=== PATIENT | female | born 1960 | race Caucasian/White ===

== ENCOUNTER → 2018-01-21 12:52 | Outpatient (CLI) | payer OTHER, SELFPAY ==
--- NOTE | 2018-01-21 12:54 | HPBI_ITS ---
MAMMOGRAPHY - BILATERAL SCREENING REASON FOR EXAM: Female, 57 years old. Routine annual screening examination. PERTINENT HISTORY: Mother with breast cancer. Aunt with breast cancer. TECHNIQUE: Digital bilateral breast giovany (3D mammographic acquisition) in the CC and MLO projections. 2-D mediolateral oblique (MLO) and craniocaudad (CC) views of both breasts were obtained. CAD: Full Field Digital Mammography with Computer Added Detection was performed. COMPARISON: Comparison is made with prior study dated December 04, 2016 and November 07, 2015. FINDINGS: Breast Composition: The breasts are heterogeneously dense, which may obscure small masses. There are no dominant masses or suspicious calcifications. No other significant abnormalities are identified. There has been no significant change since the prior study. HPBI/SCREENING MAMM (CAD), BILAT IMPRESSION: Stable bilateral screening mammogram. Yearly follow-up mammogram recommended. (A) ASSESSMENT CATEGORY: BIRADS Category 1: Negative. A letter regarding these results will be sent to the patient by the facility within 30 days. Approximately 10% of breast cancers are not detected by mammography. A normal mammogram should not delay biopsy of a clinically suspicious abnormality. [id number] Electronically Signed: Trey Patricia MD at 15:32 EDT Tel [phone], Service support ,
[2018-01-28 11:59] LABS: HPV Reflexed? NOT INDICATED
== END ==
LOC: BI 12:53 → LABSPEC 13:30
PROVIDERS: Visit Provider Obstetrics & Gynecology
DX: Z12.31 Encounter for screening mammogram for malignant neoplasm of breast (principal); Z12.4 Encounter for screening for malignant neoplasm of cervix
CPT/HCPCS: 77063; 77067; 88175; G0145

== ENCOUNTER → 2018-02-03 16:12 | Outpatient (CLI) | payer SELFPAY ==
--- NOTE | 2018-02-03 16:14 | MRI_ITS ---
STUDY: MRI LUMBAR SPINE WITHOUT CONTRAST REASON FOR EXAM: Female, 57 years old. Low back pain and right hip pain. TECHNIQUE: Standardized fat and water weighted pulse sequences were obtained in the sagittal and axial planes. COMPARISON: X-ray L-spine 01/12/2018. FINDINGS: T12-L1: Normal endplates. Normal disc height, hydration and morphology. Normal bilateral facet joints. Normal central canal and bilateral lateral recesses. Normal bilateral intervertebral neural foramina. Normal lumbar lordosis. There is no substantial scoliosis. Normal conus medullaris that terminates at the T12 level. L1-2: Normal endplates. Normal disc height, hydration and morphology. Normal bilateral facet joints. Normal central canal and bilateral lateral recesses. Normal bilateral intervertebral neural foramina. L2-3: Minimal spondylosis.. Normal disc height, hydration and morphology. Normal bilateral facet joints. Normal central canal and bilateral lateral recesses. Normal bilateral intervertebral neural foramina. L3-4: Mild spondylosis.. Normal disc height, hydration and morphology. Mild degenerative changes bilateral facet joints. Normal central canal and bilateral lateral recesses. Normal bilateral intervertebral neural foramina. L4-5: Normal endplates. Normal disc height, hydration and morphology. Mild degenerative changes bilateral facet joints. Normal central canal and bilateral lateral recesses. Normal bilateral intervertebral neural foramina. L5-S1: Normal endplates. Normal disc height, hydration and morphology. Mild degenerative changes bilateral facet joints. Normal central canal and bilateral lateral recesses. Normal bilateral intervertebral neural foramina. Normal visualized sacral ala. Normal visualized paraspinous soft tissue structures. MRI/Spine Lumbar (Routine) IMPRESSION: Mild multilevel degenerative changes. No neurologically significant abnormalities are demonstrated. Electronically Signed: Tio Nassar MD at 2:37 EDT , Service support ,
--- NOTE | 2018-02-03 16:14 | MRI_ITS ---
STUDY: MRI RIGHT HIP REASON FOR EXAM: Right hip and low back pain. TECHNIQUE: Standardized fat and water weighted pulse sequences were obtained in all 3 orthogonal planes. COMPARISON: None. FINDINGS: Normal hip joint without articular joint space narrowing. Normal acetabulum. There is a small tear of the right anterosuperior labrum (proton-density sagittal images 15, 16). Normal femoral head. Normal femoral neck and intratrochanteric region. Normal gluteus minimus, medius and iliopsoas tendons and distal insertions. There is mild bilateral greater trochanteric bursitis (inversion recovery axial images 24, 25). Normal superior and inferior pubic rami. Normal pubic symphysis. Normal ischial tuberosity. Normal origin of the hamstring tendons. Normal visualized iliac wing, sacroiliac joint, and sacral ala. There is mild asymmetry of the piriformis, larger on the right (T1 coronal images 7-10; inversion recovery axial images 15, 16). There is no intramuscular edema. MRI/Lower Ext Joint Only (Routine) IMPRESSION: Small tear of the right anterosuperior labrum. Mild bilateral greater trochanteric bursitis. Mild hypertrophy of the right piriformis muscle. Electronically Signed: Henrik Moore MD at 10:28 EDT Tel , Service support ,
== END ==
PROVIDERS: Family Provider Internal Medicine; PCP Internal Medicine; Visit Provider Chiropractor
DX: G57.01 Lesion of sciatic nerve, right lower limb (principal); M99.03 Segmental and somatic dysfunction of lumbar region
CPT/HCPCS: 72148; 73721

== ENCOUNTER → 2018-02-24 10:12 | Outpatient (CLI) | payer OTHER, SELFPAY ==
--- NOTE | 2018-02-24 10:13 | RAD_ITS ---
STUDY: X-RAY - PELVIS AND RIGHT HIP REASON FOR EXAM: Right hip pain. TECHNIQUE: Radiological exam, hip, unilateral, with pelvis when performed; 2 or 3 views. COMPARISON: None. FINDINGS: Normal visualized soft tissue structures. Normal bilateral iliac wings, sacroiliac joints and visualized sacrum. Normal bilateral superior and inferior pubic rami. Normal pubic symphysis. Normal bilateral ischial tuberosities. Normal visualized femoral head. Normal acetabulum. Normal hip joint. RAD/Hip 2-3 Views with Pelvis IMPRESSION: Normal x-ray examination of the pelvis and right hip. Electronically Signed: Henrik Moore MD at 10:47 EDT Tel , Service support ,
== END ==
PROVIDERS: Family Provider Internal Medicine; PCP Internal Medicine; Visit Provider Orthopaedic Surgery
DX: M25.551 Pain in right hip (principal)
CPT/HCPCS: 73502

== ENCOUNTER 2018-03-31 09:30 | Outpatient (RCR) | payer OTHER, SELFPAY ==
--- NOTE | 2018-02-25 13:30 | HP.PTEVAL ---
Patient's Visit Information ARASH SINGH is a 58 year old F referred to Physical Therapy by Sunshine Jordan DO with a diagnosis of RIGHT GREATER TROCH BURSITIS, PIRIFORMIS SYNDROME. Date of Evaluation: 02/25/18 Physical Therapist: Angelica Barron Visit Plan Frequency: 2-3x /Week Duration: 4-6 Weeks Plan: US TO LOW BACK AND RIGHT GREATER TROCH REGIONS, FOAM ROLLER, POSTURE CORRECTION/STRENGTHENING, INSTRUCTION IN APPROPRIATE BODY MECHANICS AND ACTIVITY MODIFICATIONS. DLS STARTING WITH A NEUTRAL SPINE PROGRESSING ROM TOLERATED. TOBI LE ROM, STRETCHING AND STRENGTHENING. HEP INSTRUCTION. - Subjective Subjective: Diagnosis: Work/Leisure: [employer] WORKING ABOUT 16 HOURS A WEEK. CAN INVOLVE SOME LIFTING. Disability: NO. Present symptoms: RIGHT GREATER TROCH REGION AND RIGHT BUTTOCK. RIGHT LOW BACK PAIN. Present since: ABOUT 18 MONTHS AGO. Pain Scale: WORST 8/10, LEAST 1/10. Currently: /10. UNCHANGING. Commenced as a result of: STEPPING DOWN OFF OF A STEP LATER AND FELT A PULL DOWN THE SIDE OF HER HIP. Symptoms at onset: RIGHT LATERAL HIP. Worse: *SITTING, SUPINE AND RIGHT SDLY - LYING DOWN, STEPS, SOMETIMES WALING, WORKING OUT - EVEN SWIMMING. Better: IBUPROFEN, LEFT SDLY. Disturbed sleep: YES. Previous history/Previous treatment: I'VE ALWAYS GONE TO CHIROPRACTORS ON A REGULAR BASIS BECAUSE I FELT LIKE MY BACK WAS OUT AND I NEEDED AN ADJUSTMENT. NO HIP PROBLEMS PRIOR TO 18 MONTHS AGO. NO BACK SURGERY. NO BACK INJECTIONS. NO BACK PT. Coughing/sneezing/straining: NEGATIVE. Gait: DIFFICULT TO INITIATE GAIT AFTER SITTING AND WOBBLE AT FIRST TRYING TO WALK. ONCE GAIT SMOOTHS OUT IT IS NORMAL. Difficulty initiating urinatin: NO. Accidents: NO. Unexplained weight loss: NO. Imaging: RECENT LOW BACK X-RAYS - NORMAL, RIGHT HIP X-RAY - NORMAL. RIGHT HIP MRI SHOWING GREATER TROCH BURSITIS AND SMALL TEAR IN LABRUM AND HYPERTROPHY OF THE PIRIFORMIS ON RIGHT. MRI OF LUMBAR SPINE SHOWING MILD FACET CHANGES L5S1. SEE [facility] EMR FOR FURTHER DETAILS. PMH: NO EXCEPT RIGHT ELBOW TENDONITIS. Recent major surgery: NO. OTHER: NO SURGERY RECOMMENDED. - Objective Sitting Posture: POOR. Standing Posture: FAIR. Lordosis: MILDLY REDUCED. Lateral shift: NO. Relevant shift: N/A. Other Observations: INDEP GAIT WITHOUT AD OR GROSS DEVIATIONS NOTED. INDEP TRANSFERS WITHOUT UE ASSIST. Motor deficit: TOBI LE STRENGTH 5/5 WITH MMT'ING EXCEPT LEFT HIP 4/5 AND RIGHT HIP 4-/5. Sensory deficit: TOBI LE LIGHT TOUCH SENSATION IS INTACT AND SYMMETRICAL. ROM deficit: TOBI LE ROM WFL EXCEPT RIGHT HIP EXTERNAL ROTATION IS APPROXIMATELY 25% LIMITED. Reflexes: TOBI LE DTR'S 1/3. Dural Signs: NEGATIVE. Lumbar mvmt loss: flex - MIN. ext - MOD. R SG - MOD. L SG - MIN. Core strength: POOR. Palpation: RIGHT GREATER TROCH REGION AND L45S1 REGIONS. SHE IS MILDLY TENDER IIN THE RIGHT PIRIFORMIS REGION. OTHER: POSITIVE RIGHT RONNELL TEST. - Goals Goal 1:: DECREASE C/O RIGHT LOW BACK/HIP REGION PAIN Goal Time Frame: 4-6 Weeks Goal 2:: IMPROVE SITTING, LYING, SLEEP, STEP, GAIT INITIATION AND RECREATIONAL/INDEP EXERCISE FUNCTION Goal Time Frame: 4-6 Weeks Goal 3:: INSTRUCT IN PROPHYLAXIS. Goal Time Frame: 4-6 Weeks - Rehabilitation Potential Rehabilitation Potential: Fair - Anticipated Interventions Patient/Client Instruction: Educate patient on: Condition, Plan of Care, Risk Factors, Benefits of Fitness Program For the Purpose of:: To improve self management Therapeutic Exercise to Include: Strength training, Body mechanics, Postural training, Dynamic Lumbar Stabilization For the Purpose of:: To decrease pain, To improve muscle performance and motor function, To increase tolerance to activity/condition/position, To improve ability of physical actions for home/community/work/leisure, To improve gait and locomotor functions Thank you for the opportunity to evaluate your patient. For Medicare and Medicare HMO plans, please review the plan of care and approve it. It will need to be FAXED BACK to us at [phone] for Medicare purposes. Please let me know if there are questions or concerns regarding this plan of care. Physician Signature: Date:
--- NOTE | 2018-03-31 12:43 | HP.PTDCSUM_ITS ---
HP - PT D/C Summary It has been my pleasure to treat ARASH SINGH under orders from Sunsihne Jordan DO, for the diagnosis of RIGHT GREATER TROCH BURSITIS, PIRIFORMIS SYNDROME for a total of 13 visit(s). Discharge Date: Please see the following information for a summary of their discharge status. - Subjective Subjective: PATIENT REPORTS SHE HAS LEARNED MORE EX'S AND FOAM ROLLER AND FEELS BETTER AFTER PT EX SESSIONS BUT SHE IS NOT CONTINUING TO IMPROVE OVER-ALL. PATIENT REPORTS SHE HAS TRIED TO START ADDING IN MORE NORMAL ROUTINE THINGS BUT IT AGGREVATES HER CONDITIONS. PATIENT REPORTS SHE HAS CONTINUED REP EIL AND SHE THINKS IT HELPS. SHE THINKS THAT DOING SOME PLANTING, PULLING SOME WEEDS, HELPING MOVE GRILL AND THINGS LIKE THAT OVER THE WEEKEND AGGREVATED HER BACK. - Pain LOW BACK Pain Intensity (Out of 10): 4 RIGHT LATERAL HIP Pain Intensity (Out of 10): 1 - Overall Improvement % Improvement: 25 - Objective Objective/Function: PATIENT IS NOT CONTINUING TO IMPROVE. UPON EXAM, THERE ARE NO SIGNIFICANT CHANGES SINCE INITIAL EVAL. SHE IS INDEP WITH A HEP AND THIS THERAPIST RECOMMENDS PHYSICIAN FOLLOW UP AND CONTINUED HEP TOLERATED. NO SIGNIFICANT CHANGE IN THE LOWER EXTREMITY FUNCTIONAL SCALE WITH ONE MONTH OF PT. - Goals Goal 1:: DECREASE C/O RIGHT LOW BACK/HIP REGION PAIN Goal 2:: IMPROVE SITTING, LYING, SLEEP, STEP, GAIT INITIATION AND RECREATIONAL/ INDEP EXERCISE FUNCTION Goal 3:: INSTRUCT IN PROPHYLAXIS. - Plan Plan: D/C DUE TO LACK OF PROGRESS. PATIENT AGREEABLE TO PHYSICIAN FOLLOW UP AND HAS APPOINTMENT PENDING 04/07/18. - D/C Information If there are questions or concerns regarding this patient's physical therapy, please feel free to call me at [phone]. Thank you for the referral of this patient. Sincerely, Angelica Robertson
== END 2018-03-31 14:12 | disposition home or self-care (01) ==
LOC: PT 09:30
PROVIDERS: Family Provider Internal Medicine; PCP Internal Medicine; Visit Provider Orthopaedic Surgery
DX: M70.61 Trochanteric bursitis, right hip (principal); G57.00 Lesion of sciatic nerve, unspecified lower limb
CPT/HCPCS: 97035; 97110; 97161; 97530

== ENCOUNTER 2018-08-18 13:00 | Outpatient (RCR) | payer OTHER, SELFPAY | END 2018-08-18 19:00 | disposition home or self-care (01) | LOC: PT 13:00 | PROVIDERS: Family Provider Internal Medicine; PCP Internal Medicine | DX: R69 Illness, unspecified (principal) ==

== ENCOUNTER → 2018-10-08 06:02 | Outpatient (CLI) | payer OTHER, SELFPAY ==
[2018-07-28 13:20] VITALS: BMI 29.0
[2018-10-08 06:13] LABS: Mucous, Urine 0 SEEN /hpf (<or=2+); Red Blood Cells-Urine 0 SEEN /hpf (0-5)
[2018-10-08 07:15] LABS: Absolute Lymphocyte Count 2.49 X10^3/ul (0.83-4.51); Basophil# 0.04 X10^3/uL; Basophil% 0.6 % (0-1); Eosinophil# 0.13 X10^3/uL; Eosinophils% 2.1 % (0-5); Hemoglobin 13.7 g/dl (12.0-15.0); Lymphocyte # 2.49 X10^3/ul (4.0); Lymphocyte % 40.3 % (19-41); Mean Corp Hgb Conc 32.6 g/gl (32-36); Mean Corpuscular Hgb 32.5 pg (27.0-32.0); Mean Corpuscular Volume 99.5 fL (81-99); Mean Platelet Vol. 10.9 fl (6.2-12.0); Monocyte# 0.52 X10^3/uL; Monocyte% 8.4 % (0-10); Neutrophil # 2.99 X10^3/uL (2.7-7.7); Neutrophil % 48.4 % (47-70); Platelet Count 349 K/mm3 (150-450); Red Blood Count 4.22 M/mm3 (4.2-5.4); White Blood Count 6.2 K/mm3 (4.4-11.0)
[2018-10-08 07:17] LABS: POSITIVE COUNT NO; POSITIVE DIFFERENTIAL NO; POSITIVE MORPHOLOGY NO
[2018-10-08 07:49] LABS: Color, Urine Yellow (Yellow); Glucose, Dipstick Normal (Normal); Ketone-Dipstick Negative (Negative); Leukocyte Esterase-Dipstick 100 /ul (Negative); Nitrite-Dipstick Negative (Negative); Occult Blood-Urine Negative /ul (Negative); Protein-Dipstick 15 mg/dl (Negative); Urine Bilirubin Dipstick Negative (Negative); Urine Clarity Cloudy (Clear); Urine Urobilinogen Normal (Normal)
[2018-10-08 08:00] LABS: Bacteria 2+ /hpf (None Seen); Squamous Epithelial Cells - UA 5-10 SEEN /hpf (5-10); White Blood Cells 5-10 SEEN /hpf (0-5)
[2018-10-08 08:01] LABS: Yeast-Urine RARE /hpf (None Seen)
[2018-10-08 08:15] LABS: ALB/GLOB Ratio 0.9 RATIO (0.9-2.4); AST(SGOT) 16 U/L (15-37); Alanine Aminotransfer ALT/SGPT 21 U/L (13-56); Albumin, Serum 3.7 g/dL (3.2-5.0); Alkaline Phosphatase 58 U/L (45-117); Anion Gap 5 (5-15); BUN 19 mg/dL (7-18); BUN/Creat Ratio 19.1 RATIO (10-20); Calcium,Total 8.2 mg/dL (8.5-10.1); Chloride 106 mmol/L (98-107); Cholesterol 204 mg/dL (200); EST Glomerular Filtration Rate 61 mL/min (>60); Est Glom Filt Rate - Afr Amer 74 mL/min (>60); Globulin 3.9 g/dL (2.2-4.2); Glucose 95 mg/dL (74-106); High Density Lipoprotein 47 mg/dL; Potassium 3.9 mmol/L (3.5-5.1); Protein, Total 7.6 g/dL (6.4-8.2); Sodium Level 140 mmol/L (136-145); Thyroid Stim Hormone (TSH) 2.43 uIU/mL (0.358-3.74); Triglycerides 92 mg/dL; Very Low Density Lipoprotein 18 mg/dL (5-40)
[2018-10-08 08:59] LABS: Vitamin B12 675 pg/mL (211-911); Vitamin D,25 Hydroxy 32.4 ng/mL (29.95-100.01)
== END ==
PROVIDERS: Family Provider Internal Medicine; PCP Internal Medicine; Referring Provider Nurse Practitioner; Visit Provider Nurse Practitioner
DX: E78.5 Hyperlipidemia, unspecified (principal); E04.9 Nontoxic goiter, unspecified; E55.9 Vitamin D deficiency, unspecified
CPT/HCPCS: 36415; 80053; 80061; 81001; 82306; 82607; 82746; 84443; 85025

== ENCOUNTER → 2018-10-13 12:13 | Outpatient (CLI) | payer OTHER, SELFPAY ==
--- NOTE | 2018-10-13 12:17 | US_ITS ---
STUDY: THYROID ULTRASOUND REASON FOR EXAM: Female, 58 years old. Nodule. TECHNIQUE: Ultrasound evaluation of the thyroid was performed with real-time and static pruitt-scale imaging. COMPARISON: 04/17/2015 and 12/29/2013. FINDINGS: RIGHT LOBE: The right lobe of the thyroid gland measures 4.9 x 1.5 x 1.2 cm. There is a homogeneous echotexture. Lower pole solid nodule measuring 0.3 x 0.3 x 0.3 cm. LEFT LOBE: The left lobe of the thyroid gland measures 4.3 x 1.3 x 1.0 cm. There is a homogeneous echotexture. Lower pole solid nodule measuring 0.6 x 0.5 x 0.3 cm ISTHMUS: The isthmus measures 2 mm. Isthmic nodule right parasagittal measuring 0.5 x 0.5 x 0.3 cm. . The regional lymph nodes are normal. US/Thyroid IMPRESSION: Mild enlargement right lobe of the thyroid gland unchanged. No significant change in solid subcentimeter thyroid nodules. Electronically Signed: Samy Ferreira MD at 3:34 EST , Service support ,
--- NOTE | 2018-10-13 13:20 | BD_ITS ---
STUDY: DUAL ENERGY X-RAY ABSORPTIOMETRY / DXA REASON FOR EXAM: Female, 58 years old. The patient is postmenopausal. TECHNIQUE: Bone Mineral Density (BMD) measurements of lumbar spine and bilateral hips were obtained. COMPARISON: None. FINDINGS: Lumbar Spine (L1-L4): g/cm2 (0.990) / T-score (-1.6) / Z-score (-0.6) Findings are suggestive of osteopenia with a moderate fracture risk. Left Femur Total: g/cm2 (0.956) / T-score (-0.4) / Z-score (0.4) Left Femoral Neck: g/cm2 (0.934) / T-score (-0.7) / Z-score (0.4) Right Femur Total: g/cm2 (0.990) / T-score (-0.1) / Z-score (0.6) Right Femoral Neck: g/cm2 (0.972) / T-score (-0.5) / Z-score (0.7) BD/Dexa Bone Density Study IMPRESSION: The patient is considered osteopenic as outlined below according to World Jay Organization (WHO) criteria with a moderate fracture risk. Reference Information: The T-score is the number of standard deviations above or below the standard which is normal for young adults at their peak bone mineral density. The World Health Organization (WHO) interprets the T-scores as follows: Above -1 Normal bone density Between -1 and -2.5 Osteopenia Equal to / or below -2.5 Osteoporosis As a practical clinical guideline, osteopenia may be graded as follows: Mild -1 through -1.5 Moderate -1.6 through -2.0 Severe -2.1 through -2.4 The Z-score is the number of standard deviations above or below age-matched controls. A Z-score of less than -1.5 would be considered abnormal. References: 1. NIH Osteoporosis and Related Bone Diseases http://www.osteo.org 2. International Society for Clinical Densitometry http://www.iscd.org 3. National Osteoporosis Foundation http://www.nof.org Electronically Signed: Trey Patricia MD at 9:29 EST Tel [phone], Service support ,
--- OUTSIDE RECORDS SUMMARY | 2018-11-29 14:26 | XMS RPT_ITS ---
:1960 Author Organization OHIP Support Name Relationship Address Phone ERINN SINGH Unavailable [address] + [place] [address] [facility] Unavailable [address] + [place] [address] ERINN SINGH Unavailable [address] + [place] [address] [facility] Unavailable [address] + [place] [address] ERINN SINGH Unavailable [address] + [place] [address] [facility] Unavailable [address] + [place] [address] ERINN SINGH Unavailable [address] + [place] [address] [facility] Unavailable [address] + [place] [address] ERINN SINGH Unavailable [address] + [place] [address] [facility] Unavailable [address] + [place] [address] ERINN SINGH Unavailable [address] + [place] [address] [facility] Unavailable [address] + [place] [address] ERINN SINGH Unavailable [address] + [place] [address] [facility] Unavailable [address] + [place] [address] ERINN SINGH Unavailable [address] + [place] [address] [facility] Unavailable [address] + [place] [address] ERINN SINGH Unavailable [address] + [place] [address] [facility] Unavailable [address] + [place] [address] ERINN SINGH Unavailable [address] + [place] [address] [facility] Unavailable [address] + [place] [address] ERINN SINGH Unavailable [address] + [place] [address] [facility] Unavailable [address] + [place] [address] ERINN SINGH Unavailable [address] + [place] [address] [facility] Unavailable [address] + [place] [address] ERINN SINGH Unavailable [address] + [place] [address] [facility] Unavailable [address] + [place] [address] ERINN SINGH Unavailable [address] + [place] [address] [facility] Unavailable [address] + [place] [address] ERINN SINGH Unavailable [address] + [place] [address] [facility] Unavailable [address] + [place] [address] ERINN SINGH Unavailable [address] + [place] [address] [facility] Unavailable [address] + [place] [address] ERINN SINGH Unavailable [address] + [place] [address] [facility] Unavailable [address] + [place] [address] ERINN SINGH Unavailable [address] + [place] [address] [facility] Unavailable [address] + [place] [address] SAMANTHA, ERINN Unavailable [address] + [place] [address] [facility] Unavailable [address] + [place] [address] SAMANTHA, ERINN Unavailable [address] + [place] [address] [facility] Unavailable [address] + [place] [address] SAMANTHA ERINN Unavailable [address] + [place] [address] [facility] Unavailable [address] + [place] [address] [facility] Unavailable [address] + [place] [address] [facility] Unavailable [address] + [place] [address] [facility] Unavailable [address] + [place] [address] [facility] Unavailable [address] + [place] [address] Care Team Providers Name Role Phone Shyam [...] Sunshine Attending Unavailable Shyam, Jes Referring Unavailable Syham, Jes Primary Care Unavailable Shyam, Jes Primary [...] Unknown G57.01 - Lesion of Julian, Active [facility] sciatic nerve, Sunshine [facility] right lower limb / Hospital G57.01(ICD-10) Repository 10/08/2018 Unknown E78.5 - Nayeli Vee Active [place] Hyperlipidemia, Community unspecified / Hospital E78.5(ICD-10) Repository 10/08/2018 Unknown E04.9 - Nontoxic CiNayeli fortune Active [facility] goiter, Community unspecified / Hospital E04.9(ICD-10) Repository 10/08/2018 Unknown E55.9 - Vitamin D Nayeli Vee Active [place] deficiency, Community unspecified / Hospital E55.9(ICD-10) Repository 10/08/2018 Unknown Z12.11 - Encounter Nayeli Vee Active [facility] for screening for Community malignant neoplasm Hospital of colon / Repository Z12.11(ICD-10) 09/30/2018 Unknown R69 - Illness, Referred, Self Active [place] unspecified / Community R69(ICD-10) Hospital Repository 08/03/2018 Unknown M99.03 - Segmental Dossie, Shannan Active [place] and somatic D.C. Community dysfunction of Hospital lumbar region / Repository M99.03(ICD-10) 08/03/2018 Unknown M99.02 - Segmental Dossie, Shannan Active [facility] and somatic [facility]. Community dysfunction of Hospital thoracic region / Repository M99.02(ICD-10) 08/03/2018 Unknown M99.01 - Segmental Dossie, Shannan Active [facility] and somatic [facility] Community dysfunction of Hospital cervical region / Repository M99.01(ICD-10) 03/31/2018 Unknown M70.61 - Chicorelli, Active [facility] Trochanteric [facility]shine [facility] bursitis, right Hospital hip / Repository M70.61(ICD-10) 02/24/2018 Unknown M25.551 - Pain in Chicorelli, Active [place] right hip / Sunshine Community M25.551(ICD-10) Hospital Repository 01/28/2018 Unknown Z12.31 - Encounter Sunshine De La Torre Active [place] for screening Community mammogram for Hospital malignant neoplasm Repository of breast / Z12.31(ICD-10) PROCEDURES PROCEDURES No Procedure Records FoundRESULTS RESULTS THYROID Observed: 10/13/2018 Status: F Source: [place] 12:17 PM [facility] HOSPITAL REPOSITORY [facility] Imaging Services [address] [place] [address] Thyroid MR#: [id number] Acct: [id number] Name: TRISTAN SINGH Rep #: [id number] : 1960 F 58 From: Samy Ferreira PCP: Jes Howe DO Status: REG CLI Study: Thyroid Date of Exam: 10/13/18 Exam# [id number] Ordering Dr: Nayeli Vee GLOBAL CLIMATE CHANGE ANALYST-C STUDY: THYROID ULTRASOUND REASON FOR EXAM: Female, [...] CC: Nayeli Vee NP; Jes Howe DO Material Requisitioner: Signed DEXA BONE DENSITY Observed: 10/13/2018 Status: F Source: [place] STUDY 12:17 PM [facility] REPOSITORY [facility] Imaging Services [address] [place] [address] Dexa Bone Density Study MR#: [id number] Acct: [id number] Name: TRISTAN SINGH Rep #: [id number] : 1960 F 58 From: Trey Patricia MD PCP: Jes Howe DO Status: REG CLI Study: Dexa Bone Density Study Date of Exam: 10/13/18 Exam# [id number] Ordering Dr: Nayeli Vee GLOBAL CLIMATE CHANGE ANALYST-C STUDY: DUAL ENERGY X-RAY ABSORPTIOMETRY / DXA [...] Trey Patricia MD at 9:29 EST Tel [phone], Service support , CC: Nayeli Vee NP; Jes Howe DO Material Requisitioner: Signed CBC W/DIFF, AUTOMATED Collected: 10/08/2018 Status: F Source: [place] 6:05 AM [facility] REPOSITORY TYPE CODE TESTS RESULT OUT OF [...] Performed By: #### L100.0100 #### [facility] [address] [place], [place], [id number] URINALYSIS, COMPLETE Collected: 10/08/2018 Status: F Source: [place] 6:05 AM [facility] REPOSITORY Order Comment: How was Urine Obtained? [...] Performed By: #### L400.0001 #### [facility] [address] [place], [address] COMPREHENSIVE METABOLIC Collected: 10/08/2018 Status: F [facility]05 [facility] REPOSITORY Order Comment: Is Patient Taking Vitamins [...] L500.4050, L500.4100, L501.9520, L506.0250 #### [facility] [address] [place], [address] LIPID PROFILE Collected: 10/08/2018 Status: F Source: [place] 6:05 [facility] REPOSITORY Order Comment: Is Patient Taking Vitamins [...] L500.4050, L500.4100, L501.9520, L506.0250 #### [facility] [address] [place], [place], [address] THYROID STIM HORMONE Collected: 10/08/2018 Status: F Source: [place] (TSH) 6:05 [facility] REPOSITORY Order Comment: Is Patient Taking Vitamins or Folic Acid Supplements? N TYPE CODE TESTS RESULT OUT OF RANGE REFERENCE UNITS LAB L501.9520 0.358-3.74 uIU/mL Normal TSH 2.43 Performed By: #### L500.4050, L500.4100, L501.9520, L506.0250 #### [facility] [address] [place], [place], [address] FOLATES, (FOLIC ACID) Collected: 10/08/2018 Status: F Source: [place] 6:05 [facility] REPOSITORY Order Comment: Is Patient Taking Vitamins or Folic Acid Supplements? N TYPE CODE TESTS RESULT OUT OF RANGE REFERENCE UNITS LAB L506.0250 3.1-55.4 ng/mL Normal FOLATES 30.30 Performed By: #### L500.4050, L500.4100, L501.9520, L506.0250 #### [facility] [address] [place], [address] VITAMIN B12 Collected: 10/08/2018 Status: F Source: [place] 6:05 AM [facility] REPOSITORY TYPE CODE TESTS RESULT OUT OF RANGE REFERENCE UNITS LAB L503.0105 211-911 pg/mL Normal Vitamin B12 675 Performed By: #### L503.0105, L506.1000 #### [facility] [address] [place], [address] VITAMIN D,25 HYDROXY Collected: 10/08/2018 Status: F Source: [place] 6:05 AM [facility] REPOSITORY TYPE CODE TESTS RESULT OUT OF RANGE REFERENCE UNITS LAB L506.1000 29.95-100.01 ng/mL Normal Vitamin D 32.4 25-OH Result Comment: Vitamin D 25(OH) Status Range Deficiency <20 ng/mL (50nmol/L) Insuffciency 20 - 30 ng/mL (50 - 75 nmol/L) Sufficiency 30 - 100 ng/mL (75 - 250 nmol/L) Toxicity >100 ng/mL (>250 nmol/L) Performed By: #### L503.0105, L506.1000 #### [facility] [address] [place], [address] ORTHOPEDIC VISIT Observed: 09/29/2018 Status: F Source: [place] REPORT 11:07 AM [facility] REPOSITORY [facility] Orthopaedics AND Sports Medicine [address] [place] [address] [address] [place] [address] OFFICE VISIT Date of Service: 09/22/18 MR#: [id number] Acct: [id number] Name: TRISTAN SINGH Rep #: [id number] : 1960 Provider: Sunshine Jordan DO Age/Sex: 58/F [place] [facility] Status: Signed Intake Intake Visit Reasons: RIGHT [...] Route Admin Location Lot Number Expiration DateNDC Network Associate 20 mg Intra-Articularright PSIS [id number] 10/03/19 4066-1882-31 [employer] Assessment AND Plan 1. Piriformis syndrome of [...] her pain. This note was generated with Spritz dictation software. It may contain incorrect words, [...] Orders Orders: Medications Discontinued: Kenalog (triamcinolone acetonide) [id number] mg (0.5 mL) Intra-Articular ONCE 0.5 mL [...] 07/28/2018 Status: F Source: [place] 1:34 PM [facility] Chiropractic [address] [place] [address] OFFICE VISIT Date of Service: 07/28/18 MR#: [id number] Acct: [id number] Name: TRISTAN SINGH Rep #: [id number] : 1960 Provider: Shannan Gan D.C. Age/Sex: 58/F Location: [facility] Status: Signed Intake Vital Signs07/28/18 Height 5 [...] Additional Codes Procedures - Manipulation: 3-4 regions (88852) 07/28/18 1334 <Electronically signed by Shannan Gan D.C.> Date Shannan Gan D.C. Cosigner Signature: Date (if applicable) CC: PT D/C SUMMARY (1) Observed: 03/31/2018 Status: F Source: [place] 12:43 PM [facility] REPOSITORY [facility] [address] [place] [address] Fax REHABILITATION SERVICES DISCHARGE SUMMARY MR#: [id number] Acct: [id number] Name: TRISTAN SINGH Rep #: [id number] : 1960 58 From: Angelica Robertson PT, Cert. MDT Referring Dr.: Sunshine Jordan DO Status: REG RCR Insurance: [employer] SELF PAY INSURANCE HP - PT D/C [...] please feel free to call me at [phone]. Thank you for the referral of this patient. Sincerely, Angelica Robertson <Electronically signed by Angelica Robertson PT, Cert. UMAÑAT> 03/31/18 1243 CC: Sunshine Jordan DO; Jes Howe DO YUDY Signed INITAL EVALUATION (1) Observed: 02/25/2018 Status: F Source: [place] - PT 1:30 PM [facility] REPOSITORY [facility] [address] [place] [address] Fax REHABILITATION SERVICES INITIAL EVALUATION MR#: [id number] Acct: [id number] Name: TRISTAN SINGH Rep #: [id number] : 1960 58 From: Cert. LEEROY Salvador PTT Referring Dr.: Sunshine Jordan DO Status: REG RCR Insurance: [employer] SELF PAY INSURANCE Patient's Visit Information TRISTAN [...] WITH A NEUTRAL SPINE PROGRESSING ROM TOLERATED. TOIB LE ROM, STRETCHING AND STRENGTHENING. HEP INSTRUCTION. 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 CAN [...] SPINE SHOWING MILD FACET CHANGES L5S1. SEE [facility] EMR FOR FURTHER DETAILS. PMH: NO EXCEPT [...] to be FAXED BACK to us at [phone] for Medicare purposes. Please let me know if there are questions or concerns regarding this plan of care. Physician Signature: Date: <Electronically signed by Angelica Robertson PT, Cert. MDT> 02/25/18 1490 CC: Sunshine Howe DO YUDY Signed For Medicare only, by signing this I certify the plan of care. Physicians Signature Date ORTHOPEDIC VISIT Observed: 02/24/2018 Status: F Source: [place] REPORT 3:32 PM [facility] REPOSITORY [facility] Orthopaedics AND Sports Medicine [address] [place] [address] OFFICE VISIT Date of Service: 02/24/18 MR#: [id number] Acct: [id number] Name: SAMANTHATRISTAN WHITMAN Rep #: [id number] : 1960 Provider: Sunshine Jordan DO Age/Sex: [...] Status: F Source: [place] PELVIS 10:13 AM [facility] REPOSITORY [facility] Imaging Services [address] [place] [address] Hip 2-3 Views with Pelvis MR#: [id number] Acct: [id number] Name: TRISTAN SINGH Rep #: [id number] : 1960 F 58 From: Henrik Moore MD PCP: Jes Howe DO Status: REG CLI Study: Hip 2-3 Views with Pelvis Date of Exam: 02/24/18 Exam# [id number] Ordering Dr: Sunshine Jordan DO STUDY: X-RAY [...] CC: Sunshine Jordan DO; Jes Howe DO Material Requisitioner: Signed CHIROPRACTIC REPORT Observed: 02/16/2018 Status: F Source: [place] 9:23 AM [facility] REPOSITORY [facility] Chiropractic [address] [place] [address] OFFICE VISIT Date of Service: 02/11/18 MR#: [id number] Acct: [id number] Name: TRISTAN SINGH Rep #: [id number] : 1960 Provider: Shannan Gan D.C. Age/Sex: 58/F Location[place] [facility] Status: Signed Intake Vital Signs02/11/18 Height 5 [...] Additional Codes Procedures - Manipulation: 3-4 regions (08355) 02/16/18 0923 <Electronically signed by Shannan Gan D.C.> Date Shannan Gan D.C. Cosigner Signature: Date (if applicable) CC: CHIROPRACTIC REPORT Observed: 02/10/2018 Status: F Source: [place] 9:09 AM [facility] [place] [address] OFFICE VISIT Date of Service: 01/19/18 MR#: [id number] Acct: [id number] Name: TRISTAN SINGH Rep #: [id number] : 1960 Provider: Shannan Gan D.C. Age/Sex: 57/F Location: [facility] Status: Signed Intake Vital Signs01/19/18 Height 5 [...] Codes Procedures - Electrical Stimulation: 15 mins (63157) Procedures - Traction, Mechanical: Yes (20915) Procedures - Manipulation: 3-4 regions (22578) 02/10/18 0909 <Electronically signed by Shannan Gan D.C.> Date Shannan Gan D.C. Cosigner Signature: Date (if applicable) CC: LOWER EXT JOINT ONLY Observed: 02/03/2018 Status: F Source: [place] (ROUTINE) 4:14 PM [facility] REPOSITORY [facility] Imaging Services [address] [place] [address] Lower Ext Joint Only (Routine) MR#: [id number] Acct: [id number] Name: TRISTAN SINGH Rep #: [id number] : 1960 F 57 From: Henrik Moore MD PCP: Jes Howe DO Status: REG CLI Study: Lower Ext Joint Only (Routine) Date of Exam: 02/03/18 Exam# [id number] Ordering Dr: Shannan Gan D.C. STUDY: MRI [...] CC: Jes Howe DO; Shannan Gan D.C. Material Requisitioner: Signed SPINE LUMBAR Observed: 02/03/2018 Status: F Source: [place] (ROUTINE) 4:14 PM [facility] REPOSITORY [facility] Imaging Services [address] [place] [address] Spine Lumbar (Routine) MR#: [id number] Acct: [id number] Name: TRISTAN SINGH Rep #: [id number] : 1960 F 57 From: Tio Nassar MD PCP: Jes Howe DO Status: REG CLI Study: Spine Lumbar (Routine) Date of Exam: 02/03/18 Exam# [id number] Ordering Dr: Shannan Gan D.C. STUDY: MRI [...] CC: Jes Howe DO; Shannan Gan D.C. Material Requisitioner: Signed CHIROPRACTIC REPORT Observed: 02/02/2018 Status: F Source: [place] 8:31 AM [facility] Chiropractic [address] [place] [address] OFFICE VISIT Date of Service: 01/27/18 MR#: [id number] Acct: [id number] Name: TRISTAN SINGH Rep #: [id number] : 1960 Provider: Shannan aGn D.C. Age/Sex: 57/F Location: [facility] Status: Signed Intake Vital Signs01/27/18 Height 5 [...] cap PO QAM 12/17/17 [History Confirmed 12/17/17] [facility] Medical History Endometriosis (Acute) left ovary [...] Codes Procedures - Electrical Stimulation: 15 mins (51043) Procedures - Traction, Mechanical: Yes (62773) Procedures - Manipulation: 3-4 regions (78865) 02/02/18 0831 <Electronically signed by Shannan Gan D.C.> Date Shannan Gan D.C. Cosigner Signature: Date (if applicable) CC: SCREENING MAMM (CAD), Observed: 01/21/2018 Status: F Source: [facility] 12:54 PM [facility] REPOSITORY [facility] Imaging Services [address] [place] [address] SCREENING MAMM (CAD), BIL MR#: [id number] Acct: [id number] Name: TRISTAN SINGH Rep #: [id number] : 1960 F 57 From: Trey Patricia MD PCP: Status: [facility] Study: SCREENING MAMM (CAD), BIL Date of Exam: 01/21/18 Exam# [id number] Ordering Dr: Sunshine De La Torre MD [...] delay biopsy of a clinically suspicious abnormality. [id number] Electronically Signed: Trey Patricia MD at 15:32 EDT Tel [phone], Service support , CC: Sunshine De La Torre MD Material Requisitioner: Signed PAP I-G W/RFX HRHPV Collected: 01/21/2018 Status: F Source: [place] 11:00 AM [facility] REPOSITORY Order Comment: CYTOLOGY INFORMATION: - CLINICAL INFORMATION: - DATE LMP/MENOPAUSE: MENOPAUSE - COLLECTION VIAL: Thin Prep Vial - WIRE INSULATOR SOURCE: CERVICAL/ENDOCERVICAL - COLLECTION TECHNIQUE: BRUSH/SPATULA Specimen Comment: [id number] Specimen Comment: No. of containers..01 ThinPrep Vial TYPE CODE TESTS RESULT OUT OF RANGE REFERENCE UNITS LAB L7400.0800 . Normal DIAGN Comment Result Comment: NEGATIVE FOR INTRAEPITHELIAL LESION AND MALIGNANCY. LAB L7400.0900 . Normal ADEQ Comment Result Comment: Satisfactory for evaluation. Endocervical and/or squamous metaplastic cells (endocervical component) are present. LAB L7400.1400 . Normal PERFORM Comment Result Comment: Genevieve Diamond, Veterans Service Representative (ASCP) LAB L7400.2575 . Normal TEST METHOD [...] HPV testing was performed. Performed at: - [facility] [id number] Stain Remover: Jen Diggs MD, Phone: [phone] Performed By: #### L7400.0350 #### [facility] (refer to report for specific site) refer to report for address and phone number CHIROPRACTIC REPORT Observed: 01/19/2018 Status: F Source: [place] 1:22 PM [facility]ropractic [address] [place] [address] OFFICE VISIT Date of Service: 01/15/18 MR#: [id number] Acct: [id number] Name: TRISTAN SINGH Rep #: [id number] : 1960 Provider: Shannan Gan D.C. Age/Sex: 57/F Location: [facility] Status: Signed Intake Vital Signs01/15/18 Height 5 [...] cap PO QAM 12/17/17 [History Confirmed 12/17/17] [facility] Medical History Endometriosis (Acute) left ovary [...] Codes Procedures - Electrical Stimulation: 15 mins (21909) Procedures - Traction, Mechanical: Yes (78583) Procedures - Manipulation: 3-4 regions (97836) 01/19/18 1322 <Electronically signed by Shannan Gan D.C.> Date Shannan Gan D.C. Cosigner Signature: Date (if applicable) CC: CHIROPRACTIC REPORT Observed: 01/13/2018 Status: F Source: [place] 8:43 AM [facility] [address] [place] [address] OFFICE VISIT Date of Service: 01/12/18 MR#: [id number] Acct: [id number] Name: TRISTAN SINGH Rep #: [id number] : 1960 Provider: Shannan Gan D.C. Age/Sex: 57/F Location: [facility] Status: Signed Intake Vital Signs01/12/18 Height 5 [...] cap PO QAM 12/17/17 [History Confirmed 12/17/17] [facility] Medical History Endometriosis (Acute) left ovary [...] Codes Procedures - Electrical Stimulation: 15 mins (60601) Procedures - Traction, Mechanical: Yes (35562) Procedures - Manipulation: 3-4 regions (72250) 01/13/18 0843 <Electronically signed by Shannan Gan D.C.> Date Shannan Gan D.C. Cosigner Signature: Date (if applicable) CC: CHIROPRACTIC REPORT Observed: 01/12/2018 Status: F Source: [place] 8:19 AM [facility] [address] [place] [address] OFFICE VISIT Date of Service: 01/07/18 MR#: [id number] Acct: [id number] Name: SAMANTHATRISTAN WHITMAN Rep #: [id number] : 1960 Provider: Shannan Gan D.C. Age/Sex: 57/F Location: [facility] Status: Signed Intake Vital Signs01/07/18 Height 5 [...] Codes Procedures - Electrical Stimulation: 15 mins (56005) Procedures - Manipulation: 3-4 regions (47874) Procedures - Traction, Mechanical: Yes (62802) 01/12/18 08 <Electronically signed by Shannan Gan D.C.> Date Shannan Gan D.C. Cosigner Signature: Date (if applicable) CC: CHIROPRACTIC REPORT Observed: 01/05/2018 Status: F Source: [place] 2:14 PM [facility] [address] [place] [address] OFFICE VISIT Date of Service: 01/05/18 MR#: [id number] Acct: [id number] Name: TRISTAN SINGH Rep #: [id number] : 1960 Provider: Shannan Gan D.C. Age/Sex: 57/F Location: [facility] Status: Signed Intake Vital Signs01/05/18 Height 5 [...] cap PO QAM 02/14/18 [History Confirmed 12/17/17] [facility] Medical History Endometriosis (Acute) left ovary [...] Codes Procedures - Electrical Stimulation: 15 mins (96015) Procedures - Manipulation: 3-4 regions (30805) Procedures - Traction, Mechanical: Yes (07966) 01/05/18 1414 <Electronically signed by Shannan Gan D.C.> Date Shannan Gan D.C. Cosigner Signature: Date (if applicable) CC: CHIROPRACTIC REPORT Observed: 12/23/2017 Status: F Source: [place] 9:55 AM [facility] [address] [place] [address] OFFICE VISIT Date of Service: 12/22/17 MR#: [id number] Acct: [id number] Name: TRISTAN SINGH Rep #: [id number] : 1960 Provider: Shannan Gan D.C. Age/Sex: 57/F Location: [facility] Status: Signed Intake Vital Signs12/22/17 Height 5 [...] cap PO QAM 12/17/17 [History Confirmed 12/17/17] [facility] Medical History Endometriosis (Acute) left ovary [...] catching ache, while bending and cleaning at [employer] she experienced a sharp grinding pain that [...] Additional Codes Procedures - Manipulation: 3-4 regions (36543) Procedures - Electrical Stimulation: 15 mins (61468) Procedures - Traction, Mechanical: Yes (58433) 12/23/17 0955 <Electronically signed by Shannan Gan D.C.> Date Shannan Gan D.C. Cosigner Signature: Date (if applicable) CC: CHIROPRACTIC REPORT Observed: 12/18/2017 Status: F Source: [place] 12:41 PM [facility] [address] [place] [address] OFFICE VISIT Date of Service: 12/17/17 MR#: [id number] Acct: [id number] Name: SAMANTHATRISTAN Rep #: [id number] : 1960 Provider: Shannan Gan D.C. Age/Sex: 57/F Location: [facility] Status: Signed Intake Vital Signs12/17/17 Height 5 [...] Additional Codes Procedures - Manipulation: 3-4 regions (40611) Procedures - Electrical Stimulation: 15 mins (47528) Procedures - Traction, Mechanical: Yes (24476) 12/18/17 1241 <Electronically signed by Shannan Gan D.C.> Date Shannan Gan D.C. Cosigner Signature: Date (if applicable) CC: ALLERGIES ALLERGIES DATE TYPE / CODE NAME / CODE REACTION SEVERITY SOURCE 09/22/2018 Drug No Known Unknown [facility] Allergy/4160 Allergies/F00 Hospital 12675(SNOMED 9429712(RXNOR Repository CT) M) ENCOUNTERS ENCOUNTERS ADMIT/DISCHARGE ACCOUNT ADMITTING ENCOUNTER LOCATION SOURCE NUMBER CLASS 11/19/2018 [id number] Ambulatory [place] Naw[place] 5 [facility] ing:MASS Repository 10/20/2018 [id number] Ambulatory Anika Anika 5 [facility] ing:PT Repository 10/13/2018 [id number] Ambulatory Building:CIM OHIP Practices Repository 10/13/2018 [id number] Ambulatory [place] 3 [facility] ing:OPUS Repository 10/08/2018 [id number] Ambulatory [place]ika [place] 5 [facility] ing:LAB Repository 09/22/2018/ [id number] Ambulatory BMSBuilding:B [place] 8 6 [place].[facility]ly [facility] Hospital Repository 08/18/2018 [id number] Ambulatory [place] 2 [facility] ing:PT Repository 07/28/2018/ [id number] Ambulatory BMSBuilding:B [place] 8 7 [facility].Critical access hospital Hospital Repository 04/07/2018/ [id number] Ambulatory BMSBuilding:B [place] 8 5 [place].[facility]ly [facility] Hospital Repository 03/31/2018/ [id number] Ambulatory [place] 8 2 [facility] ing:PT Repository 02/24/2018 [id number] Ambulatory [place] 4 [facility] ing:HPRAD Repository 02/24/2018/ [id number] Ambulatory BMSBuilding:B Anika 8 2 MS.[facility]ly [facility] Hospital Repository 02/11/2018/ [id number] Ambulatory BMSBuilding:B Anika 8 4 MS.Critical access hospital Hospital Repository 02/03/2018 [id number] Ambulatory [place] Anika 8 [facility] ing:MRI Repository 01/27/2018/ [id number] Ambulatory BMSBuilding:B Anika 8 3 MS.Critical access hospital Hospital Repository 01/21/2018 [id number] Ambulatory [place] Anika 7 [facility] ing:LABSPEC Repository 01/19/2018/ [id number] Ambulatory BMSBuilding:B [place] 8 6 [facility] Repository 01/15/2018/ [id number] Ambulatory BMSBuilding:B Anika 8 8 MS.[facility] Repository 01/12/2018/ [id number] Ambulatory BMSBuilding:B [place] 8 5 [place].[facility] Repository 01/12/2018 [id number] Ambulatory [place] Anika 3 [facility] ing:HPRAD Repository 01/07/2018/ [id number] Ambulatory BMSBuilding:B Anika 8 5 MS.[facility] Repository 01/05/2018/ [id number] Ambulatory BMSBuilding:B [place] 8 6 [place].[facility] Repository 12/22/2017/ [id number] Ambulatory BMSBuilding:B Anika 8 9 MS.[facility] Repository 12/17/2017/ [id number] Ambulatory BMSBuilding:B [place] 8 3 MS.[facility] Repository PAYERS PAYERS ENCOUNTER GUARANTOR PAYER SUBSCRIBER SOURCE 11/19/2018 ERINN [id number] Primary NOT GIVENUNK [place]ika [place] Insurance:SELF PAY [facility] [address]Fhp: Number: Effective Repository Date:2016-10-01 () 10/20/2018 ERINN [id number] Primary ERINN [place] Insurance:Gerardo KRAFTB: [facility]: [id number] [facility] [address]Sjo: [id number] Repository Date:1671-80-82[address] ) [address], [place] [address]OG: 10/20/2018 Secondary NOT GIVENUNK [place] Insurance:SELF PAY [facility] Number: Effective Repository Date:2018-09-30 10/13/2018 Tristan Somers Primary Erinn SAM RuffinttDOB: Insurance:AucareSharan RuffinttB: Repository icy Number: [id number] [place] [id number] [facility], Date:3615-92-00[place] [address]Smc: Name:[facility] [place] [address]Otq: [address] [place] [address] (HP) [phone]: [phone] 10/13/2018 ERINN THAKKAR Primary ERINNTAYLOR Donaldson [place] Insurance:AULTCAREPol TALBOTTDOB: [facility], icy Number: [id number] Alamos Medical Center [address]Rxi: [id number] Repository Date:9097-22-78UT B[address] () [address] [place] [address]NI: 10/13/2018 Secondary NOT GIVENUNK Anika Insurance:SELF PAY [facility] Number: Effective Repository Date:2018-10-06 10/08/2018 ERINN [id number] Primary ERINNTAYLOR Donaldson [place] Insurance:AULTCAREPol TALBOTTDOB: [facility] icy Number: [id number] [facility] [address]Gne: [id number] Repository Date:5398-19-32EF [address] () [address] [place] [address]GT: 10/08/2018 Secondary NOT GIVENUNK Anika Insurance:SELF PAY [facility] Number: Effective Repository Date:2018-10-08 09/22/2018 ERINN [id number] Primary ERINNTAYLOR Donaldson [place] Insurance:AULTCAREPol TALBOTTDOB: [facility], icy Number: [id number] [facility]amos Medical Center [address]Qcz: [id number] Repository Date:8322-40-50MQ [address] () [address] [address]CA: 09/22/2018 Secondary NOT GIVENUNK [place] Insurance:SELF PAY [facility] Number: Effective Repository Date:2018-09-22 08/18/2018 ERINN THAKKAR Primary ERINN [place] Insurance:AULTCAREPol TALBOTTDOB: [facility] LIy Number: [id number] Alamos Medical Center [address]Xzb: [id number] Repository Date:0978-44-62GB [address] () [address], [place] [address]HI: 08/18/2018 Secondary NOT GIVENUNK [place] Insurance:SELF PAY [facility] Number: Effective Repository Date:2018-06-15 07/28/2018 ERINN SINGH91 Primary ERINN [place] Insurance:AULTCAREPol TALBOTTDOB: [facility] Number: [id number] Alamos Medical Center [address]Jfp: [id number] Repository Date:0417-10-61SH [address] () [address] [address]TO: 07/28/2018 Secondary NOT GIVENUNK [place] Insurance:SELF PAY [facility] Number: Effective Repository Date:2018-07-28 04/07/2018 Erinn Singh91 Primary Erinn [place] Insurance:AULTCAREPol TalbottDOB: [facility] [place] Number: [id number] Alamos Medical Center [address]Kvi: [id number] Repository Date:8186-88-56AN [address] () [address], [place] [address]FS: 04/07/2018 Secondary NOT GIVENUNK Anika Insurance:SELF PAY [facility] Number: Effective Repository Date:2018-04-17 03/31/2018 Erinn Thakkar Primary Erinn [place] Insurance:AULTCAREPol TalbottDOB: [facility] [place] Number: [id number] Alamos Medical Center [address]Tsn: [id number] Repository Date:8817-09-52NC [address] () [address], [place] [address]ZW: 03/31/2018 Secondary NOT GIVENUNK Anika Insurance:SELF PAY [facility] Number: Effective Repository Date:2018-02-24 02/24/2018 Erinn Dejesusbott91 Primary Erinn [place] Insurance:AULTCAREPol TalbottDOB: [facility] y Number: [id number] Alamos Medical Center [address]Evy: [id number] Repository Date:4274-16-95LA [address] () [address], [place] [address]ZI: 02/24/2018 Secondary NOT GIVENUNK Anika Insurance:SELF PAY [facility] Number: Effective Repository Date:2018-02-24 02/24/2018 Erinn Dejesusbott91 Primary Erinn [place] Insurance:AULTCAREPol TalbottDOB: [facility]olisramonedep[facility] Number: [id number] Alamos Medical Center [address]Fbt: [id number] Repository Date:4772-00-45BN [address] () [address] [address]AA: 02/24/2018 Secondary NOT GIVENUNK Anika Insurance:SELF PAY [facility] Number: Effective Repository Date:2018-02-19 02/11/2018 Erinn Dejesusbott91 Primary Erinn [place]onal[place] Insurance:AULTCAREPol TalbottDOB: [facility] Number: [id number] [facility] Center [address]Hkr: [id number] Repository Date:4098-51-09OE [address] () [address], [place] [address]BR: 02/11/2018 Secondary NOT GIVENUNK Anika Insurance:SELF PAY [facility] Number: Effective Repository Date:2018-02-11 02/03/2018 Erinn Ruffintt91 Primary Insurance:[facility] TRISTAN [facility]annon[facility] PACKAGE PLANPolicy TALBOTTDOB: [facility], Number: [id number] Alamos Medical Center [address]Pzg: [id number] Repository Date:2018-01-27 () 02/03/2018 Secondary NOT GIVENUNK Anika Insurance:SELF PAY [facility] Number: Effective Repository Date:2018-01-27 01/27/2018 Erinn Thakkar Primary Erinn [place] Insurance:AULTCAREPol TalbottDOB: [facility]mopolisceleste florentino Number: [id number] Alamos Medical Center [address]Xiw: [id number] Repository Date:9668-65-36CY [address] () [address] [address]VK: 01/27/2018 Secondary NOT GIVENUNK Anika Insurance:SELF PAY [facility] Number: Effective Repository Date:2018-01-27 01/21/2018 Erinn Thakkar Primary Erinn [place] Insurance:AULTCAREPol TalbottDOB: [facility]mopolisramonekettering health prebleshimon [facility] Number: [id number] Alamos Medical Center [address]Zzo: [id number] Repository Date:2152-88-22OO [address] () [address], [place] [address]PS: 01/21/2018 Secondary NOT GIVENUNK [place] Insurance:SELF PAY [facility] Number: Effective Repository Date:2017-12-08 01/19/2018 Erinn Singh91 Primary Erinn [place] Insurance:AULTCAREPol TalbottDOB: [facility]olisandrewshimon [facility] Number: [id number] Alamos Medical Center [address]Dms: [id number] Repository Date:0806-94-98XH [address] () [address], [place] [address]KP: 01/19/2018 Secondary NOT GIVENUNK Ainka Insurance:SELF PAY [facility] Number: Effective Repository Date:2018-02-10 01/15/2018 Erinn Singh91 Primary Erinn [place] Insurance:AULTCAREPol TalbottDOB: [facility]ch[facility], icy Number: [id number] [facility] Center [address]Qix: [id number] Repository Date:3858-65-97RB [address] () [address], [place] [address]RF: 01/15/2018 Secondary NOT GIVENUNK [place] Insurance:SELF PAY [facility] Number: Effective Repository Date:2018-01-12 01/12/2018 Erinn Dejesusbott91 Primary Erinn [place] Insurance:AULTCAREPol TalbottDOB: [facility] Servicesandrewshel[facility], icy Number: [id number] Al[facility] Center [address]Kkt: [id number] Repository Date:2505-21-53US [address] () [address] [address]CM: 01/12/2018 Secondary NOT GIVENUNK Anika Insurance:SELF PAY [facility] Number: Effective Repository Date:2018-01-08 01/12/2018 Erinn [id number] Primary NOT GIVENUNK [place] Insurance:SELF PAY [facility] [address]Ltc: Number: Effective Repository Date:2018-01-12 () 01/07/2018 Erinn Dejesusbott91 Primary Erinn [place] Insurance:AULTCAREPol TalbottDOB: [facility]olisandrewshel[facility], icy Number: [id number] [facility] Center [address]Pvp: [id number] Repository Date:9720-95-50ZI [address] () [address], [place] [address]JM: 01/07/2018 Secondary NOT GIVENUNK Anika Insurance:SELF PAY [facility] Number: Effective Repository Date:2018-01-05 01/05/2018 Erinn [id number] Primary Erinn [place] Insurance:AULTCAREPol TalbottDOB: [facility]olisandrewshel[facility], y Number: [id number] Alamos Medical Center [address]Joi: [id number] Repository Date:3857-14-28CF [address] () [address], [place] [address]WX: 01/05/2018 Secondary NOT GIVENUNK Anika Insurance:SELF PAY [facility] Number: Effective Repository Date:2018-01-01 12/22/2017 Erinn Singh91 Primary Erinntaylor Donalds[place] Insurance:AULTCAREPol TalbottDOB: [facility] Number: [id number] [facility] [address]Saz: [id number] Repository Date:8793-64-49XG [address] () [address] [address]IP: 12/22/2017 Secondary NOT GIVENUNK [place] Insurance:SELF PAY [facility] Number: Effective Repository Date:2017-12-17 12/17/2017 Erinn Singh91 [facility] [place] Insurance:AULTCAREPol TalbottDOB: [facility] Number: [id number] Alamos Medical Center [address]Atk: [id number] Repository Date:5836-10-56PZ [address] () [address], [place] [address]RW: 12/17/2017 Secondary NOT GIVENUNK Anika Insurance:SELF PAY [facility] Number: Effective Repository Date:2017-12-09
== END ==
PROVIDERS: Family Provider Internal Medicine; PCP Internal Medicine; Visit Provider Nurse Practitioner
DX: E04.1 Nontoxic single thyroid nodule (principal); Z78.0 Asymptomatic menopausal state
CPT/HCPCS: 76536; 77080

== ENCOUNTER 2018-10-20 09:00 | Outpatient (RCR) | payer OTHER, SELFPAY ==
--- OUTSIDE RECORDS SUMMARY | 2018-11-28 16:23 | XMS RPT_ITS ---
:1960 Author Organization OHIP Support Name Relationship Address Phone ERINN SINGH Unavailable [address] + [place] [address] [facility] Unavailable [address] + [place] [address] ERINN SINGH Unavailable [address] + [place] [address] [facility] Unavailable [address] + [place] [address] ERINN SINGH Unavailable [address] + [place] [address] [facility] Unavailable [address] + [place] [address] ERINN SINGH Unavailable [address] + [place] [address] [facility] Unavailable [address] + [place] [address] ERINN SINGH Unavailable [address] + [place] [address] [facility] Unavailable [address] + [place] [address] ERINN SINGH Unavailable [address] + [place] [address] [facility] Unavailable [address] + [place] [address] ERINN SINGH Unavailable [address] + [place] [address] [facility] Unavailable [address] + [place] [address] ERINN SINGH Unavailable [address] + [place] [address] [facility] Unavailable [address] + [place] [address] ERINN SINGH Unavailable [address] + [place] [address] [facility] Unavailable [address] + [place] [address] ERINN SINGH Unavailable [address] + [place] [address] [facility] Unavailable [address] + [place] [address] ERINN SINGH Unavailable [address] + [place] [address] [facility] Unavailable [address] + [place] [address] ERINN SINGH Unavailable [address] + [place] [address] [facility] Unavailable [address] + [place] [address] ERINN SINGH Unavailable [address] + [place] [address] [facility] Unavailable [address] + [place] [address] ERINN SINGH Unavailable [address] + [place] [address] [facility] Unavailable [address] + [place] [address] ERINN SINGH Unavailable [address] + [place] [address] [facility] Unavailable [address] + [place] [address] ERINN SINGH Unavailable [address] + [place] [address] [facility] Unavailable [address] + [place] [address] ERINN SINGH Unavailable [address] + [place] [address] [facility] Unavailable [address] + [place] [address] ERINN SINGH Unavailable [address] + [place] [address] [facility] Unavailable [address] + [place] [address] SAMANTHA, ERINN Unavailable [address] + [place] [address] [facility] Unavailable [address] + [place] [address] SAMANTHA, ERINN Unavailable [address] + [place] [address] [facility] Unavailable [address] + [place] [address] SAMANTHA ERINN Unavailable [address] + [place] [address] [facility] Unavailable [address] + [place] [address] SAMANTHAPARTH ANDERSONIE Unavailable [address] + [place] [address] [facility] Unavailable [address] + [place] [address] SAMANTHAPARTH ANDERSONIE Unavailable [address] + [place] [address] [facility] Unavailable [address] + [place] [address] Care Team Providers Name Role Phone Shyam DO Jes Attending Unavailable Shyam DO, Jes Consulting Unavailable Nayeli Vee Attending Unavailable Shyam, Jes Primary Care Unavailable DOCTOR, OUT OF TOWN Attending Unavailable Shyam, Jes Primary Care Unavailable DossieShannan D.C. Attending Unavailable Shyam, Jes Referring Unavailable Shyam, Jes Primary Care Unavailable Dossie, Shannan Carvalho Attending Unavailable Shyam, Jes Referring Unavailable Shyam, Jes Primary Care Unavailable Dossie, Shannan Carvalho Attending Unavailable Shyam, Jes Referring Unavailable Shyam, Jes Primary Care Unavailable DossieShannan D.C. Attending Unavailable Shyam, Jes Referring Unavailable Shyam, Jes Primary Care Unavailable Dossie, Shannan Carvalho Attending Unavailable Shyam, Jes Primary Care Unavailable DossieShannan D.C. Attending Unavailable Sunshine De La Torre Attending Unavailable Shyam, Jes Primary Care Unavailable Sunshine De La Torre Referring Unavailable Dossie, Shannan Carvalho Attending Unavailable Shyam, Jes Referring Unavailable Shyam, Jes Primary Care Unavailable Dossie, Shannan Carvalho Attending Unavailable Dossie, Shannan CollazoCSintia Attending Unavailable Dossie, Shannan CollazoCSintia Referring Unavailable Shyam, Jes Primary Care Unavailable Dossie, Shannan Carvalho Attending Unavailable Shyam, Jes Referring Unavailable Shyam, Jes Primary Care Unavailable Dossie, Shannan CollazoCSintia Attending Unavailable Shyam, Jes Referring Unavailable Shyam, Jes Primary Care Unavailable Chicorelli, Sunshine Attending Unavailable Shyam, Jes Referring Unavailable Shyam, Jes Primary Care Unavailable Chicorelli, Sunshine Attending Unavailable Chicorelli, Sunshine Referring Unavailable Shyam, Jes Primary Care Unavailable Chicorelli, Sunshine Attending Unavailable Chicorelli, Sunshine Referring Unavailable Shyam, Jes Primary Care Unavailable Chicorelli, Sunshine Attending Unavailable Shyam, Jes Referring Unavailable Shyam, Jes Primary Care Unavailable Shyam, Jes Primary Care Unavailable Referred, Self Attending Unavailable Referred, Self Referring Unavailable Dossie, Shannan Carvalho Attending Unavailable Shyam, Jes Referring Unavailable Chicorelli, Sunshine Attending Unavailable Shyam, Jes Referring Unavailable Chicorelli, Sunshine Attending Unavailable Chicorelli, Sunshine Referring Unavailable Shyam, Jes Primary Care Unavailable Ciesa, Nayeli Attending Unavailable Ciesa, Nayeli Referring Unavailable Shyam, Jes Primary Care Unavailable PROBLEMS PROBLEMS DATE TYPE CONDITION / CODE ATTENDING STATUS SOURCE 10/20/2018 Unknown G57.01 - Lesion of Julian, Active [place] sciatic nerve, Sunshine [facility] right lower limb / Hospital G57.01(ICD-10) Repository 10/08/2018 Unknown E78.5 - Nayeli Vee Active [place] Hyperlipidemia, Community unspecified / Hospital E78.5(ICD-10) Repository 10/08/2018 Unknown E04.9 - Nontoxic CiNayeli fortune Active [place] goiter, Community unspecified / Hospital E04.9(ICD-10) Repository 10/08/2018 Unknown E55.9 - Vitamin D Nayeli Vee Active [place] deficiency, Community unspecified / Hospital E55.9(ICD-10) Repository 10/08/2018 Unknown Z12.11 - Encounter Nayeli Vee Active [place] for screening for Community malignant neoplasm Hospital of colon / Repository Z12.11(ICD-10) 09/30/2018 Unknown R69 - Illness, Referred, Self Active [place] unspecified / Community R69(ICD-10) Hospital Repository 08/03/2018 Unknown M99.03 - Segmental Dossie, Shannan Active [place] and somatic D.C. Community dysfunction of Hospital lumbar region / Repository M99.03(ICD-10) 08/03/2018 Unknown M99.02 - Segmental Dossie, Shannan Active [place] and somatic D.C. Community dysfunction of Hospital thoracic region / Repository M99.02(ICD-10) 08/03/2018 Unknown M99.01 - Segmental Dossie, Shannan Active [place] and somatic D.C. Community dysfunction of Hospital cervical region / Repository M99.01(ICD-10) 03/31/2018 Unknown M70.61 - Chicorelli, Active [place] Trochanteric Sunshine [facility] bursitis, right Hospital hip / Repository M70.61(ICD-10) 02/24/2018 Unknown M25.551 - Pain in Chicorelli, Active [place] right hip / Sun[facility] Community M25.551(ICD-10) Hospital Repository 01/28/2018 Unknown Z12.31 - Encounter Sunshine De La Torre Active [place] for screening Community mammogram for Hospital malignant neoplasm Repository of breast / Z12.31(ICD-10) PROCEDURES PROCEDURES No Procedure Records FoundRESULTS RESULTS THYROID Observed: 10/13/2018 Status: F Source: [place] 12:17 PM [facility] REPOSITORY [facility] Imaging Services [address] [place] [address] Thyroid MR#: [id number] Acct: [id number] Name: TRISTAN SINGH Rep #: [id number] : 1960 F 58 From: Samy Ferreira PCP: Jes Howe DO Status: REG CLI Study: Thyroid Date of Exam: 10/13/18 Exam# [id number] Ordering Dr: Nayeli Vee FISHER-C STUDY: THYROID ULTRASOUND REASON FOR EXAM: Female, 58 years old. Nodule. TECHNIQUE: Ultrasound evaluation of the thyroid was performed with real-time and static pruitt-scale imaging. COMPARISON: 04/17/2015 and 12/29/2013. FINDINGS: RIGHT LOBE: The right lobe of the thyroid gland measures 4.9 x 1.5 x 1.2 cm. There is a homogeneous echotexture. Lower pole solid nodule measuring 0.3 x 0.3 x 0.3 cm. LEFT LOBE: The left lobe of the thyroid gland measures 4.3 x 1.3 x 1.0 cm. There is a homogeneous echotexture. Lower pole solid nodule measuring 0.6 x 0.5 x 0.3 cm ISTHMUS: The isthmus measures 2 mm. Isthmic nodule right parasagittal measuring 0.5 x 0.5 x 0.3 cm. . The regional lymph nodes are normal. US/Thyroid IMPRESSION: Mild enlargement right lobe of the thyroid gland unchanged. No significant change in solid subcentimeter thyroid nodules. Electronically Signed: Samy Ferreira MD at 3:34 EST , Service support , CC: Nayeli Vee NP; Jes Howe DO Instrument Specialist: Signed DEXA BONE DENSITY Observed: 10/13/2018 Status: F Source: [place] STUDY 12:17 PM [facility] REPOSITORY [facility] Imaging Services [address] [place] [address] Dexa Bone Density Study MR#: [id number] Acct: [id number] Name: TRISTAN SINGH Rep #: [id number] : 1960 F 58 From: Trey Patricia MD PCP: Jes Howe DO Status: REG CLI Study: Dexa Bone Density Study Date of Exam: 10/13/18 Exam# [id number] Ordering Dr: Nayeli Vee FISHER-C STUDY: DUAL ENERGY X-RAY ABSORPTIOMETRY / DXA REASON FOR EXAM: Female, 58 years old. The patient is postmenopausal. TECHNIQUE: Bone Mineral Density (BMD) measurements of lumbar spine and bilateral hips were obtained. COMPARISON: None. FINDINGS: Lumbar Spine (L1-L4): g/cm2 (0.990) / T-score (-1.6) / Z-score (-0.6) Findings are suggestive of osteopenia with a moderate fracture risk. Left Femur Total: g/cm2 (0.956) / T-score (-0.4) / Z- score (0.4) Left Femoral Neck: g/cm2 (0.934) / T-score (-0.7) / Z- score (0.4) Right Femur Total: g/cm2 (0.990) / T-score (-0.1) / Z- score (0.6) Right Femoral Neck: g/cm2 (0.972) / T-score (-0.5) / Z-score (0.7) BD/Dexa Bone Density Study IMPRESSION: The patient is considered osteopenic as outlined below according to World Jay Organization (WHO) criteria with a moderate fracture risk. Reference Information: The T-score is the number of standard deviations above or below the standard which is normal for young adults at their peak bone mineral density. The World Health Organization (WHO) interprets the T-scores as follows: Above -1 Normal bone density Between -1 and -2.5 Osteopenia Equal to / or below -2.5 Osteoporosis As a practical clinical guideline, osteopenia may be graded as follows: Mild -1 through -1.5 Moderate -1.6 through -2.0 Severe -2.1 through -2.4 The Z-score is the number of standard deviations above or below age-matched controls. A Z-score of less than -1.5 would be considered abnormal. References: 1. NIH Osteoporosis and Related Bone Diseases http://www.osteo.org 2. International Society for Clinical Densitometry http://www.iscd.org 3. National Osteoporosis Foundation http://www.nof.org Electronically Signed: Trey Patricia MD at 9:29 EST Tel [phone], Service support , CC: Nayeli Vee NP; Jes Howe DO Instrument Specialist: Signed CBC W/DIFF, AUTOMATED Collected: 10/08/2018 Status: F Source: [place] 6:05 AM [facility] REPOSITORY TYPE CODE TESTS RESULT OUT OF RANGE REFERENCE UNITS LAB L100.1000 4.4-11.0 K/mm3 Normal WBC 6.2 LAB L100.1200 4.2-5.4 M/mm3 Normal RBC 4.22 LAB L100.1300 12.0-15.0 g/dl Normal HGB 13.7 LAB L100.1400 37-47 % Normal HCT 42.0 LAB L100.1500 81-99 fL High MCV 99.5 LAB L100.1600 27.0-32.0 pg High MCH 32.5 LAB L100.1700 32-36 g/gl Normal MCHC 32.6 LAB L100.1810 11.6-14.6 % Normal RDW CV 12.0 LAB L100.1820 35.1-43.9 fl Normal RDW SD 43.0 LAB L100.1900 150-450 K/mm3 Normal PLT 349 LAB L100.2000 6.2-12.0 fl Normal MPV 10.9 LAB L100.2100 47-70 % Normal NEUT% 48.4 LAB L100.2200 19-41 % Normal LY% 40.3 LAB L100.2300 0-10 % Normal MONO% 8.4 LAB L100.2400 0-5 % Normal EO% 2.1 LAB L100.2500 0-1 % Normal BASO% 0.6 LAB L100.2550 0.0-0.9 % Normal IM GRAN % 0.200 Result Comment: IG% - Immature Granulocytes (promyelocytes, myelocytes and metamyelocytes) > 1% indicates that a LEFT SHIFT is Present. LAB L100.2620 2.0-7.7 X10 3/uL Normal Absolute Neut 3.0 LAB L100.2720 0.83-4.51 X10 3/ul Normal Absolute Lymph 2.49 Performed By: #### L100.0100 #### [facility] [address] [place], [place], [id number] URINALYSIS, COMPLETE Collected: 10/08/2018 Status: F Source: [place] 6:05 AM [facility] REPOSITORY Order Comment: How was Urine Obtained? CLEAN CATCH TYPE CODE TESTS RESULT OUT OF RANGE REFERENCE UNITS LAB L400.3000 Yellow COLOR Normal Yellow LAB L400.3050 Clear Normal CLARITY Cloudy LAB L400.3200 Normal mg/dl Normal GLUCOSE, UR Normal LAB L400.3300 Negative mg/dL Normal BILIRUBIN URINE Negative LAB L400.3400 Negative mg/dl Normal KETONE UR Negative LAB L400.3465 1.002-1.030 Normal SP.GR. DIPSTX 1.020 LAB L400.3550 5.0 - 8.0 pH UR Normal 6.0 LAB L400.3600 Negative mg/dl High PROT 15 DIPSTX LAB L400.3700 Normal mg/dl Normal UROBILI Normal LAB L400.3750 Negative Normal NITRITE UR Negative LAB L400.3780 Negative /ul Normal OCCULT BLOOD-UR Negative LAB L400.3800 Negative /ul High LEUK ESTERASE 100 LAB L400.4050 0-5 /hpf WBC Normal 5-10 SEEN LAB L400.4100 0-5 /hpf 0 Normal RBC-UA SEEN LAB L400.4150 5-10 /hpf SQUAM Normal EPI 5-10 SEEN LAB L400.4300 None Seen /hpf 2+ Normal BACTERIA LAB L400.4350 <or=2+ /hpf 0 Normal MUCUS, URINE SEEN LAB L400.5200 None Seen /hpf Normal YEAST-URINE RARE Performed By: #### L400.0001 #### [facility] [address] [place], [address] COMPREHENSIVE METABOLIC Collected: 10/08/2018 Status: F [facility]05 [facility] [place] [place] Order Comment: Is Patient Taking Vitamins or Folic Acid Supplements? N TYPE CODE TESTS RESULT OUT OF RANGE REFERENCE UNITS LAB L501.0100 74-106 mg/dL Normal GLU 95 Result Comment: Please note revised GLUCOSE reference range effective 2017. LAB L501.1000 7-18 mg/dL High BUN 19 LAB L501.1100 0.55-1.02 mg/dL Normal CREAT,SERUM 1.00 Result Comment: The validity of the calculated GFR AND GFRAA in patients over 70 years has not been determined. Clinical correlation is essential. LAB L501.1110 >60 mL/min Normal EST GFR 61 Result Comment: Non- GFR Calc LAB L501.1115 >60 mL/min Normal EST GFR - AA 74 Result Comment: GFR Calc LAB L501.1300 10-20 RATIO Normal BUN/CRE 19.1 LAB L501.1500 6.4-8.2 g/dL T Normal PROT 7.6 LAB L501.1800 3.2-5.0 g/dL Normal ALB 3.7 LAB L501.1950 2.2-4.2 g/dL Normal GLOB 3.9 LAB L501.2000 0.9-2.4 RATIO Normal A/G 0.9 LAB L501.2200 8.5-10.1 mg/dL Low CA 8.2 LAB L501.4100 15-37 U/L Normal AST 16 LAB L501.4305 45-117 U/L Normal ALK P 58 LAB L501.4405 13-56 U/L Normal ALT 21 LAB L501.4600 0.20-1.00 mg/dL T Normal BILI 0.40 LAB L501.5300 136-145 mmol/L NA Normal 140 LAB L501.5600 3.5-5.1 mmol/L K Normal 3.9 LAB L501.5900 98-107 mmol/L CL Normal 106 LAB L501.6100 21.0-32.0 mmol/L Normal CO2 29.0 LAB L501.6200 5-15 Normal GAP 5 Performed By: #### L500.4050, L500.4100, L501.9520, L506.0250 #### [facility] [address] [place], [address] LIPID PROFILE Collected: 10/08/2018 Status: F Source: [place] 6:05 [facility] [place] [facility] Order Comment: Is Patient Taking Vitamins or Folic Acid Supplements? N TYPE CODE TESTS RESULT OUT OF RANGE REFERENCE UNITS LAB L501.4900 200 mg/dL High CHOL 204 Result Comment: <200 mg/dL Desirable 200-240 mg/dL Borderline >240 mg/dL High Risk LAB L501.5000 mg/dL Normal TRIG 92 Result Comment: The drugs N-Acetylcysteine and Metamizole may falsely depress this assay. Serum Triglycerides Reference Interval Normal <150 mg/dL Borderline high 150 - 199 mg/dL High 200 - 499 mg/dL Very High > or = 500 mg/dL LAB L501.6400 mg/dL Normal HDL 47 Result Comment: The drugs N-Acetylcysteine and Metamizole may falsely depress this assay. Reference Range HDL <40 mg/dL Low HDL Cholesterol HDL >or= 60 mg/dL High HDL Cholesterol LAB L501.6500 0-130 mg/dL High LDL 139 LAB L501.6600 5-40 mg/dL Normal VLDL 18 Performed By: #### L500.4050, L500.4100, L501.9520, L506.0250 #### [facility] [address] [place], [place], [address] THYROID STIM HORMONE Collected: 10/08/2018 Status: F Source: [place] ([facility]) 6:05 [facility] [place] [facility] Order Comment: Is Patient Taking Vitamins or Folic Acid Supplements? N TYPE CODE TESTS RESULT OUT OF RANGE REFERENCE UNITS LAB L501.9520 0.358-3.74 uIU/mL Normal TSH 2.43 Performed By: #### L500.4050, L500.4100, L501.9520, L506.0250 #### [facility] [address] [place], [place], [address] FOLATES, (FOLIC ACID) Collected: 10/08/2018 Status: F Source: [place] 6:05 [facility] [place] [facility] Order Comment: Is Patient Taking Vitamins or Folic Acid Supplements? N TYPE CODE TESTS RESULT OUT OF RANGE REFERENCE UNITS LAB L506.0250 3.1-55.4 ng/mL Normal FOLATES 30.30 Performed By: #### L500.4050, L500.4100, L501.9520, L506.0250 #### [facility] [address] [place], [address] VITAMIN B12 Collected: 10/08/2018 Status: F Source: [place] 6:05 AM [facility] REPOSITORY TYPE CODE TESTS RESULT OUT OF RANGE REFERENCE UNITS LAB L503.0105 211-911 pg/mL Normal Vitamin B12 675 Performed By: #### L503.0105, L506.1000 #### [facility] [address] [place], [address] VITAMIN D,25 HYDROXY Collected: 10/08/2018 Status: F Source: [place] 6:05 AM [facility] REPOSITORY TYPE CODE TESTS RESULT OUT OF RANGE REFERENCE UNITS LAB L506.1000 29.95-100.01 ng/mL Normal Vitamin D 32.4 25-OH Result Comment: Vitamin D 25(OH) Status Range Deficiency <20 ng/mL (50nmol/L) Insuffciency 20 - 30 ng/mL (50 - 75 nmol/L) Sufficiency 30 - 100 ng/mL (75 - 250 nmol/L) Toxicity >100 ng/mL (>250 nmol/L) Performed By: #### L503.0105, L506.1000 #### [facility] [address], [address] ORTHOPEDIC VISIT Observed: 09/29/2018 Status: F Source: [place] REPORT 11:07 AM [facility] REPOSITORY [facility] [address] [place] [address] [address] [place] [address] OFFICE VISIT Date of Service: 09/22/18 MR#: [id number] Acct: [id number] Name: TRISTAN SINGH Rep #: [id number] : 1960 Provider: Sunshine Jordan DO Age/Sex: 58/F Location: [facility] [place] Status: Signed Intake Intake Visit Reasons: RIGHT HIP Chief Complaint: back pain Is patient in pain?: Yes Allergies No Known Allergies Allergy (Verified 09/22/18 13:13) Medications ascorbic acid (vitamin C) 500 mg capsule mg PO 12/17/17 [History Confirmed 12/17/17] multivitamin capsule 1 cap PO QAM 12/17/17 [History Confirmed 12/17/17] diclofenac 1 % topical gel 4 g TOPICAL .QID #100 g 04/15/18 [Rx] PFSH Medical History Endometriosis (Acute) left ovary removal (Acute) Family History Other Breast cancer Melanoma Myocardial infarction Sudden cardiac Thyroid disorder Social History Smoking Status: Never smoker alcohol intake: never substance use type: does not use what type of physical activity do you participate in: walking, weight training frequency: 3-4 times per week HPI RIGHT HIP: Details: TRISTAN SINGH is a 58 year old F here today for posterior right hip pain. Patient notes that she has had this pain for 2 years. Patient notes that she also has low back pain which is helpful by a chiropractor and working out. Patient has increased pain with twisting or sitting. She has stiffness when she stands up.She is woken up in the morning from her pain. Patient denies any radiating pain. She denies any numbness or tingling. Patient notes that she completed physical therapy which was helpful for her lateral hip pain. She has had massage therapy and dry needling which is helpful for a few days. Patient denies any injections. Patient has had an MRI of her low back back and hip. ROS Const Reports system reviewed and no additional complaints, except as docu Eyes Reports system reviewed and no additional complaints, except as docu ENT Reports system reviewed and no additional complaints, except as docu Card Reports system reviewed and no additional complaints, except as docu Resp Reports system reviewed and no additional complaints, except as docu GI Reports system reviewed and no additional complaints, except as docu Reports system reviewed and no additional complaints, except as docu Musc Reports joint pain Skin/Breast Reports system reviewed and no additional complaints, except as docu Neuro Yes system reviewed and no additional complaints, except as docu Psych Reports system reviewed and no additional complaints, except as docu Endo Reports system reviewed and no additional complaints, except as docu Ortho Exam Right Hip Skin: Yes CDI Contralateral Normal: Yes Hip: present TTP Greater Troch HIP: ttp psis Office Procedures Ortho Injections Injections Details: Obtained consent for injection. Under sterile conditions, injected the patients right psis with 1cc bupivacaine and 1/2cc kenalog. The patient tolerated the injection well without any noted complication. Patient should call our office if redness develops, pain worsens or if they have any concerns. Office Meds Kenalog Performing Provider: Sunshine Jordan DO Administered by: Sunshine Jordan DO on 09/22/18 13:39 Dose Route Admin Location Lot Number Expiration DateNDC Tank Setter 20 mg Intra-Articularright PSIS [id number] 10/03/19 5450-4898-85 [employer] Assessment AND Plan 1. Piriformis syndrome of right side G57.01 Plan Reviewed patient's previous MRI reviewed imaging studies discussed treatment options discussed clinical findings correlating with her MRI. All options presented to patient as well as continued dry needling therapy stretching for her piriformis which is where most of her pain is. She does have pain laterally over her greater troch which we can inject but not going to take away all of her pain. This note was generated with [employer] dictation software. It may contain incorrect words, spelling, and punctuation that were not noted in checking the note before signing. Personally reviewed her recent MRIs and explained she has greater trochanteric bursitis, piriformis syndrome with hypertrophy and tenderness to the right psis. Her treatment options are psis or greater troch injection and continued exercises and stretching. Follow up as needed or sooner if pain, swelling, numbness or associated symptoms, or concerns develop. All questions answered. Patient in agreement of plan. Orders Orders: Medications Discontinued: Kenalog (triamcinolone acetonide) [id number] mg (0.5 mL) Intra-Articular ONCE 0.5 mL 0R nued Reason: Office Medication has been DocuF NS mented as given 2. Greater trochanteric bursitis of right hip M70.61 Plan Detail Goals Decrease pain Increase ROM Barriers R hip injury Coding Level of Care Code Off vis,est,level 4 Diagnoses Piriformis syndrome of right side G57.01 Greater trochanteric bursitis of right hip M70.61 09/29/18 1107 <Electronically signed by Sunshine Jordan DO> Date Sunshine Jordan DO Cosigner Signature: Date (if applicable) CC: CHIROPRACTIC REPORT Observed: 07/28/2018 Status: F Source: [place] 1:34 PM [facility] [address] [place] [address] OFFICE VISIT Date of Service: 07/28/18 MR#: [id number] Acct: [id number] Name: TRISTAN SINGH Rep #: [id number] : 1960 Provider: Shannan Gan D.C. Age/Sex: 58/F Location: [facility] [place] Status: Signed Intake Vital Signs07/28/18 Height 5 ft 6 in 07/28/18 Weight: 180 lb 07/28/18 Body Mass Index (BMI) 29.0 Intake Visit Reasons: low back pain Chief Complaint: back pain Is patient in pain?: Yes Allergies No Known Allergies Allergy (Verified 02/24/18 09:56) Medications ascorbic acid (vitamin C) 500 mg capsule mg PO 12/17/17 [History Confirmed 12/17/17] multivitamin capsule 1 cap PO QAM 12/17/17 [History Confirmed 12/17/17] diclofenac 1 % topical gel 4 g TOPICAL .QID #100 g 04/15/18 [Rx] PFSH Medical History Endometriosis (Acute) left ovary removal (Acute) Family History Other Breast cancer Melanoma Myocardial infarction Sudden cardiac Thyroid disorder Social History Smoking Status: Never smoker alcohol intake: never substance use type: does not use what type of physical activity do you participate in: walking, weight training frequency: 3-4 times per week HPI low back pain : Chief Complaint: Low back pain Visit Number: 6 Details: TRISTAN SINGH is a 58 year old F who presents with low back pain. She states that her low back pain has slightly increased, leaving her with a dull ache that begins on the R side and does radiate across the low back into the L side. The pain is described as a tight ache that bands across the low back, at times there is a sharp pain that will radiate into the R thigh. Tristan denies any numbness, tingling, or radiculopathy. Onset: 06/29/18 Location: low back pain Duration: constant Aggravating or associated factors: bending, twisting, bending and prolonged standing Relieving factors: chiro Pain Quality: aching, dull, cramping, sharp Exam Musc General: Yes normal posture, normal gait and joint tenderness (T10, L3, L5, R SI) Thoracic/Lumbar Spine: thor and lumb spine abnorm to inspection (R posterior rotation of pelvis), pain with thoraco-lumbar ROM with forward flexion, with lateral flexion to the right and other (extension), thoraco-lumbar ROM limited with forward flexion, with lateral flexion to the right and with lateral flexion to the left, thoraco- lumbar spasm, paraspinal tenderness on the right greater than left (lumbar) Sacroiliac joints: on the right tender to palpation (with edema) Neuro General: alert, awake, oriented x3, gait normal, normal light touch, pain and propioception, no focal motor deficits Ortho Test CERVICAL THORACIC Kemps: Positive, Rig LUMBAR Kemps: Positive, Rig Valsalvas: Negative SLR: Negative Iliac Compression: Positive, Rig Office Procedures Chiropractic Treatments Procedures Manipulation: 3-4 regions (T10, L3, L5, RIL) Assessment AND Plan 1. Segmental and somatic dysfunction of thoracic region M99.02 Orders Orders: 2. Segmental and somatic dysfunction of cervical region M99.01 Orders Orders: 3. Segmental and somatic dysfunction of lumbar region M99.03 Orders Orders: Plan Detail Goals Decrease pain Increase ROM Barriers R hip injury Follow Up PRN Coding Level of Care Code Off vis,est,level 1 Diagnoses Segmental and somatic dysfunction of thoracic region M99.02 Segmental and somatic dysfunction of cervical region M99.01 Segmental and somatic dysfunction of lumbar region M99.03 Additional Codes Procedures - Manipulation: 3-4 regions (89649) 07/28/18 1334 <Electronically signed by Shannan Gan D.C.> Date Shannan Gan D.C. Cosigner Signature: Date (if applicable) CC: PT D/C SUMMARY (1) Observed: 03/31/2018 Status: F Source: [place] 12:43 PM [facility] REPOSITORY [facility] [address] [place] [address] Fax REHABILITATION SERVICES DISCHARGE SUMMARY MR#: [id number] Acct: [id number] Name: TRISTAN SINGH Rep #: [id number] : 1960 58 From: Angelica Robertson PT, Cert. MDT Referring Dr.: Sunshine Jordan DO Status: REG RCR Insurance: [employer] SELF PAY INSURANCE HP - PT D/C Summary It has been my pleasure to treat TRISTAN SINGH under orders from Sunshine Jordan DO, for the diagnosis of RIGHT GREATER TROCH BURSITIS, PIRIFORMIS SYNDROME for a total of 13 visit(s). Discharge Date: Please see the following information for a summary of their discharge status. - Subjective Subjective: PATIENT REPORTS SHE HAS LEARNED MORE EX'S AND FOAM ROLLER AND FEELS BETTER AFTER PT EX SESSIONS BUT SHE IS NOT CONTINUING TO IMPROVE OVER-ALL. PATIENT REPORTS SHE HAS TRIED TO START ADDING IN MORE NORMAL ROUTINE THINGS BUT IT AGGREVATES HER CONDITIONS. PATIENT REPORTS SHE HAS CONTINUED REP EIL AND SHE THINKS IT HELPS. SHE THINKS THAT DOING SOME PLANTING, PULLING SOME WEEDS, HELPING MOVE GRILL AND THINGS LIKE THAT OVER THE WEEKEND AGGREVATED HER BACK. - Pain LOW BACK Pain Intensity (Out of 10): 4 RIGHT LATERAL HIP Pain Intensity (Out of 10): 1 - Overall Improvement % Improvement: 25 - Objective Objective/Function: PATIENT IS NOT CONTINUING TO IMPROVE. UPON EXAM, THERE ARE NO SIGNIFICANT CHANGES SINCE INITIAL EVAL. SHE IS INDEP WITH A HEP AND THIS THERAPIST RECOMMENDS PHYSICIAN FOLLOW UP AND CONTINUED HEP TOLERATED. NO SIGNIFICANT CHANGE IN THE LOWER EXTREMITY FUNCTIONAL SCALE WITH ONE MONTH OF PT. - Goals Goal 1:: DECREASE C/O RIGHT LOW BACK/HIP REGION PAIN Goal 2:: IMPROVE SITTING, LYING, SLEEP, STEP, GAIT INITIATION AND RECREATIONAL/INDEP EXERCISE FUNCTION Goal 3:: INSTRUCT IN PROPHYLAXIS. - Plan Plan: D/C DUE TO LACK OF PROGRESS. PATIENT AGREEABLE TO PHYSICIAN FOLLOW UP AND HAS APPOINTMENT PENDING 04/07/18. - D/C Information If there are questions or concerns regarding this patient's physical therapy, please feel free to call me at [phone]. Thank you for the referral of this patient. Sincerely, Angelica Robertson <Electronically signed by Angelica Robertson PT, Cert. UMAÑAT> 03/31/18 1243 CC: Sunshine Jordan DO; Jes Howe DO YUDY Signed INITAL EVALUATION (1) Observed: 02/25/2018 Status: F Source: [place] - PT 1:30 PM [facility] REPOSITORY [facility] Physical [facility] [address] [place] [address] Fax REHABILITATION SERVICES INITIAL EVALUATION MR#: [id number] Acct: [id number] Name: TRISTAN SINGH Rep #: [id number] : 1960 58 From: Cert. LEEROY Salvador PTT Referring Dr.: Sunshine Jordan DO Status: REG RCR Insurance: [employer] SELF PAY INSURANCE Patient's Visit Information TRISTAN SINGH is a 58 year old F referred to Physical Therapy by Sunshine Jordan DO with a diagnosis of RIGHT GREATER TROCH BURSITIS, PIRIFORMIS SYNDROME. Date of Evaluation: 02/25/18 Physical Therapist: Angelica Robertson - Visit Plan Frequency: 2-3x /Week Duration: 4-6 Weeks Plan: US TO LOW BACK AND RIGHT GREATER TROCH REGIONS, FOAM ROLLER, POSTURE CORRECTION/STRENGTHENING, INSTRUCTION IN APPROPRIATE BODY MECHANICS AND ACTIVITY MODIFICATIONS. DLS STARTING WITH A NEUTRAL SPINE PROGRESSING ROM TOLERATED. TOBI LE ROM, STRETCHING AND STRENGTHENING. HEP INSTRUCTION. - Subjective Subjective: Diagnosis: Work/Leisure: [employer] WORKING ABOUT 16 HOURS A WEEK. CAN INVOLVE SOME LIFTING. Disability: NO. Present symptoms: RIGHT GREATER TROCH REGION AND RIGHT BUTTOCK. RIGHT LOW BACK PAIN. Present since: ABOUT 18 MONTHS AGO. Pain Scale: WORST 8/10, LEAST 1/10. Currently: 12/13. UNCHANGING. Commenced as a result of: STEPPING DOWN OFF OF A STEP LATER AND FELT A PULL DOWN THE SIDE OF HER HIP. Symptoms at onset: RIGHT LATERAL HIP. Worse: *SITTING, SUPINE AND RIGHT SDLY - LYING DOWN, STEPS, SOMETIMES WALING, WORKING OUT - EVEN SWIMMING. Better: IBUPROFEN, LEFT SDLY. Disturbed sleep: YES. Previous history/Previous treatment: I'VE ALWAYS GONE TO CHIROPRACTORS ON A REGULAR BASIS BECAUSE I FELT LIKE MY BACK WAS OUT AND I NEEDED AN ADJUSTMENT. NO HIP PROBLEMS PRIOR TO 18 MONTHS AGO. NO BACK SURGERY. NO BACK INJECTIONS. NO BACK PT. Coughing/sneezing/straining: NEGATIVE. Gait: DIFFICULT TO INITIATE GAIT AFTER SITTING AND WOBBLE AT FIRST TRYING TO WALK. ONCE GAIT SMOOTHS OUT IT IS NORMAL. Difficulty initiating urinatin: NO. Accidents: NO. Unexplained weight loss: NO. Imaging: RECENT LOW BACK X-RAYS - NORMAL, RIGHT HIP X-RAY - NORMAL. RIGHT HIP MRI SHOWING GREATER TROCH BURSITIS AND SMALL TEAR IN LABRUM AND HYPERTROPHY OF THE PIRIFORMIS ON RIGHT. MRI OF LUMBAR SPINE SHOWING MILD FACET CHANGES L5S1. SEE [facility] EMR FOR FURTHER DETAILS. PMH: NO EXCEPT RIGHT ELBOW TENDONITIS. Recent major surgery: NO. OTHER: NO SURGERY RECOMMENDED. - Objective Sitting Posture: POOR. Standing Posture: FAIR. Lordosis: MILDLY REDUCED. Lateral shift: NO. Relevant shift: N/A. Other Observations: INDEP GAIT WITHOUT AD OR GROSS DEVIATIONS NOTED. INDEP TRANSFERS WITHOUT UE ASSIST. Motor deficit: TOBI LE STRENGTH 5/5 WITH MMT'ING EXCEPT LEFT HIP 4/5 AND RIGHT HIP 4-/5. Sensory deficit: TOBI LE LIGHT TOUCH SENSATION IS INTACT AND SYMMETRICAL. ROM deficit: TOBI LE ROM WFL EXCEPT RIGHT HIP EXTERNAL ROTATION IS APPROXIMATELY 25% LIMITED. Reflexes: TOBI LE DTR'S 1/3. Dural Signs: NEGATIVE. Lumbar mvmt loss: flex - MIN. ext - MOD. R SG - MOD. L SG - MIN. Core strength: POOR. Palpation: RIGHT GREATER TROCH REGION AND L45S1 REGIONS. SHE IS MILDLY TENDER IIN THE RIGHT PIRIFORMIS REGION. OTHER: POSITIVE RIGHT RONNELL TEST. - Goals Goal 1:: DECREASE C/O RIGHT LOW BACK/HIP REGION PAIN Goal Time Frame: 4-6 Weeks Goal 2:: IMPROVE SITTING, LYING, SLEEP, STEP, GAIT INITIATION AND RECREATIONAL/INDEP EXERCISE FUNCTION Goal Time Frame: 4-6 Weeks Goal 3:: INSTRUCT IN PROPHYLAXIS. Goal Time Frame: 4-6 Weeks - Rehabilitation Potential Rehabilitation Potential: Fair - Anticipated Interventions Patient/Client Instruction: Educate patient on: Condition, Plan of Care, Risk Factors, Benefits of Fitness Program For the Purpose of:: To improve self management Therapeutic Exercise to Include: Strength training, Body mechanics, Postural training, Dynamic Lumbar Stabilization For the Purpose of:: To decrease pain, To improve muscle performance and motor function, To increase tolerance to activity/condition/position, To improve ability of physical actions for home/community/work/leisure, To improve gait and locomotor functions Thank you for the opportunity to evaluate your patient. For Medicare and Medicare HMO plans, please review the plan of care and approve it. It will need to be FAXED BACK to us at [phone] for Medicare purposes. Please let me know if there are questions or concerns regarding this plan of care. Physician Signature: Date: <Electronically signed by Angelica Robertson PT, Cert. MDT> 02/25/18 8180 CC: Sunshine Howe DO YUDY Signed For Medicare only, by signing this I certify the plan of care. Physicians Signature Date ORTHOPEDIC VISIT Observed: 02/24/2018 Status: F Source: [place] REPORT 3:32 PM [facility] REPOSITORY [facility] [address] [place] [address] OFFICE VISIT Date of Service: 02/24/18 MR#: [id number] Acct: [id number] Name: SAMANTHATRISTAN WHITMAN Rep #: [id number] : 1960 Provider: Sunshine Jordan DO Age/Sex: 58/F Location: [facility] Status: Signed Intake Intake Visit Reasons: RIGHT HIP Is patient in pain?: Yes Pain scale (1-10): 3 Allergies No Known Allergies Allergy (Verified 02/24/18 09:56) Medications ascorbic acid (vitamin C) 500 mg capsule mg PO 12/17/17 [History Confirmed 12/17/17] multivitamin capsule 1 cap PO QAM 12/17/17 [History Confirmed 12/17/17] PFSH Medical History Endometriosis (Acute) left ovary removal (Acute) Family History Other Breast cancer Melanoma Myocardial infarction Sudden cardiac Thyroid disorder Social History Smoking Status: Never smoker alcohol intake: never substance use type: does not use what type of physical activity do you participate in: walking, weight training frequency: 3-4 times per week HPI RIGHT HIP: Details: TRISTAN SINGH is a 58 year old F here today for right hip pain. Patient notes that she has had hip pain for about a year and a half. She stepped off a ladder and felt a pull into her buttock. She currently has pain over her lateral and posterior hip. She denies any radiating pain. She has seen multiple chiropractures. Her pain worsened as she worked out. She has pain with hip external rotation. She notes that she has limited range of motion. Patient has increased pain with sleeping. She denies any formal physical therapy. Patient had an MRI which is here for review. She denies any xrays of her hip. She denies any injections. Denies numbness, tingling or other associated symptoms. Patient takes ibuprofen or tylenol for pain. ROS Const Reports system reviewed and no additional complaints, except as docu Eyes Reports system reviewed and no additional complaints, except as docu ENT Reports system reviewed and no additional complaints, except as docu Card Reports system reviewed and no additional complaints, except as docu Resp Reports system reviewed and no additional complaints, except as docu GI Reports system reviewed and no additional complaints, except as docu Reports system reviewed and no additional complaints, except as docu Musc Reports joint pain, Reports stiffness, Reports limited joint movement Skin/Breast Reports system reviewed and no additional complaints, except as docu Neuro Yes system reviewed and no additional complaints, except as docu Psych Reports system reviewed and no additional complaints, except as docu Endo Reports system reviewed and no additional complaints, except as docu Ortho Exam Right Hip Skin: Yes CDI Contralateral Normal: Yes Hip: present TTP Greater Troch flexion: 100 degrees internal rotation @90 degree flexion: 40 degrees external rotation @90 degree extension: 40 degrees Impingement Test: 1 Labral Stress Test: 1 Special Tests: No IT band snap, No pain with log roll, No Aston test Homans Sign: No HIP: neg slr, ttp piriformis, Assessment AND Plan 1. Piriformis syndrome of right side G57.01 Plan Personally reviewed the patient's medical history, medications, surgeries and recent exams if available. X-rays were reviewed. There is no obvious fracture, dislocation, or lucency noted. Greater trochanter bursitis noted on MRI and piriformis syndrome, there is a small labral tear noted but physical exam does not elicit a labral sign. Educated the patient on the anatomy of the hip and lumbar spine, explained that she has greater trochanter bursitis and piriformis syndrome, can be treated with greater troch injection and US in PT for the piriformis. Instructed to remain active, and return if PT is not helpful for an injection. Follow up in 6-8wks or sooner if pain, swelling, numbness or associated symptoms, or concerns develop. All questions answered. Patient in agreement of plan. 2. Greater trochanteric bursitis of right hip M70.61 Plan Detail Other Orders Orders: Goals Decrease pain Increase ROM Barriers R hip injury Coding Level of Care Code Off vis,new,level 3 Diagnoses Piriformis syndrome of right side G57.01 Greater trochanteric bursitis of right hip M70.61 02/24/18 1532 <Electronically signed by Sunshine Jordan DO> Date Sunshine Jordan DO Cosigner Signature: Date (if applicable) CC: Shannan Dossi, D.C. HIP 2-3 VIEWS WITH Observed: 02/24/2018 Status: F Source: [place] PELVIS 10:13 AM [facility] REPOSITORY [facility] Imaging Services [address] [place] [address] Hip 2-3 Views with Pelvis MR#: [id number] Acct: [id number] Name: TRISTAN SINGH Rep #: [id number] : 1960 F 58 From: Henrik Moore MD PCP: Jes Howe DO Status: REG CLI Study: Hip 2-3 Views with Pelvis Date of Exam: 02/24/18 Exam# [id number] Ordering Dr: Sunshine Jordan DO STUDY: X-RAY - PELVIS AND RIGHT HIP REASON FOR EXAM: Right hip pain. TECHNIQUE: Radiological exam, hip, unilateral, with pelvis when performed; 2 or 3 views. COMPARISON: None. FINDINGS: Normal visualized soft tissue structures. Normal bilateral iliac wings, sacroiliac joints and visualized sacrum. Normal bilateral superior and inferior pubic rami. Normal pubic symphysis. Normal bilateral ischial tuberosities. Normal visualized femoral head. Normal acetabulum. Normal hip joint. RAD/Hip 2-3 Views with Pelvis IMPRESSION: Normal x-ray examination of the pelvis and right hip. Electronically Signed: Henrik Moore MD at 10:47 EDT Tel , Service support , CC: Sunshine Jordan DO; Jes Howe DO Instrument Specialist: Signed CHIROPRACTIC REPORT Observed: 02/16/2018 Status: F Source: [place] 9:23 AM [facility] REPOSITORY [facility] [address] [place] [address] OFFICE VISIT Date of Service: 02/11/18 MR#: [id number] Acct: [id number] Name: TRISTAN SINGH Rep #: [id number] : 1960 Provider: Shannan Gan D.C. Age/Sex: 58/F Location: [facility] Status: Signed Intake Vital Signs02/11/18 Height 5 ft 6 in 02/11/18 Weight: 180 lb 02/11/18 Body Mass Index (BMI) 29.0 Intake Visit Reasons: low back pain Chief Complaint: back pain Is patient in pain?: Yes Allergies No Known Allergies Allergy (Unverified 10/14/17 13:21) Medications ascorbic acid (vitamin C) 500 mg capsule mg PO 12/17/17 [History Confirmed 12/17/17] multivitamin capsule 1 cap PO QAM 12/17/17 [History Confirmed 12/17/17] PFSH Medical History Endometriosis (Acute) left ovary removal (Acute) Family History Other Breast cancer Melanoma Myocardial infarction Sudden cardiac Thyroid disorder Social History Smoking Status: Never smoker alcohol intake: never substance use type: does not use what type of physical activity do you participate in: walking, weight training frequency: 3-4 times per week HPI low back pain : Chief Complaint: low back pain Visit Number: 5 Details: TRISTAN SINGH is a 58 year old F who presents with increased low back pain. She states the pain is mainly on the lower R side of the low back, today she rates her pain a 4/10. The pain does increase with bending, lifting, pushing and squatting, at times the pain is a dull ache, but can before a sharp shooting. She experiences pain in both the right low back and the right hip. Tristan denies any numbness, or tingling. Location: L low back Duration: constant Aggravating or associated factors: bending, lifting, pushing and squatting Pain Quality: aching, dull, sharp, cramping Exam Musc General: Yes normal posture, normal gait and joint tenderness (C6, T2, T7,L5, R SI) Cervical Spine: loss of normal cervical lordosis, cervical ROM normal, cervical spasm (slightly improved) bilateral lower: trapezius, pain with cervical ROM (decreased pain) with lateral flexion to left and with lateral flexion to right Thoracic/Lumbar Spine: thor and lumb spine abnorm to inspection (R posterior rotation of pelvis), pain with thoraco-lumbar ROM with forward flexion, with lateral flexion to the left and with lateral flexion to the right, thoraco-lumbar ROM limited with forward flexion, thoraco-lumbar spasm on the right (piriformis) in the lower lumbar Sacroiliac joints: on the right Office Procedures Chiropractic Treatments Procedures Manipulation: 3-4 regions (C6, T2, T7,L5, RIL) Assessment AND Plan 1. Piriformis syndrome of right side G57.01 Orders Orders: Referrals: 2. Segmental and somatic dysfunction of thoracic region M99.02 Orders Orders: 3. Segmental and somatic dysfunction of cervical region M99.01 Orders Orders: 4. Segmental and somatic dysfunction of lumbar region M99.03 Orders Orders: Plan Detail Other Orders Referrals: Additional Comments Reviewed lumbar MRI, which revealed a normal scan. The right hip MRI revealed presense of bursitis, hypertrophy of R piriformis, and a mild tear in the right labrum. Refer to Ortho for evaluation of R hip MRI and treatment options. Goals Decrease pain Increase ROM Barriers R hip injury Follow Up PRN Coding Level of Care Code Off vis,est,level 1 Diagnoses Piriformis syndrome of right side G57.01 Segmental and somatic dysfunction of thoracic region M99.02 Segmental and somatic dysfunction of cervical region M99.01 Segmental and somatic dysfunction of lumbar region M99.03 Additional Codes Procedures - Manipulation: 3-4 regions (92530) 02/16/18 0923 <Electronically signed by Shannan Gan D.C.> Date Shannan Gan D.C. Cosigner Signature: Date (if applicable) CC: CHIROPRACTIC REPORT Observed: 02/10/2018 Status: F Source: [place] 9:09 AM [facility] [place] [place] [address] OFFICE VISIT Date of Service: 01/19/18 MR#: [id number] Acct: [id number] Name: TRISTAN SINGH Rep #: [id number] : 1960 Provider: Shannan Gan D.C. Age/Sex: 57/F Location: [facility] Status: Signed Intake Vital Signs01/19/18 Height 5 ft 6 in 01/19/18 Weight: 180 lb 01/19/18 Body Mass Index (BMI) 29.0 Intake Visit Reasons: back pain Chief Complaint: back pain Is patient in pain?: Yes Allergies No Known Allergies Allergy (Unverified 10/14/17 13:21) Medications ascorbic acid (vitamin C) 500 mg capsule mg PO 12/17/17 [History Confirmed 12/17/17] multivitamin capsule 1 cap PO QAM 12/17/17 [History Confirmed 12/17/17] PFSH Medical History Endometriosis (Acute) left ovary removal (Acute) Family History Other Breast cancer Melanoma Myocardial infarction Sudden cardiac Thyroid disorder Social History Smoking Status: Never smoker alcohol intake: never substance use type: does not use what type of physical activity do you participate in: walking, weight training frequency: 3-4 times per week HPI back pain : Chief Complaint: back pain Visit Number: 7 Details: TRISTAN SINGH is a 57 year old F who presents with low back pain. She states that her pain is consistent with her last visit, the pain is still localized to the R side causing increased pain when sitting. Grace had just came from a exercise class causing increased pain and tightness and rating her pain a 4/10, at times the pain does radiate into the hip and down into the thigh slightly. Bending. lifting, prolonged standing and walking all increase the patients pain, she denies any numbness or tingling. Location: back pain Duration: frequent Aggravating or associated factors: bending, lifting, prolonged walking and standing Relieving factors: N/A Pain Quality: aching, dull, sharp, radiating Exam Musc General: Yes normal posture, normal gait and joint tenderness (C6, T2, T7,L5, R SI) Cervical Spine: loss of normal cervical lordosis, cervical ROM normal, cervical spasm (slightly improved) bilateral lower: trapezius, pain with cervical ROM (decreased pain) with lateral flexion to left and with lateral flexion to right Thoracic/Lumbar Spine: thor and lumb spine abnorm to inspection (R posterior rotation of pelvis), pain with thoraco-lumbar ROM with forward flexion, with lateral flexion to the left and with lateral flexion to the right, thoraco-lumbar ROM limited with forward flexion, thoraco-lumbar spasm on the right (piriformis) in the lower lumbar, Lasegue's sign positive on the right Sacroiliac joints: on the right Office Procedures Chiropractic Treatments Procedures Manipulation: 3-4 regions (C6, T2, T7,L5, RIL) Electrical Stimulation: 15 mins Location: cervical and lumbar Traction, Mechanical: Yes Details: Lumbar traction 15 min Assessment AND Plan 1. Piriformis syndrome of right side G57.01 Orders Orders: 2. Segmental and somatic dysfunction of cervical region M99.01 Orders Orders: 3. Segmental and somatic dysfunction of lumbar region M99.03 Orders Orders: 4. Segmental and somatic dysfunction of thoracic region M99.02 Orders Orders: Plan Detail Goals Decrease pain Increase ROM Follow Up 1 Week Coding Level of Care Code No Charge Diagnoses Piriformis syndrome of right side G57.01 Segmental and somatic dysfunction of cervical region M99.01 Segmental and somatic dysfunction of lumbar region M99.03 Segmental and somatic dysfunction of thoracic region M99.02 Additional Codes Procedures - Electrical Stimulation: 15 mins (46401) Procedures - Traction, Mechanical: Yes (73932) Procedures - Manipulation: 3-4 regions (03929) 02/10/18 0909 <Electronically signed by Shannan Gan D.C.> Date Shannan Gan D.C. Cosigner Signature: Date (if applicable) CC: LOWER EXT JOINT ONLY Observed: 02/03/2018 Status: F Source: [place] (ROUTINE) 4:14 PM [facility] REPOSITORY [facility] Imaging Services [address] [place] [address] Lower Ext Joint Only (Routine) MR#: [id number] Acct: [id number] Name: TRISTAN SINGH Rep #: [id number] : 1960 F 57 From: Henrik Moore MD PCP: Jes Howe DO Status: REG CLI Study: Lower Ext Joint Only (Routine) Date of Exam: 02/03/18 Exam# [id number] Ordering Dr: Shannan Gan D.C. STUDY: MRI RIGHT HIP REASON FOR EXAM: Right hip and low back pain. TECHNIQUE: Standardized fat and water weighted pulse sequences were obtained in all 3 orthogonal planes. COMPARISON: None. FINDINGS: Normal hip joint without articular joint space narrowing. Normal acetabulum. There is a small tear of the right anterosuperior labrum (proton-density sagittal images 15, 16). Normal femoral head. Normal femoral neck and intratrochanteric region. Normal gluteus minimus, medius and iliopsoas tendons and distal insertions. There is mild bilateral greater trochanteric bursitis (inversion recovery axial images 24, 25). Normal superior and inferior pubic rami. Normal pubic symphysis. Normal ischial tuberosity. Normal origin of the hamstring tendons. Normal visualized iliac wing, sacroiliac joint, and sacral ala. There is mild asymmetry of the piriformis, larger on the right (T1 coronal images 7-10; inversion recovery axial images 15, 16). There is no intramuscular edema. MRI/Lower Ext Joint Only (Routine) IMPRESSION: Small tear of the right anterosuperior labrum. Mild bilateral greater trochanteric bursitis. Mild hypertrophy of the right piriformis muscle. Electronically Signed: Henrik Moore MD at 10:28 EDT Tel , Service support , CC: Jes Howe DO; Shannan Gan D.C. Instrument Specialist: Signed SPINE LUMBAR Observed: 02/03/2018 Status: F Source: [place] (ROUTINE) 4:14 PM [facility] REPOSITORY [facility] Imaging Services [address] [place] [address] Spine Lumbar (Routine) MR#: [id number] Acct: [id number] Name: TRISTAN SINGH Rep #: [id number] : 1960 F 57 From: Tio Nassar MD PCP: Jes Howe DO Status: REG CLI Study: Spine Lumbar (Routine) Date of Exam: 02/03/18 Exam# [id number] Ordering Dr: Shannan Gan D.C. STUDY: MRI LUMBAR SPINE WITHOUT CONTRAST REASON FOR EXAM: Female, 57 years old. Low back pain and right hip pain. TECHNIQUE: Standardized fat and water weighted pulse sequences were obtained in the sagittal and axial planes. COMPARISON: X-ray L-spine 01/12/2018. FINDINGS: T12-L1: Normal endplates. Normal disc height, hydration and morphology. Normal bilateral facet joints. Normal central canal and bilateral lateral recesses. Normal bilateral intervertebral neural foramina. Normal lumbar lordosis. There is no substantial scoliosis. Normal conus medullaris that terminates at the T12 level. L1-2: Normal endplates. Normal disc height, hydration and morphology. Normal bilateral facet joints. Normal central canal and bilateral lateral recesses. Normal bilateral intervertebral neural foramina. L2-3: Minimal spondylosis.. Normal disc height, hydration and morphology. Normal bilateral facet joints. Normal central canal and bilateral lateral recesses. Normal bilateral intervertebral neural foramina. L3-4: Mild spondylosis.. Normal disc height, hydration and morphology. Mild degenerative changes bilateral facet joints. Normal central canal and bilateral lateral recesses. Normal bilateral intervertebral neural foramina. L4-5: Normal endplates. Normal disc height, hydration and morphology. Mild degenerative changes bilateral facet joints. Normal central canal and bilateral lateral recesses. Normal bilateral intervertebral neural foramina. L5-S1: Normal endplates. Normal disc height, hydration and morphology. Mild degenerative changes bilateral facet joints. Normal central canal and bilateral lateral recesses. Normal bilateral intervertebral neural foramina. Normal visualized sacral ala. Normal visualized paraspinous soft tissue structures. MRI/Spine Lumbar (Routine) IMPRESSION: Mild multilevel degenerative changes. No neurologically significant abnormalities are demonstrated. Electronically Signed: Tio Nassar MD at 2:37 EDT , Service support , CC: Jes Howe DO; Shannan Gan D.C. Instrument Specialist: Signed CHIROPRACTIC REPORT Observed: 02/02/2018 Status: F Source: [place] 8:31 AM [facility] [address] [place] [address] OFFICE VISIT Date of Service: 01/27/18 MR#: [id number] Acct: [id number] Name: TRISTAN SINGH Rep #: [id number] : 1960 Provider: Shannan Gan D.C. Age/Sex: 57/F Location: [facility] Status: Signed Intake Vital Signs01/27/18 Height 5 ft 6 in 01/27/18 Weight: 180 lb 01/27/18 Body Mass Index (BMI) 29.0 Intake Visit Reasons: low back pain Chief Complaint: back pain Is patient in pain?: Yes Allergies No Known Allergies Allergy (Unverified 10/14/17 13:21) Medications ascorbic acid (vitamin C) 500 mg capsule mg PO 12/17/17 [History Confirmed 12/17/17] multivitamin capsule 1 cap PO QAM 12/17/17 [History Confirmed 12/17/17] [facility] Medical History Endometriosis (Acute) left ovary removal (Acute) Family History Other Breast cancer Melanoma Myocardial infarction Sudden cardiac Thyroid disorder HPI low back pain : Chief Complaint: low back pain Visit Number: 4 Details: TRISTAN SINGH is a 57 year old F who presents with low back pain. She states that after her last treatment her pain was decreased until Friday when she lifted her leg to tie her shoe causing a sharp clicking pain in the low back towards the R side. Today Tristan rates her pain a 02/10 and describes it as a deep and sharp ache radiating into the R hip and piriformis area, she denies any numbness or tingling. Location: low back pain Duration: intermittant Aggravating or associated factors: bending, lifting, and raising the leg Relieving factors: adjustment Pain Quality: aching, dull, sharp, radiating Exam Musc General: Yes normal posture, normal gait and joint tenderness (C6, T2, T7,L5, R SI) Cervical Spine: loss of normal cervical lordosis, cervical ROM normal, cervical spasm (slightly improved) bilateral lower: trapezius, pain with cervical ROM (decreased pain) with lateral flexion to left and with lateral flexion to right Thoracic/Lumbar Spine: thor and lumb spine abnorm to inspection (R posterior rotation of pelvis), pain with thoraco-lumbar ROM with forward flexion, with lateral flexion to the left and with lateral flexion to the right, thoraco-lumbar ROM limited with forward flexion, thoraco-lumbar spasm on the right (piriformis) in the lower lumbar Sacroiliac joints: on the right Office Procedures Chiropractic Treatments Procedures Manipulation: 3-4 regions (C6, T2, T7,L5, R SI) Electrical Stimulation: 15 mins Location: Lumbar and R SI Traction, Mechanical: Yes Details: TRACTION 15 MIN LUMBAR Assessment AND Plan 1. Piriformis syndrome of right side G57.01 Orders Orders: 2. Segmental and somatic dysfunction of thoracic region M99.02 Orders Orders: 3. Segmental and somatic dysfunction of cervical region M99.01 Orders Orders: 4. Segmental and somatic dysfunction of lumbar region M99.03 Orders Orders: Plan Detail Additional Comments MRI- lumbar/R hip is ordered. Goals Decrease pain Increase ROM Follow Up 1 X WEEK Coding Level of Care Code No Charge Diagnoses Piriformis syndrome of right side G57.01 Segmental and somatic dysfunction of thoracic region M99.02 Segmental and somatic dysfunction of cervical region M99.01 Segmental and somatic dysfunction of lumbar region M99.03 Additional Codes Procedures - Electrical Stimulation: 15 mins (52975) Procedures - Traction, Mechanical: Yes (82112) Procedures - Manipulation: 3-4 regions (75747) 02/02/18 0831 <Electronically signed by Shannan Gan D.C.> Date Shannan Gan D.C. Cosigner Signature: Date (if applicable) CC: SCREENING MAMM (CAD), Observed: 01/21/2018 Status: F Source: [facility] 12:54 PM [facility] REPOSITORY [facility] Imaging Services [address] [place] [address] SCREENING MAMM (CAD), BIL MR#: [id number] Acct: [id number] Name: TRISTAN SINGH Rep #: [id number] : 1960 F 57 From: Trey Patricia MD PCP: Status: [facility] Study: SCREENING MAMM (CAD), BIL Date of Exam: 01/21/18 Exam# [id number] Ordering Dr: Sunshine De La Torre MD MAMMOGRAPHY - BILATERAL SCREENING REASON FOR EXAM: Female, 57 years old. Routine annual screening examination. PERTINENT HISTORY: Mother with breast cancer. Aunt with breast cancer. TECHNIQUE: Digital bilateral breast giovany (3D mammographic acquisition) in the CC and MLO projections. 2-D mediolateral oblique (MLO) and craniocaudad (CC) views of both breasts were obtained. CAD: Full Field Digital Mammography with Computer Added Detection was performed. COMPARISON: Comparison is made with prior study dated December 04, 2016 and November 07, 2015. FINDINGS: Breast Composition: The breasts are heterogeneously dense, which may obscure small masses. There are no dominant masses or suspicious calcifications. No other significant abnormalities are identified. There has been no significant change since the prior study. HPBI/SCREENING MAMM (CAD), BILAT IMPRESSION: Stable bilateral screening mammogram. Yearly follow-up mammogram recommended. (A) ASSESSMENT CATEGORY: BIRADS Category 1: Negative. A letter regarding these results will be sent to the patient by the facility within 30 days. Approximately 10% of breast cancers are not detected by mammography. A normal mammogram should not delay biopsy of a clinically suspicious abnormality. [id number] Electronically Signed: Trey Patricia MD at 15:32 EDT Tel [phone], Service support , CC: Sunshine De La Torre MD Instrument Specialist: Signed PAP I-G W/RFX HRHPV Collected: 01/21/2018 Status: F Source: ANIKA 11:00 AM [facility] REPOSITORY Order Comment: CYTOLOGY INFORMATION: - CLINICAL INFORMATION: - DATE LMP/MENOPAUSE: MENOPAUSE - COLLECTION VIAL: Thin Prep Vial - RAW MATERIAL HANDLER SOURCE: CERVICAL/ENDOCERVICAL - COLLECTION TECHNIQUE: BRUSH/SPATULA Specimen Comment: [id number] Specimen Comment: No. of containers..01 ThinPrep Vial TYPE CODE TESTS RESULT OUT OF RANGE REFERENCE UNITS LAB L7400.0800 . Normal DIAGN Comment Result Comment: NEGATIVE FOR INTRAEPITHELIAL LESION AND MALIGNANCY. LAB L7400.0900 . Normal ADEQ Comment Result Comment: Satisfactory for evaluation. Endocervical and/or squamous metaplastic cells (endocervical component) are present. LAB L7400.1400 . Normal PERFORM Comment Result Comment: Genevieve Diamond, Irrigation Worker (ASCP) LAB L7400.2575 . Normal TEST METHOD Comment Result Comment: This liquid based ThinPrep(R) pap test was screened with the use of an image guided system. LAB L7400.2600 . Normal . COMM LAB L7400.2700 . Normal PAPSMR Comment Result Comment: The Pap smear is a screening test designed to aid in the detection of premalignant and malignant conditions of the uterine cervix. It is not a diagnostic procedure and should not be used as the sole means of detecting cervical cancer. Both false-positive and false-negative reports do occur. LAB L7400.2800 . Normal HPV RFLX Comment Result Comment: The HPV DNA reflex criteria were not met with this specimen result therefore, no HPV testing was performed. Performed at: - [facility] [id number] Bag Checker: Jen Diggs MD, Phone: [phone] Performed By: #### L7400.0350 #### [facility] (refer to report for specific site) refer to report for address and phone number CHIROPRACTIC REPORT Observed: 01/19/2018 Status: F Source: [place] 1:22 PM [facility] [address] [place] [address] OFFICE VISIT Date of Service: 01/15/18 MR#: [id number] Acct: [id number] Name: TRISTAN SINGH Rep #: [id number] : 1960 Provider: Shannan Gan D.C. Age/Sex: 57/F Location: [facility] Status: Signed Intake Vital Signs01/15/18 Height 5 ft 6 in 01/15/18 Weight: 180 lb 01/15/18 Body Mass Index (BMI) 29.0 Intake Visit Reasons: back pain Chief Complaint: back pain Is patient in pain?: Yes Allergies No Known Allergies Allergy (Unverified 10/14/17 13:21) Medications ascorbic acid (vitamin C) 500 mg capsule mg PO 12/17/17 [History Confirmed 12/17/17] multivitamin capsule 1 cap PO QAM 12/17/17 [History Confirmed 12/17/17] [facility] Medical History Endometriosis (Acute) left ovary removal (Acute) Family History Other Breast cancer Melanoma Myocardial infarction Sudden cardiac Thyroid disorder Social History Smoking Status: Never smoker alcohol intake: never substance use type: does not use what type of physical activity do you participate in: walking, weight training frequency: 3-4 times per week HPI back pain : Chief Complaint: back pain Visit Number: 6 Details: TRISTAN SINGH is a 57 year old F who presents with increased R sided low back pain. She states that yesterday she was down on the floor causing increased pain in the low back. Today the patient rates her pain a 4/10 and describes it as a sharp ache that is radiating into the R buttock, although she denies any numbness or tingling. She stated that she had a TFL injury last year and since that time has been very guarded in performing hip ABduction exercises. Location: R sided low back/buttock Duration: constant Aggravating or associated factors: bending, lifting and transferring of patients Pain Quality: aching, dull, sharp, radiating Exam Musc General: Yes normal posture, normal gait and joint tenderness (C6, T2, T7,L5, R SI) Cervical Spine: loss of normal cervical lordosis, cervical ROM normal, cervical spasm (slightly improved) bilateral lower: trapezius, pain with cervical ROM (decreased pain) with lateral flexion to left and with lateral flexion to right Thoracic/Lumbar Spine: thor and lumb spine abnorm to inspection (R posterior rotation of pelvis), pain with thoraco-lumbar ROM with forward flexion, with lateral flexion to the left and with lateral flexion to the right, thoraco-lumbar ROM limited with forward flexion, thoraco-lumbar spasm on the right (piriformis) in the lower lumbar Sacroiliac joints: on the right Office Procedures Chiropractic Treatments Procedures Manipulation: 3-4 regions (C6, T2, T7,L5, R SI) Electrical Stimulation: 15 mins Location: R lumbar Traction, Mechanical: Yes Details: Traction Lumbar 15 min Assessment AND Plan Problems 1. Segmental and somatic dysfunction of lumbar region M99.03 2. Segmental and somatic dysfunction of cervical region M99.01 3. Segmental and somatic dysfunction of thoracic region M99.02 4. Piriformis syndrome of right side G57.01 Plan Discussed with patient possibility of weakened glute medius/hip ABductors could be causing this discomfort and suggested stretches and strengthening to be performed at home. Orders Orders: Plan Detail Goals Decrease pain Increase ROM Follow Up 2x/wk Coding Level of Care Code No Charge Diagnoses Segmental and somatic dysfunction of lumbar region M99.03 Segmental and somatic dysfunction of cervical region M99.01 Segmental and somatic dysfunction of thoracic region M99.02 Piriformis syndrome of right side G57.01 Additional Codes Procedures - Electrical Stimulation: 15 mins (91779) Procedures - Traction, Mechanical: Yes (60374) Procedures - Manipulation: 3-4 regions (52569) 01/19/18 1322 <Electronically signed by Shannan Gan D.C.> Date Shannan Gan D.C. Cosigner Signature: Date (if applicable) CC: CHIROPRACTIC REPORT Observed: 01/13/2018 Status: F Source: [place] 8:43 AM [facility] [address] [place] [address] OFFICE VISIT Date of Service: 01/12/18 MR#: [id number] Acct: [id number] Name: TRISTAN SINGH Rep #: [id number] : 1960 Provider: Shannan Gan D.C. Age/Sex: 57/F Location: [facility] Status: Signed Intake Vital Signs01/12/18 Height 5 ft 6 in 01/12/18 Weight: 180 lb 01/12/18 Body Mass Index (BMI) 29.0 Intake Visit Reasons: back pain Chief Complaint: back pain Is patient in pain?: Yes Allergies No Known Allergies Allergy (Unverified 10/14/17 13:21) Medications ascorbic acid (vitamin C) 500 mg capsule mg PO 12/17/17 [History Confirmed 12/17/17] multivitamin capsule 1 cap PO QAM 12/17/17 [History Confirmed 12/17/17] [facility] Medical History Endometriosis (Acute) left ovary removal (Acute) Family History Other Breast cancer Melanoma Myocardial infarction Sudden cardiac Thyroid disorder Social History Smoking Status: Never smoker alcohol intake: never substance use type: does not use what type of physical activity do you participate in: walking, weight training frequency: 3-4 times per week HPI back pain : Chief Complaint: back pain Visit Number: 5 Details: TRISTAN SINGH is a 57 year old F who presents with R sided low back pain. Tristan states that she is unable to sit anywhere but her car due to the increased pain. the pain begins in the R sided low back and radiates down into the leg with some tingling at times. Bending, lifting and prolonged standing does increase the patients pain. today she rates it a 4/10 and describes it as a deep sharp ache. Her neck and upper back don't feel great but she says the pain isn't nearly as bad as her low back. Location: R sided low back Duration: constant Aggravating or associated factors: bending, lifting, sitting ad prolonged walking Relieving factors: laying flat with legs elevated Pain Quality: aching, dull, sharp, radiating Exam Musc General: Yes normal posture, normal gait and joint tenderness (C6, T2, T7,L5, R SI) Cervical Spine: loss of normal cervical lordosis, cervical ROM normal, cervical spasm (slightly improved) bilateral lower: trapezius, pain with cervical ROM (decreased pain) with lateral flexion to left and with lateral flexion to right Thoracic/Lumbar Spine: thor and lumb spine abnorm to inspection (R posterior rotation of pelvis), pain with thoraco-lumbar ROM with forward flexion, with lateral flexion to the left and with lateral flexion to the right, thoraco-lumbar ROM limited with forward flexion, thoraco-lumbar spasm on the right (piriformis) in the lower lumbar Sacroiliac joints: on the right Office Procedures Chiropractic Treatments Procedures Manipulation: 3-4 regions (C6, T2, T7,L5, RIL) Electrical Stimulation: 15 mins Location: R lumbar Traction, Mechanical: Yes Details: Traction 15 min lumbar Assessment AND Plan 1. Piriformis syndrome of right side G57.01 Orders Orders: 2. Segmental and somatic dysfunction of thoracic region M99.02 Orders Orders: 3. Segmental and somatic dysfunction of cervical region M99.01 Orders Orders: 4. Segmental and somatic dysfunction of lumbar region M99.03 Plan Ordered lumbar xrays. Orders Orders: Plan Detail Goals Decrease pain Increase ROM Follow Up 2x/wk Coding Level of Care Code No Charge Diagnoses Piriformis syndrome of right side G57.01 Segmental and somatic dysfunction of thoracic region M99.02 Segmental and somatic dysfunction of cervical region M99.01 Segmental and somatic dysfunction of lumbar region M99.03 Additional Codes Procedures - Electrical Stimulation: 15 mins (60205) Procedures - Traction, Mechanical: Yes (72385) Procedures - Manipulation: 3-4 regions (60474) 01/13/18 0843 <Electronically signed by Shannan Gan D.C.> Date Shannan Gan D.C. Cosigner Signature: Date (if applicable) CC: CHIROPRACTIC REPORT Observed: 01/12/2018 Status: F Source: [place] 8:19 AM [facility] [address] [place] [address] OFFICE VISIT Date of Service: 01/07/18 MR#: [id number] Acct: [id number] Name: SAMANTHATRISTAN WHITMAN Rep #: [id number] : 1960 Provider: Shannan Gan D.C. Age/Sex: 57/F Location: [facility] Status: Signed Intake Vital Signs01/07/18 Height 5 ft 6 in 01/07/18 Weight: 180 lb 01/07/18 Body Mass Index (BMI) 29.0 Intake Visit Reasons: back pain Chief Complaint: back pain Is patient in pain?: Yes Allergies No Known Allergies Allergy (Unverified 10/14/17 13:21) Medications ascorbic acid (vitamin C) 500 mg capsule mg PO 12/17/17 [History Confirmed 12/17/17] multivitamin capsule 1 cap PO QAM 12/17/17 [History Confirmed 12/17/17] [facility] Medical History Endometriosis (Acute) left ovary removal (Acute) Family History Other Breast cancer Melanoma Myocardial infarction Sudden cardiac Thyroid disorder Social History Smoking Status: Never smoker alcohol intake: never substance use type: does not use what type of physical activity do you participate in: walking, weight training frequency: 3-4 times per week HPI back pain : Chief Complaint: back pain Visit Number: 4 Details: TRISTAN SINGH is a 57 year old F who presents with R sided low back pain. After her treatments she does receive some relief until she gets the sensation of popping, when the low back does pop, Tristan states that she gets a sharp ache in the low back that radiates into the R buttock. The pain can be constant and comes on from bending or even moving her legs in bed. She denies any numbness or tingling. Location: R sided low back Duration: intermittant Aggravating or associated factors: bending, moving the legs and prolonged standing Relieving factors: ice Pain Quality: aching, dull, sharp, radiating Exam Musc General: Yes normal posture, normal gait and joint tenderness (C6, T2, T7,L5, R SI) Cervical Spine: loss of normal cervical lordosis, cervical ROM normal, cervical spasm (slightly improved) bilateral lower: trapezius, pain with cervical ROM (decreased pain) with lateral flexion to left and with lateral flexion to right Thoracic/Lumbar Spine: thor and lumb spine abnorm to inspection (R posterior rotation of pelvis), pain with thoraco-lumbar ROM with forward flexion, with lateral flexion to the left and with lateral flexion to the right, thoraco-lumbar ROM limited with forward flexion, thoraco-lumbar spasm on the right (piriformis) in the lower lumbar Sacroiliac joints: on the right Office Procedures Chiropractic Treatments Procedures Manipulation: 3-4 regions (C6, T2, T7,L4, R SI) Electrical Stimulation: 15 mins Location: lumbar Traction, Mechanical: Yes Details: Traction: lumbar, 15min Assessment AND Plan 1. Piriformis syndrome of right side G57.01 Orders Orders: 2. Segmental and somatic dysfunction of thoracic region M99.02 Orders Orders: 3. Segmental and somatic dysfunction of lumbar region M99.03 Orders Orders: 4. Segmental and somatic dysfunction of cervical region M99.01 Orders Orders: Plan Detail Goals Decrease pain Increase ROM Follow Up 2 x week Coding Level of Care Code No Charge Diagnoses Piriformis syndrome of right side G57.01 Segmental and somatic dysfunction of thoracic region M99.02 Segmental and somatic dysfunction of lumbar region M99.03 Segmental and somatic dysfunction of cervical region M99.01 Additional Codes Procedures - Electrical Stimulation: 15 mins (40122) Procedures - Manipulation: 3-4 regions (28358) Procedures - Traction, Mechanical: Yes (10481) 01/12/18 08 <Electronically signed by Shannan Gan D.C.> Date Shannan Gan D.C. Cosigner Signature: Date (if applicable) CC: CHIROPRACTIC REPORT Observed: 01/05/2018 Status: F Source: [place] 2:14 PM [facility] [address] [place] [address] OFFICE VISIT Date of Service: 01/05/18 MR#: [id number] Acct: [id number] Name: TRISTAN SINGH Rep #: [id number] : 1960 Provider: Shannan Gan D.C. Age/Sex: 57/F Location: [facility] Status: Signed Intake Vital Signs01/05/18 Height 5 ft 6 in 01/05/18 Weight: 185 lb 01/05/18 Body Mass Index (BMI) 29.8 Intake Visit Reasons: low back pain Chief Complaint: back pain Is patient in pain?: Yes Allergies No Known Allergies Allergy (Unverified 10/14/17 13:21) Medications ascorbic acid (vitamin C) 500 mg capsule mg PO 12/17/17 [History Confirmed 12/17/17] multivitamin capsule 1 cap PO QAM 02/14/18 [History Confirmed 12/17/17] [facility] Medical History Endometriosis (Acute) left ovary removal (Acute) Family History Other Breast cancer Melanoma Myocardial infarction Sudden cardiac Thyroid disorder Social History Smoking Status: Never smoker alcohol intake: never substance use type: does not use what type of physical activity do you participate in: walking, weight training frequency: 3-4 times per week HPI low back pain : Chief Complaint: low back pain Visit Number: 3 Details: TRISTAN SINGH is a 57 year old F who presents with R sided low back pain. The patient states that after her last treatment her pain did not decrease. She did just return from vacation causing increased back pain. Today Tristan rates her pain a 4/10 and describes it as a deep ache that radiates into the buttock and hip area, bending, lifting, and prolonged sitting does increase the pain. Tristan denies any numbness or tingling. Onset: 12/31/17 Location: R sided low back Duration: intermittant Aggravating or associated factors: bending, lifting, prolonged standing Relieving factors: adjustment Pain Quality: aching, dull, radiating Exam Musc General: Yes normal posture, normal gait and joint tenderness (C5,C6, T2, T7,L4, L5, R SI) Cervical Spine: loss of normal cervical lordosis, cervical ROM normal, cervical spasm bilateral lower: trapezius, pain with cervical ROM with lateral flexion to left and with lateral flexion to right Thoracic/Lumbar Spine: thor and lumb spine abnorm to inspection (R posterior rotation of pelvis), pain with thoraco-lumbar ROM with forward flexion, with lateral flexion to the left and with lateral flexion to the right, thoraco-lumbar ROM limited with forward flexion, thoraco-lumbar spasm on the right (piriformis) in the lower lumbar Sacroiliac joints: on the right Office Procedures Chiropractic Treatments Procedures Manipulation: 3-4 regions (C6, T2, T7, L1, RIL) Electrical Stimulation: 15 mins Location: R lumbar Traction, Mechanical: Yes Details: Traction lumbar 15 min Assessment AND Plan Problems 1. Piriformis syndrome of right side G57.01 2. Segmental and somatic dysfunction of cervical region M99.01 3. Segmental and somatic dysfunction of lumbar region M99.03 4. Segmental and somatic dysfunction of thoracic region M99.02 Plan Acute care treatment plan: 2x/wk Orders Orders: Plan Detail Goals Decrease pain Increase ROM Follow Up 2x/wk Coding Level of Care Code No Charge Diagnoses Piriformis syndrome of right side G57.01 Segmental and somatic dysfunction of cervical region M99.01 Segmental and somatic dysfunction of lumbar region M99.03 Segmental and somatic dysfunction of thoracic region M99.02 Additional Codes Procedures - Electrical Stimulation: 15 mins (88051) Procedures - Manipulation: 3-4 regions (70542) Procedures - Traction, Mechanical: Yes (80854) 01/05/18 1414 <Electronically signed by Shannan Gan D.C.> Date Shannan Gan D.C. Cosigner Signature: Date (if applicable) CC: CHIROPRACTIC REPORT Observed: 12/23/2017 Status: F Source: WHITING 9:55 AM [facility] [address] [place] [address] OFFICE VISIT Date of Service: 12/22/17 MR#: [id number] Acct: [id number] Name: TRISTAN SINGH Rep #: [id number] : 1960 Provider: Shannan Gan D.C. Age/Sex: 57/F Location: [facility] Status: Signed Intake Vital Signs12/22/17 Height 5 ft 6 in 12/22/17 Weight: 185 lb 12/22/17 Body Mass Index (BMI) 29.8 Intake Visit Reasons: back pain Chief Complaint: back pain Is patient in pain?: Yes Allergies No Known Allergies Allergy (Unverified 10/14/17 13:21) Medications ascorbic acid (vitamin C) 500 mg capsule mg PO 12/17/17 [History Confirmed 12/17/17] multivitamin capsule 1 cap PO QAM 12/17/17 [History Confirmed 12/17/17] [facility] Medical History Endometriosis (Acute) left ovary removal (Acute) Family History Other Breast cancer Melanoma Myocardial infarction Sudden cardiac Thyroid disorder Social History Smoking Status: Never smoker alcohol intake: never substance use type: does not use what type of physical activity do you participate in: walking, weight training frequency: 3-4 times per week HPI back pain : Chief Complaint: back pain Details: TRISTAN SINGH is a 57 year old F who presents with low back pain. She states that after her last treatment her pain subsided for a few days. Today the patient rates her pain 3/10 and describes it as a tight catching ache, while bending and cleaning at [employer] she experienced a sharp grinding pain that then caused the pain to return. The pain is staying localized to the R low back and slightly radiates into the leg. Tristan denies any numbness or tingling. Location: low back Duration: intermittent Aggravating or associated factors: bending, squatting and lifting Relieving factors: chiro Pain Quality: aching, dull, radiating Exam Musc General: Yes normal posture, normal gait and joint tenderness (C5,C6, T2, T7,L4, L5, R SI) Cervical Spine: loss of normal cervical lordosis, cervical ROM normal, cervical spasm bilateral lower: trapezius, pain with cervical ROM with lateral flexion to left and with lateral flexion to right Thoracic/Lumbar Spine: thor and lumb spine abnorm to inspection (R posterior rotation of pelvis), pain with thoraco-lumbar ROM with forward flexion, with lateral flexion to the left and with lateral flexion to the right, thoraco-lumbar ROM limited with forward flexion, thoraco-lumbar spasm on the right (piriformis) in the lower lumbar Sacroiliac joints: on the right Office Procedures Chiropractic Treatments Procedures Manipulation: 3-4 regions (C4, T2, T7, L4, RIL) Electrical Stimulation: 15 mins Location: lumbar Traction, Mechanical: Yes Details: Traction: lumbar, 15min Assessment AND Plan Problems 1. Segmental and somatic dysfunction of lumbar region M99.03 2. Segmental and somatic dysfunction of cervical region M99.01 3. Segmental and somatic dysfunction of thoracic region M99.02 4. Piriformis syndrome of right side G57.01 Plan Continue acute treatment plan. Orders Orders: Plan Detail Goals Decrease pain Increase ROM Follow Up 2 Days (per week) Coding Level of Care Code No Charge Diagnoses Segmental and somatic dysfunction of lumbar region M99.03 Segmental and somatic dysfunction of cervical region M99.01 Segmental and somatic dysfunction of thoracic region M99.02 Piriformis syndrome of right side G57.01 Additional Codes Procedures - Manipulation: 3-4 regions (66456) Procedures - Electrical Stimulation: 15 mins (58017) Procedures - Traction, Mechanical: Yes (65949) 12/23/17 0955 <Electronically signed by Shannan Gan D.C.> Date Shannan Gan D.C. Cosigner Signature: Date (if applicable) CC: CHIROPRACTIC REPORT Observed: 12/18/2017 Status: F Source: WHITING 12:41 PM [facility] [address] [place] [address] OFFICE VISIT Date of Service: 12/17/17 MR#: [id number] Acct: [id number] Name: SAMANTHATRISTAN Rep #: [id number] : 1960 Provider: Shannan Gan D.C. Age/Sex: 57/F Location: [facility] Status: Signed Intake Vital Signs12/17/17 Height 5 ft 6 in 12/17/17 Weight: 185 lb 2 oz 12/17/17 Body Mass Index (BMI) 29.8 Intake Visit Reasons: back pain Is patient in pain?: Yes Allergies No Known Allergies Allergy (Unverified 10/14/17 13:21) Medications ascorbic acid (vitamin C) 500 mg capsule mg PO 12/17/17 [History Confirmed 12/17/17] multivitamin capsule 1 cap PO QAM 12/17/17 [History Confirmed 12/17/17] PFSH Medical History Endometriosis (Acute) left ovary removal (Acute) Family History Other Breast cancer Melanoma Myocardial infarction Sudden cardiac Thyroid disorder Social History Smoking Status: Never smoker alcohol intake: never substance use type: does not use what type of physical activity do you participate in: walking, weight training frequency: 3-4 times per week HPI back pain : Chief Complaint: back pain Visit Number: 1 Referral source: employee Details: TRISTAN SINGH is a 57 year old F who presents with R sided low back pain. Roughly 1.5 years ago the patient was stepping down off a ladder and felt a sharp pain in the R lower back/hip area. The patient describes the pain as a tight grinding. burning ache that can be constant. Tristan is unable to cross her legs or laterally rotate the R hip. The patient denies any numbness, tingling, or radiculopathy. Sitting causes the pain to be worse, and at times she can feel a pain radiate across the entire low back. At its worst the patient rates her pain a 5/10, currently her pain is a 1/10 and described as a dull ache. Tristan also complains of R elbow pain, one month ago Tristan was using a repetitive reaching and pushing motion causing pain and tightness in the elbow. The elbow is tender to the touch, lifting weights, pulling, and pushing all cause increased pain. Location: R low back and R elbow Duration: frequent Aggravating or associated factors: bending, lifting, rotation, reaching, and pulling Relieving factors: N/A Pain Quality: aching, dull, sharp, radiating (R buttock) Exam Musc General: Yes normal posture, normal gait and joint tenderness (C4, C5, T2, L4, L5, R SI) Cervical Spine: loss of normal cervical lordosis, cervical ROM normal, cervical spasm bilateral lower: trapezius, pain with cervical ROM with lateral flexion to left and with lateral flexion to right Thoracic/Lumbar Spine: thor and lumb spine abnorm to inspection (R posterior rotation of pelvis), pain with thoraco-lumbar ROM with forward flexion, with lateral flexion to the left and with lateral flexion to the right, thoraco-lumbar ROM limited with forward flexion, thoraco-lumbar spasm on the right (piriformis) in the lower lumbar Sacroiliac joints: on the right Neuro General: alert, awake, oriented x3, gait normal, deep tendon reflexes 2+ bilaterally Ortho Test CERVICAL Compression pain: Negative Distraction pain: relief Chi's pain: Negative Valsalvas: Negative Shoulder depression pain: Right (Bilateral) THORACIC Kemps: Negative Schepelmanns pain: Negative Lindsay: Negative LUMBAR Kemps: Positive, Rig Valsalvas: Negative SLR: Right Braggards: Negative Iliac Compression: Right Lumbar Series: Fabere: pos R, neg L Office Procedures Chiropractic Treatments Procedures Manipulation: 3-4 regions (C6, T2, T8, L5) Electrical Stimulation: 15 mins Location: thor/lumb Traction, Mechanical: Yes Details: Traction: lumbar, 15min Assessment AND Plan Problems 1. Segmental and somatic dysfunction of lumbar region M99.03 2. Segmental and somatic dysfunction of cervical region M99.01 3. Segmental and somatic dysfunction of thoracic region M99.02 4. Piriformis syndrome of right side G57.01 Plan Recommend acute treatment plan. Orders Orders: Plan Detail Goals Decrease pain Increase ROM Follow Up 2 Days Coding Level of Care Code Off vis,new,level 3 Diagnoses Segmental and somatic dysfunction of lumbar region M99.03 Segmental and somatic dysfunction of cervical region M99.01 Segmental and somatic dysfunction of thoracic region M99.02 Piriformis syndrome of right side G57.01 Additional Codes Procedures - Manipulation: 3-4 regions (44241) Procedures - Electrical Stimulation: 15 mins (40888) Procedures - Traction, Mechanical: Yes (17221) 12/18/17 1241 <Electronically signed by Shannan Gan D.C.> Date Shannan Gan D.C. Cosigner Signature: Date (if applicable) CC: ALLERGIES ALLERGIES DATE TYPE / CODE NAME / CODE REACTION SEVERITY SOURCE 09/22/2018 Drug No Known Unknown [facility] Allergy/4160 Allergies/F00 Hospital 95551(SNOMED 3899487(RXNOR Repository CT) M) ENCOUNTERS ENCOUNTERS ADMIT/DISCHARGE ACCOUNT ADMITTING ENCOUNTER LOCATION SOURCE NUMBER CLASS 10/20/2018 [id number] Ambulatory [place] 5 [facility] ing:MASS Repository 10/20/2018 [id number] Ambulatory Anika Anika 5 [facility] ing:PT Repository 10/13/2018 [id number] Ambulatory Building:[facility] Repository 10/13/2018 [id number] Ambulatory [place] 3 [facility] ing:OPUS Repository 10/08/2018 [id number] Ambulatory Anika Anika 5 [facility] ing:LAB Repository 09/22/2018/ [id number] Ambulatory BMSBuilding:B Anika 8 6 [facility] Repository 08/18/2018 [id number] Ambulatory [place] Anika 2 [facility] ing:PT Repository 07/28/2018/ [id number] Ambulatory BMSBuilding:B [place] 8 7 [facility] Repository 04/07/2018/ [id number] Ambulatory BMSBuilding:B [place] 8 5 [facility] Repository 03/31/2018/ [id number] Ambulatory Anika [place] 8 2 [facility] ing:PT Repository 02/24/2018 [id number] Ambulatory Anika [place] 4 [facility] ing:HPRAD Repository 02/24/2018/ [id number] Ambulatory BMSBuilding:B Anika 8 2 [facility] Repository 02/11/2018/ [id number] Ambulatory BMSBuilding:B [place] 8 4 [facility] Repository 02/03/2018 [id number] Ambulatory Anika [place] 8 [facility] ing:MRI Repository 01/27/2018/ [id number] Ambulatory BMSBuilding:B Anika 8 3 [facility] Repository 01/21/2018 [id number] Ambulatory Anika Anika 7 [facility] ing:LABSPEC Repository 01/19/2018/ [id number] Ambulatory BMSBuilding:B Anika 8 6 [facility] Repository 01/15/2018/ [id number] Ambulatory BMSBuilding:B Anika 8 8 [facility] Repository 01/12/2018/ [id number] Ambulatory BMSBuilding:B [place] 8 5 [facility] Repository 01/12/2018 [id number] Ambulatory Anika [place] 3 [facility] ing:HPRAD Repository 01/07/2018/ [id number] Ambulatory BMSBuilding:B Anika 8 5 [facility] Repository 01/05/2018/ [id number] Ambulatory BMSBuilding:B Anika 8 6 [facility] Repository 12/22/2017/ [id number] Ambulatory BMSBuilding:B [place] 8 9 [facility] Repository 12/17/2017/ [id number] Ambulatory BMSBuilding:B [place] 8 3 [facility] Repository PAYERS PAYERS ENCOUNTER GUARANTOR PAYER SUBSCRIBER SOURCE 10/20/2018 ERINN [id number] Primary NOT GIVENUNK [place] Insurance:SELF PAY [facility] [address]Psa: Number: Effective Repository Date:2016-10-01 () 10/20/2018 ERINN [id number] Primary ERINN [place] Insurance:Gerardo KRAFTB: [facility] Number: [id number]-[facility] [address]Aqz: [id number] Repository Date:4465-80-04[address] ) [address], [place] [address]QV: 10/20/2018 Secondary NOT GIVENUNK [place] Insurance:SELF PAY [facility] Number: Effective Repository Date:2018-09-30 10/13/2018 Tristan Somers Primary Erinn SAM RuffinttDOB: Insurance:AucareSharan RuffinttB: Repository icy Number: [id number] Park [id number] [facility], Date:2028-75-21[place] [address]Cby: Name:[facility] [address]Ttm: [address] [place] [address] (HP) [phone]: [phone] 10/13/2018 ERINN THAKKAR Primary ERINNTAYLOR [place] Insurance:AULTCAREPol TALBOTTDOB: Community [facility] icy Number: [id number]-Lea [facility] Hospital [address]Fds: [id number] Repository Date:5586-89-23XW [address] () [address] [place] [address]NO: 10/13/2018 Secondary NOT GIVENUNK [place] Insurance:SELF PAY [facility] Number: Effective Repository Date:2018-10-06 10/08/2018 ERINN [id number] Primary ERINNTAYLOR [place]onal[place]on [place] Insurance:AULTCAREPol TALBOTTDOB[facility] icy Number: [id number]-[facility] [address]Gly: [id number] Repository Date:4313-25-57VE [address] () [address] [place] [address]BB: 10/08/2018 Secondary NOT GIVENUNK [place] Insurance:SELF PAY [facility] Number: Effective Repository Date:2018-10-08 09/22/2018 ERINN [id number] Primary ERINNTAYLOR [place]onal[place]on [place] Insurance:AULTCAREPol TALBOTTDOB: [facility], icy Number: [id number]-Lea General Hospital [address]Gef: [id number] Repository Date:8337-91-02GC [address] () [address], [place] [address]KN: 09/22/2018 Secondary NOT GIVENUNK [place] Insurance:SELF PAY Community [facility] Number: Effective Repository Date:2018-09-22 08/18/2018 ERINN THAKKAR Primary ERINN [place] Insurance:AULTCAREPol TALBOTTDOB: [facility] celeste LIy Number: [id number]-Lea [facility] [address]Ryf: [id number] Repository Date:9632-90-21EB [address] () [address], [place] [address]TW: 08/18/2018 Secondary NOT GIVENUNK Anika Insurance:SELF PAY [facility] Number: Effective Repository Date:2018-06-15 07/28/2018 ERINN [id number] Primary ERINN [place] Insurance:AULTCAREPol TALBOTTDOB: [facility] Number: [id number]-Lea General Hospital [address]Vpi: [id number] Repository Date:0503-45-49XN [address] () [address], [place] [address]JS: 07/28/2018 Secondary NOT GIVENUNK Anika Insurance:SELF PAY [facility] Number: Effective Repository Date:2018-07-28 04/07/2018 Erinn Singh91 Primary Erinn [place] Insurance:AULTCAREPol TalbottDOB: [facility] Number: [id number]-[facility] [address]Toa: [id number] Repository Date:9108-01-51YN [address] () [address] [address]MS: 04/07/2018 Secondary NOT GIVENUNK [place] Insurance:SELF PAY [facility] Number: Effective Repository Date:2018-04-17 03/31/2018 Erinn Thakkar Primary Erinn [place] Insurance:AULTCAREPol TalbottDOB: [facility] Number: [id number]-[facility] Hospital [address]Qus: [id number] Repository Date:2156-34-15TF [address] () [address], [place] [address]PX: 03/31/2018 Secondary NOT GIVENUNK [place] Insurance:SELF PAY [facility] Number: Effective Repository Date:2018-02-24 02/24/2018 Erinn Dejesusbott91 Primary Erinn [place] Insurance:AULTCAREPol TalbottDOB: [facility] y Number: [id number]-[facility] Hospital [address]Far: [id number] Repository Date:2468-55-70YB [address] () [address], [place] [address]BE: 02/24/2018 Secondary NOT GIVENUNK [place] Insurance:SELF PAY [facility] Number: Effective Repository Date:2018-02-24 02/24/2018 Erinn Dejesusbott91 Primary Erinn [place]onal[place] Insurance:AULTCAREPol TalbottDOB: [facility] Number: [id number]-Lea [facility] Hospital [address]Eso: [id number] Repository Date:6686-33-20YU [address] () [address], [place] [address]FK: 02/24/2018 Secondary NOT GIVENUNK Anika Insurance:SELF PAY [facility] Number: Effective Repository Date:2018-02-19 02/11/2018 Erinn Dejesusbott91 Primary Erinn Donalds[place] Insurance:AULTCAREPol TalbottDOB: [facility] Number: [id number]-Lea [facility] Hospital [address]Pjd: [id number] Repository Date:3321-78-42RO [address] () [address], [place] [address]RP: 02/11/2018 Secondary NOT GIVENUNK Anika Insurance:SELF PAY [facility] Number: Effective Repository Date:2018-02-11 02/03/2018 Erinn Ruffintt91 Primary Insurance:[facility]AN [facility] PACKAGE PLANPolicy TALBOTTDOB: [facility], Number: [id number]-[facility] Hospital [address]Yjb: [id number] Repository Date:2018-01-27 () 02/03/2018 Secondary NOT GIVENUNK [place] Insurance:SELF PAY [facility] Number: Effective Repository Date:2018-01-27 01/27/2018 Erinn Thakkar Primary Erinn [place] Insurance:AULTCAREPol TalbottDOB: [facility] Number: [id number]-Lea General Hospital [address]Icm: [id number] Repository Date:9320-76-17YI [address] () [address], [place] [address]MB: 01/27/2018 Secondary NOT GIVENUNK Anika Insurance:SELF PAY [facility] Number: Effective Repository Date:2018-01-27 01/21/2018 Erinn Thakkar Primary Erinn [place] Insurance:AULTCAREPol TalbottDOB: [facility]ones[facility] centershim[facility] Number: [id number]-[facility] Hospital [address]Fuh: [id number] Repository Date:3624-96-78KU [address] () [address], [place] [address]DA: 01/21/2018 Secondary NOT GIVENUNK [place] Insurance:SELF PAY [facility] Number: Effective Repository Date:2017-12-08 01/19/2018 Erinn Singh91 Primary Erinn [place] Insurance:AULTCAREPol TalbottDOB: [facility] Hospitalandrewshimon [facility] Number: [id number]-[facility]a [facility] [address]Rkq: [id number] Repository Date:3603-43-77KZ [address] () [address], [place] [address]ZH: 01/19/2018 Secondary NOT GIVENUNK Anika Insurance:SELF PAY [facility] Number: Effective Repository Date:2018-02-10 01/15/2018 Erinn Singh91 Primary Erinn [place] Insurance:AULTCAREPol TalbottDOB: [facility], icy Number: [id number]-Lea [facility] Hospital [address]Bsd: [id number] Repository Date:3392-02-21YY [address] () [address], [place] [address]QH: 01/15/2018 Secondary NOT GIVENUNK Anika Insurance:SELF PAY [facility] Number: Effective Repository Date:2018-01-12 01/12/2018 Erinn Dejesusbott91 Primary Erinn [place] Insurance:AULTCAREPol TalbottDOB: Community [facility] Centerandrew[facility], icy Number: [id number]-Lea [facility] Hospital [address]Yft: [id number] Repository Date:3811-21-29AP [address] () [address], [place] [address]US: 01/12/2018 Secondary NOT GIVENUNK [place] Insurance:SELF PAY [facility] Number: Effective Repository Date:2018-01-08 01/12/2018 Erinn [id number] Primary NOT GIVENUNK [place] Insurance:SELF PAY [facility] [address]Ngm: Number: Effective Repository Date:2018-01-12 () 01/07/2018 Erinn Dejesusbott91 Primary Erinn [place] Insurance:AULTCAREPol TalbottDOB: [facility]rew[facility], icy Number: [id number]-Lea [facility] Hospital [address]Spe: [id number] Repository Date:0754-21-43HB [address] () [address], [place] [address]ET: 01/07/2018 Secondary NOT GIVENUNK [place] Insurance:SELF PAY [facility] Number: Effective Repository Date:2018-01-05 01/05/2018 Erinn [id number] Primary Erinn [place] Insurance:AULTCAREPol TalbottDOB: [facility]rew[facility], y Number: [id number]-[facility] [address]Vvq: [id number] Repository Date:6949-66-73RN [address] () [address], [place] [address]QK: 01/05/2018 Secondary NOT GIVENUNK [place] Insurance:SELF PAY [facility] Number: Effective Repository Date:2018-01-01 12/22/2017 Erinn Singh91 Primary Erinntaylor Donaldson [place] Insurance:AULTCAREPol TalbottDOB: [facility] Number: [id number]-Lea [facility] Hospital [address]Tsg: [id number] Repository Date:7623-84-05SZ [address] () [address], [place] [address]TD: 12/22/2017 Secondary NOT GIVENUNK [place] Insurance:SELF PAY [facility] Number: Effective Repository Date:2017-12-17 12/17/2017 Erinn Singh91 [facility] [place] Insurance:AULTCAREPol TalbottDOB: [facility] Number: [id number]-[facility] [address]Fqd: [id number] Repository Date:8011-50-09TT [address] () [address], [place] [address]XU: 12/17/2017 Secondary NOT GIVENUNK Anika Insurance:SELF PAY [facility] Number: Effective Repository Date:2017-12-09
--- NOTE | 2019-04-14 14:55 | HP.PT.NRP ---
HP - Discharge Summary (1) - Patient Information ARASH SINGH was seen in my office for initial evaluation on . The following Plan of Care was established for this patient: This patient was last seen in our office . Pertinent comments regarding their Physical therapy will appear below: Discharge At this point I will be discontinuing this patient from physical therapy. I would be happy to see this patient again in the future if found appropriate by the physician. Thank you! KLAUDIA HarrisT
== END 2018-10-20 19:00 | disposition home or self-care (01) ==
LOC: PT 09:00
PROVIDERS: Family Provider Internal Medicine; PCP Internal Medicine; Referring Provider Orthopaedic Surgery; Visit Provider Orthopaedic Surgery
DX: G57.01 Lesion of sciatic nerve, right lower limb (principal)

== ENCOUNTER → 2019-02-11 13:27 | Outpatient (CLI) | payer OTHER, SELFPAY ==
[2019-01-12 14:38] VITALS: BMI 29.0
--- NOTE | 2019-02-11 13:29 | BI_ITS ---
MAMMOGRAPHY - BILATERAL SCREENING REASON FOR EXAM: Female, 59 years old. Routine annual screening examination. PERTINENT HISTORY: Mother with breast cancer. Aunt with breast cancer. TECHNIQUE: Digital bilateral breast giovany (3D mammographic acquisition) in the CC and MLO projections. 2-D mediolateral oblique (MLO) and craniocaudad (CC) views of both breasts were obtained. CAD: Full Field Digital Mammography with Computer Added Detection was performed. COMPARISON: Comparison is made with prior study of January 21, 2018 and December 04, 2016. FINDINGS: Breast Composition: The breasts are heterogeneously dense, which may obscure small masses. There are no dominant masses or suspicious calcifications. Small bilateral benign-appearing axillary lymph nodes. No other significant abnormalities are identified. There has been no significant change since the prior study. BI/SCREENING MAMM (CAD), BILAT IMPRESSION: Stable bilateral screening mammogram. Yearly follow-up mammogram recommended. (A) ASSESSMENT CATEGORY: BIRADS Category 2: Benign. A letter regarding these results will be sent to the patient by the facility within 30 days. Approximately 10% of breast cancers are not detected by mammography. A normal mammogram should not delay biopsy of a clinically suspicious abnormality. [id number] Electronically Signed: Trey Patricia, at 14:51 EDT , Service support ,
[2019-02-17 12:56] LABS: HPV Reflexed? NOT INDICATED
== END ==
LOC: OPBI 13:28 → LABSPEC 14:00
PROVIDERS: Family Provider Internal Medicine; PCP Internal Medicine; Referring Provider Obstetrics & Gynecology; Visit Provider Obstetrics & Gynecology
DX: Z12.31 Encounter for screening mammogram for malignant neoplasm of breast (principal)
CPT/HCPCS: 77063; 77067; 88175; G0145

== ENCOUNTER → 2019-05-10 | Outpatient (CLI) | payer OTHER, SELFPAY ==
[2019-05-10 11:03] VITALS: BMI 29.0
--- NOTE | 2019-05-10 11:09 | RAD_ITS ---
STUDY: X-RAY - RIGHT KNEE REASON FOR EXAM: Female, 59 years old. Pain TECHNIQUE: 4 view(s) of the knee. COMPARISON: None. FINDINGS: Normal visualized distal femur. Normal visualized proximal tibia and fibula. Normal proximal tibiofibular articulation. Normal medial femorotibial compartment. Normal lateral femorotibial compartment. Normal patellofemoral articulation. The soft tissue structures are unremarkable. RAD/Knee 4 or More Views IMPRESSION: Normal x-ray examination of the knee. Electronically Signed: Flako Ayala MD at 16:50 EDT , Service support ,
--- NOTE | 2019-05-10 11:09 | RAD_ITS ---
STUDY: X-RAY - LEFT KNEE REASON FOR EXAM: Female, 59 years old. Bilateral knee pain TECHNIQUE: 4 view(s) of the knee. COMPARISON: None. FINDINGS: Normal visualized distal femur. Normal visualized proximal tibia and fibula. Normal proximal tibiofibular articulation. Normal medial femorotibial compartment. Normal lateral femorotibial compartment. Normal patellofemoral articulation. The soft tissue structures are unremarkable. RAD/Knee 4 or More Views IMPRESSION: Normal x-ray examination of the knee. Electronically Signed: Flako Ayala MD at 16:51 EDT , Service support ,
== END | disposition home or self-care (01) ==
LOC: HPRAD 11:08
PROVIDERS: Family Provider Internal Medicine; PCP Internal Medicine; Referring Provider Orthopaedic Surgery; Visit Provider Orthopaedic Surgery
DX: M25.561 Pain in right knee (principal); M25.562 Pain in left knee
CPT/HCPCS: 73564

== ENCOUNTER → 2019-05-24 | Outpatient (CLI) | payer OTHER, SELFPAY ==
[2019-05-10 11:03] VITALS: BMI 29.0
[2019-05-24 09:42] LABS: AST(SGOT) 17 U/L (15-37); Alanine Aminotransfer ALT/SGPT 23 U/L (13-56); Albumin, Serum 3.7 g/dL (3.2-5.0); Alkaline Phosphatase 57 U/L (45-117); Anion Gap 8 (5-15); BUN 17 mg/dL (7-18); BUN/Creat Ratio 20.1 RATIO (10-20); Calcium,Total 8.5 mg/dL (8.5-10.1); Chloride 106 mmol/L (98-107); Creatinine, Serum 0.85 mg/dL (0.55-1.02); EST Glomerular Filtration Rate 73 mL/min (>60); Est Glom Filt Rate - Afr Amer 89 mL/min (>60); Globulin 3.8 g/dL (2.2-4.2); Glucose 91 mg/dL (74-106); Potassium 4.4 mmol/L (3.5-5.1); Protein, Total 7.5 g/dL (6.4-8.2); Sodium Level 143 mmol/L (136-145)
[2019-05-24 09:46] LABS: Vitamin D,25 Hydroxy 37.3 ng/mL (29.95-100.01)
== END | disposition home or self-care (01) ==
LOC: LAB 08:04
PROVIDERS: Family Provider Internal Medicine; PCP Internal Medicine; Referring Provider Nurse Practitioner; Visit Provider Nurse Practitioner
DX: E55.9 Vitamin D deficiency, unspecified (principal); M85.80 Other specified disorders of bone density and structure, unspecified site
CPT/HCPCS: 36415; 80053; 82306

== ENCOUNTER → 2020-04-19 08:18 | Outpatient (CLI) | payer OTHER, SELFPAY ==
[2019-05-10 11:03] VITALS: BMI 29.0
--- NOTE | 2020-04-19 08:21 | BI_ITS ---
MAMMOGRAPHY - BILATERAL SCREENING REASON FOR EXAM: Female, 60 years old. Routine annual screening examination. PERTINENT HISTORY: Mother with breast cancer. Aunt with breast cancer. TECHNIQUE: Digital bilateral breast catie (3D mammographic acquisition) in the CC and MLO projections. 2-D mediolateral oblique (MLO) and craniocaudad (CC) views of both breasts were obtained. CAD: Full Field Digital Mammography with Computer Added Detection was performed. COMPARISON: Comparison is made with prior study dated February 11, 2019 and January 21, 2018. FINDINGS: Breast Composition: The breasts are heterogeneously dense, which may obscure small masses. There are no dominant masses or suspicious calcifications. Stable small bilateral benign-appearing axillary lymph nodes. No other significant abnormalities are identified. There has been no significant change since the prior study. BI/SCREEN MAMM (CAD) W/CATIE BILAT IMPRESSION: Stable bilateral screening mammogram. Yearly follow-up mammogram recommended. (A) ASSESSMENT CATEGORY: BIRADS Category 2: Benign. A letter regarding these results will be sent to the patient by the facility within 30 days. Approximately 10% of breast cancers are not detected by mammography. A normal mammogram should not delay biopsy of a clinically suspicious abnormality. [id number] Electronically Signed: Trey Patricia, at 9:33 EDT , Service support ,
== END ==
PROVIDERS: PCP Internal Medicine; Referring Provider Obstetrics & Gynecology; Visit Provider Obstetrics & Gynecology
DX: Z12.31 Encounter for screening mammogram for malignant neoplasm of breast (principal)
CPT/HCPCS: 77063; 77067

== ENCOUNTER → 2020-06-12 12:12 | Outpatient (CLI) | payer OTHER, SELFPAY ==
[2019-05-10 11:03] VITALS: BMI 29.0
--- NOTE | 2020-06-12 12:15 | US_ITS ---
STUDY: THYROID ULTRASOUND REASON FOR EXAM: Female, 60 years old. F/u nodule TECHNIQUE: Ultrasound evaluation of the thyroid was performed with real-time and static pruitt-scale imaging. COMPARISON: Comparison is made with prior examination dated 10/13/2018. FINDINGS: RIGHT LOBE: The right lobe of the thyroid gland measures 4.7 cm x 1.8 cm x 0.7 cm. There is a homogeneous echotexture. There is a 4 mm x 3 mm x 3 mm cystic nodule in the lower pole of the right lobe. LEFT LOBE: The left lobe of the thyroid gland measures 4.1 cm x 1.5 cm x 0.6 cm. There is a homogeneous echotexture. There is a 7 mm x 6 mm x 3 mm well-defined hypoechoic solid nodule in the lower pole. ISTHMUS: The isthmus measures 2.0 mm. There is a 7 mm x 6 mm x 3 mm hypoechoic nodule in the isthmus. The regional lymph nodes are normal. US/Thyroid IMPRESSION: Stable examination. Electronically Signed: Trey Patricia, at 15:24 EDT , Service support ,
== END ==
PROVIDERS: PCP Internal Medicine; Referring Provider Internal Medicine; Visit Provider Internal Medicine
DX: E04.1 Nontoxic single thyroid nodule (principal)
CPT/HCPCS: 76536

== ENCOUNTER → 2020-07-03 07:30 | Outpatient (CLI) | payer OTHER, SELFPAY ==
[2019-05-10 11:03] VITALS: BMI 29.0
[2020-07-03 08:15] LABS: Absolute Lymphocyte Count 2.37 X10^3/uL (0.83-4.51); Absolute Neutrophil Count 2.2 X10^3/uL (2.0-7.7); Basophil# 0.04 X10^3/uL; Basophil% 0.8 % (0-1); Eosinophil# 0.22 X10^3/uL; Eosinophils% 4.2 % (0-5); Hematocrit 40.7 % (37-47); Hemoglobin 13.2 g/dL (12.0-15.0); Lymphocyte # 2.37 X10^3/ul (4.0); Mean Corp Hgb Conc 32.4 g/dL (32-36); Mean Corpuscular Hgb 32.4 pg (27.0-32.0); Mean Corpuscular Volume 99.8 fL (81-99); Mean Platelet Vol. 10.8 fl (6.2-12.0); Monocyte# 0.39 X10^3/uL; Monocyte% 7.4 % (0-10); NRBC Flagged by Analyzer 0 % (0-5); Neutrophil # 2.24 X10^3/uL (2.7-7.7); Neutrophil % 42.4 % (47-70); Platelet Count 299 K/mm3 (150-450); RBC Distribution Width CV 11.9 % (11.6-14.6); RBC Distribution Width SD 43.8 fl (35.1-43.9); Red Blood Count 4.08 M/mm3 (4.2-5.4); White Blood Count 5.3 K/mm3 (4.4-11.0)
[2020-07-03 08:52] LABS: AST(SGOT) 22 U/L (15-37); Alanine Aminotransfer ALT/SGPT 24 U/L (13-56); Albumin, Serum 3.7 g/dL (3.2-5.0); Alkaline Phosphatase 49 U/L (45-117); Anion Gap 4 (5-15); BUN 23 mg/dL (7-18); BUN/Creat Ratio 28.7 RATIO (10-20); Calcium,Total 8.3 mg/dL (8.5-10.1); Chloride 108 mmol/L (98-107); Cholesterol 208 mg/dL (200); EST Glomerular Filtration Rate 78 mL/min (>60); Est Glom Filt Rate - Afr Amer 94 mL/min (>60); Free T3 2.7 pg/mL (2.18-3.98); Globulin 3.7 g/dL (2.2-4.2); Glucose 93 mg/dL (74-106); High Density Lipoprotein 42 mg/dL; Potassium 4.1 mmol/L (3.5-5.1); Protein, Total 7.4 g/dL (6.4-8.2); Sodium Level 140 mmol/L (136-145); T4 Total, Thyroxin 7.3 ug/dL (4.8-13.9); Thyroid Stim Hormone (TSH) 1.94 uIU/mL (0.358-3.74); Triglycerides 98 mg/dL; Very Low Density Lipoprotein 20 mg/dL (5-40)
[2020-07-05 17:24] LABS: Vitamin D 1,25-Dihydroxy 41.5 pg/mL (19.9-79.3)
== END ==
PROVIDERS: PCP Internal Medicine; Referring Provider Internal Medicine; Visit Provider Internal Medicine
DX: E04.1 Nontoxic single thyroid nodule (principal); E55.9 Vitamin D deficiency, unspecified; E78.5 Hyperlipidemia, unspecified; Z82.49 Family history of ischemic heart disease and other diseases of the circulatory system
CPT/HCPCS: 36415; 80053; 80061; 82652; 84436; 84443; 84481; 85025

== ENCOUNTER 2020-07-31 12:06 | Outpatient (RCR) | payer OTHER, SELFPAY ==
[2019-05-10 11:03] VITALS: BMI 29.0
== END 2020-08-02 23:59 ==
LOC: EMPH 12:06
PROVIDERS: Visit Provider Family Medicine Geriatric Medicine
DX: Z11.59 Encounter for screening for other viral diseases (principal)
CPT/HCPCS: 87635; U0003

== ENCOUNTER 2020-08-31 10:52 | Outpatient (RCR) | payer OTHER, SELFPAY ==
[2019-05-10 11:03] VITALS: BMI 29.0
== END 2020-09-02 23:59 ==
LOC: EMPH 10:52
PROVIDERS: Visit Provider Family Medicine Geriatric Medicine
DX: Z03.818 Encounter for observation for suspected exposure to other biological agents ruled out (principal)
CPT/HCPCS: 87426

== ENCOUNTER 2020-09-27 10:58 | Outpatient (RCR) | payer OTHER, SELFPAY ==
[2019-05-10 11:03] VITALS: BMI 29.0
== END 2020-10-02 23:59 ==
LOC: EMPH 10:58
PROVIDERS: Visit Provider Family Medicine Geriatric Medicine
DX: Z03.818 Encounter for observation for suspected exposure to other biological agents ruled out (principal)
CPT/HCPCS: 87426

== ENCOUNTER 2020-10-19 10:44 | Outpatient (RCR) | payer OTHER, SELFPAY ==
[2019-05-10 11:03] VITALS: BMI 29.0
== END 2020-11-02 23:59 ==
LOC: EMPH 10:44
PROVIDERS: Referring Provider Family Medicine Geriatric Medicine; Visit Provider Family Medicine Geriatric Medicine
DX: Z03.818 Encounter for observation for suspected exposure to other biological agents ruled out (principal)
CPT/HCPCS: 87426

== ENCOUNTER → 2020-11-08 10:15 | Outpatient (CLI) | payer OTHER, SELFPAY ==
[2019-05-10 11:03] VITALS: BMI 29.0
--- NOTE | 2020-11-08 10:18 | MRI_ITS ---
STUDY: MRI RIGHT HIP REASON FOR EXAM: Right hip pain for 2 years, no specific injury. TECHNIQUE: Standardized fat and water weighted pulse sequences were obtained in all 3 orthogonal planes. COMPARISON: Radiographs 10/18/2020 and MRI images 02/03/2018. FINDINGS: Normal hip joint without articular joint space narrowing. Normal acetabulum. There is a tear of the anterosuperior labrum (proton-density sagittal image 17) as on the prior study. Normal femoral head. Normal femoral neck and intratrochanteric region. Normal gluteus minimus, medius and iliopsoas tendons and distal insertions. There is no trochanteric, iliopsoas or iliopectineal bursitis. Normal superior and inferior pubic rami. Normal pubic symphysis. Normal ischial tuberosity. Normal origin of the hamstring tendons. Normal visualized iliac wing, sacroiliac joint, and sacral ala. There is asymmetry of the piriformis muscles, larger on the right (T1 coronal images 7-9) as on the prior study without intramuscular edema. MRI/Lower Ext Joint Only (Routine) IMPRESSION: Tear of the right anterosuperior labrum. Hypertrophy of the right piriformis muscle. Electronically Signed: Henrik Moore MD at 11:40 EST Tel , Service support ,
== END ==
PROVIDERS: PCP Internal Medicine; Referring Provider Orthopaedic Surgery; Visit Provider Orthopaedic Surgery
DX: G57.01 Lesion of sciatic nerve, right lower limb (principal)
CPT/HCPCS: 73721

== ENCOUNTER 2020-11-28 11:27 | Outpatient (RCR) | payer OTHER, SELFPAY ==
[2019-05-10 11:03] VITALS: BMI 29.0
== END 2020-12-03 23:59 ==
LOC: EMPH 11:27
PROVIDERS: PCP Internal Medicine; Referring Provider Family Medicine Geriatric Medicine; Visit Provider Family Medicine Geriatric Medicine
DX: Z03.818 Encounter for observation for suspected exposure to other biological agents ruled out (principal)
CPT/HCPCS: 87426

== ENCOUNTER 2020-12-26 12:22 | Outpatient (RCR) | payer OTHER, SELFPAY ==
[2019-05-10 11:03] VITALS: BMI 29.0
== END 2020-12-31 23:59 ==
LOC: EMPH 12:22
PROVIDERS: PCP Internal Medicine; Referring Provider Family Medicine Geriatric Medicine; Visit Provider Family Medicine Geriatric Medicine
DX: Z03.818 Encounter for observation for suspected exposure to other biological agents ruled out (principal)
CPT/HCPCS: 87426

== ENCOUNTER 2021-01-24 09:29 | Outpatient (RCR) | payer OTHER, SELFPAY ==
[2019-05-10 11:03] VITALS: BMI 29.0
== END 2021-01-31 23:59 ==
LOC: EMPH 09:29
PROVIDERS: PCP Internal Medicine; Referring Provider Family Medicine Geriatric Medicine; Visit Provider Family Medicine Geriatric Medicine
DX: Z03.818 Encounter for observation for suspected exposure to other biological agents ruled out (principal)
CPT/HCPCS: 87426

== ENCOUNTER 2021-03-02 13:57 | Outpatient (RCR) | payer OTHER, SELFPAY ==
[2019-05-10 11:03] VITALS: BMI 29.0
== END 2021-03-02 23:59 ==
LOC: EMPH 13:57
PROVIDERS: PCP Internal Medicine; Referring Provider Family Medicine Geriatric Medicine; Visit Provider Family Medicine Geriatric Medicine
DX: Z03.818 Encounter for observation for suspected exposure to other biological agents ruled out (principal)
CPT/HCPCS: 87426

== ENCOUNTER → 2021-04-25 11:58 | Outpatient (CLI) | payer OTHER, SELFPAY ==
[2021-04-09 10:14] VITALS: BMI 29.0
[2021-04-20 08:44] VITALS: BMI 29.0
--- NOTE | 2021-04-25 12:00 | BI_ITS ---
MAMMOGRAPHY - BILATERAL SCREENING 3-D TOMOSYNTHESIS REASON FOR EXAM: Female, 61 years old. SCREENING PERTINENT HISTORY: No significant family history. TECHNIQUE: 2-D mammograms and 3-D Tomosynthesis of the breast (s) were performed. CAD was performed. COMPARISON: 04/19/2020 FINDINGS: The breast composition is of heterogeneous fibroglandular. Scattered benign calcifications are seen. No dense spiculated masses or suspicious microcalcifications are identified. No architectural distortion is identified. There is no skin thickening or nipple retraction. Benign looking lymph nodes in the axillary areas noted. There has been no significant change since the prior study 04/19/2020. BI/SCRN MAMM (CAD)W/CATIE BILAT IMPRESSION: No mammographic signs of malignancy. Routine yearly mammograms recommended. ASSESSMENT CATEGORY: BIRADS Category 1: Negative. A letter regarding these results will be sent to the patient by the facility within 30 days. FOLLOW UP RECOMMENDATION: Yearly follow up mammogram recommended. (A) Approximately 10% of breast cancers are not detected by mammography. A normal mammogram should not delay biopsy of a clinically suspicious abnormality. Electronically Signed: Angelina Temple, at 15:55 EDT Tel , Service support ,
== END ==
PROVIDERS: PCP Internal Medicine; Referring Provider Obstetrics & Gynecology; Visit Provider Obstetrics & Gynecology
DX: Z12.31 Encounter for screening mammogram for malignant neoplasm of breast (principal)
CPT/HCPCS: 77063; 77067

== ENCOUNTER 2021-05-01 11:19 | Outpatient (RCR) | payer OTHER, SELFPAY ==
[2021-03-12 14:23] VITALS: BMI 29.0
[2021-04-09 10:14] VITALS: BMI 29.0
== END 2021-05-02 23:59 ==
LOC: EMPH 11:19
PROVIDERS: PCP Internal Medicine; Referring Provider Family Medicine Geriatric Medicine; Visit Provider Family Medicine Geriatric Medicine
DX: Z03.818 Encounter for observation for suspected exposure to other biological agents ruled out (principal)
CPT/HCPCS: 87426

== ENCOUNTER 2021-06-01 12:15 | Outpatient (RCR) | payer OTHER, SELFPAY ==
[2021-04-20 08:44] VITALS: BMI 29.0
== END 2021-06-02 23:59 ==
LOC: EMPH 12:15
PROVIDERS: PCP Internal Medicine; Referring Provider Family Medicine Geriatric Medicine; Visit Provider Family Medicine Geriatric Medicine
DX: Z03.818 Encounter for observation for suspected exposure to other biological agents ruled out (principal)
CPT/HCPCS: 87426

== ENCOUNTER 2021-07-03 12:27 | Outpatient (RCR) | payer OTHER, SELFPAY ==
[2021-05-28 11:39] VITALS: BMI 29.0
== END 2021-07-03 23:59 ==
LOC: EMPH 12:27
PROVIDERS: PCP Internal Medicine; Referring Provider Family Medicine Geriatric Medicine; Visit Provider Family Medicine Geriatric Medicine
DX: Z03.818 Encounter for observation for suspected exposure to other biological agents ruled out (principal)
CPT/HCPCS: 87426

== ENCOUNTER → 2021-07-16 08:19 | Outpatient (CLI) | payer OTHER, SELFPAY ==
[2021-07-16 09:26] LABS: Absolute Lymphocyte Count 2.04 X10^3/uL (0.83-4.51); Absolute Neutrophil Count 2.4 X10^3/uL (2.0-7.7); Basophil# 0.05 X10^3/uL; Basophil% 0.9 % (0-1); Eosinophil# 0.28 X10^3/uL; Eosinophils% 5.3 % (0-5); Hematocrit 42.2 % (37-47); Hemoglobin 13.5 g/dL (12.0-15.0); Lymphocyte # 2.04 X10^3/ul (0.83-4.51); Lymphocyte % 38.7 % (19-41); Mean Corpuscular Hgb 31.6 pg (27.0-32.0); Mean Corpuscular Volume 98.8 fL (81-99); Mean Platelet Vol. 10.8 fl (6.2-12.0); Monocyte# 0.51 X10^3/uL; Monocyte% 9.7 % (0-10); NRBC Flagged by Analyzer 0 % (0-5); Neutrophil # 2.38 X10^3/uL (2.7-7.7); Neutrophil % 45.2 % (47-70); Platelet Count 318 K/mm3 (150-450); RBC Distribution Width CV 12.3 % (11.6-14.6); RBC Distribution Width SD 44.8 fl (35.1-43.9); Red Blood Count 4.27 M/mm3 (4.2-5.4); White Blood Count 5.3 K/mm3 (4.4-11.0)
[2021-07-16 10:00] LABS: Vitamin B12 999 pg/mL (211-911)
[2021-07-16 10:05] LABS: ALB/GLOB Ratio 0.9 RATIO (0.9-2.4); AST(SGOT) 25 U/L (15-37); Alanine Aminotransfer ALT/SGPT 31 U/L (13-56); Albumin, Serum 3.6 g/dL (3.2-5.0); Alkaline Phosphatase 57 U/L (45-117); Anion Gap 2 (5-15); BUN 18 mg/dL (7-18); BUN/Creat Ratio 22.2 RATIO (10-20); Calcium,Total 8.9 mg/dL (8.5-10.1); Chloride 106 mmol/L (98-107); Cholesterol 210 mg/dL (200); Creatinine, Serum 0.81 mg/dL (0.55-1.02); EST Glomerular Filtration Rate 77 mL/min (>60); Est Glom Filt Rate - Afr Amer 93 mL/min (>60); Glucose 97 mg/dL (74-106); High Density Lipoprotein 46 mg/dL; Potassium 4.3 mmol/L (3.5-5.1); Protein, Total 7.6 g/dL (6.4-8.2); Sodium Level 139 mmol/L (136-145); Triglycerides 92 mg/dL; Very Low Density Lipoprotein 18 mg/dL (5-40)
== END ==
PROVIDERS: PCP Internal Medicine; Referring Provider Internal Medicine; Visit Provider Internal Medicine
DX: E78.5 Hyperlipidemia, unspecified (principal); E55.9 Vitamin D deficiency, unspecified; D75.89 Other specified diseases of blood and blood-forming organs
CPT/HCPCS: 36415; 80053; 80061; 82306; 82607; 85025

== ENCOUNTER 2021-08-02 13:13 | Outpatient (RCR) | payer OTHER, SELFPAY ==
[2021-07-04 00:28] VITALS: BMI 29.0
== END 2021-08-02 23:59 ==
LOC: EMPH 13:13
PROVIDERS: PCP Internal Medicine; Referring Provider Family Medicine Geriatric Medicine; Visit Provider Family Medicine Geriatric Medicine
DX: Z03.818 Encounter for observation for suspected exposure to other biological agents ruled out (principal)
CPT/HCPCS: 87426; 87635; U0005; U0003

== ENCOUNTER → 2021-08-22 09:30 | Outpatient (CLI) | payer OTHER, SELFPAY ==
--- NOTE | 2021-08-22 09:33 | US_ITS ---
STUDY: THYROID ULTRASOUND REASON FOR EXAM: Female, 61 years old. Thyroid nodules. TECHNIQUE: Ultrasound evaluation of the thyroid was performed with real-time and static pruitt-scale imaging. COMPARISON: Comparison is made with prior examination dated 06/12/2020. FINDINGS: RIGHT LOBE: The right lobe of the thyroid gland measures 5 cm x 1.6 cm x 1 cm. There is a homogeneous echotexture. There is a 3 mm x 2 mm x 3 mm solid/cystic nodule of the right lobe. This is unchanged. LEFT LOBE: The left lobe of the thyroid gland measures 4.5 cm x 1.3 cm x 0.7 cm. There is a homogeneous echotexture. There is an 8 mm x 7 mm x 4 mm solid and cystic nodule in the lower pole. This is unchanged. ISTHMUS: The isthmus measures 2 mm. There is a 5 mm x 5 mm x 4 mm hypoechoic solid nodule in the isthmus. This is essentially unchanged. The regional lymph nodes are normal. US/Thyroid IMPRESSION: Stable bilateral subcentimeter nodules. Stable isthmus nodule. Electronically Signed: Trey Patricia MD at 10:37 EDT , Service support ,
--- NOTE | 2021-08-22 09:58 | BD_ITS ---
STUDY: DUAL ENERGY X-RAY ABSORPTIOMETRY / DXA REASON FOR EXAM: Female, 61 years old. Z780. Patient is postmenopausal. TECHNIQUE: Bone Mineral Density (BMD) measurements of lumbar spine and bilateral hips were obtained. COMPARISON: Comparison is made with prior study dated 10/13/2018. FINDINGS: Lumbar Spine (L1-L4): g/cm2 (0.865) / T-score (-1.7) / Z-score (-0.2) Findings are suggestive of osteopenia with a moderate fracture risk. Left Femur Total: g/cm2 (0.895) / T-score (-0.4) / Z-score (0.6) Left Femoral Neck: g/cm2 (01) / T-score (-0.4) / Z-score (0.9) Right Femur Total: g/cm2 (0.888) / T-score (-0.4) / Z-score (0.5) Right Femoral Neck: g/cm2 (0.810) / T-score (-0.4) / Z-score (1.0) The T-Scores on the most recent prior examination were: Lumbar Spine (L1-L4): There has been worsening of bone density since the previous examination. Left Femur Total: which represents an improvement of 0.4%. Right Femur Total: which represents a worsening of 3.9%. BD/Dexa Bone Density Study IMPRESSION: The patient is considered osteopenic as outlined below according to World Jay Organization (WHO) criteria with a moderate fracture risk. There has been worsening of bone density since the previous examination. Reference Information: The T-score is the number of standard deviations above or below the standard which is normal for young adults at their peak bone mineral density. The World Health Organization (WHO) interprets the T-scores as follows: Above -1 Normal bone density Between -1 and -2.5 Osteopenia Equal to / or below -2.5 Osteoporosis As a practical clinical guideline, osteopenia may be graded as follows: Mild -1 through -1.5 Moderate -1.6 through -2.0 Severe -2.1 through -2.4 The Z-score is the number of standard deviations above or below age-matched controls. A Z-score of less than -1.5 would be considered abnormal. References: 1. NIH Osteoporosis and Related Bone Diseases www osteo.org 2. International Society for Clinical Densitometry www iscd.org 3. National Osteoporosis Foundation www nof.org Electronically Signed: Trey Patricia MD at 10:43 EDT , Service support ,
== END ==
PROVIDERS: PCP Internal Medicine; Referring Provider Internal Medicine; Visit Provider Internal Medicine
DX: E04.1 Nontoxic single thyroid nodule (principal); Z78.0 Asymptomatic menopausal state
CPT/HCPCS: 76536; 77080

== ENCOUNTER 2021-08-30 12:17 | Outpatient (RCR) | payer OTHER, SELFPAY ==
[2021-08-03 00:22] VITALS: BMI 29.0
== END 2021-09-02 23:59 ==
LOC: EMPH 12:17
PROVIDERS: PCP Internal Medicine; Referring Provider Family Medicine Geriatric Medicine; Visit Provider Family Medicine Geriatric Medicine
DX: Z03.818 Encounter for observation for suspected exposure to other biological agents ruled out (principal)
CPT/HCPCS: 87426

== ENCOUNTER 2021-09-28 08:17 | Outpatient (RCR) | payer OTHER, SELFPAY ==
[2021-09-03 00:18] VITALS: BMI 29.0
== END 2021-10-02 23:59 ==
LOC: EMPH 08:17
PROVIDERS: PCP Internal Medicine; Referring Provider Family Medicine Geriatric Medicine; Visit Provider Family Medicine Geriatric Medicine
DX: Z03.818 Encounter for observation for suspected exposure to other biological agents ruled out (principal)
CPT/HCPCS: 87426

== ENCOUNTER 2021-10-05 15:58 | Outpatient (RCR) | payer OTHER, SELFPAY ==
[2021-10-03 00:23] VITALS: BMI 29.0
== END 2021-11-02 23:59 ==
LOC: EMPH 15:58
PROVIDERS: PCP Internal Medicine; Referring Provider Family Medicine Geriatric Medicine; Visit Provider Family Medicine Geriatric Medicine
DX: Z03.818 Encounter for observation for suspected exposure to other biological agents ruled out (principal)
CPT/HCPCS: 87426

== ENCOUNTER 2021-10-09 11:16 | Outpatient (CLI) | payer OTHER, SELFPAY ==
[2021-10-09 11:40] VITALS: BP 120/77; PULSE 74; RESP 16; TEMP 37.2; O2SAT 100; BMI 29.3
[2021-10-09] MEDS: 0.9% Saline Lock 10 ML Syringe IV (11:45)
[2021-10-09 12:34] VITALS: BP 133/82; PULSE 69; RESP 16; TEMP 36.8; O2SAT 98
[2021-10-09 13:22] VITALS: BP 122/83; PULSE 64; RESP 16; TEMP 37; O2SAT 98
== END 2021-10-09 13:26 | disposition home or self-care (01) ==
LOC: MS3OUT 11:16 → MS3 11:17
PROVIDERS: PCP Internal Medicine; Referring Provider Nurse Practitioner Adult Health; Visit Provider Nurse Practitioner Adult Health
DX: Z23 Encounter for immunization (principal); U07.1 COVID-19
CPT/HCPCS: J7050; M0245; Q0245; A4216

== ENCOUNTER 2021-12-31 12:32 | Outpatient (RCR) | payer OTHER, SELFPAY ==
[2021-11-03 00:22] VITALS: BMI 29.0
== END 2021-12-31 23:59 ==
LOC: EMPH 12:32
PROVIDERS: PCP Internal Medicine; Referring Provider Family Medicine Geriatric Medicine; Visit Provider Family Medicine Geriatric Medicine
DX: Z03.818 Encounter for observation for suspected exposure to other biological agents ruled out (principal)
CPT/HCPCS: 87426

== ENCOUNTER 2022-03-13 09:00 | Outpatient (RCR) | payer OTHER, SELFPAY ==
--- NOTE | 2022-02-13 13:46 | HP.OTEVAL_ITS ---
Patient's Visit Information ARASH SINGH is a 62 year old F, referred to Occupational Therapy by THIAGO Rogers, with a diagnosis of Left lateral epicondylitis. Date of Evaluation: 02/13/22 Occupational Therapist: Enid Pacheco, GISELLA/Debra, CHT - Subjective Pt. 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 She has had pain in her L UE for a couple of years, 2 weeks ago had a cortisone shot. She has been having difficulty with daily activities secondary to pain through her elbow area. She would like to resume PLOF. - ADLs Grooming: senior telecommunications specialist Kitchen: Open jars, Lift gallon of milk Household: Vacuum Comments: Pt. reported that she does not have difficulty with Bathing and dressing. Difficulty with drying hair, vacuuming. Has started compensating with using Right hand. Working out and walking dogs at times will bother LUE. Pt. is Left hand dominant. - ROM Shoulder: B WFL Elbow: B WFL ROM Comments: pt. states she has grinding and cracking with shoulder movements. AROM WFL - Strength Shoulder: L 18.5# R 19# Elbow: L 15# R 18.8# Wrist: No pain with resistive sup/pro elbows at 90* Assembly And Packing Supervisor: elbow flexed L 50# R 60# elbow extended L 55# R 56# Lateral Pinch: L 15# R 16# Tripod Pinch: L 12# R 13# Tip-to-Tip Pinch: L 6# R 7# Strength Comments: Used micro FET for measurements - Edema Other: no swelling was observed - Sensation Stereognosis: Normal - Right, Normal - Left Kinesthesia: Normal - Right, Normal - Left Proprioception: Normal - Right, Normal - Left Sensation Comments: Pt. has no c/o numbness or tingling. - Transfers Transfers: Pt. is independent with functional mobility - Quick DASH-Disab of Arm,Shoulder& Hand Quick DASH Score: 15.9075 - Goals Goal:: Pt. will increase LUE strength by 10# using micro FET to compensate for pain through L elbow for ADL tasks (hair drying) by dc. Pt. will increase LUE elbow strength to 18# to complete IADL & work tasks by dc. Goal:: Pt. will report pain <1/10 during therapy treatments by dc. Goal:: Pt. will report 3 correct body shop mechanic changes during work/IADL tasks to prevent increase in pain by dc. Goal:: Pt. will improve Grooming independence using modified tech. and report <1/10 pain by dc. - Rehabilitation General Assessment: Pt. has been diagnosed with left lateral epicondylitis. She had a cortisone shot 2 weeks ago and it has reduced her pain. Pt. has reported difficulty with ADL, IADL and work performance secondary to pain with specific movements and lifting weight with her LUE. Pt. would benefit from skilled OT services 2x a week for 6 weeks to restore flexibility of soft tissues & strength. Therapy session was directly supervised and doc. reviewed and approved by Enid Pacheco OTR/L, CHT. Rehabilitation Potential: Good - Anticipated Interventions A/AAROM/PROM, Strengthening, Massage, Modalities, Ergonomic Education, Fine Motor Coord/Cortes, ADL Training, Education re assistive Equipment, Home Program Other Interventions: Provided pt. with HEP to massage L elbow area, stretch tricep, and wrist flexion. Follow conservative techniques for lateral epiconylitis. - Visit Plan Frequency: 2x /Week Duration: 6 Weeks General Plan: Self-massage of elbow clockwise, counter clockwise, length of muscle, & perpendicular to muscle. Tricep stretch. Elbow bent wrist in neutral and wrist flexion, then elbow straight with wrist palm down and wrist flexion. Then move to phase 3 & 4 of Hand Rehab 5th ed. ([phone]) TEXT: Thank you for the opportunity to evaluate your patient. For Medicare and Medicare HMO plans, please review the plan of care and approve it. It will need to be FAXED BACK to us at [phone] for Medicare purposes. Please let me know if there are questions or concerns regarding this plan of care. Physician Signature: Date:
--- NOTE | 2022-08-06 13:14 | HP.OTDCNRP_ITS ---
ARASH SINGH was seen in my office for initial evaluation on 02/13/22. The following Plan of Care was established for this patient: Initial Frequency: 2x /Week Initial Duration: 6 Weeks Plan: continue with passive stretching, isometric. and strengthening, eccentric strength. using guidelines from [place] [facility] p [phone] Anticipated Interventions: A/AAROM/PROM, Strengthening, Massage, Modalities, Ergonomic Education, Fine Motor Coord/Cortes, ADL Training, Education re assistive Equipment, Home Program Other Interventions: Provided pt. with HEP to massage L elbow area, stretch tricep, and wrist flexion. Follow conservative techniques for lateral epiconylitis. This patient was last seen in our office 02/13/22. Pertinent comments regarding their Occupational therapy will appear below: pt was seen for 9 OT visits for lateral epi. pt was ed, in ergo- protective zbigniew. and eccentric ex. pt reported at last apt- no pain- pt did not schedule for further visits- pt d/c at this time. At this point I will be discontinuing this patient from occupational therapy. I would be happy to see this patient again in the future if found appropriate by the physician. Thank you! Enid Pacheco, OTR/L, CHT
== END 2022-03-13 19:00 | disposition home or self-care (01) ==
LOC: OT 09:00
PROVIDERS: PCP Internal Medicine; Referring Provider Physician Assistant; Visit Provider Physician Assistant
DX: M77.12 Lateral epicondylitis, left elbow (principal)
CPT/HCPCS: 97110; 97165

== ENCOUNTER → 2022-05-01 | Outpatient (CLI) | payer OTHER, SELFPAY ==
[2022-05-03 17:43] LABS: HPV APTIMA, High Risk Negative (Negative)
== END | disposition home or self-care (01) ==
LOC: LABSPEC 11:16
PROVIDERS: PCP Internal Medicine; Visit Provider Obstetrics & Gynecology
DX: Z12.4 Encounter for screening for malignant neoplasm of cervix (principal)
CPT/HCPCS: 87624; 88175; G0145

== ENCOUNTER → 2022-06-12 | Outpatient (CLI) | payer OTHER, SELFPAY ==
--- NOTE | 2022-06-12 10:35 | MRI_ITS ---
STUDY: BILATERAL BREAST MR WITHOUT AND WITH CONTRAST REASON FOR EXAM: Female, 62 years old. Genetic susceptibility due to malignant neoplasm. TECHNIQUE: Multi-sequence multi-echo imaging of both breasts was performed with a dedicated breast coil. T1-weighted and T2-weighted images were performed before the administration of contrast. T1-weighted images were also performed after the intravenous administration of 17mL of DOTAREM contrast. COMPARISON: Screening mammograms dated 04/25/2021 and 04/19/2020. FINDINGS: RIGHT BREAST: The breast tissue is scattered fibroglandular densities with minimal background enhancement. There are no abnormal enhancing masses or areas of non-mass enhancement in the right breast. LEFT BREAST: The breast tissue is scattered fibroglandular densities with minimal background enhancement. There are no abnormal enhancing masses or areas of non-mass enhancement in the left breast. There are no enlarged or abnormal lymph nodes. There is no abnormality in the visualized regions of the chest or liver. MRI/Breast Bilateral W/O and W IMPRESSION: No abnormality on the breast MRI examination with contrast. Alternating yearly screening mammogram and breast MRI with contrast would be appropriate, given the history. CATEGORY: BIRADS Category 2: Benign. A letter regarding these results will be sent to the patient by the facility within 30 days. Electronically Signed: Aston Mclaughlin, at 14:35 EDT ,
[2022-06-12 10:50] LABS: CREATININE FINGERSTICK < 0.9 mg/dL (0.55-1.02); EGFR FINGERSTICK > 60.0000 mL/min (>60)
== END | disposition home or self-care (01) ==
LOC: MRI 10:15
PROVIDERS: PCP Internal Medicine; Referring Provider Obstetrics & Gynecology; Visit Provider Obstetrics & Gynecology
DX: Z15.01 Genetic susceptibility to malignant neoplasm of breast (principal); Z80.3 Family history of malignant neoplasm of breast
CPT/HCPCS: 77049; A9575; A4216; C8908

== ENCOUNTER 2022-08-19 06:34 | Day surgery (SDC) | payer OTHER, SELFPAY ==
[2022-08-19] VITALS (7 sets, daily range): BP systolic 98–147; BP diastolic 65–81; PULSE 65–81; RESP 14–17; TEMP 36.3–36.6; O2SAT 92–96; BMI 31.0
--- NOTE | 2022-08-19 | COLBX_PTH ---
PATIENT: ARASH SINGH LOC: EN U#:[id number] AGE/SX: 62/F ROOM: RE08/19/[address]: Dr. Rossana Ngo MD : 1960 BED: DIS: 08/19/2022 SPEC #: [id number] RECD: 08/19/22 10:57 STATUS: HUMPHREY REPamela #: [id number] CYNDY: 08/19/22 00:[address]: Rossana Ngo DEPT: SURGICAL PATHOLOGY RECD BY: Kenton Julian ENTERED: 08/19/22 10:57 SP TYPE: COLON BX OTHR DR: Dr. Jes Howe, Tissues: Ascending colon Procedures: Surgery Specimen Level IV HEADER OPERATION: Colonoscopy with biopsy ? open access (MAC) PRE-OP DIAGNOSIS: Screening TISSUE SUBMITTED: Ascending colon mucosal biopsy MICROSCOPIC DIAGNOSIS Ascending colon, biopsy: A fragment of colonic mucosa with pigment laden macrophages, consistent with melanosis coli. SJ:monica 08/20/2022 MICROSCOPIC DESCRIPTION Slides are reviewed. GROSS DESCRIPTION Received in fixative is one container labeled with the patient's name and designated ascending colon mucosal biopsy. The specimen consists of one irregular fragment of light campbell soft tissue that measures 0.2 x 0.2 x 0.1 cm. The specimen is totally submitted in one cassette. / SUNNY:monica 08/19/2022 TC:5 [facility]: [id number]
[2022-08-19] MEDS: Lactated Ringers 1,000 ML 15 ML IV (07:07)
--- NOTE | 2022-08-19 07:19 | HP.PCM_ITS ---
HPI - General HPI Narrative ARASH SINGH, is a 62 F who presents for a screening B. Patient's never had previous colonoscopy. Patient denies any family history of colon cancer. Patient did have a Cologuard test done 3 years ago which was negative. Patient has bowel movements daily denies any blood. Patient denies any chronic abdomi nal pain/nausea/vomiting/reflux. Patient is also participating in the study were she also did a Cologuard test this time as well but results are still pending. The goal is to compare to colonoscopy [facility] Medical History Arthritis Back pain Endometriosis History of echocardiogram Lab test negative for COVID-19 virus left ovary removal Leg cramps Non-smoker Post-menopausal Shortness of breath on exertion Wears glasses Home Medications ascorbic acid (vitamin C) 500 mg capsule 500 mg PO DAILY 12/17/17 [History Last Taken Unknown] acetaminophen 325 mg tablet (Tylenol) 650 mg PO PRN PRN Pain 01/30/22 [History Last Taken Unknown] estradiol 0.01% (0.1 mg/gram) vaginal cream 1 g vaginal 2XW 05/10/22 [History Last Taken Unknown] calcium 600 mg capsule 600 mg PO DAILY 06/26/22 [History Last Taken Unknown] cholecalciferol (vitamin D3) 25 mcg (1,000 unit) capsule (Vitamin D3) 25 mcg PO DAILY 06/26/22 [History Last Taken Unknown] vitamin K2 100 mcg capsule 100 mcg PO DAILY 06/26/22 [History Last Taken Unknown] zinc 50 mg tablet 50 mg PO DAILY 06/26/22 [History Last Taken Unknown] Allergy/AdvReac Type Severity Reaction Status Date / Time No Known Allergies Allergy Verified 08/19/22 07:01 Family History (Updated 05/10/22 @ 10:02 by Lucy Solis) Sister Colon polyps Other Breast cancer Melanoma Myocardial infarction Sudden cardiac Thyroid disorder Surgical History Hx of laparoscopy Social History Smoking Status: Never smoker alcohol intake: never substance use type: does not use what type of physical activity do you participate in: walking and weight training frequency: 3-4 times per week Past Medical/Surgical History Planned Operation Planned Operative Procedure/s: OA-CSCOPE Previous Hospitalizations/Surgeries HX Hospitalizations: No HX of Surgeries: oopherectomy laparoscopy Any Problems With Anesthesia: No You/Your Family Experience Fever (Hyperthermia) With Anes: No Cholinesterase deficiency: No Cardiovascular Hx Hypertension: No Respiratory Hx Sleep Apnea: No Hx Respiratory Tract Infection/Cold (presently): No (COVID 04/2022. RESOLVED) Do You Snore Loudly (louder than talking or can be heard): Yes Do You Often Feel Tired/ Fatigued/ Sleepy Dring Daytime?: No Has Anyone Observed You Stop Breathing During Sleep?: Yes Result (for STOP score): Positive Smoking Status: Never smoker Neurological Hx Seizures: No Does patient have nerve stimulator: No Reproduction : No Genitourinary Hx Renal Disease: No Endocrine Hx Diabetes: No Miscellaneous Hx Cancer: No Recent Exposure to Contagious Disease: No Allergies No Known Allergies Allergy (Verified 08/19/22 07:01) Discharge Is Pt Admitted From a Long Term, or a Custodial: No After D/C, Where Do you Plan to Go: Return Home Vital Signs Vital Signs Vital Signs: 08/19/22 07:02 08/19/22 07:02 Temperature 97.8 F Temperature Source Temporal Pulse Rate 81 Respiratory Rate 17 Respiratory Pattern Normal Blood Pressure 147/81 H Blood Pressure Mean 103 Blood Pressure Source Monitor Blood Pressure Position Semi-Fowlers Blood Pressure Location Left Arm Pulse Ox 96 Oxygen Delivery Method Room Air Weight Weight: 192 lb 3.889 oz Body Mass Index (BMI) 31.0 Physical Exam Const alert, oriented x3 and no apparent distress HEENT normocephalic and head/scalp atraumatic Resp normal respiratory effort Cardio regular rate GI soft to palpation and non-tender; Negative for non-distended Palpation: Negative for guarding Extremity no clubbing, cyanosis or edema Neuro CN's II-XII intact bilaterally Psych mental status grossly normal Assessment & Plan Assessment/Plan (1) Encounter for screening for malignant neoplasm of colon: Surgery Risks - Colonoscopy Risks Include but are not Limited To: Risks include but are not limited to: Bleeding, perforation requiring further surgery, inability to complete colonoscopy requiring barium enema. Patient had no further question this time.
--- NOTE | 2022-08-19 08:05 | OP.COLON_ITS ---
Patient Name: Tristan Cazares Procedure Date: 08/19/2022 7:15 AM Date of : 1960 Age: 62 Procedure: Colonoscopy Indications: Screening for colorectal malignant neoplasm Providers: Rossana Ngo MD Medicines: Monitored Anesthesia Care Patient Profile: This is a 62 year old female. Last Colonoscopy: none. The patient's first colonoscopy is today. Complications: No immediate complications. Procedure: Pre-Anesthesia Assessment: - Prior to the procedure, a History and Physical was performed, and patient medications and allergies were reviewed. The patient's tolerance of previous anesthesia was also reviewed. The risks and benefits of the procedure and the sedation options and risks were discussed with the patient. All questions were answered, and informed consent was obtained. Prior Anticoagulants: The patient has taken no previous anticoagulant or antiplatelet agents. ASA Grade Assessment: Per anesthesia. After reviewing the risks and benefits, the patient was deemed in satisfactory condition to undergo the procedure. After I obtained informed consent, the scope was passed under direct vision. Throughout the procedure, the patient's blood pressure, pulse, and oxygen saturations were monitored continuously. The Colonoscope was introduced through the anus and advanced to the cecum, identified by appendiceal orifice and ileocecal valve. The colonoscopy was performed without difficulty. The patient tolerated the procedure well. The quality of the bowel preparation was good. Scope In: 7:33:48 AM Scope Withdrawal Time 0 hours 9 minutes 14 seconds Scope Out: 7:52:51 AM Total Procedure Duration Time 0 hours 19 minutes 3 seconds Findings: Hemorrhoids were found on perianal exam. Non-bleeding internal hemorrhoids were found. The hemorrhoids were Grade I (internal hemorrhoids that do not prolapse). A few medium-mouthed diverticula were found in the sigmoid colon. White small lesions of mucosa throughout colon-biopsed , Biopsies were taken with a cold forceps for histology. The exam was otherwise without abnormality. Impression: - Hemorrhoids found on perianal exam. - Non-bleeding internal hemorrhoids. - Diverticulosis in the sigmoid colon. - The examination was otherwise normal. Recommendation: - Discharge patient to home. - High fiber diet. - Continue present medications. - Await pathology results. - Repeat colonoscopy in 10 years for screening purposes. Procedure Code(s): --- Professional --- 54593, PT, Colonoscopy, flexible; with biopsy, single or multiple Diagnosis Code(s): --- Professional --- Z12.11, Encounter for screening for malignant neoplasm of colon K64.0, First degree hemorrhoids K57.30, Diverticulosis of large intestine without perforation or abscess without bleeding CPT copyright 2017 [employer]. All rights reserved. The codes documented in this report are preliminary and upon outside physical damage appraiser review may be revised to meet current compliance requirements. MD Rossana Mauricio MD 08/19/2022 8:04:34 AM This report has been signed electronically. Number of Addenda: 0 Note Initiated On: 08/19/2022 7:15 AM
--- NOTE | 2022-08-19 08:05 | OP.CCLET_ITS ---
08/19/2022 Jes Howe [address] [place] [address] Re : Colonoscopy procedure for Tristan Cazares Dear Dr. Howe This procedure was performed on Friday, August 19, 2022. My impressions and recommendations are as follows: Impressions : - Hemorrhoids found on perianal exam. - Non-bleeding internal hemorrhoids. - Diverticulosis in the sigmoid colon. - The examination was otherwise normal. Recommendations : - Discharge patient to home. - High fiber diet. - Continue present medications. - Await pathology results. - Repeat colonoscopy in 10 years for screening purposes. My findings are described in the full procedure note, which is enclosed. If I can be of further assistance, please feel free to contact me at Doctor phone number(s): , Work: . Sincerely, MD Rossana Mauricio MD 08/19/2022 8:04:34 AM This report has been signed electronically.
== END 2022-08-19 08:59 | disposition home or self-care (01) ==
LOC: EN 06:38 → AC 06:39
PROVIDERS: PCP Internal Medicine; Referring Provider Internal Medicine; Visit Provider Surgery
PROC: 0DJD8ZZ Inspection of Lower Intestinal Tract, Via Natural or Artificial Opening Endoscopic (ICD-10-PCS; CPT 45378; principal; 2022-08-19 07:25)
DX: Z12.11 Encounter for screening for malignant neoplasm of colon (principal); K57.30 Diverticulosis of large intestine without perforation or abscess without bleeding; K64.0 First degree hemorrhoids; K64.4 Residual hemorrhoidal skin tags; K63.89 Other specified diseases of intestine; M19.90 Unspecified osteoarthritis, unspecified site; Z86.16 Personal history of COVID-19; Z78.0 Asymptomatic menopausal state
CPT/HCPCS: 45380; 88305; J7120; J2405

== ENCOUNTER 2023-02-17 09:00 | Outpatient (RCR) | payer OTHER, SELFPAY ==
--- NOTE | 2023-01-29 13:18 | HP.OTEVAL_ITS ---
Patient's Visit Information ARASH SINGH is a 62 year old F, referred to Occupational Therapy by Dr. Jung Gudino DO, with a diagnosis of left lateral epi. Date of Evaluation: 01/28/23 Occupational Therapist: GISELLA Soriano/Debra, CHT - Subjective This 62 year old female was seen for OT eval with dx of lateral epi. pt states she has had difficulty with left elbow pain on and off for about two years. pt states she had MRI that indicated partial common extensor tendon tear- and lateral collateral ligament strain. pt two weeks ago had cortisone injection and at this time reports pain is returning. Pt is hopeful she can alleviate her symptoms and return to her exercise program and performing her ADLs and IADLs at IND. level without pain - ADLs Comments: pt limited with any resistive bilateral hand tasks or use of left UE with ADLs. helps when able with home mtg. - Pain left elbow 1 Pain Intensity Range: 5 - ROM Elbow: right +10/150 left -20/150 Forearm: right/left WNL Wrist: right 75/75 left 50/60 - Strength Forearm: right/left 4-/5 grossly throughout Resort Host: right 55# left 40# Lateral Pinch: right 12# left 10# Tripod Pinch: right 10# left 4# Strength Comments: right elbow straight 60# left 25# - Sensation Sensation Comments: denies - Special Tests Lat Epiconylitis - as named: left positive - Quick DASH-Disab of Arm,Shoulder& Hand Quick DASH Score: 32.1425 - Tennis Elbow Tennis Elbow Score: 46 - Goals Goal:: pt will demo a increase in left data acquisition technician strength by 10# to increase pts ind. with ADLs and IADLs by d.c Goal:: pt will demo a increase in left elbow ROM by 20* to increase pts ind. with ADLs and IADLs by d.c Goal:: pt will demo a increase in left elbow ROM and report no pain with full ROM by d.c. pt will report no pain greater than 2/10 with use of left UE by dc Goal:: pt will demo understanding of protective positioning for elbow to prevent stress on tendon/ligament by end of week 2 Goal:: pt will demo understanding of using wrist brace and counter force brace to decrease tension on tendon origin by end of week 2 - Rehabilitation General Assessment: pt demo with positive symptoms of left lateral epi. pt demo with weakness and pain when using left UE with ADls and IADLs. pt demo need for skilled OT services 2-3x week for 4-6weeks. Today therapist ed. pt on POC. Pt demo understanding and agrees to POC. Rehabilitation Potential: Good - Anticipated Interventions A/AAROM/PROM, Strengthening, Triggerpoint Release, Modalities, Orthoses, Joint Protection/Energy Conservation, Ergonomic Education, Education re assistive Equipment, Education re Diagnosis - Visit Plan Frequency: 1-2x /Week Duration: 2 Months TEXT: Thank you for the opportunity to evaluate your patient. For Medicare and Medicare HMO plans, please review the plan of care and approve it. It will need to be FAXED BACK to us at [phone] for Medicare purposes. Please let me know if there are questions or concerns regarding this plan of care. Physician Signature: Date:
== END 2023-02-17 19:00 | disposition home or self-care (01) ==
LOC: OT 09:00
PROVIDERS: PCP Internal Medicine; Referring Provider Orthopaedic Surgery; Visit Provider Orthopaedic Surgery
DX: M77.12 Lateral epicondylitis, left elbow (principal)
CPT/HCPCS: 97035; 97110; 97140; 97166; 97530

== ENCOUNTER → 2023-02-19 | Outpatient (CLI) | payer OTHER, SELFPAY ==
[2023-02-19 08:55] LABS: Cholesterol 242 mg/dL (200); High Density Lipoprotein 51 mg/dL; Triglycerides 153 mg/dL; Very Low Density Lipoprotein 31 mg/dL (5-40)
== END | disposition home or self-care (01) ==
PROVIDERS: PCP Internal Medicine; Visit Provider Internal Medicine
DX: E78.5 Hyperlipidemia, unspecified (principal)
CPT/HCPCS: 36415; 80061

== ENCOUNTER → 2023-02-20 | Outpatient (CLI) | payer OTHER, SELFPAY ==
[2023-03-02 11:07] LABS: HPV APTIMA, High Risk Negative (Negative)
== END | disposition home or self-care (01) ==
PROVIDERS: PCP Internal Medicine; Visit Provider Obstetrics & Gynecology
DX: Z12.31 Encounter for screening mammogram for malignant neoplasm of breast (principal); N95.1 Menopausal and female climacteric states; Z12.4 Encounter for screening for malignant neoplasm of cervix
CPT/HCPCS: 87624; 88175; G0145

== ENCOUNTER → 2023-02-26 | Outpatient (CLI) | payer OTHER, SELFPAY ==
--- NOTE | 2023-02-26 10:10 | BI_ITS ---
MAMMOGRAPHY - BILATERAL SCREENING REASON FOR EXAM: Female, 63 years old. Routine annual screening examination. PERTINENT HISTORY: Mother with breast cancer. Aunt with breast cancer. TECHNIQUE: Digital bilateral breast catie (3D mammographic acquisition) in the CC and MLO projections. 2-D mediolateral oblique (MLO) and craniocaudad (CC) views of both breasts were obtained. CAD: Full Field Digital Mammography with Computer Added Detection was performed. COMPARISON: Comparison is made with prior study dated April 25, 2021 and April 19, 2020. FINDINGS: Breast Composition: The breasts are heterogeneously dense, which may obscure small masses. There are no dominant masses or suspicious calcifications. Stable benign-appearing bilateral axillary lymph nodes. No other significant abnormalities are identified. There has been no significant change since the prior study. BI/SCRN MAMM (CAD)W/CATIE BILAT IMPRESSION: Stable bilateral screening mammogram. Yearly follow-up mammogram recommended. (A) ASSESSMENT CATEGORY: BIRADS Category 2: Benign. A letter regarding these results will be sent to the patient by the facility within 30 days. Approximately 10% of breast cancers are not detected by mammography. A normal mammogram should not delay biopsy of a clinically suspicious abnormality. [id number] Electronically Signed: Trey Patricia MD at 11:17 EDT ,
== END | disposition home or self-care (01) ==
LOC: OPBI 10:09
PROVIDERS: PCP Internal Medicine; Referring Provider Obstetrics & Gynecology; Visit Provider Obstetrics & Gynecology
DX: Z12.31 Encounter for screening mammogram for malignant neoplasm of breast (principal); Z80.3 Family history of malignant neoplasm of breast
CPT/HCPCS: 77063; 77067

== ENCOUNTER → 2023-04-01 | Outpatient (CLI) | payer OTHER, SELFPAY | END | disposition home or self-care (01) | LOC: SL 09:26 | PROVIDERS: PCP Internal Medicine; Referring Provider Internal Medicine; Visit Provider Internal Medicine | DX: G47.30 Sleep apnea, unspecified (principal) | CPT/HCPCS: 95806 ==

== ENCOUNTER 2023-05-14 10:00 | Outpatient (RCR) | payer SELFPAY | END 2023-05-14 19:00 | disposition home or self-care (01) | LOC: OT 10:00 | PROVIDERS: PCP Internal Medicine | DX: M77.12 Lateral epicondylitis, left elbow (principal) ==

== ENCOUNTER → 2023-09-09 | Outpatient (CLI) | payer OTHER, SELFPAY ==
[2023-09-09 08:15] LABS: Absolute Lymphocyte Count 2.14 X10^3/uL (0.83-4.51); Absolute Neutrophil Count 1.6 X10^3/uL (2.0-7.7); Basophil# 0.05 X10^3/uL; Basophil% 1.1 % (0-1); Eosinophil# 0.23 X10^3/uL; Eosinophils% 5.1 % (0-5); Hematocrit 41.6 % (37-47); Hemoglobin 13.5 g/dL (12.0-15.0); Lymphocyte # 2.14 X10^3/ul (0.83-4.51); Lymphocyte % 47.8 % (19-41); Mean Corp Hgb Conc 32.5 g/dL (32-36); Mean Corpuscular Hgb 31.9 pg (27.0-32.0); Mean Corpuscular Volume 98.3 fL (81-99); Monocyte# 0.42 X10^3/uL; Monocyte% 9.4 % (0-10); NRBC Flagged by Analyzer 0 % (0-5); Neutrophil # 1.63 X10^3/uL (2.7-7.7); Neutrophil % 36.4 % (47-70); Platelet Count 322 K/mm3 (150-450); RBC Distribution Width CV 12.6 % (11.6-14.6); RBC Distribution Width SD 45.4 fl (35.1-43.9); Red Blood Count 4.23 M/mm3 (4.2-5.4); White Blood Count 4.5 K/mm3 (4.4-11.0)
[2023-09-09 08:41] LABS: ALB/GLOB Ratio 0.9 RATIO (0.9-2.4); AST(SGOT) 26 U/L (15-37); Alanine Aminotransfer ALT/SGPT 35 U/L (13-56); Albumin, Serum 3.6 g/dL (3.2-5.0); Alkaline Phosphatase 56 U/L (45-117); Anion Gap 3 (5-15); BUN 17 mg/dL (7-18); BUN/Creat Ratio 19.2 RATIO (10-20); Calcium,Total 8.5 mg/dL (8.5-10.1); Chloride 107 mmol/L (98-107); Cholesterol 215 mg/dL (200); Creatinine, Serum 0.88 mg/dL (0.55-1.02); EST Glomerular Filtration Rate 69 mL/min (>60); Est Glom Filt Rate - Afr Amer 83 mL/min (>60); Glucose 101 mg/dL (74-106); High Density Lipoprotein 38 mg/dL; Potassium 4.2 mmol/L (3.5-5.1); Protein, Total 7.6 g/dL (6.4-8.2); Sodium Level 140 mmol/L (136-145); Triglycerides 177 mg/dL; Very Low Density Lipoprotein 35 mg/dL (5-40)
[2023-09-09 08:44] LABS: Vitamin B12 741 pg/mL (211-911); Vitamin D,25 Hydroxy 62.4 ng/mL
== END | disposition home or self-care (01) ==
LOC: LAB 07:23
PROVIDERS: PCP Internal Medicine; Referring Provider Internal Medicine; Visit Provider Internal Medicine
DX: E55.9 Vitamin D deficiency, unspecified (principal); D75.89 Other specified diseases of blood and blood-forming organs; E78.5 Hyperlipidemia, unspecified
CPT/HCPCS: 36415; 80053; 80061; 82306; 82607; 85025

== ENCOUNTER → 2023-09-16 | Outpatient (CLI) | payer OTHER, SELFPAY ==
--- NOTE | 2023-09-16 09:50 | BD_ITS ---
STUDY: DUAL ENERGY X-RAY ABSORPTIOMETRY / DXA REASON FOR EXAM: Female, 63 years old. 627.8Menopausal postmenopausal BONE DENSITY REASON FOR EXAM TECHNIQUE: Bone Mineral Density (BMD) measurements of lumbar spine and bilateral hips were obtained. COMPARISON: Comparison is made with prior study dated August 22, 2021. FINDINGS: Lumbar Spine (L1-L4): g/cm2 (0.843) / T-score (-1.6) / Z-score (0.0) Findings are suggestive of osteopenia with a moderate fracture risk. Left Femur Total: g/cm2 (0.910) / T-score (-0.3) / Z-score (0.8) Left Femoral Neck: g/cm2 (0.808) / T-score (-0.4) / Z-score (1.0) Right Femur Total: g/cm2 (0.941) / T-score (0.0) / Z-score (1.1) Right Femoral Neck: g/cm2 (0.861) / T-score (0.1) / Z-score (1.5) The T-Scores on the most recent prior examination were: Lumbar Spine (L1-L4): There has been worsening of bone density since the previous examination. Left Femur Total: which represents an improvement of 1.7%. Right Femur Total: which represents an improvement of 5.9%. BD/Dexa Bone Density Study IMPRESSION: The patient is considered osteopenic as outlined below according to World Jay Organization (WHO) criteria with a moderate fracture risk. There has been improvement of bone density since the previous examination. Reference Information: The T-score is the number of standard deviations above or below the standard which is normal for young adults at their peak bone mineral density. The World Health Organization (WHO) interprets the T-scores as follows: Above -1 Normal bone density Between -1 and -2.5 Osteopenia Equal to / or below -2.5 Osteoporosis As a practical clinical guideline, osteopenia may be graded as follows: Mild -1 through -1.5 Moderate -1.6 through -2.0 Severe -2.1 through -2.4 The Z-score is the number of standard deviations above or below age-matched controls. A Z-score of less than -1.5 would be considered abnormal. References: 1. NIH Osteoporosis and Related Bone Diseases www osteo.org 2. International Society for Clinical Densitometry www iscd.org 3. National Osteoporosis Foundation www nof.org Electronically Signed: Trey Patricia MD at 15:28 EST ,
== END | disposition home or self-care (01) ==
LOC: OPBD 09:46
PROVIDERS: PCP Internal Medicine; Referring Provider Obstetrics & Gynecology; Visit Provider Obstetrics & Gynecology
DX: N95.1 Menopausal and female climacteric states (principal)
CPT/HCPCS: 77080

== ENCOUNTER → 2023-09-30 | Outpatient (CLI) | payer OTHER, SELFPAY ==
--- NOTE | 2023-09-30 11:50 | US_ITS ---
INDICATION: thyroid nodule EXAMINATION: Ultrasound US Thyroid (eg thyroid, parathyroid, parotid) TECHNIQUE: Connelly scale and color doppler imaging was performed of the thyroid gland. COMPARISON: 08/22/2021 FINDINGS: RIGHT THYROID LOBE: 4.3 x 1.5 x 1.1 cm. Homogeneous echotexture with normal vascularity. [Stable midpole nodule measures 3 x 2 x 2 mm. Nodule is solid, hypoechoic, taller than wide with smooth margins and no associated echogenic foci. TI RADS level 5 or highly suspicious. LEFT THYROID LOBE: 4.4 x 1.2 x 0.9 cm. Homogeneous echotexture with normal vascularity. [Stable midpole nodule measures 8 x 7 x 6 mm. The nodule is mixed cystic and solid with isoechoic echotexture, wider than tall with smooth margins and no associated echogenic foci. TI RADS level 2 or nonsuspicious. ISTHMUS: 2 mm. Single nodule measures 6 x 6 x 3 mm. The nodule is almost completely solid and hyperechoic, wider than tall with smooth margins and no associated echogenic foci. TI RADS level 3 or mildly suspicious. US/Thyroid IMPRESSION: Essentially stable examination with subcentimeter nodules as above. Due to subcentimeter size no routine follow-up indicated. Electronically Signed: Samy Lafleur MD at 19:34 EST ,
== END | disposition home or self-care (01) ==
LOC: US 11:49
PROVIDERS: PCP Internal Medicine; Referring Provider Internal Medicine; Visit Provider Internal Medicine
DX: E04.1 Nontoxic single thyroid nodule (principal)
CPT/HCPCS: 76536

== ENCOUNTER → 2024-03-10 | Outpatient (CLI) | payer OTHER, SELFPAY ==
[2024-03-10 09:58] LABS: Cholesterol 202 mg/dL (200); High Density Lipoprotein 42 mg/dL; Triglycerides 142 mg/dL; Very Low Density Lipoprotein 28 mg/dL (5-40)
== END | disposition home or self-care (01) ==
LOC: LAB 08:10
PROVIDERS: PCP Internal Medicine; Referring Provider Internal Medicine; Visit Provider Internal Medicine
DX: E78.5 Hyperlipidemia, unspecified (principal)
CPT/HCPCS: 36415; 80061

== ENCOUNTER → 2024-04-05 | Outpatient (CLI) | payer OTHER, SELFPAY ==
--- NOTE | 2024-04-05 08:20 | BI_ITS ---
MAMMOGRAPHY - BILATERAL SCREENING REASON FOR EXAM: Female, 64 years old. Routine annual screening examination. PERTINENT HISTORY: Mother with breast cancer. Aunt with breast cancer. TECHNIQUE: Digital bilateral breast catie (3D mammographic acquisition) in the CC and MLO projections. 2-D mediolateral oblique (MLO) and craniocaudad (CC) views of both breasts were obtained. CAD: Full Field Digital Mammography with Computer Added Detection was performed. COMPARISON: Comparison is made with prior study February 26, 2023 and April 25, 2021. FINDINGS: Breast Composition: The breasts are heterogeneously dense, which may obscure small masses. There are no dominant masses or suspicious calcifications. Stable small benign-appearing bilateral axillary lymph nodes. No other significant abnormalities are identified. There has been no significant change since the prior study. BI/SCRN MAMM (CAD)W/CATIE BILAT IMPRESSION: Stable bilateral screening mammogram. Yearly follow-up mammogram recommended. (A) ASSESSMENT CATEGORY: BIRADS Category 2: Benign. A letter regarding these results will be sent to the patient by the facility within 30 days. Approximately 10% of breast cancers are not detected by mammography. A normal mammogram should not delay biopsy of a clinically suspicious abnormality. [id number] Electronically Signed: Trey Patricia MD at 9:42 EDT ,
== END | disposition home or self-care (01) ==
LOC: OPBI 08:18
PROVIDERS: PCP Internal Medicine; Referring Provider Obstetrics & Gynecology; Visit Provider Obstetrics & Gynecology
DX: Z12.31 Encounter for screening mammogram for malignant neoplasm of breast (principal); Z80.3 Family history of malignant neoplasm of breast
CPT/HCPCS: 77063; 77067

== ENCOUNTER 2024-08-11 10:00 | Outpatient (RCR) | payer OTHER, SELFPAY ==
--- NOTE | 2024-05-17 10:00 | HP.PTEVAL ---
Patient's Visit Information Visit Information Visit Information: ARASH SINGH is a 64 year old F referred to Physical Therapy by Dr. Osmany Saenz DPM with a diagnosis of Post Tib Tendonitis. Date of Evaluation: 05/17/24 Physical Therapist: SRIKANTH Martel Visit Plan Frequency: 2x /Week Duration: 2 Months Plan: 2X/ week for 8 weeks for R ankle AROM, R ankle strength starting with isometrics and progressing, SLB activities with HEP and US to help decrease inflammation with HEP HEP Towel stretch to include plantar fascia and INV R foot isometrics using hand Subjective Subjective: 6 YEARS ago hiking in [place] and thinks that she partially tore the tendon on medial side of foot. She got a shot and did not help Her pain has been off and on and keeps getting re-injured. They want to try PT first and orthotics first before the MRI. It is off and on flared up. If she has good support it is better. She will have burning in medial of foot and knees ache because of flat feet. She has no N&T but has the stinging. This spring the gas pedal will cause it to flare up but not today. She on her feet for work on and Friday. She can not walk for exercise without it hurting Pain R foot pain: Pain Intensity (Out of 10): 0 Pain Intensity Range: 5 Comment: with walking or up on toes Objective Objective: Gait: walks with decrease stance time on the R LE. Very flat footed. occ stepping out. Pt is able to heel and toe raise but knows if she does heel raises too much she will get pain and not be able to do them too many times. AROM: R DF 5 and L 5 degrees R PF 58 and L 58 R INV 23 and L 28 R EV 9 and L 9 MMT: R DF 4/5 and L 4-/5 R PF 4/5 and L 4/5 R INV 3+/5(increase pain) and L 4/5 B EV 4/5 Palpation: tender along flexor hallucis tendon and posterior tendon on the R foot Balance/Special Test Scores Lower Extremity Functional Score: 57 Goals Goal 1:: I HEP Goal Time Frame: 6-8 Weeks Goal 2:: Be able to walk with 50% less pain Goal Time Frame: 6-8 Weeks Goal 3:: Increase R ankle INV without pain from 23 degrees to equal to the L at 28 degrees Goal Time Frame: 6-8 Weeks Goal 4:: Be able to complete INV resistance band exercises without pain 3 X 10 Goal Time Frame: 6-8 Weeks Rehabilitation Potential Rehabilitation Potential: Good Anticipated Interventions Text: Thank you for the opportunity to evaluate your patient. For Medicare and Medicare HMO plans, please review the plan of care and approve it. It will need to be FAXED BACK to us at [phone] for Medicare purposes. For Medicare only, by signing this I certify the plan of care. Please let me know if there are questions or concerns regarding this plan of care. Physician Signature: Date:
--- NOTE | 2024-06-16 12:57 | HP.PTREVAL_ITS ---
Re-Evaluation Intro: Dr. Osmany Saenz, DPM, It has been my pleasure to treat ARASH SINGH over the last 9 visits for Post Tib Tendonitis. Please see the progress note below for an update on the physical therapy plan of care! Subjective Subjective: Pt just got her new inserts and shoes this morning. She is now able to go on her toes now without pain. Pt thinks US is helping and not feeling the sting as much. She is doing her exercises at home. Pt wants to stop PT for now and see how the inserts and new shoes will work. She will schedule PT appointment Objective Objective/Function: R INV 28 degrees AROM Plan Plan Plan: Re check on 07-19-24 and see how new orthotics and new shoes work 2X/ week for 8 weeks for R ankle AROM, R ankle strength starting with isometrics and progressing, SLB activities with HEP and US to help decrease inflammation with HEP HEP Towel stretch to include plantar fascia and INV R foot isometrics using hand Balance/Gait/Functional tests Balance/Special Test Scores Lower Extremity Functional Score: 71 Goals Goals Goal 1:: I HEP Goal Time Frame: 6-8 Weeks Goal Progress: Goal Met Goal 2:: Be able to walk with 50% less pain Goal Time Frame: 6-8 Weeks Goal Progress: Goal Met Goal 3:: Increase R ankle INV without pain from 23 degrees to equal to the L at 28 degrees Goal Time Frame: 6-8 Weeks Goal Progress: Goal Met Goal 4:: Be able to complete INV resistance band exercises without pain 3 X 10 Goal Time Frame: 6-8 Weeks Goal Progress: Progressing Anticipated Interventions Re-Evaluation Ending Re-evaluation ending: Please do not hesitate to contact me at [phone] by phone or Fax: if you have questions or concerns regarding this new plan of care! Sincerely, Candice Whitaker, MPT
--- NOTE | 2024-06-16 12:58 | HP.PTEVAL ---
Patient's Visit Information Visit Information Visit Information: ARASH SINGH is a 64 year old F referred to Physical Therapy by Dr. Osmany Saenz DPM with a diagnosis of Post Tib Tendonitis. Date of Evaluation: 05/17/24 Physical Therapist: SRIKANTH Martel Visit Plan Frequency: 2x /Week Duration: 2 Months Plan: Re check on 07-19-24 and see how new orthotics and new shoes work 2X/ week for 8 weeks for R ankle AROM, R ankle strength starting with isometrics and progressing, SLB activities with HEP and US to help decrease inflammation with HEP HEP Towel stretch to include plantar fascia and INV R foot isometrics using hand Subjective Subjective: 6 YEARS ago hiking in [place] and thinks that she partially tore the tendon on medial side of foot. She got a shot and did not help Her pain has been off and on and keeps getting re-injured. They want to try PT first and orthotics first before the MRI. It is off and on flared up. If she has good support it is better. She will have burning in medial of foot and knees ache because of flat feet. She has no N&T but has the stinging. This spring the gas pedal will cause it to flare up but not today. She on her feet for work on and Friday. She can not walk for exercise without it hurting Pain R foot pain: Pain Intensity (Out of 10): 1 Pain Intensity Range: 5 Comment: burning along plantar surface. Objective Objective: Gait: walks with decrease stance time on the R LE. Very flat footed. occ stepping out. Pt is able to heel and toe raise but knows if she does heel raises too much she will get pain and not be able to do them too many times. AROM: R DF 5 and L 5 degrees R PF 58 and L 58 R INV 23 and L 28 R EV 9 and L 9 MMT: R DF 4/5 and L 4-/5 R PF 4/5 and L 4/5 R INV 3+/5(increase pain) and L 4/5 B EV 4/5 Palpation: tender along flexor hallucis tendon and posterior tendon on the R foot Balance/Special Test Scores Lower Extremity Functional Score: 71 Goals Goal 1:: I HEP Goal Time Frame: 6-8 Weeks Goal 2:: Be able to walk with 50% less pain Goal Time Frame: 6-8 Weeks Goal 3:: Increase R ankle INV without pain from 23 degrees to equal to the L at 28 degrees Goal Time Frame: 6-8 Weeks Goal 4:: Be able to complete INV resistance band exercises without pain 3 X 10 Goal Time Frame: 6-8 Weeks Rehabilitation Potential Rehabilitation Potential: Good Anticipated Interventions Text: Thank you for the opportunity to evaluate your patient. For Medicare and Medicare HMO plans, please review the plan of care and approve it. It will need to be FAXED BACK to us at [phone] for Medicare purposes. For Medicare only, by signing this I certify the plan of care. Please let me know if there are questions or concerns regarding this plan of care. Physician Signature: Date:
--- NOTE | 2024-07-19 11:00 | HP.PTREVAL ---
Re-Evaluation Intro: Dr. Osmany Saenz, DPM, It has been my pleasure to treat ARASH SINGH over the last 10 visits for Post Tib Tendonitis. Please see the progress note below for an update on the physical therapy plan of care! Subjective Subjective: She wishes she had bought wide tennis shoes. She still has some achy in the post tib at times. Some of the exercises are still painful but not too bad. She wants to do a few more weeks of PT and see if that helps with the remaining pain that she gets. Still has pain with inversion band exercises. Arch supports help. Objective Objective/Function: Tender post tib Plan Plan Plan: 2X/ week for 3-4 additional weeks for R ankle AROM, R ankle strength starting with isometrics and progressing, SLB activities with HEP and US to help decrease inflammation with HEP HEP Towel stretch to include plantar fascia and INV R foot isometrics using hand Balance/Gait/Functional tests Balance/Special Test Scores Lower Extremity Functional Score: 65 Goals Goals Goal 1:: I HEP Goal Time Frame: 6-8 Weeks Goal Progress: Goal Met Goal 2:: Be able to walk with 50% less pain Goal Time Frame: 6-8 Weeks Goal Progress: Goal Met Goal 3:: Increase R ankle INV without pain from 23 degrees to equal to the L at 28 degrees Goal Time Frame: 6-8 Weeks Goal Progress: Goal Met Goal 4:: Be able to complete INV resistance band exercises without pain 3 X 10 Goal Time Frame: 6-8 Weeks Goal Progress: Progressing Goal 5:: Be able to walk barefoot in the house for small amounts of time without pain Goal Time Frame: 2-4 Weeks Anticipated Interventions Re-Evaluation Ending Re-evaluation ending: Please do not hesitate to contact me at [phone] by phone or if you have questions or concerns regarding this new plan of care! Sincerely, Candice Whitaker, MPT
--- NOTE | 2024-08-11 10:31 | HP.PTDCSUM ---
Discharge Summary D/C summary: It has been my pleasure to treat ARASH SINGH referred by Dr. Osmany Saenz DPM, with the diagnosis of Post Tib Tendonitis for a total of 16 visit(s). Discharge Date: 08/11/24 Please see the following information for a summary of their discharge status. Subjective Subjective: Pt is trying to get back into walking (doing a 20 min mile) and that brings on pain on the medial side of R foot. Once she is home and gets off it for awhile she feels better. She is trying to keep up on stretching. Walking into the dept today she had 1/10 pain. Pt knows the exercises and will continue Pain R foot pain: Pain Intensity (Out of 10): 1 Overall Improvement % Improvement: 85 Objective Objective/Function: Still slight tenderness medial arch. Goals Goal 1:: I HEP Goal Progress: Goal Met Goal 2:: Be able to walk with 50% less pain Goal Progress: Goal Met Goal 3:: Increase R ankle INV without pain from 23 degrees to equal to the L at 28 degrees Goal Progress: Goal Met Goal 4:: Be able to complete INV resistance band exercises without pain 3 X 10 Goal Progress: Goal Met Goal 5:: Be able to walk barefoot in the house for small amounts of time without pain Plan Plan: [facility]ess Friday with [facility]aker [facility] Information Discharge Comments: DC PT to HEP d/c sentence: If there are questions or concerns regarding this patient's physical therapy, please feel free to call me at [phone]. Thank you for the referral of this patient. Sincerely, Candice Whitaker, MPT Balance/Gait/Functional tests Balance/Special Test Scores Lower Extremity Functional Score: 66 Improvement % Improvement: 85
== END 2024-08-11 19:00 | disposition home or self-care (01) ==
LOC: PT 10:00
PROVIDERS: PCP Internal Medicine; Referring Provider Podiatrist; Visit Provider Podiatrist
DX: M76.822 Posterior tibial tendinitis, left leg (principal)
CPT/HCPCS: 97035; 97110; 97161; 97530

== ENCOUNTER → 2024-09-14 | Outpatient (CLI) | payer OTHER, SELFPAY ==
[2024-09-14 08:21] LABS: Absolute Lymphocyte Count 1.96 X10^3/uL (0.83-4.51); Basophil# 0.05 X10^3/uL; Basophil% 1.1 % (0-1); Eosinophils% 4.2 % (0-5); Hemoglobin 13.7 g/dL (12.0-15.0); Lymphocyte # 1.96 X10^3/ul (0.83-4.51); Lymphocyte % 41.4 % (19-41); Mean Corp Hgb Conc 32.6 g/dL (32-36); Mean Corpuscular Hgb 32.5 pg (27.0-32.0); Mean Corpuscular Volume 99.8 fL (81-99); Mean Platelet Vol. 10.7 fl (6.2-12.0); Monocyte# 0.49 X10^3/uL; Monocyte% 10.3 % (0-10); NRBC Flagged by Analyzer 0 % (0-5); Neutrophil # 2.03 X10^3/uL (2.7-7.7); Neutrophil % 42.8 % (47-70); Platelet Count 335 K/mm3 (150-450); RBC Distribution Width CV 12.4 % (11.6-14.6); RBC Distribution Width SD 45.9 fl (35.1-43.9); Red Blood Count 4.21 M/mm3 (4.2-5.4); White Blood Count 4.7 K/mm3 (4.4-11.0)
[2024-09-14 08:45] LABS: Vitamin D,25 Hydroxy 38.4 ng/mL
[2024-09-14 08:50] LABS: AST(SGOT) 21 U/L (15-37); Alanine Aminotransfer ALT/SGPT 28 U/L (13-56); Albumin, Serum 3.8 g/dL (3.2-5.0); Alkaline Phosphatase 60 U/L (45-117); Anion Gap 5 (5-15); BUN 19 mg/dL (7-18); BUN/Creat Ratio 20.1 RATIO (10-20); Calcium,Total 8.8 mg/dL (8.5-10.1); Chloride 110 mmol/L (98-107); Cholesterol 220 mg/dL (200); Creatinine, Serum 0.94 mg/dL (0.55-1.02); EST Glomerular Filtration Rate 64 mL/min (>60); Est Glom Filt Rate - Afr Amer 77 mL/min (>60); Globulin 3.8 g/dL (2.2-4.2); Glucose 105 mg/dL (74-106); High Density Lipoprotein 45 mg/dL; Potassium 4.5 mmol/L (3.5-5.1); Protein, Total 7.6 g/dL (6.4-8.2); Sodium Level 141 mmol/L (136-145); Triglycerides 143 mg/dL; Very Low Density Lipoprotein 29 mg/dL (5-40)
== END | disposition home or self-care (01) ==
LOC: LAB 07:23
PROVIDERS: PCP Internal Medicine; Referring Provider Internal Medicine; Visit Provider Internal Medicine
DX: E78.5 Hyperlipidemia, unspecified (principal); E55.9 Vitamin D deficiency, unspecified
CPT/HCPCS: 36415; 80053; 80061; 82306; 84443; 85025

== ENCOUNTER → 2024-09-20 | Outpatient (CLI) | payer OTHER, SELFPAY ==
--- NOTE | 2024-09-20 14:00 | MRI_ITS ---
EXAM: MR RIGHT LOWER EXTREMITY WITHOUT INTRAVENOUS CONTRAST, ANKLE CLINICAL INDICATION: WORSENING RT ANKLE PAIN, INJURY 6 YEARS AGO, PULLED TENDON TECHNIQUE: Multiplanar and multisequence MR images of the right ankle without intravenous contrast. COMPARISON: No relevant prior studies available. FINDINGS: LIGAMENTS: ANTERIOR TALOFIBULAR: Thickening of the anterior talofibular ligament, posterior talofibular, and calcaneal fibular ligament from previous injury. POSTERIOR TALOFIBULAR: Unremarkable. Intact. ANTERIOR TIBIOFIBULAR: Unremarkable. Intact. POSTERIOR TIBIOFIBULAR: Unremarkable. Intact. CALCANEOFIBULAR: Unremarkable. Intact. DELTOID: No osteochondral lesions at the tibiotalar articulation. Mild signal alteration involving the deep fibers the deltoid ligament complex compatible with a low-grade sprain injury. SPRING: Unremarkable. Intact. LISFRANC: Unremarkable. Intact. TENDONS: ACHILLES: Unremarkable. Intact. FLEXOR: Unremarkable. Intact. EXTENSOR: Unremarkable. Intact. PERONEAL: Unremarkable. Intact. TIBIALIS ANTERIOR: Unremarkable. Intact. TIBIALIS POSTERIOR: Unremarkable. Intact. MUSCLES: Unremarkable. Normal bulk and signal. FLUID: Unremarkable. No joint effusion. SINUS TARSI: Unremarkable. Normal fat in the sinus tarsi. TARSAL TUNNEL: Unremarkable. PLANTAR FASCIA: Unremarkable. Intact. CARTILAGE: Unremarkable. No osteochondral lesion. Articular cartilage intact. BONES/JOINTS: Marrow edema involving the navicular without fracture line. Small to moderate fluid in the posterior subtalar joint. Plantar calcaneal enthesophyte. Thickened central cord of plantar aponeurosis which demonstrates normal signal otherwise. Nonfused os trigonum. No significant arthritic changes. OTHER SOFT TISSUES: Unremarkable. VASCULATURE: Vascular elements are suspected at the anterior calcaneus at the level of the angle of Gissane. MRI/Lower Ext Joint Only (Routine) IMPRESSION: 1. Thickening of the anterior talofibular ligament, posterior talofibular, and calcaneal fibular ligament from from an old injury. 2. Marrow edema involving the navicular without fracture line potentially representing bone contusion. 3. Mild signal alteration involving the deep fibers of the deltoid ligament complex , compatible with a low-grade sprain injury. Electronically Signed: Bienvenido Becerril MD at 20:29 EST ,
== END | disposition home or self-care (01) ==
LOC: MRI 13:17
PROVIDERS: PCP Internal Medicine; Referring Provider Podiatrist; Visit Provider Podiatrist
DX: M76.821 Posterior tibial tendinitis, right leg (principal)
CPT/HCPCS: 73721

== ENCOUNTER → 2025-01-12 | Outpatient (CLI) | payer OTHER, SELFPAY ==
[2025-01-12 10:22] LABS: Vitamin B12 931 pg/mL (180-914); Vitamin D,25 Hydroxy 61.4 ng/mL (30-100)
[2025-01-13 21:07] LABS: CHOLESTEROL TOTAL 222 mg/dL (100-199); HDL-C 47 mg/dL (>39); HDL-P TOTAL 29.4 umol/L (>=30.5); INSULIN RESISTANCE SCORE 54 (<=45); LDL SIZE 21.7 nm (>20.5); LDL-C (NIH CALC) 152 mg/dL (0-99); LDL-P 1495 nmol/L (<1000); SMALL LDL-P 339 nmol/L (<=527); TRIGLYCERIDES 127 mg/dL (0-149)
== END | disposition home or self-care (01) ==
PROVIDERS: PCP Internal Medicine; Referring Provider Internal Medicine; Visit Provider Internal Medicine
DX: E55.9 Vitamin D deficiency, unspecified (principal); E78.5 Hyperlipidemia, unspecified; D75.89 Other specified diseases of blood and blood-forming organs
CPT/HCPCS: 36415; 80061; 82306; 82607; 83704

== ENCOUNTER → 2025-04-20 | Outpatient (CLI) | payer OTHER, SELFPAY ==
--- NOTE | 2025-04-20 07:44 | BI_ITS ---
EXAM: SCRN MAMM (CAD)W/CATIE BILAT DATE: 04/20/2025 CLINICAL HISTORY: F, Age 65 y/o , BREAST CANCER SCREENING BREAST CANCER RISK ASSESSMENT: Not calculated at this time. TECHNIQUE: Bilateral screening digital breast tomosynthesis with 2D and 3D images. Computer aided detection. COMPARISON: Prior exam(s) dated 04/05/2024, 02/26/2023, 04/25/2021. FINDINGS: TISSUE DENSITY: The breast tissue is composed of scattered areas of fibroglandular density. Bilateral Breast Mammographic Findings: No significant masses, calcifications or other abnormalities are identified. BI/SCRN MAMM (CAD)W/CATIE BILAT IMPRESSION: There is no mammographic evidence of malignancy. OVERALL FINAL ASSESSMENT BI-RADS 1: NEGATIVE. RECOMMEND ANNUAL MAMMOGRAPHIC SCREENING. RECOMMENDATION: Routine annual follow-up in 1 Year A letter with findings and recommendations will be mailed to the patient. Reading Location: [id number]
--- OUTSIDE RECORDS SUMMARY | 2025-04-20 08:06 | XMS RPT_ITS | CCD ---
Author Organization [facility] ion Partnership [facility] Care Team Providers Care Internet Marketing Consultant Name Role Phone Jes Spicer Unavailable Jayde Macias Unavailable Unavailable Nayeli Vee Unavailable Jes Spicer Unavailable Messenger, Heather Unavailable Unavailable Fide Robertson Unavailable Unavailable Shaheen Hernandez Unavailable Unavailable Messenger, Heather Unavailable Unavailable Gravius, Brittani Unavailable Unavailable Jes Spicer DO Unavailable [phone] Fide Robertson LPN Unavailable Unavailable Shaheen Hernandez LPN Unavailable Unavailable Gravius WORKGROUP LEADER, Brittani Unavailable Unavailable Unavailable Unavailable Robotham, Rossana Unavailable Dr. Jes Spicer Primary Care Provider [phone] Dr. Jes Spicer Referring Provider [phone] Dr. Daljit Patrick Attending Provider Dr. Shannan Gan Attending Provider [phone] Eladio DAS, PA Mani Attending Provider [phone] Dr. Jes Spicer Primary Care Provider [phone] Dr. Jes Spicer Referring Provider Dr. Jes Spicer Primary Care Provider [phone] Dr. Jes Spicer Referring Provider Jes Spicer DO Unavailable [phone] Leola Valera LPN Unavailable Unavailable Flash DAS, PA Imtiaz Attending Provider [phone] Dr. Jes Spicer Primary Care Provider [phone] Dr. Jes Spicer Referring Provider Lucy Solis Attending Provider Unavailable Huber, Dr. Tracy Attending Provider Huber, Dr. Tracy Other Provider Shyam DO, Jes Attending Unavailable Shyam DO, Jes Consulting Unavailable Shyam, Dr. Andre Primary Care Provider Dr. Jes Spicer Referring Provider Huber, Dr. Tracy Attending Provider Huber, Dr. Tracy Other Provider Shyam, Dr. Andre Primary Care Provider Dr. Jes Spicer Referring Provider Dr. Jung Gudino Attending Provider Dr. Cole Hodgson Attending Provider Seble WORKGROUP LEADER, Kayela Unavailable Unavailable Manchak WORKGROUP LEADER, Gaby Unavailable Unavailable Shyam, Dr. Andre Primary Care Provider Dr. Jes Spicer Referring Provider Dr. Jung Gudino Attending Provider Dr. Jes Spicer Primary Care Provider Dr. Jes Spicer Referring Provider Dr. Jung Gudino Attending Provider Dr. Jes Spicer Primary Care Provider Dr. Jes Spicer Referring Provider Dr. Jung Gudino Attending Provider Sam AUDIO PRODUCTION MANAGER, JOHN Anthony Attending Provider Dr. Jes Spicer Primary Care Provider Dr. Jes Spicer Referring Provider Dr. Jung Gudino Attending Provider Dr. Jes Spicer Primary Care Provider Shyam, Dr. Andre Referring Provider Shyam DO, Dr. Andre Primary Care Provider Shyam DO, Dr. Andre Attending Provider Shyam DO, Dr. Andre Referring Provider Shyam, Jes Referring Unavailable Shyam, Jes Primary Care Unavailable Shyam, Jes Attending Unavailable Diogo OLS, Garrett Chi Attending Unavailable Shyam, Jes Primary Care Unavailable Shyam, Jes Attending Unavailable Shyam, Jes Referring Unavailable Shyam, Jes Primary Care Unavailable Shyam, Jes Referring Unavailable Shyam, Jes Primary Care Unavailable Shyam, Jes Attending Unavailable Shyam, Jes Primary Care Unavailable Sherman, Osmany Attending Unavailable Sherman, Osmany Referring Unavailable Shyam, Jes Primary Care Unavailable DanyOsmany Attending Unavailable DanyAidanel Referring Unavailable Diogo OLS, Garrett Chi Attending Unavailable Diogo OLS, Garrett Chi Referring Unavailable Shyam, Jes Primary Care Unavailable Shyam, Jes Referring Unavailable Shyam, Jes Primary Care Unavailable Shyam, Jes Attending Unavailable Diogo OLS, Garrett Chi Referring Unavailable Shyam, Jes Primary Care Unavailable Diogo OLS, Garrett Chi Attending Unavailable Gabrielle Vargas NP Attending Unavailable Shyam, Jes Referring Unavailable Shyam, Jes Primary Care Unavailable Medications Current Medications Medication Drug Class(es) Dates Sig (Normalized) Sig (Original) acetaminophen 325 mg oral tablet (20 sources) Start: 01-30-2022 Acetaminophen (Tylenol) 325 mg tablet Active 650 mg PO NEEDED as needed for Pain January 30, 2022 12:00am Start: 01-30-2022 take 2 tablets by mouth once A cetaminophen (Tylenol) 325 mg tablet Active 650 MG PO ONCE January 30, 2022 12:00am ascorbic acid 500 mg oral capsule (20 sources) Vitamin C Start: 12-17-2017 take 1 capsule by mouth once daily Ascorbic Acid (Vitamin C) 500 mg capsule Active 500 mg PO DAILY December 17, 2017 1:00am End: 12-11-2015 take 1 tablet by mouth once daily VITAMIN C, 100MG (Oral Tablet Chewable) 1 (one) qd (100 MG) End : 11-Dec-2015 Discontinued Calcium (20 sources) Phosphate Binder, Calcium Start: 06-26-2022 take 1 capsule by mouth once daily Calcium 600 mg Capsule Active 600 mg PO DAILY June 26, 2022 12:00am Start: 06-26-2022 take 600 mg by mouth once sapna y Calcium Active 600 MG PO DAILY June 25, 2022 11:00pm Start: 06-26-2022 take 600 mg by mouth once sapna y Calcium Active 600 MG PO DAILY June 26, 2022 12:00am cholecalciferol 0.025 mg oral capsule (20 sources) Vitamin D Start: 06-26-2022 take 1 capsule by mouth once daily Cholecalciferol (Vitamin D3) (Vitamin D3) 25 mcg (1,000 unit) Capsule Active 25 ug PO DAILY June 26, 2022 12:00am Start: 10-21-2018 End: 08-09-2022 take 1 tablet by mouth once daily Vitamin D3 Super Strength 50 MCG (2000 UT) Oral Tablet 1 (one) Tablet daily for 0 days Quantity: 30 {Tablet} Refills: 0 Ordered: 09-Aug-2022 Shaheen Hernandez LPN Start : 21-Oct-2018 End : 09-Aug-2022 Inactive multivitamin capsule (8 sources) Start: 12-17-2017 take 1 capsule by mouth once daily in the morning multivitamin capsule Active 1 CAP PO EVERY MORNING December 17, 2017 12:27pm Start: 12-17-2017 take 1 capsule by mo ut once daily in the morning multivitamin capsule Active 1 CAP PO EVERY MORNING December 17, 2017 1:00am Multivitamin tablet (1 source) Start: 01-12-2024 Multivitamin t ablet Active 1 {tbl} PO DAILY January 12, 2024 12:00am Completed/Discontinued Medications Medication Drug Class(es) Dates Sig (Normalized) Sig (Original) aspirin 325 mg oral tablet (20 sources) Platelet Aggregation Inhibitor, Nonsteroidal Anti-inflammatory Drug Start: 10-09-2021 End: 01-30-2022 take 1 tablet by mouth once daily Aspirin 325 mg Tablet Discontinued 325 mg PO DAILY October 09, 2021 1:00am January 30, 2022 9:16am azithromycin 250 mg oral tablet (20 sources) Macrolide Antimicrobial Start: 10-14-2017 End: 10-19-2017 Azithromycin (Zithromax Z-Cortez) 250 mg tablet Discontinued 250 mg PO .COMPLEX 6 5 October 14, 2017 1:00am October 18, 2017 1:00am October 19, 2017 1:05am Take two 250mg tablet once day one then one tablet daily the next four days benzonatate 100 mg oral capsule (20 sources) Non-narcotic Antitussive Start: 02-08-2014 End: 03-09-2015 take 1 capsule by mouth three times daily TESSALON PERLES, 100MG (Oral Capsule) 1 (one) Capsule Capsule tid for 0 days Quantity: 30 {Capsule} Refills: 0 Ordered: 09-Mar-2015 Heather Au RN Start : 08-Feb-2014 End : 09-Mar-2015 Inactive calcium carbonate 333 mg / cholecalciferol 133 unt / magnesium oxide 133 mg / zinc oxide 5 mg oral tablet (5 sources) Vitamin D Start: 10-21-2018 take 1 tablet by mouth once daily Calcium Citrate Plus Oral Tablet 1 (one) Tablet daily for 0 days Quantity: 30 {Tablet} Refills: 0 Ordered: 16-Jun-2019 Heather Au RN Start : 21-Oct-2018 Active Calcium Citrate Plus (1 source) Start: 10-21-2018 take 1 tablet by mouth once daily Calcium Citrate Plus Oral Tablet 1 (one) Tablet daily for 0 days Quantity: 30 {Tablet} Refills: 0 Ordered: 21-Oct-2018 Mariusz MANNINGNayeli Start : 21-Oct-2018 Active Calcium Citrate Plus Oral Tablet (13 sources) Start: 10-21-2018 take 1 tablet by mouth once daily Calcium Citrate Plus Oral Tablet 1 (one) Tablet daily for 0 days Quantity: 30 {Tablet} Refills: 0 Ordered: 16-Jun-2019 Heather Au RN Start : 21-Oct-2018 Active Start: 10-21-2018 take 1 tablet by nicolasa once daily Calcium Citrate Plus Oral Tablet 1 (one) Tablet daily for 0 days Quantity: 30 {Tablet} Refills: 0 Ordered: 16-Jun-2019 Heather Au LPN Start : 21-Oct-2018 Active 24 hr clarithromycin 500 mg extended release oral tablet (20 sources) Macrolide Antimicrobial Start: 02-08-2014 End: 02-18-2014 take 2 tablets by mouth once daily BIAXIN XL PAC, 500MG (Oral Tablet Extended Release 24 Hour) 2 (two) Tablet ER 24HR daily for 10 days Quantity: 20 {Tablet} Refills: 0 Ordered: 08-Feb-2014 Nayeli Vee Start : 08-Feb-2014 End : 18-Feb-2014 Inactive Start: 02-08-2014 End: 02-18-2014 take 2 tablets by mouth once daily BIAXIN XL PAC, 500MG (Oral Tablet Extended Release 24 Hour) 2 (two) Tablet ER 24HR daily for 10 days Quantity: 20 {Tablet} Refills: 0 Ordered: 08-Feb-2014 Nayeli Vee CNP Start : 08-Feb-2014 End : 18-Feb-2014 Inactive DHEA (16 sources) DHEA 2-3 times w eekly Inactive Comments: vaginally DHEA 2-3 times w eekly Active Comments: vaginally Comment on above: vaginally diclofenac sodium 0.01 mg/mg topical gel (20 sources) Nonsteroidal Anti-inflammatory Drug Start: 04-15-20 End: 04-20-20 21 apply 4 g topically four times daily Diclofenac Sodium 1 % gel Discontinued 4 g TOPICAL .QID 100 April 15, 2018 12:00am April 20, 2021 8:42am per physician order (Dr. Jordan) Start: 04-15-2018 End: 04-20-2021 apply 4 g topically four times daily Diclofenac Sodium Discontinued 4 GM TOPICAL .QID 100 April 14, 2018 11:00pm April 20, 2021 7:42am per physician order (Dr. Jordan) esomeprazole 40 mg delayed release oral capsule (20 sources) Proton Pump Inhibitor Start: 04-20-2021 End: 01-30-2022 take 1 capsule by mouth once daily Esomeprazole Magnesium 40 mg capsule,delayed release(/EC) Discontinued 40 mg PO DAILY April 20, 2021 12:00am January 30, 2022 9:16am estradiol 0.1 mg/ml vaginal cream (20 sources) Estrogen Start: 05-10-2022 End: 09-03-2023 Estradiol 0.01 % (0.1 mg/gram) cream Discontinued 1 g VAGINAL TWICE A WEEK May 10, 2022 12:00am September 03, 2023 8:19am Estradiol 0.025 MG/24HR Transdermal Patch Twice Weekly (0.025 MG/24HR) Active Comments: USES CREAM NOT PATCH Comment on above: USES CREAM NOT PATCH 24 hr fexofenadine hydrochloride 180 mg / pseudoephedrine hydrochloride 240 mg extended release oral tablet (20 sources) alpha-Adrenergic Agonist, Histamine-1 Receptor Antagonist Start: 02-09-20 14 End: 03-09-20 15 take 7 tablets by mouth every twenty-four hours, then take 1 tablet by mouth every twenty-four hours [facility], 180-240MG (Oral Tablet Extended Release 24 Hour) 1 (one) Tablet ER 24HR Tablet ER 24HR TAD for 0 days Quantity: 30 {Tablet} Refills: 0 Ordered: 09-Mar-2015 Heather Au RN Start : 08-Feb-2014 End : 09-Mar-2015 Inactive Herbal Pumpkin (16 sources) End: 10-06-20 18 Herbal Pumpkin qd End : 06-Oct-2018 Discontinued Comments: fiber Comment on above: fiber ibuprofen 200 mg / pseudoephedrine hydrochloride 30 mg oral capsule (20 sources) alpha-Adrenergic Agonist, Nonsteroidal Anti-inflammatory Drug Start: 10-14-20 17 End: 12-17-19 18 Pseudoephedrine-Ibu profen (Advil Cold And Sinus) 30-200 mg capsule Discontinued NMA PO October 14, 2017 1:00am December 17, 2017 12:27pm ivermectin 3 mg oral tablet (20 sources) Antiparasitic, Pediculicide Start: 10-09-20 21 End: 01-31-20 22 take 1 tablet by mouth once daily Ivermectin 3 mg Tablet Discontinued 18 mg PO DAILY October 09, 2021 1:00am January 30, 2022 9:16am Start: 10-09-2021 End: 01-30-2022 take 18 mg by mouth once daily Ivermectin Discontinued 18 MG PO DAILY October 09, 2021 12:00am January 30, 2022 8:16am meloxicam 15 mg oral tablet (20 sources) Nonsteroidal Anti-inflammatory Drug Start: 01-15-2023 End: 04-20-2024 take 1 tablet by mouth once daily Meloxicam 15 mg tablet Discontinued 15 mg PO DAILY January 15, 2023 12:00am April 20, 2024 9:42am Do not take in conjunction with other NSAID. Tylenol is okay. Start: 05-10-2019 End: 04-20-2021 take 1 tablet by mouth once daily Meloxicam (Mobic) 15 mg tablet Discontinued 15 mg PO DAILY May 10, 2019 12:00am April 20, 2021 8:42am Do not take with other NSAIDs methylPREDNISolone acetate 40 mg/ml injectable suspension (20 sources) Corticosteroid Start: 11-13-2020 End: 11-13-2020 Depo-Medrol (methylprednisolone acetate) 40 mg/mL suspension for injection Discontinued 40 MG intrabursal ONCE November 13, 2020 9:12am November 13, 2020 10:15am Start: 05-10-2019 End: 05-10-2019 Depo-Medrol (methylprednisol one acetate) 40 mg/mL suspension for injection Discontinued 80 MG INTRAARTIC ONCE May 10, 2019 10:49am May 10, 2019 11:38am Start: 10-14-2017 End: 10-19-2017 take 1 tablet by mouth once Methylprednisolone (Medrol (Cortez)) 4 mg tablets,dose pack Discontinued 4 mg PO per package directions 21 October 14, 2017 1:00am October 18, 2017 1:00am October 19, 2017 1:05am metoprolol tartrate 50 mg oral tablet (8 sources) beta-Adrenergic Martinez Start: 04-16-2021 End: 07-11-2021 take 1 tablet by mouth every hour Metoprolol Tartrate 50 MG Oral Tablet 1 (one) Tablet po 1 hr proir to scan for 0 days Quantity: 1 {Tablet} Refills: 0 Ordered: 11-Jul-[address] CMA Start : 16-Apr-2021 End : 11-Jul-2021 Inactive Multivitamin preparation (20 sources) MULTIVITAMIN (Or al Liquid) 1 (one) qd Inactive Multivitamins (2 sources) Start: 12-11-2015 End: 01-10-2016 take 1 tablet by mouth once daily MULTIVITAMINS (Oral Tablet Chewable) 1 (one) Tablet Chewable daily for 30 days Quantity: 30 {Tablet} Refills: 0 Ordered: 06-Oct-2018 Nayeli Vee CNP Start : 11-Dec-2015 End : 10-Jan-2016 Inactive MULTIVITAMINS (Oral Tablet Chewable) (18 sources) Start: 12-11-2015 End: 01-10-2016 take 1 tablet by mouth once daily MULTIVITAMINS (Oral Tablet Chewable) 1 (one) Tablet Chewable daily for 30 days Quantity: 30 {Tablet} Refills: 0 Ordered: 06-Oct-2018 Nayeli Vee Start : 11-Dec-2015 End : 10-Jan-2016 Inactive Start: 12-11-2015 End: 01-10-2016 take 1 tablet by mouth once daily MULTIVITAMINS (Oral Tablet Chewable) 1 (one) Tablet Chewable daily for 30 days Quantity: 30 {Tablet} Refills: 0 Ordered: 06-Oct-2018 Nayeli Vee CNP Start : 11-Dec-2015 End : 10-Jan-2016 Inactive oxymetazoline hydrochloride 0.5 mg/ml nasal spray (20 sources) Start: 10-14-2017 End: 12-17-2017 Oxymetazoline (Afrin (Oxymetazoline)) 0.05 % spray,non-aerosol Discontinued 1 NMA INTRANASAL ONCE October 14, 2017 1:00am December 17, 2017 12:27pm triamcinolone acetonide 40 mg/ml injectable suspension (10 sources) Corticosteroid Start: 01-30-2022 End: 01-30-2022 Kenalog (triamcinolone acetonide) 40 mg/mL suspension for injection Discontinued 40 MG INTRAARTIC ONCE 1 January 30, 2022 9:02am January 30, 2022 9:47am Start: 09-22-2018 End: 09-22-2018 Kenalog (triamcinolone aceto nide) 40 mg/mL suspension for injection Discontinued 20 MG INTRAARTIC ONCE 0.5 September 22, 2018 1:52pm September 22, 2018 2:40pm vitamin k2 0.1 mg oral capsule (20 sources) Start: 06-26-2022 End: 01-12-2024 Vitamin K2 100 mcg Capsule Discontinued 100 ug PO DAILY June 26, 2022 12:00am January 12, 2024 10:45am Zinc (20 sources) Start: 06-26-2022 End: 09-03-2023 take 1 tablet by mouth once daily Zinc 50 mg Tablet Discontinued 50 mg PO DAILY June 26, 2022 12:00am September 03, 2023 8:19am Start: 06-26-2022 End: 09-03-2023 take 50 mg by mouth once daily Zinc Discontinued 50 MG PO DAILY June 25, 2022 11:00pm September 03, 2023 7:19am Start: 06-26-2022 take 50 mg by mouth once daily Zinc Active 50 MG PO DAILY June 25, 2022 11:00pm Start: 06-26-2022 take 50 mg by mouth once daily Zinc Active 50 MG PO DAILY June 26, 2022 12:00am Problems Active Problems Problem Classification Problem Date Documented Date Episodic/Chronic Acute bronchitis (20 sources) Acute bronchitis; Translations: [Acute bronchitis, unspecified] 10-14-2017 Episodic Administrative/social admission (20 sources) Medical examinations/reports status; Translations: [Patient encounter status] 10-06-2018 Episodic Chronic obstructive pulmonary disease and bronchiectasis (20 sources) Bronchitis; Translations: [Bronchitis] Resolved: 03-09-2015 08-08-2015 Episodic Chronic obstructive pulmonary disease and bronchiectasis (12 sources) Chronic obstructive pulmonary disease and bronchiectasis Disorders of lipid metabolism (20 sources) Hyperlipidemia; Translations: [Hyperlipidemia] Onset: 10-11-2024 10-06-2018 Chronic Comment on above: pt doesnt want meds - wikll cont diet and exericse Immunizations and screening for infectious disease (20 sources) Encounter for screening for respiratory tuberculosis; Translations: [Patient encounter status] 10-06-2018 Episodic Comment on above: needs 2step Nutritional deficiencies (20 sources) Vitamin D deficiency; Translations: [Vitamin D deficiency] Onset: 01-21-2025 10-06-2018 Chronic Other bone disease and musculoskeletal deformities (20 sources) Osteopenia; Translations: [Osteopenia] 10-21-2018 Episodic Comment on above: has low Ca and insuf ficient D, adding vitamins and wt bearing exercise, repeat in 2 yrs Other bone disease and musculoskeletal deformities (20 sources) Segmental and somatic dysfunction; Translations: [Segmental and somatic dysfunction of cervical region] 12-18-2017 Episodic Other bone disease and musculoskeletal deformities (8 sources) Segmental and somatic dysfunction of cervical region; Translations: [Nonallopathic lesions, cervical region] Episodic Other bone disease and musculoskeletal deformities (8 sources) Segmental and somatic dysfunction of lumbar region; Translations: [Nonallopathic lesions, lumbar region] Episodic Other bone disease and musculoskeletal deformities (8 sources) Segmental and somatic dysfunction of pelvic region; Translations: [Nonallopathic lesions, pelvic region] Episodic Other bone disease and musculoskeletal deformities (8 sources) Segmental and somatic dysfunction of thoracic region; Translations: [Nonallopathic lesions, thoracic region] Episodic Other connective tissue disease (20 sources) Lateral epicondylitis of left humerus; Translations: [Lateral epicondylitis, left elbow] 04-20-2021 Episodic Other connective tissue disease (20 sources) Lateral epicondylitis, left elbow; Translations: [Lateral epicondylitis] Episodic Other hematologic conditions (20 sources) Macrocytosis; Translations: [Macrocytosis] 07-07-2020 Chronic Other hematologic conditions (10 sources) Macrocytosis; Translations: [Macrocytosis] 07-07-2020 Episodic Other lower respiratory disease (20 sources) Cough; Translations: [Cough] Resolved: 03-09-2015 03-09-2015 Episodic Other lower respiratory disease (17 sources) Snoring; Translations: [Snores] 07-07-2020 Episodic Other lower respiratory disease (11 sources) Apnea; Translations: [Witnessed episode of apnea] 07-11-2021 Episodic Comment on above: last sleep study nev er happened [facility] , gave new order today Other lower respiratory disease (20 sources) Productive cough ; Translations: [Cough productive of purulent sputum] 10-14-2017 Episodic Other nervous system disorders (20 sources) Piriformis syndrome; Translations: [Piriformis syndrome] Resolved: 08-09-2022 07-07-2020 Chronic Comment on above: needs stretch Other nervous system disorders (4 sources) Lesion of sciatic nerve, right lower limb; Translations: [Lesion of sciatic nerve] Chronic Other nervous system disorders (20 sources) Piriformis syndrome; Translations: [Piriformis syndrome] 10-21-2018 Episodic Comment on above: needs stretch Other nutritional; endocrine; and metabolic disorders (20 sources) Body mass index 30+ - obesity; Translations: [BMI 30.0-30.9,adult] 10-06-2018 Chronic Other nutritional; endocrine; and metabolic disorders (5 sources) Body mass index 25-29 - overweight; Translations: [BMI 28.0-28.9,adult] 07-07-2020 Chronic Other nutritional; endocrine; and metabolic disorders (12 sources) Lipids abnormal; Translations: [Lipids abnormal] 07-07-2020 Chronic Other nutritional; endocrine; and metabolic disorders (6 sources) Obesity; Translations: [Obesity, unspecified] 09-03-2023 Chronic Other nutritional; endocrine; and metabolic disorders (4 sources) Obesity, unspecified; Translations: [Obesity, unspecified] 09-03-2023 Chronic Other nutritional; endocrine; and metabolic disorders (7 sources) Body mass index 25-29 - overweight; Translations: [BMI 28.0-28.9,adult] 09-11-2020 Episodic Other nutritional; endocrine; and metabolic disorders (20 sources) Overweight in adulthood with body mass index of 25 or more but less than 30; Translations: [Body mass index (BMI) 29.0-29.9, adult] 04-25-2022 Episodic Other screening for suspected conditions (not mental disorders or infectious disease) (20 sources) Screening status; Translations: [Encounter for screening for malignant neoplasm of colon (Renamed from Special screening for malignant neoplasms, colon)] Onset: 04-18-2025 07-07-2020 Episodic Other upper respiratory disease (20 sources) Nasal congestion; Translations: [Nasal congestion] Resolved: 08-09-2022 03-09-2015 Episodic Other upper respiratory disease (20 sources) Nasal sinus problem; Translations: [Other specified disorders of nose and nasal sinuses] 08-01-2021 Episodic Pneumonia (except that caused by tuberculosis or sexually transmitted disease) (10 sources) Severe acute respiratory syndrome; Translations: [SARS (severe acute respiratory syndrome)] 04-25-2022 Episodic Residual codes; unclassified (6 sources) Obstructive sleep apnea syndrome; Translations: [Obstructive sleep apnea (adult) (pediatric)] 09-03-2023 Chronic Comment on above: AHI 14.8 Residual codes; unclassified (4 sources) Obstructive sleep apnea (adult) (pediatric); Translations: [Obstructive sleep apnea (adult)(pediatric)] 09-03-2023 Chronic Residual codes; unclassified (20 sources) Lipids abnormal; Translations: [Lipids abnormal] 10-06-2018 Episodic Residual codes; unclassified (20 sources) Postmenopausal state; Translations: [Postmenopausal (Renamed from Postmenopausal status)] 10-06-2018 Episodic Residual codes; unclassified (20 sources) FH: Cardiovascular disease; Translations: [Family history of cardiovascular disease] 06-16-2019 Episodic Comment on above: several uncles and a unt and grandfathers on dads side from [place] <50y/o Residual codes; unclassified (2 sources) Requires varicella vaccination; Translations: [Need for shingles vaccine] 09-11-2020 Episodic Residual codes; unclassified (20 sources) Non-smoker; Translations: [Nonsmoker] 07-07-2020 Episodic Residual codes; unclassified (1 source) Family history of ischemic heart disease and other diseases of the circulatory system; Translations: [Family history of ischemic heart disease and other diseases of the circulatory system] Onset: 04-19-2025 Episodic Sprains and strains (20 sources) Injury of musculoskeletal system; Translations: [Sprain of unspecified parts of thorax, initial encounter] 10-05-2020 Episodic Thyroid disorders (20 sources) Goiter; Translations: [Thyroid nodule] 10-06-2018 Chronic Comment on above: with nodules sub soumya timeter d/w pt will repeat 1 yr us done <1yr 2018 us done - us done -- will do next year unless meets deductible this year? Unclassified (20 sources) Screening status; Translations: [Encounter for screening for malignant neoplasm of colon (Renamed from Special screening for malignant neoplasms, colon)] 10-06-2018 Unclassified (20 sources) Unclassified (20 sources) Non-smoker; Translations: [Nonsmoker] 10-06-2018 Unclassified (20 sources) BMI 30.0-30.9,adult Unclassified (18 sources) Postmenopausal (Renamed from Postmenopausal status) Unclassified (20 sources) Patient encounter status; Translations: [Nutritional counseling] 06-16-2019 Comment on above: needs 2step Unclassified (18 sources) Family history of cardiovascular disease Unclassified (9 sources) BMI 28.0-28.9,adult Unclassified (9 sources) Snores Unclassified (4 sources) BRONCHITIS, NOT SPECIFIED ACUTE OR CHRONIC (490.) Unclassified (3 sources) BMI 29.0-29.9,adult Unclassified (2 sources) Witnessed episode of apnea Viral infection (20 sources) Disease caused by 2019-nCoV; Translations: [COVID-19] Episodic Past or Other Problems Problem Classification Problem Date Documented Date Episodic/Chronic Coronary atherosclerosis and other heart disease (7 sources) Coronary atherosclerosis and other heart disease Other connective tissue disease (1 source) Posterior tibial tendinitis, right leg; Translations: [Posterior tibial tendinitis, right leg] Onset: 10-19-2024 Episodic Unclassified (20 sources) Abortions/Miscarriage s; Translations: [Abortions/Miscarriag es] 10-06-2018 Comment on above: 1 1986 Unclassified (20 sources) SCREENING FOR TB (V74.1) Unclassified (16 sources) SCHOOL PHYSICAL (V70.3) Unclassified (20 sources) Pregnancies (); Translations: [Pregnancies ()] 10-06-2018 Comment on above: 1 Unclassified (2 sources) Patient examined; Translations: [School physical exam] 10-06-2018 Unclassified (20 sources) Encounter for well woman exam; Translations: [Patient encounter status] 06-16-2019 Unclassified (5 sources) Tuberculosis screening status; Translations: [Encounter for screening for respiratory tuberculosis] 06-16-2019 Comment on above: needs 2step Unclassified (6 sources) Need for shingles vaccine Unclassified (16 sources) Unspecified Diagnosis 04-16-2021 Unclassified (20 sources) left ovary removal 06-02-2022 Viral infection (5 sources) Disease caused by 2019-nCoV NEGATED: Highlighted row has been ruled out!Unclassified (20 sources) Problem Onset: 12-22-2013 03-09-2015 Results Test Name Value Interpretation Reference Range Facility Coronary Angiography CTon Coronary Angiography [facility] Imaging Services [address] [place] [address] 04/19/25 1725 MR#: [id number] Acct: [id number] Name: TRISTAN SINGH Rep #: [id number] : 1960 65 From: Cole Hodgson MD PCP: Dr. Jes Spicer, DO Status:REG REF Y Location: CT Calcium Scoring Date of Study:: 04/19/25 Indications Indications: FH Coronary Calcium Scoring: High-resolution Computed Tomographic imaging of the chest was performed on [04/19/25 ], with particular attention paid to the coronary arteries. Images from the examination were analyzed for the presence and extent of coronary artery calcification , using coronary calcium quantification software. The patient tolerated the procedure well and there were no complications. The results of the coronary calcification analysis are provided below. Findings Coronary Artery Left Main (LM): 0 Left Anterior Descending (LAD): 0 Left Circumflex (LCX): 0 Right Coronary Artery (RCA): 1.65 Total Agatston Score: 1.65 Percentile Rankin-50% Calcium Scoring Interpretation: Different methods to categorize the overall amount of coronary plaque. Overall amount CAC SIS Visual of coronary plaque P1 Mild -100 <2 1-2 vessels with mild amount of plaque P2 Moderate 101-300 3-4 1-2 vessels with moderate amount, 3 vessels with mild amount of plaque P3 Severe 301-999 5-7 3 vessels with moderate amount, 1 vessel with severe amount of plaque P4 Extensive >1000 >8 2-3 vessels with severe amount of plaque Calcium Score: Mild: 1-2 vessels w/mild amount of plaque Conclusion: Minimal focal plaquing noted in the right coronary artery 04/19/25 1726 Date Cole Hodgson MD Cosigner Signature (if applicable): Date CC: Dr. Cole Hodgson MD; Dr. Jes Spicer DO Signed Normal [facility] Limited Chest CT Cardiac Onl yon 04-19-[address] Cardiac Only [facility] Imaging Services [address] [place] [address] Cardiac Only MR#: [id number] Acct: [id number] Name: TRISTAN SINGH Rep #: [id number] : 1960 F 65 From: Trey tran MD PCP: Dr. Jes Spicer DO Status: REG REF Study: Limited Chest CT Cardiac Only Date of Exam: Exam# [id number] Ordering Dr: Jes Spicer DO PROCEDURE: LIMITED CHEST CT CARDIAC ONLY 04/19/2025 REASON FOR EXAM: FAMILY HX OF CAD TECHNIQUE: LIMITED CHEST CT CARDIAC ONLY One or more dose reduction techniques were used (e.g., Automated exposure control, adjustment of the mA and/or kV according to patient size, use of iterative reconstruction technique). RADIATION DOSE SUMMARY: CTDlvol: 12.19 mGy DLP: 219.42 mGycm COMPARISON: None FINDINGS: No coronary artery calcification. The heart is nonenlarged. The lungs are clear. CT/Limited Chest CT Cardiac Only IMPRESSION: No coronary artery calcification. Reading Location: [place] [address] CC: Dr. Jes Spicer, Game Designer/Creative Director: Signed Normal [facility] NMR Lipoprofileon 01-13-2025 Cholesterol [Mass/Vol] 222 mg/dL High 100-199 [facility] Comment on above: Order Comment: Test( s) 894820-TZJ-A; 075627-AAB-P; 418964-Gtcsfukijwmff;725256-Enlioyfrldr, Total; 110498-WDE-L (Total); 873235-Bffha LDL-P; 336498-GUF Size; 803274-CO-LE Scorewas developed and its performance characteristicsdetermined by [employer]. It has not been cleared or approvedby the Food and Drug Administration. Performed By: #### M 100.505 #### [facility] [address] [facility], [address] Cholesterol in HDL [Mass/Vol] 47 mg/dL Normal >39 [facility] Comment on above: Order Comment: Test( s) 640517-OEF-P; 470735-YTY-R; 135399-Zrtnnzdivbigd;278483-Plubwvmntsv, Total; 478609-EWA-N (Total); 353925-Sqljq LDL-P; 444243-YHC Size; 868089-JW-JV Scorewas developed and its performance characteristicsdetermined by [employer]. It has not been cleared or approvedby the Food and Drug Administration. Performed By: #### M 100.505 #### [facility] [address] [place], [address] Cholesterol in LDL [Mass/Vol] 152 mg/dL Abnormal 0-99 [facility] Comment on above: Order Comment: Test( s) 309268-ODV-Z; 811156-BBA-O; 601268-Dkeuswmuinbfb;146157-Jitpkssuqhv, Total; 083613-FSA-R (Total); 563839-Ukxyj LDL-P; 811469-IVO Size; 722310-VG-ZC Scorewas developed and its performance characteristicsdetermined by [employer]. It has not been cleared or approvedby the Food and Drug Administration. Result Comment: Opti mal < 100 Above optimal 100 - 129 Borderline 130 - 159 High 160 - 189 Very high > 189 Performed By: #### M 100.505 #### [facility] [address] [facility] [place], [place], [address] HDL-P TOTAL 29.4 umol/L Abnormal >=30.5 [facility] Comment on above: Order Comment: Test( s) 295765-ZYX-I; 302171-MMA-M; 877216-Qyeqmpbqggsjj;686120-Ervbjcausyd, Total; 384684-DQD-C (Total); 185531-Ffxlr LDL-P; 287496-DRO Size; 692574-MZ-MB Scorewas developed and its performance characteristicsdetermined by [employer]. It has not been cleared or approvedby the Food and Drug Administration. Performed By: #### M 100.505 #### [facility] [address] [facility] [place], [place], [address] INS. RES. SCORE 54 Abnormal <=45 [facility] Comment on above: Order Comment: Test( s) 901933-FKE-D; 821042-RWZ-F; 359511-Spqbfszlftpkr;773897-Vgrjwkcrobj, Total; 595442-ZGU-I (Total); 844528-Jfyqm LDL-P; 587141-ZWC Size; 362544-FD-TO Scorewas developed and its performance characteristicsdetermined by [employer]. It has not been cleared or approvedby the Food and Drug Administration. Result Comment: INSU SANDRA RESISTANCE MARKER <--Insulin Sensitive Insulin Resistant--> Percentile in Reference Population Insulin Resistance Score LP-IR Score Low 25th 50th 75th High <27 27 45 63 >63 LP-IR Score is inaccurate if patient is non-fasting. The LP-IR score is a laboratory developed index that has been associated with insulin resistance and diabetes risk and should be used as one component of a physician's clinical assessment. Performed at: - [address] [id number] [place] Seater: Chele Salinas MD, Phone: [phone] Performed By: #### M 100.505 #### [facility] [address] [facility]. [place], [place], [address] LDL SIZE 21.7 nm Normal >20.5 [facility] Comment on above: Order Comment: Test( s) 002262-PPE-A; 627901-UBH-U; 524580-Msaqforaqbrsc;056592-Xshowzspuxc, Total; 698292-HMZ-S (Total); 738873-Agokp LDL-P; 458185-SHV Size; 259749-NJ-FD Scorewas developed and its performance characteristicsdetermined by [employer]. It has not been cleared or approvedby the Food and Drug Administration. Result Comment: INTERPRETATIVE INFORMATION PARTICLE CONCENTRATION AND SIZE <--Lower CVD Risk Higher CVD Risk--> LDL AND HDL PARTICLES Percentile in Reference Population HDL-P (total) High 75th 50th 25th Low >34.9 34.9 30.5 26.7 <26.7 Small LDL-P Low 25th 50th 75th High <117 117 527 839 >839 LDL Size <-Large (Pattern A)-> <-Small (Pattern B)-> 23.0 20.6 20.5 19.0 Small LDL-P and LDL Size are associated with CVD risk, but not after LDL-P is taken into account. Performed By: #### M 100.505 #### [facility] [address] [facility] [place], [place], [address] LDL-P 1495 nmol/L Abnormal <1000 [facility] Comment on above: Order Comment: Test( s) 137048-NXJ-Y; 856467-FHY-F; 769295-Llomhkphvhpem;036030-Gnpobpalaqo, Total; 411862-TNV-E (Total); 579945-Rgvuc LDL-P; 247788-CCY Size; 453756-MY-BZ Scorewas developed and its performance characteristicsdetermined by [employer]. It has not been cleared or approvedby the Food and Drug Administration. Result Comment: Low < 1000 Moderate 1000 - 1299 Borderline-High 1300 - 1599 High 1600 - 2000 Very High > 2000 Performed By: #### M 100.505 #### [facility] [address] [facility] [place], [place], [id number] ([address]) SMALL LDL-P 339 nmol/L Normal <=527 [facility] Comment on above: Order Comment: Test( s) 285410-DTH-D; 428389-ENA-E; 292341-Jjuhjhjpahjbz;917515-Olttbzoccjd, Total; 818273-DCR-D (Total); 534605-Ejoon LDL-P; 781912-WMG Size; 697213-JR-TO Scorewas developed and its performance characteristicsdetermined by [employer]. It has not been cleared or approvedby the Food and Drug Administration. Performed By: #### M 100.505 #### [facility] [address] [place], [place], [address] Triglyceride [Mass/Vol] 127 mg/dL Normal 0-149 [facility] Comment on above: Order Comment: Test( s) 475477-SJL-Z; 380111-JFG-J; 157439-Vcitlsimiahzr;618356-Ehjaesrttyq, Total; 152576-JUT-W (Total); 564505-Yvxmf LDL-P; 345028-LLD Size; 303460-EN-NG Scorewas developed and its performance characteristicsdetermined by [employer]. It has not been cleared or approvedby the Food and Drug Administration. Performed By: #### M 100.505 #### [facility] [address] [place], [place], [address] High density lipoprotein (HD L) particle measurement by nuclear magnetic resonance (NMOrdered By: Jes Spicer on 01-12-2025 Total HDL Particles 29.4 umol/L Low >=30.5 [facility] L503.0106on 01-12-2025 Cobalamin (Vitamin B12) [Mass/Vol] 931 pg/mL High 180-914 [facility] Comment on above: Performed By: #### M 100.505 #### [facility] [address] [place], [place], [address] L506.1001on 01-12-2025 Vitamin D 25-OH 61.4 ng/mL Normal 30-100 [facility] Comment on above: Result Comment: Carla min D Status Deficiency: <20 ng/mL (50nmol/L) Insufficiency: 20-30 ng/mL (50-75 nmol/L) Sufficiency: 30-100 ng/mL (75-250 nmol/L) Toxicity: >100 ng/mL (>250 nmol/L) Performed By: #### M 100.505 #### [facility] [address] [facility] [place], [place], [address] Lipoprotein insulin resistan ce score [Score]Ordered By: Jes Spicer on 01-12-2025 Insulin Resistance/Diabetes Risk 54 High <=45 [facility] Comment on above: INSULIN RESISTANCE Lane[place] CHANDRA <--Insulin Sensitive Insulin Resistant--> Percentile in Reference PopulationInsulin Resistance ScoreLP-IR Score Low 25th 50th 75th High <27 27 45 63 >63LP-IR Score is inaccurate if patient is non-fasting.The LP-IR score is a laboratory developed index that hasbeen associated with insulin resistance and diabetes riskand should be used as one component of a physician'sclinical assessment.Performed at: - [address] [id number] Director: Chele Salinas MD, Phone: [phone] Lipoprotein.beta.subparticle .small [Moles/Vol]Ordered By: Jes Spicer on 01-12-2025 Small LDL Particle Number 339 nmol/L <=527 [facility] No Panel InformationOrdered By: Jes Spicer on 01-12-2025 LDL Cholesterol Particle Number 1495 nmol/L High <1000 [facility] Comment on above: Low < 1000 Moderate 1000 - 1299 Borderline-High 1300 - 1599 High 1600 - 2000 Very High > 2000 LDL Cholesterol Particle Size 21.7 nm >20.5 [facility] Comment on above: INTERPRETATIVE INFORMATION PARTICLE CONCENTRATION AND SIZE <--Lower CVD Risk Higher CVD Risk--> LDL AND HDL PARTICLES Percentile in Reference Population HDL-P (total) High 75th 50th 25th Low >34.9 34.9 30.5 26.7 <26.7 Small LDL-P Low 25th 50th 75th High <117 117 527 839 >839 LDL Size <-Large (Pattern A)-> <-Small (Pattern B)-> 23.0 20.6 20.5 19.0 Small LDL-P and LDL Size are associated with CVD risk, butnot after LDL-P is taken into account. LDL Cholesterol, Calculated 152 mg/dL High 0-99 [facility] Comment on above: Optimal < 100 Above optimal 100 - 129 Borderline 130 - 159 High 160 - 189 Very high > 189 Serum or plasma cholesterol measurement (mass/volume)Ordered By: Jes Spicer on 01-12-2025 Cholesterol [Mass/Vol] 222 mg/dL High 100-199 [facility] Serum or plasma high density lipoprotein (HDL) cholesterol measurement (mass/volume)Ordered By: Jes Spicer on 01-12-2025 Cholesterol in HDL [Mass/Vol] 47 mg/dL >39 [facility] Triglycerides measurementOrd ered By: Jes Spicer on 01-12-2025 Triglycerides NMR Derived 127 mg/dL 0-149 [facility] Vitamin B12 ser/plasOrdered By: Jes Spicer on 01-12-2025 Cobalamin (Vitamin B12) [Mass/Vol] 931 pg/mL High 180-914 [facility] Vitamin D, 25-hydroxyOrdered By: Jes Spicer on 01-12-2025 Vitamin D 25-Hydroxy 61.4 ng/mL 30-100 [facility] Comment on above: Vitamin D StatusDefi ciency: <20 ng/mL (50nmol/L)Insufficiency: 20-30 ng/mL (50-75 nmol/L)Sufficiency: 30-100 ng/mL (75-250 nmol/L)Toxicity: >100 ng/mL (>250 nmol/L) Lower Ext Joint Only (Routin e)on 09-20-2024 Lower Ext Joint Only (Routine) [facility] Imaging Services [address] [place], [place] [address] Lower Ext Joint Only (Routine) MR#: [id number] Acct: [id number] Name: TRISTAN SINGH Rep #: [id number] : 1960 F 64 From: Bienvenido Becerril MD PCP: Dr. Jes Spicer, DO Status: REG CLI Study: Lower Ext Joint Only (Routine) Date of Exam: 11/20/23 Exam# [id number] Ordering Dr: Osmany Saenz DPM [id number] EXAM: MR RIGHT LOWER EXTREMITY WITHOUT INTRAVENOUS CONTRAST, ANKLE CLINICAL INDICATION: WORSENING RT ANKLE PAIN, INJURY 6 YEARS AGO, PULLED TENDON TECHNIQUE: Multiplanar and multisequence MR images of the right ankle without intravenous contrast. COMPARISON: No relevant prior studies available. FINDINGS: LIGAMENTS: ANTERIOR TALOFIBULAR: Thickening of the anterior talofibular ligament, posterior talofibular, and calcaneal fibular ligament from previous injury. POSTERIOR TALOFIBULAR: Unremarkable. Intact. ANTERIOR TIBIOFIBULAR: Unremarkable. Intact. POSTERIOR TIBIOFIBULAR: Unremarkable. Intact. CALCANEOFIBULAR: Unremarkable. Intact. DELTOID: No osteochondral lesions at the tibiotalar articulation. Mild signal alteration involving the deep fibers the deltoid ligament complex compatible with a low-grade sprain injury. SPRING: Unremarkable. Intact. LISFRANC: Unremarkable. Intact. TENDONS: ACHILLES: Unremarkable. Intact. FLEXOR: Unremarkable. Intact. EXTENSOR: Unremarkable. Intact. PERONEAL: Unremarkable. Intact. TIBIALIS ANTERIOR: Unremarkable. Intact. TIBIALIS POSTERIOR: Unremarkable. Intact. MUSCLES: Unremarkable. Normal bulk and signal. FLUID: Unremarkable. No joint effusion. SINUS TARSI: Unremarkable. Normal fat in the sinus tarsi. TARSAL TUNNEL: Unremarkable. PLANTAR FASCIA: Unremarkable. Intact. CARTILAGE: Unremarkable. No osteochondral lesion. Articular cartilage intact. BONES/JOINTS: Marrow edema involving the navicular without fracture line. Small to moderate fluid in the posterior subtalar joint. Plantar calcaneal enthesophyte. Thickened central cord of plantar aponeurosis which demonstrates normal signal otherwise. Nonfused os trigonum. No significant arthritic changes. OTHER SOFT TISSUES: Unremarkable. VASCULATURE: Vascular elements are suspected at the anterior calcaneus at the level of the angle of Gissane. MRI/Lower Ext Joint Only (Routine) IMPRESSION: 1. Thickening of the anterior talofibular ligament, posterior talofibular, and calcaneal fibular ligament from from an old injury. 2. Marrow edema involving the navicular without fracture line potentially representing bone contusion. 3. Mild signal alteration involving the deep fibers of the deltoid ligament complex , compatible with a low-grade sprain injury. Electronically Signed: Bienvenido Becerril MD at 20:29 EST Reading Location ID and State: [address] [place] [address] Tel , Service support , CC: DAVID Saenz; Dr. Jes Spicer DO Game Designer/Creative Director: Signed Normal [facility] COVID 19 AG RAPID (IRENA Pathak)on 09-17-2024 SARS-CoV-2 (COVID-19) RNA CEASAR+probe Ql (Unsp spec) *Negative results from patients with symptom onset beyond five days should be treated as presumptive and confirmed by a molecular assay if clinically necessary. Negative results should not be used as the sole basis for treatment or for patient management. SARS-CoV-2 Ag Resp Ql IA.rapid *Positive results do not differentiate between SARS-CoV and SARS-CoV-2. If differentiation of the specific SARS virus is desired an additional sample and an additional order is required. SARS-CoV-2 Ag Resp Ql IA.rapid * This test has not been FDA cleared or approved; the test has been authorized by FDA under an Emergency Use Authorization (EAU) for use by laboratories certified under CLIA that meet the requirements to perform moderate, high, or waived complexity tests. SARS-CoV-2 Ag Resp Ql IA.rapid Normal Reference Range: Negative SARS-CoV-2 (COVID 19) Negative RAPID METHOD [employer] COVID19 Ag Card Normal [facility] Comment on above: Performed By: #### M 100.505 #### [facility] [address] [place], [address] CBC W/Diff, Automatedon 11- Absolute Lymph 1.96 X10 3/uL Normal 0.83-4.51 [facility] Comment on above: Performed By: #### L 501.9520, L500.4100, L100.0100, L506.1000, L500.4050 #### [facility] [address] [place], [address] Absolute Neut 2.0 X10 3/uL Normal 2.0-7.7 [facility] Comment on above: Performed By: #### L 501.9520, L500.4100, L100.0100, L506.1000, L500.4050 #### [facility] [address] [place], [address] Basophils/100 WBC (Bld) 1.1 % High 0-1 [facility] Comment on above: Performed By: #### L 501.9520, L500.4100, L100.0100, L506.1000, L500.4050 #### [facility] [address] [place], [address] Eosinophils/100 WBC (Bld) 4.2 % Normal 0-5 [facility] Comment on above: Performed By: #### L 501.9520, L500.4100, L100.0100, L506.1000, L500.4050 #### [facility] [address] [place], [address] Erythrocyte distribution width (RBC) [Ratio] 12.4 % Normal 11.6-14.6 [facility] Comment on above: Performed By: #### L 501.9520, L500.4100, L100.0100, L506.1000, L500.4050 #### [facility] [address] [place], [address] Hematocrit (Bld) [Volume fraction] 42.0 % Normal 37-47 [facility] Comment on above: Performed By: #### L 501.9520, L500.4100, L100.0100, L506.1000, L500.4050 #### [facility] [address] [place], [address] Hemoglobin (Bld) [Mass/Vol] 13.7 g/dL Normal 12.0-15.0 [facility] Comment on above: Performed By: #### L 501.9520, L500.4100, L100.0100, L506.1000, L500.4050 #### [facility] [address] [place], [address] IG% 0.200 Normal 0.0-0.9 [facility] Comment on above: Result Comment: IG% - Immature Granulocytes (promyelocytes, myelocytes and metamyelocytes) > 1% indicates that a LEFT SHIFT is Present. Performed By: #### L 501.9520, L500.4100, L100.0100, L506.1000, L500.4050 #### [facility] [address] [place], [address] Lymphocytes/100 WBC (Bld) 41.4 % High 19-41 [facility] Comment on above: Performed By: #### L 501.9520, L500.4100, L100.0100, L506.1000, L500.4050 #### [facility] [address], [address] MCH (RBC) [Entitic mass] 32.5 pg High 27.0-32.0 [facility] Comment on above: Performed By: #### L 501.9520, L500.4100, L100.0100, L506.1000, L500.4050 #### [facility] [address], [address] MCHC (RBC) [Mass/Vol] 32.6 g/dL Normal 32-36 [facility] Comment on above: Performed By: #### L 501.9520, L500.4100, L100.0100, L506.1000, L500.4050 #### [facility] [address] [place], [address] MCV (RBC) [Entitic vol] 99.8 fL High 81-99 [facility] Comment on above: Performed By: #### L 501.9520, L500.4100, L100.0100, L506.1000, L500.4050 #### [facility] [address] [place], [address] Monocytes/100 WBC (Bld) 10.3 % High 0-10 [facility] Comment on above: Performed By: #### L 501.9520, L500.4100, L100.0100, L506.1000, L500.4050 #### [facility] [address] [place], [address] Neutrophils/100 WBC (Bld) 42.8 % Low 47-70 [facility] Comment on above: Performed By: #### L 501.9520, L500.4100, L100.0100, L506.1000, L500.4050 #### [facility] [address] [place], [address] Nucleated RBC (Bld) [#/Vol] 0 10*3/uL Normal 0-5 [facility] Comment on above: Performed By: #### L 501.9520, L500.4100, L100.0100, L506.1000, L500.4050 #### [facility] [address] [place], [address] Platelet mean volume (Bld) [Entitic vol] 10.7 fL Normal 6.2-12.0 [facility] Comment on above: Performed By: #### L 501.9520, L500.4100, L100.0100, L506.1000, L500.4050 #### [facility] [address] [place], [address] Platelets (Bld) [#/Vol] 335 10*3/uL Normal 150-450 [facility] Comment on above: Performed By: #### L 501.9520, L500.4100, L100.0100, L506.1000, L500.4050 #### [facility] [address] [place], [address] RBC (Bld) [#/Vol] 4.21 10*6/uL Normal 4.2-5.4 [facility] Comment on above: Performed By: #### L 501.9520, L500.4100, L100.0100, L506.1000, L500.4050 #### [facility] [address] [place], [address] RDW SD 45.9 fl High 35.1-43.9 [facility] Comment on above: Performed By: #### L 501.9520, L500.4100, L100.0100, L506.1000, L500.4050 #### [facility] [address] [place], [address] WBC (Bld) [#/Vol] 4.7 10*3/uL Normal 4.4-11.0 [facility] Comment on above: Performed By: #### L 501.9520, L500.4100, L100.0100, L506.1000, L500.4050 #### [facility] [address] [place], [address] Comprehensive Metabolic Prof ilon 09-14-2024 Albumin [Mass/Vol] 3.8 g/dL Normal 3.2-5.0 [facility] Comment on above: Performed By: #### L 501.9520, L500.4100, L100.0100, L506.1000, L500.4050 #### [facility] [address] [place], [address] Albumin/Globulin [Mass ratio] 1.0 {ratio} Normal 0.9-2.4 [facility] Comment on above: Performed By: #### L 501.9520, L500.4100, L100.0100, L506.1000, L500.4050 #### [facility] [address] [place], [address] ALK P 60 U/L Normal 45-117 [facility] Comment on above: Performed By: #### L 501.9520, L500.4100, L100.0100, L506.1000, L500.4050 #### [facility] [address] [place], [address] ALT [Catalytic activity/Vol] 28 U/L Normal 13-56 [facility] Comment on above: Performed By: #### L 501.9520, L500.4100, L100.0100, L506.1000, L500.4050 #### [facility] [address] [place], [address] AST [Catalytic activity/Vol] 21 U/L Normal 15-37 [facility] Comment on above: Performed By: #### L 501.9520, L500.4100, L100.0100, L506.1000, L500.4050 #### [facility] [address] [place], [address] Bilirubin [Mass/Vol] 0.20 mg/dL Normal 0.20-1.00 [facility] Comment on above: Result Comment: For patients on eltrombopag therapy, use of Dimension [place] TBIL is not recommended. Performed By: #### L 501.9520, L500.4100, L100.0100, L506.1000, L500.4050 #### [facility] [address] [place], [address] BUN/CRE 20.1 RATIO High 10-20 [facility] Comment on above: Performed By: #### L 501.9520, L500.4100, L100.0100, L506.1000, L500.4050 #### [facility] [address] [place], [address] CA,Total 8.8 mg/dL Normal 8.5-10.1 [facility] Comment on above: Performed By: #### L 501.9520, L500.4100, L100.0100, L506.1000, L500.4050 #### [facility] [address] [place], [address] Chloride [Moles/Vol] 110 mmol/L High 98-107 [facility] Comment on above: Performed By: #### L 501.9520, L500.4100, L100.0100, L506.1000, L500.4050 #### [facility] [address] [place], [address] CO2 [Moles/Vol] 26.0 mmol/L Normal 21.0-32.0 [facility] Comment on above: Performed By: #### L 501.9520, L500.4100, L100.0100, L506.1000, L500.4050 #### [facility] [address] [place], [address] Creatinine [Mass/Vol] 0.94 mg/dL Normal 0.55-1.02 [facility] Comment on above: Result Comment: The validity of the calculated GFR GFRAA in patients over 70 years has not been determined. Clinical correlation is essential. Performed By: #### L 501.9520, L500.4100, L100.0100, L506.1000, L500.4050 #### [facility] [address] [place], [address] EST GFR - AA 77 mL/min Normal >60 [facility] Comment on above: Result Comment: Afri can [place] GFR Calc Performed By: #### L 501.9520, L500.4100, L100.0100, L506.1000, L500.4050 #### [facility] [address] [place], [address] GAP 5 Normal 5-15 [facility] Comment on above: Performed By: #### L 501.9520, L500.4100, L100.0100, L506.1000, L500.4050 #### [facility] [address] [place], [address] GFR/1.73 sq M.predicted among non-blacks MDRD (S/P/Bld) [Vol rate/Area] 64 mL/min/{1.73_m2} Normal >60 [facility] Comment on above: Result Comment: Non- GFR Calc Performed By: #### L 501.9520, L500.4100, L100.0100, L506.1000, L500.4050 #### [facility] [address] [place], [address] Globulin (S) [Mass/Vol] 3.8 g/dL Normal 2.2-4.2 [facility] Comment on above: Performed By: #### L 501.9520, L500.4100, L100.0100, L506.1000, L500.4050 #### [facility] [address] [place], [address] Glucose [Mass/Vol] 105 mg/dL Normal 74-106 [facility] Comment on above: Result Comment: Fast ing Glucose result from 100 to 125 mg/dL suggests IMPAIRED HOMEOSTASIS per A.D.A. criteria. Performed By: #### L 501.9520, L500.4100, L100.0100, L506.1000, L500.4050 #### [facility] [address] [place], [address] Potassium [Moles/Vol] 4.5 mmol/L Normal 3.5-5.1 [facility] Comment on above: Performed By: #### L 501.9520, L500.4100, L100.0100, L506.1000, L500.4050 #### [facility] [address] [place], [address] Sodium [Moles/Vol] 141 mmol/L Normal 136-145 [facility] Comment on above: Performed By: #### L 501.9520, L500.4100, L100.0100, L506.1000, L500.4050 #### [facility] [address] [place], [address] T PROT 7.6 g/dL Normal 6.4-8.2 [facility] Comment on above: Performed By: #### L 501.9520, L500.4100, L100.0100, L506.1000, L500.4050 #### [facility] [address] [place], [address] Urea nitrogen [Mass/Vol] 19 mg/dL High 7-18 [facility] Comment on above: Performed By: #### L 501.9520, L500.4100, L100.0100, L506.1000, L500.4050 #### [facility] [address] [place], [address] Lipid Profileon 09-14-2024 Cholesterol [Mass/Vol] 220 mg/dL High 200 [facility] Comment on above: Result Comment: <200 mg/dL Desirable 200-240 mg/dL Borderline >240 mg/dL High Risk Performed By: #### L 501.9520, L500.4100, L100.0100, L506.1000, L500.4050 #### [facility] [address] [place], [address] Cholesterol in HDL [Mass/Vol] 45 mg/dL Normal [facility] Comment on above: Result Comment: The drugs N-Acetylcysteine and Metamizole may falsely depress this assay. Reference Range HDL <40 mg/dL Low HDL Cholesterol HDL >or= 60 mg/dL High HDL Cholesterol Performed By: #### L 501.9520, L500.4100, L100.0100, L506.1000, L500.4050 #### [facility] [address] [place], [address] Cholesterol in LDL [Mass/Vol] 146 mg/dL High 0-130 [facility] Comment on above: Performed By: #### L 501.9520, L500.4100, L100.0100, L506.1000, L500.4050 #### [facility] [address] [place], [address] Cholesterol in VLDL [Mass/Vol] 29 mg/dL Normal 5-40 [facility] Comment on above: Performed By: #### L 501.9520, L500.4100, L100.0100, L506.1000, L500.4050 #### [facility] [address] [place], [address] Triglyceride [Mass/Vol] 143 mg/dL Normal [facility] Comment on above: Result Comment: The drugs N-Acetylcysteine and Metamizole may falsely depress this assay. Serum Triglycerides Reference Interval Normal <150 mg/dL Borderline high 150 - 199 mg/dL High 200 - 499 mg/dL Very High > or = 500 mg/dL Performed By: #### L 501.9520, L500.4100, L100.0100, L506.1000, L500.4050 #### [facility] [address] [place], [place], [id number] Thyroid Stim Hormone (TSH)on 09-14-2024 TSH 1.920 uIU/mL Normal 0.358-3.74 0 [facility] Comment on above: Performed By: #### M 100.505 #### [facility] [address] [place], [place], [id number] Vitamin D,25 Hydroxyon 09-14 Vitamin D 25-OH 38.4 ng/mL Normal [facility] Comment on above: Result Comment: Carla min D 25(OH) Status Range Deficiency <20 ng/mL (50nmol/L) Insufficiency 20 - 30 ng/mL (50 - 75 nmol/L) Sufficiency 30 - 100 ng/mL (75 - 250 nmol/L) Toxicity >100 ng/mL (>250 nmol/L) Performed By: #### L 501.9520, L500.4100, L100.0100, L506.1000, L500.4050 #### [facility] [address] [facility] [place], [place], [id number] PT D/C Summary (1)on 024 PT D/C Summary (1) [facility] [address] [place] [address] / REHABILITATION SERVICES DISCHARGE SUMMARY MR#: [id number] Acct: [id number] Name: TRISTAN SINGH Rep #: [id number] : 1960 64 From: Candice Whitaker MPT Referring Dr.: DAVID Saenz Status: REG RCR Insurance: [employer] SELF PAY INSURANCE Discharge Summary D/C summary: It has been my pleasure to treat TRISTAN SINGH referred by Dr. Osmany Saenz DPM, with the diagnosis of Post Tib Tendonitis for a total of 16 visit(s). Discharge Date: 08/11/24 Please see the following information for a summary of their discharge status. Subjective Subjective: Pt is trying to get back into walking (doing a 20 min mile) and that brings on pain on the medial side of R foot. Once she is home and gets off it for awhile she feels better. She is trying to keep up on stretching. Walking into the dept today she had 1/10 pain. Pt knows the exercises and will continue Pain R foot pain: Pain Intensity (Out of 10): 1 Overall Improvement % Improvement: 85 Objective Objective/Function: Still slight tenderness medial arch. Goals Goal 1:: I HEP Goal Progress: Goal Met Goal 2:: Be able to walk with 50% less pain Goal Progress: Goal Met Goal 3:: Increase R ankle INV without pain from 23 degrees to equal to the L at 28 degrees Goal Progress: Goal Met Goal 4:: Be able to complete INV resistance band exercises without pain 3 X 10 Goal Progress: Goal Met Goal 5:: Be able to walk barefoot in the house for small amounts of time without pain Plan Plan: Re-assess Friday with Candice Whitaker MSPT D/C Information Discharge Comments: DC PT to HEP d/c sentence: If there are questions or concerns regarding this patient's physical therapy, please feel free to call me at [phone]. Thank you for the referral of this patient. Sincerely, Candice Whitaker, MPT Balance/Gait/Functional tests Balance/Special Test Scores Lower Extremity Functional Score: 66 Improvement % Improvement: 85 08/11/24 1031 CC: DAVID Saenz; Dr. Jes Spicer DO Signed Normal [facility] Re-Evaluation - PT (1)on Re-Evaluation - PT (1) [facility] [address] [place] [address] [address] [place] [address] / REEVALUATION / MEDICARE RECERTIFICATION PHYSICAL THERAPY MR#: [id number] Acct: [id number] Name: TRISTAN SINGH Rep #: [id number] : 1960 64 From: Candice DUKE Referring Dr.: DAVID Saenz Status:REG RCR Insurance: [employer] SELF PAY INSURANCE Re-Evaluation Intro: Dr. Osmany Saenz, DAVID, It has been my pleasure to treat TRISTAN SINGH over the last 10 visits for Post Tib Tendonitis. Please see the progress note below for an update on the physical therapy plan of care! Subjective Subjective: She wishes she had bought wide tennis shoes. She still has some achy in the post tib at times. Some of the exercises are still painful but not too bad. She wants to do a few more weeks of PT and see if that helps with the remaining pain that she gets. Still has pain with inversion band exercises. Arch supports help. Objective Objective/Function: Tender post tib Plan Plan Plan: 2X/ week for 3-4 additional weeks for R ankle AROM, R ankle strength starting with isometrics and progressing, SLB activities with HEP and US to help decrease inflammation with HEP HEP Towel stretch to include plantar fascia and INV R foot isometrics using hand Balance/Gait/Functional tests Balance/Special Test Scores Lower Extremity Functional Score: 65 Goals Goals Goal 1:: I HEP Goal Time Frame: 6-8 Weeks Goal Progress: Goal Met Goal 2:: Be able to walk with 50% less pain Goal Time Frame: 6-8 Weeks Goal Progress: Goal Met Goal 3:: Increase R ankle INV without pain from 23 degrees to equal to the L at 28 degrees Goal Time Frame: 6-8 Weeks Goal Progress: Goal Met Goal 4:: Be able to complete INV resistance band exercises without pain 3 X 10 Goal Time Frame: 6-8 Weeks Goal Progress: Progressing Goal 5:: Be able to walk barefoot in the house for small amounts of time without pain Goal Time Frame: 2-4 Weeks Anticipated Interventions Re-Evaluation Ending Re-evaluation ending: Please do not hesitate to contact me at [phone] by phone or if you have questions or concerns regarding this new plan of care! Sincerely, SRIKANTH Martel 07/19/24 1100 CC: DAVID Saenz; Dr. Jes Spicer DO Signed For Medicare only, by signing this I certify the plan of care. __ Physicians Signature Date Normal [facility] Inital Evaluation (1) - PTon 06-16-2024 Inital Evaluation (1) - PT [facility] [address] [place] [address] / REHABILITATION SERVICES INITIAL EVALUATION MR#: [id number] Acct: [id number] Name: TRISTAN SINGH Rep #: [id number] : 1960 64 From: Candice DUKE Referring Dr.: Dr. Osmany Saenz DPM Status: REG RCR Insurance: [employer] SELF PAY INSURANCE Patient's Visit Information Visit Information Visit Information: TRISTAN SINGH is a 64 year old F referred to Physical Therapy by Dr. Osmany Saenz DPM with a diagnosis of Post Tib Tendonitis. Date of Evaluation: 05/17/24 Physical Therapist: SRIKANTH Martel Visit Plan Frequency: 2x /Week Duration: 2 Months Plan: Re check on 07-19-24 and see how new orthotics and new shoes work 2X/ week for 8 weeks for R ankle AROM, R ankle strength starting with isometrics and progressing, SLB activities with HEP and US to help decrease inflammation with HEP HEP Towel stretch to include plantar fascia and INV R foot isometrics using hand Subjective Subjective: 6 YEARS ago hiking in [place] and thinks that she partially tore the tendon on medial side of foot. She got a shot and did not help Her pain has been off and on and keeps getting re-injured. They want to try PT first and orthotics first before the MRI. It is off and on flared up. If she has good support it is better. She will have burning in medial of foot and knees ache because of flat feet. She has no N T but has the stinging. This spring the gas pedal will cause it to flare up but not today. She on her feet for work on and Friday. She can not walk for exercise without it hurting Pain R foot pain: Pain Intensity (Out of 10): 1 Pain Intensity Range: 5 Comment: burning along plantar surface. Objective Objective: Gait: walks with decrease stance time on the R LE. Very flat footed. occ stepping out. Pt is able to heel and toe raise but knows if she does heel raises too much she will get pain and not be able to do them too many times. AROM: R DF 5 and L 5 degrees R PF 58 and L 58 R INV 23 and L 28 R EV 9 and L 9 MMT: R DF 4/5 and L 4-/5 R PF 4/5 and L 4/5 R INV 3+/5(increase pain) and L 4/5 B EV 4/5 Palpation: tender along flexor hallucis tendon and posterior tendon on the R foot Balance/Special Test Scores Lower Extremity Functional Score: 71 Goals Goal 1:: I HEP Goal Time Frame: 6-8 Weeks Goal 2:: Be able to walk with 50% less pain Goal Time Frame: 6-8 Weeks Goal 3:: Increase R ankle INV without pain from 23 degrees to equal to the L at 28 degrees Goal Time Frame: 6-8 Weeks Goal 4:: Be able to complete INV resistance band exercises without pain 3 X 10 Goal Time Frame: 6-8 Weeks Rehabilitation Potential Rehabilitation Potential: Good Anticipated Interventions Text: Thank you for the opportunity to evaluate your patient. For Medicare and Medicare HMO plans, please review the plan of care and approve it. It will need to be FAXED BACK to us at [phone] for Medicare purposes. For Medicare only, by signing this I certify the plan of care. Please let me know if there are questions or concerns regarding this plan of care. Physician Signature: Date: 06/16/24 1258 CC: DAVID Saenz; Dr. Jes Spicer, DO Signed Normal [facility] Re-Evaluation - PT (1)on Re-Evaluation - PT (1) [facility] [address] [place] [address] / REEVALUATION / MEDICARE RECERTIFICATION PHYSICAL THERAPY MR#: [id number] Acct: [id number] Name: TRISTAN SINGH Rep #: [id number] : 1960 64 From: Candice Whitaker MPT Referring Dr.: DAVID Saenz Status:REG RCR Insurance: [employer] SELF PAY INSURANCE Re-Evaluation Intro: Dr. Osmany Saenz, DAVID, It has been my pleasure to treat TRISTAN SINGH over the last 9 visits for Post Tib Tendonitis. Please see the progress note below for an update on the physical therapy plan of care! Subjective Subjective: Pt just got her new inserts and shoes this morning. She is now able to go on her toes now without pain. Pt thinks US is helping and not feeling the sting as much. She is doing her exercises at home. Pt wants to stop PT for now and see how the inserts and new shoes will work. She will schedule PT appointment Objective Objective/Function: R INV 28 degrees AROM Plan Plan Plan: Re check on 07-19-24 and see how new orthotics and new shoes work 2X/ week for 8 weeks for R ankle AROM, R ankle strength starting with isometrics and progressing, SLB activities with HEP and US to help decrease inflammation with HEP HEP Towel stretch to include plantar fascia and INV R foot isometrics using hand Balance/Gait/Functional tests Balance/Special Test Scores Lower Extremity Functional Score: 71 Goals Goals Goal 1:: I HEP Goal Time Frame: 6-8 Weeks Goal Progress: Goal Met Goal 2:: Be able to walk with 50% less pain Goal Time Frame: 6-8 Weeks Goal Progress: Goal Met Goal 3:: Increase R ankle INV without pain from 23 degrees to equal to the L at 28 degrees Goal Time Frame: 6-8 Weeks Goal Progress: Goal Met Goal 4:: Be able to complete INV resistance band exercises without pain 3 X 10 Goal Time Frame: 6-8 Weeks Goal Progress: Progressing Anticipated Interventions Re-Evaluation Ending Re-evaluation ending: Please do not hesitate to contact me at [phone] by phone or if you have questions or concerns regarding this new plan of care! Sincerely, Candice Whitaker, MPT 06/16/24 1257 CC: DPLaney Saenz; Dr. Jes Spicer, DO Signed For Medicare only, by signing this I certify the plan of care. __ Physicians Signature Date Normal [facility] COVID 19 AG RAPID (IRENA Pathak)on 06-11-2024 SARS-CoV-2 (COVID-19) RNA CEASAR+probe Ql (Unsp spec) *Negative results from patients with symptom onset beyond five days should be treated as presumptive and confirmed by a molecular assay if clinically necessary. Negative results should not be used as the sole basis for treatment or for patient management. SARS-CoV-2 Ag Resp Ql IA.rapid *Positive results do not differentiate between SARS-CoV and SARS-CoV-2. If differentiation of the specific SARS virus is desired an additional sample and an additional order is required. SARS-CoV-2 Ag Resp Ql IA.rapid * This test has not been FDA cleared or approved; the test has been authorized by FDA under an Emergency Use Authorization (EAU) for use by laboratories certified under CLIA that meet the requirements to perform moderate, high, or waived complexity tests. SARS-CoV-2 Ag Resp Ql IA.rapid Normal Reference Range: Negative SARS-CoV-2 (COVID 19) Negative RAPID METHOD BinaxNow COVID19 Ag Card Normal [facility] Comment on above: Performed By: #### M 100.505 #### [facility] [address] [place], [address] COVID 19 AG RAPID (IRENA Pathak)on 06-03-2024 SARS-CoV-2 (COVID-19) RNA CEASAR+probe Ql (Unsp spec) *Negative results from patients with symptom onset beyond five days should be treated as presumptive and confirmed by a molecular assay if clinically necessary. Negative results should not be used as the sole basis for treatment or for patient management. SARS-CoV-2 Ag Resp Ql IA.rapid *Positive results do not differentiate between SARS-CoV and SARS-CoV-2. If differentiation of the specific SARS virus is desired an additional sample and an additional order is required. SARS-CoV-2 Ag Resp Ql IA.rapid * This test has not been FDA cleared or approved; the test has been authorized by FDA under an Emergency Use Authorization (EAU) for use by laboratories certified under CLIA that meet the requirements to perform moderate, high, or waived complexity tests. SARS-CoV-2 Ag Resp Ql IA.rapid Normal Reference Range: Negative SARS-CoV-2 (COVID 19) Negative RAPID METHOD BinaxNow COVID19 Ag Card Normal [facility] Comment on above: Performed By: #### M 100.505 #### [facility] [address] [place], [place], [id number] Inital Evaluation (1) - PTon 05-17-2024 Inital Evaluation (1) - PT [facility] [address] [place] [address]. [address] [place] [address] / REHABILITATION SERVICES INITIAL EVALUATION MR#: [id number] Acct: [id number] Name: TRISTAN SINGH Rep #: [id number] : 1960 64 From: Candice DUKE Referring Dr.: Dr. Osmany Saenz DPM Status: REG R Insurance: [employer] SELF PAY INSURANCE Patient's Visit Information Visit Information Visit Information: TRISTAN SINGH is a 64 year old F referred to Physical Therapy by Dr. Osmany Saenz DPM with a diagnosis of Post Tib Tendonitis. Date of Evaluation: 05/17/24 Physical Therapist: SRIKANTH Martel Visit Plan Frequency: 2x /Week Duration: 2 Months Plan: 2X/ week for 8 weeks for R ankle AROM, R ankle strength starting with isometrics and progressing, SLB activities with HEP and US to help decrease inflammation with HEP HEP Towel stretch to include plantar fascia and INV R foot isometrics using hand Subjective Subjective: 6 YEARS ago hiking in [place] and thinks that she partially tore the tendon on medial side of foot. She got a shot and did not help Her pain has been off and on and keeps getting re- injured. They want to try PT first and orthotics first before the MRI. It is off and on flared up. If she has good support it is better. She will have burning in medial of foot and knees ache because of flat feet. She has no N T but has the stinging. This spring the gas pedal will cause it to flare up but not today. She on her feet for work on and Friday. She can not walk for exercise without it hurting Pain R foot pain: Pain Intensity (Out of 10): 0 Pain Intensity Range: 5 Comment: with walking or up on toes Objective Objective: Gait: walks with decrease stance time on the R LE. Very flat footed. occ stepping out. Pt is able to heel and toe raise but knows if she does heel raises too much she will get pain and not be able to do them too many times. AROM: R DF 5 and L 5 degrees R PF 58 and L 58 R INV 23 and L 28 R EV 9 and L 9 MMT: R DF 4/5 and L 4-/5 R PF 4/5 and L 4/5 R INV 3+/5(increase pain) and L 4/5 B EV 4/5 Palpation: tender along flexor hallucis tendon and posterior tendon on the R foot Balance/Special Test Scores Lower Extremity Functional Score: 57 Goals Goal 1:: I HEP Goal Time Frame: 6-8 Weeks Goal 2:: Be able to walk with 50% less pain Goal Time Frame: 6-8 Weeks Goal 3:: Increase R ankle INV without pain from 23 degrees to equal to the L at 28 degrees Goal Time Frame: 6-8 Weeks Goal 4:: Be able to complete INV resistance band exercises without pain 3 X 10 Goal Time Frame: 6-8 Weeks Rehabilitation Potential Rehabilitation Potential: Good Anticipated Interventions Text: Thank you for the opportunity to evaluate your patient. For Medicare and Medicare HMO plans, please review the plan of care and approve it. It will need to be FAXED BACK to us at [phone] for Medicare purposes. For Medicare only, by signing this I certify the plan of care. Please let me know if there are questions or concerns regarding this plan of care. Physician Signature: Date: 05/17/24 1000 CC: DAVID Saenz; Dr. Jes Spicer, DO Signed Normal [facility] Pulmonary Visit Reporton Pulmonary Visit Report [facility] [place] [address] [place] [address] OFFICE VISIT Date of Service: 04/20/24 MR#: [id number] Acct: [id number] Name: TRISTAN SINGH Rep #: [id number] : 1960 Provider: JOHN Vargas Age/Sex: 64/F Location: [facility] [place] Status: Signed Assessment and Plan Assessment and Plan (1) MAHAD (obstructive sleep apnea): Status: Chronic Comment: AHI 14.8 Plan: Deteriorated. The patient continues to struggle to be compliant with PAP therapy, this is related to severe dry mouth. I have suggested that she discuss this with her dentist. Compliance report indicates that the patient is benefiting from current settings and does not require a titration study. The patient prefers to continue to try to be more compliant with PAP therapy. We did discuss treatment alternatives such as an oral appliance or the inspire device. At this time, the patient would prefer to continue to try to acclimate to PAP therapy and follow-up in 3 months. (2) Obesity: Status: Chronic Qualifiers: Body mass index: BMI 30.0-30.9 Obesity classification: adult class 1 (BMI 30 - 34.9) Obesity type: due to excess calories Serious obesity comorbidity presence: with serious comorbidity Qualified Code(s): E66.09 - Other obesity due to excess calories; Z68.30 - Body mass index [BMI] 30.0-30.9, adult Plan: Continue to encourage healthy weight loss. Once again, we discussed the benefits of being compliant with PAP therapy and achieving overall weight loss, which could ultimately reverse her obstructive sleep apnea. The patient conveys understanding. Plan Details Goals Barriers: Goals Decrease pain Increase ROM Decrease spasm Follow Up: 3 Months ([facility]) HPI 3 M FU Chief Complaint: Sleep apnea HPI Comments Details: This patient presents to the office today for follow-up of her obstructive sleep apnea. She is ambulatory and currently on room air. Has not recently been seen in the ED or urgent care for any respiratory illness. She has not required any antibiotics or prednisone for any breathing problems. She denies any difficulty with shortness of breath. She denies any cough, sputum production or hemoptysis. She denies any wheezing, chest tightness, chest pain or palpitations. She also denies any fever, chills or body aches. The patient reports that she continues to struggle to keep the PAP device on for longer than 4 hours. She reports that the reason is because she is suffering from severe dry mouth. Which she believes, is related to menopause. She has a mouthwash that she uses specifically for dry mouth, which seems to help keep the PAP on for at least 3 hours. She notices that when she is able to wear it for 3 hours or longer she is feeling more rested. She is not having difficulty with morning headaches. She does not have excessive nocturia. She does not report difficulty with mask leaks. Her also reports the patient does not snore when wearing the PAP device. Compliance report for the past 30 days shows 80% compliance with an average use of 3 hours and 20 minutes per night. Current setting is AutoPap 5-12 cmH2O pressures typically being utilized at 8.0 to 11.2 cm of water. Residual AHI of 1.8 events per hour. Leaks do not appear to be problematic. Intake Vital Signs 01/12/24 10:41 04/20/24 07:52 04/20/24 09:44 04/20/24 10:15 Height 5 ft 6 in 5 ft 6 in 5 ft 6 in Weight: 193 lb 194 lb BMI 31.1 31.3 BP 136/78 H 137/91 H 115/63 Blood Pressure Location Rt brachial Rt brachial Lt brachial Position Sitting Sitting Sitting Respiration 18 16 Pulse 85 68 Pulse Source Monitor Temp 98.2 F 98.1 F Temperature Source Temporal Artery Pulse Oximetry (%) 96 98 Oxygen Delivery Method room air room air Intake Visit Reasons: 3 M FU Chief Complaint: 3 M FU Brim Presser Required: No Is patient in pain?: No Allergies No Known Allergies Allergy (Verified 04/20/24 09:42) Medications ???Medication ???Instructions ???Recorded ???Confirmed ???Type ascorbic acid (vitamin C) 500 mg 500 mg PO DAILY 12/17/17 04/20/24 History capsule acetaminophen 325 mg tablet 650 mg PO PRN PRN Pain 01/30/22 04/20/24 History (Tylenol) calcium 600 mg capsule 600 mg PO DAILY 06/26/22 04/20/24 History cholecalciferol (vitamin D3) 25 25 mcg PO DAILY 06/26/22 04/20/24 History mcg (1,000 unit) capsule (Vitamin D3) multivitamin 1 tab PO DAILY 01/12/24 04/20/24 History PFSH Medical History (Reviewed 04/20/24 @ 09:50 by Gabrielle Vargas AUDIO PRODUCTION MANAGER, AUDIO PRODUCTION MANAGER-C) Wears glasses Post-menopausal Arthritis Back pain Shortness of breath on exertion Leg cramps Non-smoker History of echocardiogram Lab test negative for COVID-19 virus left ovary removal Endometriosis Surgical History (Reviewed (more content not included)... Normal [facility] COVID-19 virus antigen assay Ordered By: Garrett Lind on 12-04-2023 SARS-CoV-2 (COVID-19) Ag IA.rapid Ql (Resp) [facility] COVID-19 virus antigen assay Ordered By: Garrett Lind on 11-13-2023 SARS-CoV-2 (COVID-19) Ag IA.rapid Ql (Resp) [facility] COVID-19 virus antigen assay Ordered By: Garrett Lind on 10-31-2023 SARS-CoV-2 (COVID-19) Ag IA.rapid Ql (Resp) [facility] COVID-19 virus antigen assay Ordered By: Garrett Lind on 09-29-2023 SARS-CoV-2 (COVID-19) Ag IA.rapid Ql (Resp) [facility] Absolute lymphocyte countOrd ered By: Jes Spicer on 09-09-2023 Lymphocytes Auto (Unsp spec) [#/Vol] 2.14 10*3/uL 0.83-4.51 [facility] Basophil percentageOrdered B y: Jes Shyam on 09-09-2023 Basophils/100 WBC (Bld) 1.1 % 0-1 [facility] Bilirubin [Mass/Vol] 0.30 mg/dL 0.20-1.00 [facility] Comment on above: For patients on eltr ombopag therapy, use of Dimension [place] TBIL is not recommended. Chloride [Moles/Vol] 107 mmol/L 98-107 [facility] Cholesterol [Mass/Vol] 215 mg/dL <200 [facility] Comment on above: <200 mg/dL Desirable 200-240 mg/dL Borderline >240 mg/dL High Risk Eosinophils/100 WBC (Bld) 5.1 % 0-5 [facility] Glucose [Mass/Vol] 101 mg/dL 74-106 [facility] Comment on above: Fasting Glucose resu lt from 100 to 125 mg/dL suggests IMPAIRED HOMEOSTASIS per A.D.A. criteria. Neutrophils (Bld) [#/Vol] 1.6 10*3/uL 2.0-7.7 [facility] Neutrophils/100 WBC (Bld) 36.4 % 47-70 [facility] Potassium [Moles/Vol] 4.2 mmol/L 3.5-5.1 [facility] Protein [Mass/Vol] 7.6 g/dL 6.4-8.2 [facility] Sodium [Moles/Vol] 140 mmol/L 136-145 [facility] Triglyceride [Mass/Vol] 177 mg/dL <199 [facility] Comment on above: The drugs N-Acetylcy steine and Metamizole may falsely depress this assay.Serum Triglycerides Reference Interval Normal <150 mg/dL Borderline high 150 - 199 mg/dL High 200 - 499 mg/dL Very High > or = 500 mg/dL WBC (Bld) [#/Vol] 4.5 10*3/uL 4.4-11.0 [facility] Blood erythrocytes count (nu mber/volume)Ordered By: Jes Spicer on 09-09-2023 RBC (Bld) [#/Vol] 4.23 10*6/uL 4.2-5.4 [facility] Blood hemoglobin measurement (mass/volume)Ordered By: Jes Spicer on 09-09-2023 Hemoglobin (Bld) [Mass/Vol] 13.5 g/dL 12.0-15.0 [facility] Blood lymphocytes/100 leukoc ytesOrdered By: Jes Spicer on 09-09-2023 Lymphocytes/100 WBC (Bld) 47.8 % 19-41 [facility] Blood monocytes/100 leukocyt esOrdered By: Jes Spicer on 09-09-2023 Monocytes/100 WBC (Bld) 9.4 % 0-10 [facility] Blood platelet mean volumeOr dered By: Jes Spicer on 09-09-2023 Platelet mean volume (Bld) [Entitic vol] 10.0 fL 6.2-12.0 [facility] Determination of erythrocyte mean corpuscular volume (MCV)Ordered By: Jes Spicer on 09-09-2023 MCV (RBC) [Entitic vol] 98.3 fL 81-99 [facility] Hematocrit Auto (Bld) [Volum e fraction]Ordered By: Jes Spicer on 09-09-2023 Hematocrit (Bld) [Volume fraction] 41.6 % 37-47 [facility] Laboratory - Chemistry and C hemistry - challengeOrdered By: Jes Spicer on 09-09-2023 ALP [Catalytic activity/Vol] 56 U/L 45-117 [facility] ALT [Catalytic activity/Vol] 35 U/L 13-56 [facility] CO2 [Moles/Vol] 30.0 mmol/L 21.0-32.0 [facility] Cobalamin (Vitamin B12) [Mass/Vol] 741 pg/mL 211-911 [facility] Globulin (S) [Mass/Vol] 4.0 g/dL 2.2-4.2 [facility] Urea nitrogen/Creatinine [Mass ratio] 19.2 mg/mg 10-20 [facility] Laboratory - Hematology and Cell countsOrdered By: Jes Spicer on 09-09-2023 Erythrocyte distribution width (RBC) [Entitic vol] 45.4 fL 35.1-43.9 [facility] Erythrocyte distribution width (RBC) [Ratio] 12.6 % 11.6-14.6 [facility] Immature granulocytes/100 WBC (Bld) 0.200 % 0.0-0.9 [facility] Comment on above: IG% - Immature Granu locytes (promyelocytes, myelocytes and metamyelocytes) > 1% indicates that a LEFT SHIFT is Present. MCH (RBC) [Entitic mass] 31.9 pg 27.0-32.0 [facility] Nucleated RBC/100 WBC (Bld) [Ratio] 0 % 0-5 [facility] MCHC Auto (RBC) [Mass/Vol]Or dered By: Jes Spicer on 09-09-2023 MCHC (RBC) [Mass/Vol] 32.5 g/dL 32-36 [facility] No Panel InformationOrdered By: Jes Spicer on 09-09-2023 Estimated GFR (MDRD) Amer 83 mL/min >60 [facility] Comment on above: GFR Calc Estimated GFR (MDRD) Non-Af Amer 69 mL/min >60 [facility] Comment on above: Non- GFR Calc Vitamin D 25-Hydroxy 62.4 ng/mL [facility] Comment on above: Vitamin D 25(OH) Sta tus Range Deficiency <20 ng/mL (50nmol/L) Insufficiency 20 - 30 ng/mL (50 - 75 nmol/L) Sufficiency 30 - 100 ng/mL (75 - 250 nmol/L) Toxicity >100 ng/mL (>250 nmol/L) Platelets bldOrdered By: Sheyla Spicer on 09-09-2023 Platelets (Bld) [#/Vol] 322 10*3/uL 150-450 [facility] Serum or plasma albumin renata urement (mass/volume)Ordered By: Jes Spicer on 09-09-2023 Albumin [Mass/Vol] 3.6 g/dL 3.2-5.0 [facility] Serum or plasma albumin/glob ulin mass ratioOrdered By: Jes Spicer on 09-09-2023 Albumin/Globulin [Mass ratio] 0.9 {ratio} 0.9-2.4 [facility] Serum or plasma calcium renata urement (mass/volume)Ordered By: Jes Spicer on 09-09-2023 Calcium [Mass/Vol] 8.5 mg/dL 8.5-10.1 [facility] Serum or plasma cholesterol in HDL measurement (mass/volume)Ordered By: Jes Spicer on 09-09-2023 Cholesterol in HDL [Mass/Vol] 38 mg/dL >40 [facility] Comment on above: The drugs N-Acetylcy steine and Metamizole may falsely depress this assay. Reference Range HDL <40 mg/dL Low HDL Cholesterol HDL >or= 60 mg/dL High HDL Cholesterol Serum or plasma cholesterol in VLDL measurement (mass/volume)Ordered By: Jes Spicer on 09-09-2023 Cholesterol in VLDL [Mass/Vol] 35 mg/dL 5-40 [facility] Serum or plasma creatinine m easurement (mass/volume)Ordered By: Jes Spicer on 09-09-2023 Creatinine [Mass/Vol] 0.88 mg/dL 0.55-1.02 [facility] Comment on above: The validity of the calculated GFR & GFRAA in patients over 70 years has not been determined. Clinical correlation is essential. Serum or plasma low density lipoprotein (LDL) cholesterol measurement (mass/volume)Ordered By: Jes Spicer on 09-09-2023 Cholesterol in LDL [Mass/Vol] 142 mg/dL 0-130 [facility] Serum or plasma urea nitroge n measurement (mass/volume)Ordered By: Jes Spicer on 09-09-2023 Urea nitrogen [Mass/Vol] 17 mg/dL 7-18 [facility] Thin prep Papanicolaou smear with manual screeningOrdered By: Jes Spicer on 09-09-2023 Thin prep Papanicolaou smear with manual screening 26 U/L 15-37 [facility] Thin prep Papanicolaou smear with manual screening 3 5-15 [facility] COVID-19 virus antigen assay Ordered By: Garrett Lind on 09-04-2023 SARS-CoV-2 (COVID-19) Ag IA.rapid Ql (Resp) [facility] SARS-CoV-2 (COVID-19) Ag IA. rapid Ql (Resp)Ordered By: Garrett Lind on 07-24-2023 SARS-CoV-2 Antigen (Rapid) SARS-CoV-2 (COVID 19) [facility] SARS-CoV-2 Antigen (Rapid) SARS-CoV-2 (COVID 19) [facility] COVID-19 virus antigen assay Ordered By: Garrett Lind on 07-21-2023 SARS-CoV-2 (COVID-19) Ag IA.rapid Ql (Resp) [facility] Cervical or vagninal specime n microscopic examination by cytology stain (reported asOrdered By: Dr. Franklin on 02-20-2023 Cytology report Cyto stain Doc (Cvx/Vag) Comment . [facility] Comment on above: The Pap smear is a s creening test designed to aid in thedetection of premalignant and malignant conditions of theuterine cervix. It is not a diagnostic procedure andshould not be used as the sole means of detecting cervicalcancer. Both false-positive and false-negative reports dooccur. Detection in cervical specim en of any of human papilloma virus (HPV) 16, 18, 31, 33,Ordered By: Dr. Franklin on 02-20-2023 HPV 16+18+31+33+35+39+45 +51+52+56+58+59+66+6 8 DNA Probe+sig amp Ql (Cvx) Negative Negative [facility] Comment on above: This nucleic acid am plification test detects fourteen high- risk HPV types (16,18,31,33,35,39,45,51,52,56,58,59,66,68)without differentiation. Laboratory - CytologyOrdered By: Dr. Franklin on 02-20-2023 Fuller Brush Worker Cyto stain Nom (Cvx/Vag) [ID] Comment . [facility] Comment on above: Vinicio Mercedes ytotechnologist (ASCP) Laboratory - Miscellaneous t estsOrdered By: Dr. Franklin on 02-20-2023 Service comment (Unsp spec) [Interp] Comment . [facility] Comment on above: This liquid based Th inPrep(R) pap test was screened withthe use of an image guided system. Service comment (Unsp spec) [Interp] . . [facility] Liquid-based cerv Pap + CT/G C by CEASAR w reflex to high-risk HPV for ASCUSOrdered By: Dr. Franklin on 02-20-2023 Cytology report Cyto stain.thin prep Doc (Cvx/Vag) Comment . [facility] Comment on above: Criteria not met, HP V Genotype not performed.Performed at: [facility] - [facility] [id number] [place], [place] [id number] Director: Jen Diggs MD, Phone: [phone] at: =G - [facility] [id number] [facility] CenterJw [place], [place] [id number] Director: Jen Diggs MD, Phone: [phone] No Panel InformationOrdered By: Dr. Franklin on 02-20-2023 Pathology report final diagnosis Narrative Comment . [facility] Comment on above: NEGATIVE FOR INTRAEP ITHELIAL LESION OR MALIGNANCY. Basophil percentageOrdered B y: Dr. Spicer on 02-19-2023 Cholesterol [Mass/Vol] 242 mg/dL <200 [facility] Comment on above: <200 mg/dL Desirable 200-240 mg/dL Borderline >240 mg/dL High Risk Triglyceride [Mass/Vol] 153 mg/dL <199 [facility] Comment on above: The drugs N-Acetylcy steine and Metamizole may falsely depress this assay.Serum Triglycerides Reference Interval Normal <150 mg/dL Borderline high 150 - 199 mg/dL High 200 - 499 mg/dL Very High > or = 500 mg/dL Serum or plasma cholesterol in HDL measurement (mass/volume)Ordered By: Dr. Spicer on 02-19-2023 Cholesterol in HDL [Mass/Vol] 51 mg/dL >40 [facility] Comment on above: The drugs N-Acetylcy steine and Metamizole may falsely depress this assay. Reference Range HDL <40 mg/dL Low HDL Cholesterol HDL >or= 60 mg/dL High HDL Cholesterol Serum or plasma cholesterol in VLDL measurement (mass/volume)Ordered By: Dr. Spicer on 02-19-2023 Cholesterol in VLDL [Mass/Vol] 31 mg/dL 5-40 [facility] Serum or plasma low density lipoprotein (LDL) cholesterol measurement (mass/volume)Ordered By: Dr. Spicer on 02-19-2023 Cholesterol in LDL [Mass/Vol] 160 mg/dL 0-130 [facility] COVID-19 virus antigen assay Ordered By: Dr. Lind on 2023 SARS-CoV-2 (COVID-19) Ag IA.rapid Ql (Resp) [facility] COVID-19 virus antigen assay Ordered By: Dr. Lind on 01-30-2023 SARS-CoV-2 (COVID-19) Ag IA.rapid Ql (Resp) [facility] COVID-19 virus antigen assay Ordered By: Dr. Patrick on 11-15-2022 SARS-CoV-2 (COVID-19) Ag IA.rapid Ql (Resp) [facility] COVID-19 virus antigen assay Ordered By: Dr. Lind on 11-14-2022 SARS-CoV-2 (COVID-19) Ag IA.rapid Ql (Resp) [facility] CALCIFIDIOL (03001) VIT D 25 Ordered By: Insurance Defense Paralegal on 08-09-2022 25-hydroxyvitamin D [Mass/Vol] 63.3 ng/mL Normal 30.0-100.0 [facility]; [facility] Work Phone: Comment on above: Vitamin D deficiency has been defined by the [place] [facility] and an Endocrine Society practice guideline as alevel of serum 25-OH vitamin D less than 20 ng/mL (1,2).The Endocrine Society went on to further define vitamin Dinsufficiency as a level between 21 and 29 ng/mL (2).1. IOM ([place] of Medicine). 2010. Dietary reference intakes for calcium and D. [place]: The National Academies Press.2. Kiki MF, Wolf [place], Mandy REBOLLAR, et al. Evaluation, treatment, and prevention of vitamin D deficiency: an Endocrine Society clinical practice guideline. JCEM. 2010; 96(7):1911-30. PATIENT WAS FASTINGP ERFORMED BY: [employer] [id number] CBC W/AUTO DIFF WBC (73432)O rdered By: Insurance Defense Paralegal on 08-09-2022 Basophils (Bld) [#/Vol] 0.1 10*3/uL Normal 0.0-0.2 [facility]; [facility] Work Phone: Comment on above: PATIENT WAS FASTINGP ERFORMED BY: [employer] [facility] [id number] Basophils/100 WBC (Bld) 2 % Normal [facility]; [facility] Work Phone: Comment on above: PATIENT WAS FASTINGP ERFORMED BY: CB [facility] [id number] [place] [id number] Eosinophils (Bld) [#/Vol] 0.2 10*3/uL Normal 0.0-0.4 [facility]; [facility] Work Phone: Comment on above: PATIENT WAS FASTINGP ERFORMED BY: CB [facility] Bubnpu[address]Dublin [place] [id number] Eosinophils/100 WBC (Bld) 4 % Normal [facility]; [facility] Work Phone: Comment on above: PATIENT WAS FASTINGP ERFORMED BY: [facility] Qscuud[address]Dublin [place] [id number] Erythrocyte distribution width (RBC) [Ratio] 12.5 % Normal 11.7-15.4 [facility]; [facility] Work Phone: Comment on above: PATIENT WAS FASTINGP ERFORMED BY: [facility] Nyjfry[address] RoadDuin [place] [id number] Hematocrit (Bld) [Volume fraction] 40.8 % Normal 34.0-46.6 [facility]; [facility] Work Phone: Comment on above: PATIENT WAS FASTINGP ERFORMED BY: [facility] Edwobr[address] [place] [id number] Hemoglobin (Bld) [Mass/Vol] 13.4 g/dL Normal 11.1-15.9 [facility]; [facility] Work Phone: Comment on above: PATIENT WAS FASTINGP ERFORMED BY: CB [facility] [id number] [place] [id number] Immature granulocytes (Bld) [#/Vol] 0.0 10*3/uL Normal 0.0-0.1 [facility]; [facility] Work Phone: Comment on above: PATIENT WAS FASTINGP ERFORMED BY: CB [facility] Sryiol[address] [place] [id number] Immature granulocytes/100 WBC (Bld) 0 % Normal [facility]; [facility] Work Phone: Comment on above: PATIENT WAS FASTINGP ERFORMED BY: GABRIELA [facility] Odztda[address] [place] [id number] Lymphocytes (Bld) [#/Vol] 2.0 10*3/uL Normal 0.7-3.1 [facility]; [facility] Work Phone: Comment on above: PATIENT WAS FASTINGP ERFORMED BY: [facility] Sfxjll7[address] [place] [id number] Lymphocytes/100 WBC (Bld) 43 % Normal [facility]; [facility] Work Phone: Comment on above: PATIENT WAS FASTINGP ERFORMED BY: [facility] Tahrga[address]Dublin [place] [id number] MCH (RBC) [Entitic mass] 31.8 pg Normal 26.6-33.0 [facility]; [facility] Work Phone: Comment on above: PATIENT WAS FASTINGP ERFORMED BY: [facility] Jmddsf[address] [place] [id number] MCHC (RBC) [Mass/Vol] 32.8 g/dL Normal 31.5-35.7 [facility]; [facility] Work Phone: Comment on above: PATIENT WAS FASTINGP ERFORMED BY: [facility] Tffiam[address] [place] [id number] MCV (RBC) [Entitic vol] 97 fL Normal 79-97 [facility]; [facility] Work Phone: Comment on above: PATIENT WAS FASTINGP ERFORMED BY: [facility] Icsoqg[address] [place] [id number] Monocytes (Bld) [#/Vol] 0.5 10*3/uL Normal 0.1-0.9 [facility]; [facility] Work Phone: Comment on above: PATIENT WAS FASTINGP ERFORMED BY: [facility] Crhhrv[address] [place] [id number] Monocytes/100 WBC (Bld) 11 % Normal [facility]; [facility] Work Phone: Comment on above: PATIENT WAS FASTINGP ERFORMED BY: GABRIELA [facility] SanchezVkjanw5[address]Dublin [place] [id number] Neutrophils (Bld) [#/Vol] 1.8 10*3/uL Normal 1.4-7.0 [facility]; [facility] Work Phone: Comment on above: PATIENT WAS FASTINGP ERFORMED BY: GABRIELA [facility] Oyybox[address] [place] [id number] Neutrophils/100 WBC (Bld) 40 % Normal [facility]; [facility] Work Phone: Comment on above: PATIENT WAS FASTINGP ERFORMED BY: GABRIELA [facility] Pvcfbu[address] [place] [id number] Platelets (Bld) [#/Vol] 341 10*3/uL Normal 150-450 [facility]; [facility] Work Phone: Comment on above: PATIENT WAS FASTINGP ERFORMED BY: GABRIELA [facility] Eppdkv[address] [place] [id number] RBC (Bld) [#/Vol] 4.21 10*6/uL Normal 3.77-5.28 Compr [facility]; [facility] Work Phone: Comment on above: PATIENT WAS FASTINGP ERFORMED BY: GABRIELA [facility] Aozyub[address] [place] [id number] WBC (Bld) [#/Vol] 4.5 10*3/uL Normal 3.4-10.8 [facility]; [facility] Work Phone: Comment on above: PATIENT WAS FASTINGP ERFORMED BY: GABRIELA [facility] Jezjzm[address] [place] [id number] LIPID PANEL ([id number])Ordered B y: Insurance Defense Paralegal on 08-09-2022 Cholesterol [Mass/Vol] 239 mg/dL Abnormal 100-199 [facility]; [facility] Work Phone: Comment on above: PATIENT WAS FASTINGP ERFORMED BY: GABRIELA [facility] Kroumr[address] [place] [id number] Cholesterol in HDL [Mass/Vol] 44 mg/dL Normal [facility]; [facility] Work Phone: Comment on above: PATIENT WAS FASTINGP ERFORMED BY: GABRIELA [facility] Shzcyh[address] [place] [id number] Triglyceride [Mass/Vol] 119 mg/dL Normal 0-149 [facility]; [facility] Work Phone: Comment on above: PATIENT WAS FASTINGP ERFORMED BY: GABRIELA [facility] Zoeptk[address] [place] [id number] LIPID PANEL ([id number]) 22 mg/dL Normal 5-40 [facility]; [facility] Work Phone: Comment on above: PATIENT WAS FASTINGP ERFORMED BY: GABRIELA Lablynette McallisterFgxtnc0[address] [place] [id number] LIPID PANEL ([id number]) 173 mg/dL Abnormal 0-99 [facility]; [facility] Work Phone: Comment on above: PATIENT WAS FASTINGP ERFORMED BY: GABRIELA [facility] Zlwsns[address] [place] [id number] LIPID PANEL ([id number]) 3.9 {ratio} Abnormal 0.0-3.2 [facility]; [facility] Work Phone: Comment on above: LDL/HDL Ratio Men Wo men 1/2 Avg.Risk 1.0 1.5 Avg.Risk 3.6 3.2 2X Avg.Risk 6.2 5.0 3X Avg.Risk 8.0 6.1 PATIENT WAS FASTINGP ERFORMED BY: GABRIELA [facility] Ximsfk[address] [place] [id number] METABOLIC PANEL, COMPREHENSI VE ([id number])Ordered By: Insurance Defense Paralegal on 08-09-2022 Albumin [Mass/Vol] 4.4 g/dL Normal 3.8-4.8 [facility]; [facility] Work Phone: Comment on above: PATIENT WAS FASTINGP ERFORMED BY: GABRIELA [facility] Vzcrkw96[address] [place] [id number] Albumin/Globulin [Mass ratio] 1.8 {ratio} Normal 1.2-2.2 [facility]; [facility] Work Phone: Comment on above: PATIENT WAS FASTINGP ERFORMED BY: Bruna Mmwfos9[address] [place] [id number] ALP [Catalytic activity/Vol] 54 U/L Normal 44-121 [facility]; [facility] Work Phone: Comment on above: PATIENT WAS FASTINGP ERFORMED BY: [facility] Wbhzib5[address] [place] [id number] ALT [Catalytic activity/Vol] 19 U/L Normal 0-32 [facility]; [facility] Work Phone: Comment on above: PATIENT WAS FASTINGP ERFORMED BY: Bruna Hiqdcj29[address] [place] [id number] AST [Catalytic activity/Vol] 23 U/L Normal 0-40 [facility]; [facility] Work Phone: Comment on above: PATIENT WAS FASTINGP ERFORMED BY: Bruna Jlifxv15[address] [place] [id number] Bilirubin [Mass/Vol] 0.3 mg/dL Normal 0.0-1.2 [facility] rehensive Internal [facility]; [facility] Work Phone: Comment on above: PATIENT WAS FASTINGP ERFORMED BY: [facility] Hxtdfj[address] [place] [id number] Calcium [Mass/Vol] 9.3 mg/dL Normal 8.7-10.3 [facility] [facility]; [facility] Work Phone: Comment on above: PATIENT WAS FASTINGP ERFORMED BY: Labsarah [id number] Moore RoadDublin [place] [id number] Chloride [Moles/Vol] 105 mmol/L Normal 96-106 Comp rehensive [facility] Medicine; [facility] Work Phone: Comment on above: PATIENT WAS FASTINGP ERFORMED BY: GABRIELA [facility] [id number] RoadDublin [place] [id number] CO2 [Moles/Vol] 19 mmol/L Abnormal 20-29 [facility]hen [facility]; [facility] Work Phone: Comment on above: PATIENT WAS FASTINGP ERFORMED BY: CB [facility] [id number] RoadDublin [place] [id number] Creatinine [Mass/Vol] 0.88 mg/dL Normal 0.57-1.00 [facility]; [facility] Work Phone: Comment on above: PATIENT WAS FASTINGP ERFORMED BY: GABRIELA [facility] [id number] RoadDublin [place] [id number] GFR/1.73 sq M.predicted among non-blacks MDRD (S/P/Bld) [Vol rate/Area] 75 mL/min/{1.73_m2} Normal Comprehensiv e [facility]; [facility] Work Phone: Comment on above: PATIENT WAS FASTINGP ERFORMED BY: GABRIELA [facility] [id number]Dublin [place] [id number] Globulin (S) [Mass/Vol] 2.5 g/dL Normal 1.5-4.5 [facility]; [facility] Work Phone: Comment on above: PATIENT WAS FASTINGP ERFORMED BY: GABRIELA [facility] [id number]Dublin [place] [id number] Glucose [Mass/Vol] 91 mg/dL Normal 70-99 [facility] Internal Medicine; [facility] Work Phone: Comment on above: Please note refere nce interval change PATIENT WAS FASTINGP ERFORMED BY: CB [facility] [id number]Dublin [place] [id number] Potassium [Moles/Vol] 4.7 mmol/L Normal 3.5-5.2 [facility]; [facility] Work Phone: Comment on above: PATIENT WAS FASTINGP ERFORMED BY: CB [facility] [id number]Dublin [place] [id number] Protein [Mass/Vol] 6.9 g/dL Normal 6.0-8.5 [facility] Internal Medicine; [facility] Work Phone: Comment on above: PATIENT WAS FASTINGP ERFORMED BY: [facility] [id number]Dublin [place] [id number] Sodium [Moles/Vol] 141 mmol/L Normal 134-144 [facility] Internal Medicine; [facility] Work Phone: Comment on above: PATIENT WAS FASTINGP ERFORMED BY: [facility] [id number] [address] RoadOnslow Memorial Hospitalin [place] [id number] Urea nitrogen [Mass/Vol] 20 mg/dL Normal 8-27 [facility]; [facility] Work Phone: Comment on above: PATIENT WAS FASTINGP ERFORMED BY: [facility] [id number] RoadOnslow Memorial Hospitalin [place] [id number] Urea nitrogen/Creatinine [Mass ratio] 23 mg/mg Normal 12-28 [facility]; [facility] Work Phone: Comment on above: PATIENT WAS FASTINGP ERFORMED BY: [facility] [id number] [facility]in [place] [id number] TSH ([id number])Ordered By: Pete valdez Blue Split Trimmer on 08-09-2022 TSH Qn 1.140 {uIU/mL} Normal 0.450-4.50 0 [facility]; [facility] Work Phone: Comment on above: PATIENT WAS FASTINGP ERFORMED BY: [facility] Weicky1502 [facility] [id number] Basophil percentageon 2021 Basophil percentage < 0.9 mg/dL 0.55-1.02 [facility] Work Phone: No Panel Informationon 06-12 Bedside Estimated GFR (eGFR) > 60.0000 mL/min >60 [facility] Work Phone: Cervical or vagninal specime n microscopic examination by cytology stain (reported ason 05-01-2022 Cytology report Cyto stain Doc (Cvx/Vag) Comment . [facility] Work Phone: Comment on above: The Pap smear is a s creening test designed to aid in thedetection of premalignant and malignant conditions of theuterine cervix. It is not a diagnostic procedure andshould not be used as the sole means of detecting cervicalcancer. Both false-positive and false-negative reports dooccur. Detection in cervical specim en of any of human papilloma virus (HPV) 16, 18, 31, 33,on 05-01-2022 HPV 16+18+31+33+35+39+45 +51+52+56+58+59+66+6 8 DNA Probe+sig amp Ql (Cvx) Negative Negative [facility] Work Phone: Comment on above: This nucleic acid am plification test detects fourteen high- risk HPV types (16,18,31,33,35,39,45,51,52,56,58,59,66,68)without differentiation.Performed at: - [facility] [id number] Director: Jen Diggs MD, Phone: [phone] at: = - [facility] [id number] Director: Jen Diggs MD, Phone: [phone] Laboratory - Cytologyon 04-04 [employer] Worker Cyto stain Nom (Cvx/Vag) [ID] Comment . [facility] Work Phone: Comment on above: Judd Eduardo Cytotec hnologist (ASCP) Laboratory - Miscellaneous t estson 05-01-2022 Service comment (Unsp spec) [Interp] Comment . [facility] Work Phone: Comment on above: This liquid based Th inPrep(R) pap test was screened withthe use of an image guided system. Service comment (Unsp spec) [Interp] . . [facility] Work Phone: No Panel Informationon 05-01 Pathology report final diagnosis Narrative Comment . [facility] Work Phone: Comment on above: NEGATIVE FOR INTRAEP ITHELIAL LESION OR MALIGNANCY. Laboratory - Microbiology an d Antimicrobial susceptibilityon 04-24-2022 SARS-CoV-2 (COVID-19) RNA CEASAR+probe Ql (Unsp spec) Detected [facility] Work Phone: No Panel Informationon 04-24 Influenza Types A,B Rapid (Clinic) Not detected [facility] Work Phone: No Panel Informationon 12-31 SARS-CoV-2 Antigen (Rapid) [facility] Work Phone: Laboratory - Microbiology an d Antimicrobial susceptibilityon 10-05-2021 SARS-CoV-2 (COVID-19) RNA CEASAR+probe Ql (Unsp spec) Detected [facility] Work Phone: No Panel Informationon 10-05 POC Nasal Swab Influenza A,B Not detected [facility] Work Phone: POC Nasal Swab RSV Not detected [facility] Work Phone: No Panel Informationon 10-04 SARS-CoV-2 Antigen (Rapid) [facility] Work Phone: TH CT CARDIAC SCORINGon 05-05 CT CARDIAC SCORING Patient Name: TRISTAN SINGH STUDY: CT CARDIAC SCORING; 06/01/2021 9:00 am INDICATION: Family history of ischemic heart disease and other diseases of the circulatory system. COMPARISON: None. ACCESSION NUMBER(S): [id number] ORDERING CLINICIAN: JES SPICER TECHNIQUE: Using prospective ECG gating, CT scan of the coronary arteries was performed without intravenous contrast. Coronary calcium scoring was performed according to the method of Agatston. FINDINGS: The score and distribution of calcium in the coronary arteries is as follows: LM 0 LAD 0 LCx 0 RCA 0 Total 0 The visualized mid/lower ascending thoracic aorta measures 2.9 cm in diameter. The heart is normal in size. No pericardial effusion is present. Main pulmonary artery is normal in caliber. No gross evidence of mediastinal or hilar lymphadenopathy or masses is identified. The visualized esophagus is within normal limits. The visualized segments of the lungs are normally expanded. There is minimal dependent atelectasis within bilateral lower lobes, left more than right. The visualized subdiaphragmatic structures appear intact. IMPRESSION: 1. Coronary artery calcium score of 0*. *Coronary Artery Calcium Gated and Nongated Agatston score Score Risk 0 Very low 1-99 Mildly increased 100-299 Moderately increased >300 Moderate to severely increased Mae rocha al. JCCT 2016 (http://dx.doi.org/10.1016 /j.jcct.2016.11.003) SALOMON 10-Year CHD Risk with Coronary Artery Calcification can be calcuated using link below [email or web address] Radha et al. JACC 2014 (http://dx.doi.org/10.1016 /j.j acc.2015.08.035) Electronically signed by: JUAN CARLOS CHARLES MD Normal [facility] CBC W/Diff, AutomatedOrdered By: Insurance Defense Paralegal on 10-08-2018 Basophils/100 WBC Auto (Bld) 0.6 % Normal 0-1 [facility] Work Phone: Eosinophils/100 WBC Auto (Bld) 2.1 % Normal 0-5 [facility] Work Phone: Erythrocyte distribution width Auto Ratio (RBC) 12.0 % Normal 11.6-14.6 [facility] Work Phone: Hematocrit Auto Volume Fraction (Bld) 42.0 % Normal 37-47 [facility] Work Phone: Hemoglobin mass conc (Bld) 13.7 g/dL Normal 12.0-15.0 [facility] Work Phone: Lymphocytes/100 WBC Auto (Bld) 40.3 % Normal 19-41 [facility] Work Phone: MCH Auto Entitic mass (RBC) 32.5 pg Abnormal 27.0-32.0 [facility] Work Phone: MCHC Auto mass conc (RBC) 32.6 {g/gl} Normal 32-36 [facility] Work Phone: MCV Auto Entitic volume (RBC) 99.5 fL Abnormal 81-99 [facility] Work Phone: Monocytes/100 WBC Auto (Bld) 8.4 % Normal 0-10 [facility] Work Phone: Neutrophils/100 WBC Auto (Bld) 48.4 % Normal 47-70 [facility] Work Phone: Platelet mean volume Auto Entitic volume (Bld) 10.9 fL Normal 6.2-12.0 [facility] Work Phone: Platelets Auto #/vol (Bld) 349 10*3/uL Normal 150-450 [facility] Work Phone: RBC Auto #/vol (Bld) 4.22 {M/mm3} Normal 4.2-5.4 Co mprehensive [facility] Medicine Work Phone: WBC Auto #/vol (Bld) 6.2 10*3/uL Normal 4.4-11.0 Com prehensive [facility] Work Phone: CBC W/Diff, Automated 0.200 % Normal 0.0-0.9 [facility] Work Phone: Comment on above: IG% - Immature Granu locytes (promyelocytes, myelocytes andmetamyelocytes) > 1% indicates that a LEFT SHIFT is Present. CBC W/Diff, Automated 43.0 fL Normal 35.1-43.9 [facility] Work Phone: CBC W/Diff, Automated 3.0 {X10_3/uL} Normal 2.0-7.7 [facility] Work Phone: CBC W/Diff, Automated 2.49 {X10_3/ul} Normal 0.83-4.51 [facility] Work Phone: Comprehensive Metabolic Prof ilOrdered By: Insurance Defense Paralegal on 10-08-2018 Comprehensive metabolic 2000 panel 21 U/L Normal 13-56 Comprehensi ve Internal Medicine Work Phone: Comprehensive metabolic 2000 panel 8.2 mg/dL Abnormal 8.5-10.1 Comprehensi ve [facility] Work Phone: Comprehensive metabolic 2000 panel 16 U/L Normal 15-37 Comprehen[facility] Work Phone: Comprehensive metabolic 1999 panel 19 mg/dL Abnormal 7-18 Comprehensi [facility] Work Phone: Comprehensive metabolic 1999 panel 5 1 Normal 5-15 Comprehen[facility] Work Phone: Comprehensive metabolic 1999 panel 3.9 g/dL Normal 2.2-4.2 Comprehen[facility] Work Phone: Comprehensive metabolic 1999 panel 0.9 {RATIO} Normal 0.9-2.4 Comprehen[facility] Work Phone: Comprehensive metabolic 1999 panel 58 U/L Normal 45-117 Comprehensi [facility] Work Phone: Comprehensive metabolic 1999 panel 1.00 mg/dL Normal 0.55-1.02 Comprehensi ve [facility] Work Phone: Comment on above: The validity of the calculated GFR AND GFRAA in patients over70 years has not been determined. Clinical correlation isessential. Comprehensive metabolic 1999 panel 61 mL/min Normal Comprehensi ve [facility] Medicine Work Phone: Comment on above: Non- GFR Calc [facility] 1999 panel 0.40 mg/dL Normal 0.20-1.00 Comprehensi ve [facility] Work Phone: Comprehensive metabolic 1999 panel 29.0 mmol/L Normal 21.0-32.0 Comprehen[facility] Work Phone: Comprehensive metabolic 1999 panel 106 mmol/L Normal 98-107 Comprehensi [facility] Work Phone: Comprehensive metabolic 1999 panel 74 mL/min Normal Comprehensi ve [facility] Work Phone: Comment on above: GFR Calc Comprehensive metabolic 1999 panel 19.1 {RATIO} Normal 10-20 Comprehensi ve [facility] Work Phone: Comprehensive metabolic 1999 panel 140 mmol/L Normal 136-145 Comprehensi [facility] Work Phone: Comprehensive metabolic 2000 panel 3.9 mmol/L Normal 3.5-5.1 Comprehensi [facility] Work Phone: Comprehensive metabolic 2000 panel 7.6 g/dL Normal 6.4-8.2 Comprehen[facility] Work Phone: Comprehensive metabolic 2000 panel 3.7 g/dL Normal 3.2-5.0 Comprehensi [facility] Work Phone: Comprehensive metabolic 2000 panel 95 mg/dL Normal 74-106 Comprehensi ve [facility] Work Phone: Comment on above: Please note revised GLUCOSE reference range pyxsqcyzf06/02/2018. Folates, (Folic Acid)Ordered By: Insurance Defense Paralegal on 10-08-2018 Folates, (Folic Acid) 30.30 ng/mL Normal 3.1-55.4 [facility] Work Phone: Lipid ProfileOrdered By: Patrick tem Blue Split Trimmer on 10-08-2018 Cholesterol in HDL mass conc 47 mg/dL Normal [facility] Work Phone: Comment on above: The drugs N-Acetylcy steine and Metamizole may falselydepress this assay. Reference Range HDL <40 mg/dL Low HDL Cholesterol HDL >or= 60 mg/dL High HDL Cholesterol Cholesterol in LDL mass conc 139 mg/dL Abnormal 0-130 [facility] Work Phone: Cholesterol mass conc 204 mg/dL Abnormal [facility] Work Phone: Comment on above: <200 mg/dL Desirable 200-240 mg/dL Borderline >240 mg/dL High Risk Triglyceride mass conc 92 mg/dL Normal [facility] Work Phone: Comment on above: The drugs N-Acetylcy steine and Metamizole may falselydepress this assay.Serum Triglycerides Reference Interval Normal <150 mg/dL Borderline high 150 - 199 mg/dL High 200 - 499 mg/dL Very High > or = 500 mg/dL Lipid Profile 18 mg/dL Normal 5-40 Comprehensi ve Internal Medicine Work Phone: Thyroid Stim Hormone (TSH)Or dered By: Insurance Defense Paralegal on 10-08-2018 Thyrotropin Qn 2.43 {uIU/mL} Normal 0.358-3.74 Compreh ensive Internal Medicine Work Phone: Urinalysis, CompleteOrdered By: Insurance Defense Paralegal on 10-08-2018 RBC Test strip #/vol (U) 0 SEEN Normal 0-5 [facility] Work Phone: Urinalysis complete panel - Urine RARE Normal [facility] Work Phone: Urinalysis complete panel - Urine Yellow Normal [facility] Work Phone: Urinalysis complete panel - Urine Cloudy Normal [facility] Work Phone: Urinalysis complete panel - Urine Normal Normal [facility] Work Phone: Urinalysis complete panel - Urine Negative Normal [facility] Work Phone: Urinalysis complete panel - Urine 1.020 1 Normal 1.002-1.03 0 [facility] Work Phone: Urinalysis complete panel - Urine 6.0 1 Normal 5.0 - 8.0 [facility] Work Phone: Urinalysis complete panel - Urine 15 mg/dL Abnormal [facility] Work Phone: Urinalysis complete panel - Urine 100 /ul Abnormal [facility] Work Phone: Urinalysis complete panel - Urine 5-10 SEEN Normal 5-10 [facility] Work Phone: Urinalysis complete panel - Urine 2+ Normal [facility] Work Phone: Urinalysis complete panel - Urine 0 SEEN Normal [facility] Work Phone: Vitamin [id number] By: Pete m Blue Split Trimmer on 10-08-2018 Cobalamin (Vitamin B12) mass conc 675 pg/mL Normal 211-911 [facility] Work Phone: Vitamin D,25 HydroxyOrdered By: Insurance Defense Paralegal on 10-08-2018 Vitamin D,25 Hydroxy 32.4 ng/mL Normal 29.95-1 00. 01 [facility] Work Phone: Comment on above: Vitamin D 25(OH) Sta tus Range Deficiency <20 ng/mL (50nmol/L) Insuffciency 20 - 30 ng/mL (50 - 75 nmol/L) Sufficiency 30 - 100 ng/mL (75 - 250 nmol/L) Toxicity >100 ng/mL (>250 nmol/L) PAP I-G w/rfx hrHPVOrdered B y: Insurance Defense Paralegal on 01-21-2018 ADEQ Comment Normal [facility] Work Phone: Comment on above: Satisfactory for alonso luation. Endocervical and/or squamous metaplasticcells (endocervical component) are present. The HPV DNA reflex c riteria were not met with this specimenresult therefore, no HPV testing was performed.Performed at: [facility] [id number] Director: Jen Diggs MD, Phone: [phone] NEGATIVE FOR INTRAEP ITHELIAL LESION AND MALIGNANCY. The Pap smear is a s creening test designed to aid in thedetection of premalignant and malignant conditions of theuterine cervix. It is not a diagnostic procedure andshould not be used as the sole means of detecting cervicalcancer. Both false-positive and false-negative reports dooccur. This liquid based Th inPrep(R) pap test was screened withthe use of an image guided system. Genevieve Diamond Cytot echnologist (ASCP) COMM . Normal [facility] Work Phone: PAP I-G w/rfx hrHPV Comment Normal [facility] Internal [facility] Work Phone: Comment on above: The HPV DNA reflex c riteria were not met with this specimenresult therefore, no HPV testing was performed.Performed at: [address], [place] [id number] Director: Jen Diggs MD, Phone: [phone] The Pap smear is a s creening test designed to aid in thedetection of premalignant and malignant conditions of theuterine cervix. It is not a diagnostic procedure andshould not be used as the sole means of detecting cervicalcancer. Both false-positive and false-negative reports dooccur. This liquid based Th inPrep(R) pap test was screened withthe use of an image guided system. Fernando Cornell echnologist (ASCP) Satisfactory for alonso luation. Endocervical and/or squamous metaplasticcells (endocervical component) are present. NEGATIVE FOR INTRAEP ITHELIAL LESION AND MALIGNANCY. PAP I-G w/rfx hrHPV . Normal [facility] [place] Internal [facility] Work Phone: PAP I-G w/rfx hrHPVOurmila Paez y: Insurance Defense Paralegal on 12-04-2016 COMM . Normal [facility] Work Phone: DIAGN Comment Normal [facility] Work Phone: Comment on above: NEGATIVE FOR INTRAEP ITHELIAL LESION AND MALIGNANCY. The Pap smear is a s creening test designed to aid in thedetection of premalignant and malignant conditions of theuterine cervix. It is not a diagnostic procedure andshould not be used as the sole means of detecting cervicalcancer. Both false-positive and false-negative reports dooccur. This liquid based Th inPrep(R) pap test was screened withthe use of an image guided system. Klarissa Carreon Cyto technologist (ASCP) Satisfactory for alonso luation. Endocervical and/or squamous metaplasticcells (endocervical component) are present. The HPV DNA reflex c riteria were not met with this specimenresult therefore, no HPV testing was performed.Performed at: [facility] [employer] [id number] Director: Jen Diggs MD, Phone: [phone] PAP I-G w/rfx hrHPV Comment Normal [facility] [place] Internal [facility] Work Phone: Comment on above: The Pap smear is a s creening test designed to aid in thedetection of premalignant and malignant conditions of theuterine cervix. It is not a diagnostic procedure andshould not be used as the sole means of detecting cervicalcancer. Both false-positive and false-negative reports dooccur. Klarissa Carreon Cyto technologist (ASCP) This liquid based Th inPrep(R) pap test was screened withthe use of an image guided system. The HPV DNA reflex c riteria were not met with this specimenresult therefore, no HPV testing was performed.Performed at: [facility] [employer] [id number] Director: Jen Diggs MD, Phone: [phone] Satisfactory for alonso luation. Endocervical and/or squamous metaplasticcells (endocervical component) are present. NEGATIVE FOR INTRAEP ITHELIAL LESION AND MALIGNANCY. PAP I-G w/rfx hrHPV . Normal [facility] Work Phone: PAP I-G w/rfx hrHPVOrddomo Paez y: Insurance Defense Paralegal on 11-07-2015 COMM . [facility] Internal Medicine Work Phone: TEST METHOD Comment [facility] Work Phone: Comment on above: This liquid based Th inPrep(R) pap test was screened withthe use of an image guided system. NEGATIVE FOR INTRAEP ITHELIAL LESION AND MALIGNANCY. Satisfactory for alonso luation. Endocervical and/or squamous metaplasticcells (endocervical component) are present. The HPV DNA reflex c riteria were not met with this specimenresult therefore, no HPV testing was performed.Performed at: [address] [id number] Director: Jen Diggs MD, Phone: [phone] Mauro Arora totechnologist ([facility]) The Pap smear is a s creening test designed to aid in thedetection of premalignant and malignant conditions of theuterine cervix. It is not a diagnostic procedure andshould not be used as the sole means of detecting cervicalcancer. Both false-positive and false-negative reports dooccur. PAP I-G w/rfx hrHPV Comment Normal [facility] Work Phone: Comment on above: Satisfactory for alonso luation. Endocervical and/or squamous metaplasticcells (endocervical component) are present. The Pap smear is a s creening test designed to aid in thedetection of premalignant and malignant conditions of theuterine cervix. It is not a diagnostic procedure andshould not be used as the sole means of detecting cervicalcancer. Both false-positive and false-negative reports dooccur. This liquid based Th inPrep(R) pap test was screened withthe use of an image guided system. Mauro Arora totechnologist (ASCP) NEGATIVE FOR INTRAEP ITHELIAL LESION AND MALIGNANCY. The HPV DNA reflex c riteria were not met with this specimenresult therefore, no HPV testing was performed.Performed at: - [facility] [place], [place] [id number] Director: Jen Diggs MD, Phone: [phone] PAP I-G w/rfx hrHPV . Normal [facility] Work Phone: CBC With Differential/Platel etOrdered By: Insurance Defense Paralegal on 03-09-2015 Basophils Auto #/vol (Bld) 0.1 {x10E3/uL} Normal 0.0-0.2 [facility] Work Phone: Basophils/100 WBC Auto (Bld) 1 % Normal [facility] Work Phone: Eosinophils Auto #/vol (Bld) 0.2 {x10E3/uL} Normal 0.0-0.4 [facility] Work Phone: Eosinophils/100 WBC Auto (Bld) 5 % Normal [facility] Work Phone: Erythrocyte distribution width Auto Ratio (RBC) 13.5 % Normal 12.3-15.4 [facility] Work Phone: Hematocrit Auto Volume Fraction (Bld) 40.3 % Normal 34.0-46.6 [facility] Work Phone: Hemoglobin mass conc (Bld) 13.4 g/dL Normal 11.1-15.9 [facility] Work Phone: Immature granulocytes #/vol (Bld) 0.0 {x10E3/uL} Normal 0.0-0.1 [facility] Work Phone: Immature granulocytes/100 WBC (Bld) 0 % Normal [facility] Work Phone: Lymphocytes Auto #/vol (Bld) 1.7 {x10E3/uL} Normal 0.7-3.1 [facility] Work Phone: Lymphocytes/100 WBC Auto (Bld) 39 % Normal [facility] Work Phone: MCH Auto Entitic mass (RBC) 31.5 pg Normal 26.6-33.0 [facility] Work Phone: MCHC Auto mass conc (RBC) 33.3 g/dL Normal 31.5-35.7 [facility] Work Phone: MCV Auto Entitic volume (RBC) 95 fL Normal 79-97 [facility] Work Phone: Monocytes Auto #/vol (Bld) 0.4 {x10E3/uL} Normal 0.1-0.9 [facility] Work Phone: Monocytes/100 WBC Auto (Bld) 8 % Normal [facility] Work Phone: Neutrophils Auto #/vol (Bld) 2.0 {x10E3/uL} Normal 1.4-7.0 [facility] Work Phone: Neutrophils/100 WBC Auto (Bld) 47 % Normal [facility] Work Phone: Platelets Auto #/vol (Bld) 330 {x10E3/uL} Normal 150-379 [facility] Work Phone: RBC Auto #/vol (Bld) 4.25 {x10E6/uL} Normal 3.77-5.28 [facility] Work Phone: WBC Auto #/vol (Bld) 4.2 {x10E3/uL} Normal 3.4-10.8 [facility] Work Phone: Comp. Metabolic Panel (14)Or dered By: Insurance Defense Paralegal on 03-09-2015 Albumin mass conc 4.2 g/dL Normal 3.5-5.5 Compreh [facility] Internal Medicine Work Phone: Albumin/Globulin mass ratio 1.5 {ratio} Normal 1.1-2.5 [facility] Work Phone: ALP enzyme act/vol 55 [iU]/L Normal 39-117 [facility] Internal Medicine Work Phone: ALT enzyme act/vol 13 [iU]/L Normal 0-32 [facility] Work Phone: AST enzyme act/vol 18 [iU]/L Normal 0-40 Compre hensive Internal Medicine Work Phone: Bilirubin mass conc 0.3 mg/dL Normal 0.0-1.2 Compr ehensive Internal Medicine Work Phone: Calcium mass conc 9.1 mg/dL Normal 8.7-10.2 Compreh ensive Internal Medicine Work Phone: Chloride molar conc 101 mmol/L Normal 97-108 Compr ehensive Internal Medicine Work Phone: CO2 molar conc 23 mmol/L Normal 18-29 Comprehens rc Internal Medicine Work Phone: Creatinine mass conc 0.92 mg/dL Normal 0.57-1.00 Comp rehensive Internal Medicine Work Phone: GFR/1.73 sq M predicted among blacks CKD-EPI vol rate/area (S/P/Bld) 82 mL/min/1.73 Normal Comprehensiv e Internal Medicine Work Phone: GFR/1.73 sq M predicted among non-blacks CKD-EPI vol rate/area (S/P/Bld) 71 mL/min/1.73 Normal [facility] Work Phone: Globulin Calculated mass conc (S) 2.8 g/dL Normal 1.5-4.5 [facility] Work Phone: Glucose mass conc 82 mg/dL Normal 65-99 Compreh ensive Internal Medicine Work Phone: Potassium molar conc 4.5 mmol/L Normal 3.5-5.2 Comp rehensive Internal Medicine Work Phone: Protein mass conc 7.0 g/dL Normal 6.0-8.5 Compreh ensive Internal Medicine Work Phone: Sodium molar conc 139 mmol/L Normal 134-144 Compreh ensive Internal Medicine Work Phone: Urea nitrogen mass conc 14 mg/dL Normal 6-24 [facility] Work Phone: Urea nitrogen/Creatinine mass ratio 15 mg/mg Normal 9-23 [facility] Work Phone: Lipid Panel With LDL/HDL Rat ioOrdered By: Insurance Defense Paralegal on 03-09-2015 Cholesterol in HDL mass conc 42 mg/dL Normal [facility] Work Phone: Comment on above: According to ATP-III Guidelines, HDL-C >59 mg/dL is considered anegative risk factor for CHD. Cholesterol in LDL mass conc 136 mg/dL Abnormal 0-99 [facility] Work Phone: Cholesterol in LDL/Cholesterol in HDL mass ratio 3.2 {ratio_units} Normal 0.0-3.2 [facility] Work Phone: Comment on above: LDL/HDL Ratio Men Wo men 1/2 Avg.Risk 1.0 1.5 Avg.Risk 3.6 3.2 2X Avg.Risk 6.2 5.0 3X Avg.Risk 8.0 6.1 Cholesterol in VLDL mass conc 20 mg/dL Normal 5-40 [facility] Work Phone: Cholesterol mass conc 198 mg/dL Normal 100-199 [facility] Work Phone: Triglyceride mass conc 100 mg/dL Normal 0-149 [facility] Work Phone: TSHOrdered By: System Manage r on 03-09-2015 Thyrotropin Qn 1.650 {uIU/mL} Normal 0.450-4.50 0 [facility] Work Phone: Thyroxine (T4) Free, Direct, SOrdered By: Insurance Defense Paralegal on 03-09-2015 T4 free mass conc 0.97 ng/dL Normal 0.82-1.77 Compreh ensive Internal Medicine Work Phone: Triiodothyronine,Free,SerumO rdered By: Insurance Defense Paralegal on 03-09-2015 T3 free mass conc 3.2 pg/mL Normal 2.0-4.4 Compreh ensive Internal Medicine Work Phone: PAP I-G w/rfx hrHPVOrdered B y: Insurance Defense Paralegal on 10-20-2014 COMM . Normal [facility] Work Phone: PAPSMR Comment Normal [facility] Work Phone: Comment on above: The Pap smear is a s creening test designed to aid in thedetection of premalignant and malignant conditions of theuterine cervix. It is not a diagnostic procedure andshould not be used as the sole means of detecting cervicalcancer. Both false-positive and false-negative reports dooccur. NEGATIVE FOR INTRAEP ITHELIAL LESION AND MALIGNANCY. Satisfactory for alonso luation. Jordan [employer] nologist (ASCP) This liquid based Th inPrep(R) pap test was screened withthe use of an image guided system. The HPV DNA reflex c riteria were not met with this specimenresult therefore, no HPV testing was performed.Performed at: [address] [id number] Director: Lizbet Hanson MD, Phone: [phone]; ADDENDA: ordered by Dr. De La Torre PAP I-G w/rfx hrHPV Comment Normal [facility] [place] Internal Medicine Work Phone: Comment on above: The HPV DNA reflex c riteria were not met with this specimenresult therefore, no HPV testing was performed.Performed at: [address] [id number] Director: Lizbet Hanson MD, Phone: [phone]; ADDENDA: ordered by Dr. De La Torre This liquid based Th inPrep(R) pap test was screened withthe use of an image guided system. [employer] nologist (ASC) Satisfactory for alonso luation. NEGATIVE FOR INTRAEP ITHELIAL LESION AND MALIGNANCY. The Pap smear is a s creening test designed to aid in thedetection of premalignant and malignant conditions of theuterine cervix. It is not a diagnostic procedure andshould not be used as the sole means of detecting cervicalcancer. Both false-positive and false-negative reports dooccur. PAP I-G w/rfx hrHPV . Normal [facility] [place] Internal Medicine Work Phone: PPD ([id number])Ordered By: Armin Rubio on 09-21-2014 PPD (79208) 1 1 Normal [facility] Work Phone: Comment on above: lot [id number] 2.16ri ght forearmintradermal0.1as, [employer]PERATIONS MANAGER CBC with manual diff ([id number]) Ordered By: Insurance Defense Paralegal on 12-22-2013 Basophils (Bld) [#/Vol] 0.1 {x10E3/uL} Normal 0.0-0.2 [facility] Work Phone: Comment on above: PATIENT WAS FASTINGP ERFORMED BY: [facility] Adzcpi7138 [facility] [id number] Information: [id number] Basophils (Bld) [#/Vol] 0.1 10*3/uL Normal 0.0-0.2 [facility]; [facility] Work Phone: Comment on above: PATIENT WAS FASTINGP ERFORMED BY: [address] [id number] Information: [id number] Basophils Auto #/vol (Bld) 0.1 {x10E3/uL} Normal 0.0-0.2 [facility] Work Phone: Basophils/100 WBC (Bld) 1 % Normal 0-3 [facility] Work Phone: Comment on above: PATIENT WAS FASTINGP ERFORMED BY: [address] [id number] Information: [id number] Basophils/100 WBC Auto (Bld) 1 % Normal 0-3 [facility] Work Phone: Eosinophils (Bld) [#/Vol] 0.2 {x10E3/uL} Normal 0.0-0.4 [facility] Work Phone: Comment on above: PATIENT WAS FASTINGP ERFORMED BY: [address] [id number] Information: [id number] Eosinophils (Bld) [#/Vol] 0.2 10*3/uL Normal 0.0-0.4 [facility]; [facility] Work Phone: Comment on above: PATIENT WAS FASTINGP ERFORMED BY: [address] [id number] Information: [id number] Eosinophils Auto #/vol (Bld) 0.2 {x10E3/uL} Normal 0.0-0.4 [facility] Work Phone: Eosinophils/100 WBC (Bld) 4 % Normal 0-5 [facility] Work Phone: Comment on above: PATIENT WAS FASTINGP ERFORMED BY: [address] [id number] Information: [id number] Eosinophils/100 WBC Auto (Bld) 4 % Normal 0-5 [facility] Work Phone: Erythrocyte distribution width (RBC) [Ratio] 12.9 % Normal 12.3-15.4 [facility] Work Phone: Comment on above: PATIENT WAS FASTINGP ERFORMED BY: [address] [id number] Information: [id number] Erythrocyte distribution width Auto Ratio (RBC) 12.9 % Normal 12.3-15.4 [facility] Work Phone: Hematocrit (Bld) [Volume fraction] 39.5 % Normal 34.0-46.6 [facility] Work Phone: Comment on above: PATIENT WAS FASTINGP ERFORMED BY: [address] [id number] Information: [id number] Hematocrit Auto Volume Fraction (Bld) 39.5 % Normal 34.0-46.6 [facility] Work Phone: Hemoglobin mass conc (Bld) 13.3 g/dL Normal 11.1-15.9 [facility] Work Phone: Comment on above: PATIENT WAS FASTINGP ERFORMED BY: [address] [id number] Information: [id number] Immature granulocytes #/vol (Bld) 0.0 {x10E3/uL} Normal 0.0-0.1 [facility] Work Phone: Comment on above: PATIENT WAS FASTINGP ERFORMED BY: G[facility]A [facility] Eyoehs7188 [facility] [id number] Information: [id number] Immature granulocytes (Bld) [#/Vol] 0.0 10*3/uL Normal 0.0-0.1 [facility]; [facility] Work Phone: Comment on above: PATIENT WAS FASTINGP ERFORMED BY: G[facility]RIELA [facility]St[facility] Hfblbd1240 [facility] [id number] Information: [id number] Immature granulocytes/100 WBC (Bld) 0 % Normal 0-2 [facility] Work Phone: Comment on above: PATIENT WAS FASTINGP ERFORMED BY: GABRIELA [facility] Ntcjak[address] [id number] Information: [id number] Lymphocytes (Bld) [#/Vol] 2.0 {x10E3/uL} Normal 0.7-3.1 [facility] Work Phone: Comment on above: PATIENT WAS FASTINGP ERFORMED BY: GABRIELA Bruna Mehmmy1333 [facility] [id number] Information: [id number] Lymphocytes (Bld) [#/Vol] 2.0 10*3/uL Normal 0.7-3.1 [facility]; [facility] Work Phone: Comment on above: PATIENT WAS FASTINGP ERFORMED BY: [place] 8191770 [facility] [id number] Information: [id number] Lymphocytes Auto #/vol (Bld) 2.0 {x10E3/uL} Normal 0.7-3.1 [facility] Work Phone: Lymphocytes/100 WBC (Bld) 39 % Normal 14-46 [facility] Work Phone: Comment on above: PATIENT WAS FASTINGP ERFORMED BY: [place] 8191770 [facility] [id number] Information: [id number] Lymphocytes/100 WBC Auto (Bld) 39 % Normal 14-46 [facility] Work Phone: MCH (RBC) [Entitic mass] 32.0 pg Normal 26.6-33.0 [facility] Work Phone: Comment on above: PATIENT WAS FASTINGP ERFORMED BY: [address] [id number] Information: [id number] MCH Auto Entitic mass (RBC) 32.0 pg Normal 26.6-33.0 [facility] Work Phone: MCHC (RBC) [Mass/Vol] 33.7 g/dL Normal 31.5-35.7 [facility] Work Phone: Comment on above: PATIENT WAS FASTINGP ERFORMED BY: [address] [id number] Information: [id number] MCHC Auto mass conc (RBC) 33.7 g/dL Normal 31.5-35.7 [facility] Work Phone: MCV (RBC) [Entitic vol] 95 fL Normal 79-97 [facility] Work Phone: Comment on above: PATIENT WAS FASTINGP ERFORMED BY: [address] [id number] Information: [id number] MCV Auto Entitic volume (RBC) 95 fL Normal 79-97 [facility] Work Phone: Monocytes (Bld) [#/Vol] 0.3 {x10E3/uL} Normal 0.1-0.9 [facility] Work Phone: Comment on above: PATIENT WAS FASTINGP ERFORMED BY: [address] [id number] Information: [id number] Monocytes (Bld) [#/Vol] 0.3 10*3/uL Normal 0.1-0.9 [facility]; [facility] Work Phone: Comment on above: PATIENT WAS FASTINGP ERFORMED BY: GABRIELA Mcallisterlin6370 [facility] [id number] Information: [id number] Monocytes Auto #/vol (Bld) 0.3 {x10E3/uL} Normal 0.1-0.9 [facility] Work Phone: Monocytes/100 WBC (Bld) 7 % Normal 4-12 [facility] Work Phone: Comment on above: PATIENT WAS FASTINGP ERFORMED BY: GABRIELA Mcallisterlin6370 [facility] [id number] Information: [id number] Monocytes/100 WBC Auto (Bld) 7 % Normal - [facility] Work Phone: Neutrophils (Bld) [#/Vol] 2.6 {x10E3/uL} Normal 1.4-7.0 [facility] Work Phone: Comment on above: PATIENT WAS FASTINGP ERFORMED BY: GABRIELA Mcallisterlin6370 [facility] [id number] Information: [id number] Neutrophils (Bld) [#/Vol] 2.6 10*3/uL Normal 1.4-7.0 [facility]; [facility] Work Phone: Comment on above: PATIENT WAS FASTINGP ERFORMED BY: GABRIELA Mcallisterlin6370 [facility] [id number] Information: [id number] Neutrophils Auto #/vol (Bld) 2.6 {x10E3/uL} Normal 1.4-7.0 [facility] Work Phone: Neutrophils/100 WBC (Bld) 49 % Normal 40-74 [facility] Work Phone: Comment on above: PATIENT WAS FASTINGP ERFORMED BY: GABRIELA [facility] Ukoyvm7011 [facility] [id number] Information: [id number] Neutrophils/100 WBC Auto (Bld) 49 % Normal 40-74 [facility] Work Phone: Platelets (Bld) [#/Vol] 316 {x10E3/uL} Normal 155-379 [facility] Work Phone: Comment on above: PATIENT WAS FASTINGP ERFORMED BY: [place] 8191770 [facility] [id number] Information: [id number] Platelets (Bld) [#/Vol] 316 10*3/uL Normal 155-379 [facility]; [facility] Work Phone: Comment on above: PATIENT WAS FASTINGP ERFORMED BY: [address] [id number] Information: [id number] Platelets Auto #/vol (Bld) 316 {x10E3/uL} Normal 155-379 [facility] Work Phone: RBC (Bld) [#/Vol] 4.15 {x10E6/uL} Normal 3.77-5.28 [facility] Internal Medicine Work Phone: Comment on above: PATIENT WAS FASTINGP ERFORMED BY: [place] 8191770 [facility] [id number] Information: [id number] RBC (Bld) [#/Vol] 4.15 10*6/uL Normal 3.77-5.28 [facility] [place] Internal Medicine; [facility] Work Phone: Comment on above: PATIENT WAS FASTINGP ERFORMED BY: [facility]6370 [facility] [id number] Information: [id number] RBC Auto #/vol (Bld) 4.15 {x10E6/uL} Normal 3.77-5.28 [facility] Work Phone: WBC (Bld) [#/Vol] 5.2 {x10E3/uL} Normal 3.4-10.8 Com prehensive Internal Medicine Work Phone: Comment on above: PATIENT WAS FASTINGP ERFORMED BY: GABRIELA BeatriceLynette McallisterTowghb7212 [facility] [id number] Information: [id number] WBC (Bld) [#/Vol] 5.2 10*3/uL Normal 3.4-10.8 [facility] Internal Medicine; [facility] Work Phone: Comment on above: PATIENT WAS FASTINGP ERFORMED BY: GABRIELA Ashu Devlin70 [facility] [id number] Information: [id number] WBC Auto #/vol (Bld) 5.2 {x10E3/uL} Normal 3.4-10.8 [facility] Work Phone: Lipid Panel ([id number])Ordered B y: Insurance Defense Paralegal on 12-22-2013 Cholesterol in HDL mass conc 45 mg/dL Normal [facility] Work Phone: Comment on above: According to ATP-III Guidelines, HDL-C >59 mg/dL is considered anegative risk factor for CHD. PATIENT WAS FASTINGP ERFORMED BY: GABRIELA Mcallisterlin6370 [facility] [id number] Cholesterol in LDL mass conc 143 mg/dL Abnormal 0-99 [facility] Work Phone: Comment on above: PATIENT WAS FASTINGP ERFORMED BY: GABRIELA Mcallisterlin6370 [facility] [id number] Cholesterol in LDL/Cholesterol in HDL mass ratio 3.2 {ratio_units} Normal 0.0-3.2 [facility] Work Phone: Comment on above: PATIENT WAS FASTINGP ERFORMED BY: GABRIELA BeatriceLynette McallisterZlqakr5911 [facility] [id number] Cholesterol in VLDL mass conc 20 mg/dL Normal 5-40 [facility] Work Phone: Comment on above: PATIENT WAS FASTINGP ERFORMED BY: GABRIELA Mcallisterlin6370 [facility] [id number] Cholesterol mass conc 208 mg/dL Abnormal 100-199 [facility] Work Phone: Comment on above: PATIENT WAS FASTINGP ERFORMED BY: GABRIELA [facility] Wnbjlf2351 [address] RoadDublin [place] [id number] Triglyceride mass conc 101 mg/dL Normal 0-149 [facility] Work Phone: Comment on above: PATIENT WAS FASTINGP ERFORMED BY: CB [facility] Kgcjxp0720 [address] RoadDublin [place] [id number] Metabolic Panel, Comprehensi ve ([id number])Ordered By: Insurance Defense Paralegal on 12-22-2013 Albumin mass conc 4.2 g/dL Normal 3.5-5.5 Compreh [facility] Internal Medicine Work Phone: Comment on above: PATIENT WAS FASTINGP ERFORMED BY: GABRIELA [facility] Jhejjl7967 [address] RoadDublin [place] [id number] Albumin/Globulin mass ratio 1.6 {ratio} Normal 1.1-2.5 [facility] Work Phone: Comment on above: PATIENT WAS FASTINGP ERFORMED BY: [facility] Irlkri3505 [address] RoadDublin [place] [id number] ALP [Catalytic activity/Vol] 53 U/L Normal 39-117 [facility]; [facility] Work Phone: Comment on above: PATIENT WAS FASTINGP ERFORMED BY: [facility] Oewoft4495 [address]Dublin [place] [id number] ALP enzyme act/vol 53 [iU]/L Normal 39-117 [facility] Internal Medicine Work Phone: Comment on above: PATIENT WAS FASTINGP ERFORMED BY: CB [facility] Wllmyj7430 [address] RoadDublin [place] [id number] ALT [Catalytic activity/Vol] 20 U/L Normal 0-32 [facility]; [facility] Work Phone: Comment on above: PATIENT WAS FASTINGP ERFORMED BY: CB [facility] Mxlurr1443 [address] RoadDublin [place] [id number] ALT enzyme act/vol 20 [iU]/L Normal 0-32 [facility] Internal Medicine Work Phone: Comment on above: PATIENT WAS FASTINGP ERFORMED BY: GABRIELA [facility] Zyaxan6[address]Dublin [place] [id number] AST [Catalytic activity/Vol] 23 U/L Normal 0-40 [facility]; [facility] Work Phone: Comment on above: PATIENT WAS FASTINGP ERFORMED BY: CB [facility] Ypnwmw6460 [address] RoadDublin [place] [id number] AST enzyme act/vol 23 [iU]/L Normal 0-40 [facility] Internal Medicine Work Phone: Comment on above: PATIENT WAS FASTINGP ERFORMED BY: GABRIELA [facility] Ydwkun8126 [address] RoadDublin [place] [id number] Bilirubin mass conc 0.3 mg/dL Normal 0.0-1.2 Compr ensive Internal Medicine Work Phone: Comment on above: PATIENT WAS FASTINGP ERFORMED BY: GABRIELA [facility] Ehhvyp1342 [address]Dublin [place] [id number] Calcium mass conc 9.3 mg/dL Normal 8.7-10.2 Compreh [facility] Work Phone: Comment on above: PATIENT WAS FASTINGP ERFORMED BY: GABRIELA [facility] Jadxta9[address] RoadDublin [place] [id number] Chloride molar conc 103 mmol/L Normal 97-108 Compr [facility] Internal Medicine Work Phone: Comment on above: PATIENT WAS FASTINGP ERFORMED BY: GABRIELA [facility] Oyemca8936 [address] RoadDublin [place] [id number] CO2 molar conc 24 mmol/L Normal 19-28 Comprehens rc Internal Medicine Work Phone: Comment on above: PATIENT WAS FASTINGP ERFORMED BY: CB [facility] Bwalpb5540 [address]Dublin [place] [id number] Creatinine mass conc 0.91 mg/dL Normal 0.57-1.00 Comp [facility] Work Phone: Comment on above: PATIENT WAS FASTINGP ERFORMED BY: GABRIELA [facility] Fufuax5665 [address] RoadDublin [place] [id number] GFR/1.73 sq M predicted among blacks CKD-EPI vol rate/area (S/P/Bld) 84 mL/min/1.73 Normal Comprehensiv e Internal Medicine Work Phone: Comment on above: PATIENT WAS FASTINGP ERFORMED BY: GABRIELA [facility] Hzkghq[address] [facility]in [place] [id number] GFR/1.73 sq M predicted among non-blacks CKD-EPI vol rate/area (S/P/Bld) 73 mL/min/1.73 Normal [facility] Work Phone: Comment on above: PATIENT WAS FASTINGP ERFORMED BY: GABRIELA [facility] Gshyaw3478 [facility] [id number] Globulin (S) [Mass/Vol] 2.7 g/dL Normal 1.5-4.5 [facility] Work Phone: Comment on above: PATIENT WAS FASTINGP ERFORMED BY: [facility] Eaeugb4216 [facility] [id number] Globulin Calculated mass conc (S) 2.7 g/dL Normal 1.5-4.5 [facility] Work Phone: Glucose mass conc 90 mg/dL Normal 65-99 Compreh ensive Internal Medicine Work Phone: Comment on above: PATIENT WAS FASTINGP ERFORMED BY: [facility] Qoufxy6235 [facility] [id number] Potassium molar conc 5.0 mmol/L Normal 3.5-5.2 Comp rehensive Internal Medicine Work Phone: Comment on above: PATIENT WAS FASTINGP ERFORMED BY: [facility] Qabvbw2763 [facility] [id number] Protein mass conc 6.9 g/dL Normal 6.0-8.5 Compreh ensive Internal Medicine Work Phone: Comment on above: PATIENT WAS FASTINGP ERFORMED BY: [facility] Vxdlbn0185 [facility] [id number] Sodium molar conc 141 mmol/L Normal 134-144 Compreh ensive Internal Medicine Work Phone: Comment on above: PATIENT WAS FASTINGP ERFORMED BY: [facility] Hmrrnz5973 [address] RoadDublin [place] [id number] Urea nitrogen mass conc 16 mg/dL Normal 6-24 [facility] Work Phone: Comment on above: PATIENT WAS FASTINGP ERFORMED BY: [facility] Kgcjzc4952 [address] RoadDublin [place] [id number] Urea nitrogen/Creatinine mass ratio 18 mg/mg Normal 9-23 [facility] Work Phone: Comment on above: PATIENT WAS FASTINGP ERFORMED BY: [facility] Yvkqpk1296 [address] RoadDublin [place] [id number] T3, FREE (TRIDOTHYRONINE) (6 1402)Ordered By: Insurance Defense Paralegal on 12-22-2013 T3 free mass conc 2.9 pg/mL Normal 2.0-4.4 Compreh ensive Internal Medicine Work Phone: Comment on above: PATIENT WAS FASTINGP ERFORMED BY: [facility] Ucxxka4060 [address] RoadOnslow [facility] Hospitalin [place] [id number] T4, FREE (THYROXINE) ([id number]) Ordered By: Insurance Defense Paralegal on 12-22-2013 T4 free mass conc 0.97 ng/dL Normal 0.82-1.77 Compreh ensive Internal Medicine Work Phone: Comment on above: PATIENT WAS FASTINGP ERFORMED BY: [facility] Jtoldf6426 Moore RoadOnslow Memorial Hospitalin [place] [id number] TSH ([id number])Ordered By: Syste m Blue Split Trimmer on 12-22-2013 Thyrotropin Qn 1.620 {uIU/mL} Normal 0.450-4.50 0 [facility] Work Phone: Comment on above: PATIENT WAS FASTINGP ERFORMED BY: CB [facility] Auasjk7526 [address] RoadDublin [place] [id number] SKIN TEST INTRADERMAL TB (39 580)Ordered By: Tiffanie Leung on 12-15-2013 SKIN TEST INTRADERMAL TB (94062) Negative Normal [facility] Work Phone: SKIN TEST INTRADERMAL TB (86 580)on 12-15-2013 SKIN TEST INTRADERMAL TB (54900) Negative Normal [facility]; [facility] Work Phone: Vital Signs Date Time Vital Sign Value Performing Clinician Facility 09-03-2023 08:15-0400 Body height 167.[address] Jes Spicer Work Phone: [facility] 09-03-2023 08:15-0400 Body mass index (BMI) [Ratio] 30.4 kg/m2 Dr. Jes Spicer Work Phone: [facility] 09-03-2023 08:15-0400 Body temperature 97.4 [degF] Dr. Jes Spicer Work Phone: [facility] 09-03-2023 08:15-0400 Body weight 85.[address] Jes Spicer Work Phone: [facility] 09-03-2023 08:15-0400 Diastolic blood pressure 73 mm[Hg] Dr. Jes Spicer Work Phone: [facility] 09-03-2023 08:15-0400 Heart rate 75 /min Dr. Jes Spicer Work Phone: [facility] 09-03-2023 08:15-0400 Respiratory rate 15 /min Dr. Jes Spicer Work Phone: [facility] 09-03-2023 08:15-0400 SaO2% (BldA) [Mass fraction] 96 % Dr. Jes Spicer Work Phone: [facility] 09-03-2023 08:15-0400 Systolic blood pressure 111 mm[Hg] Dr. Jes Spicer Work Phone: [facility] 02-26-2023 08:27-0400 Body height 167.64 cm Gaby Noble CMA [facility]; [facility] Work Phone: 02-26-2023 08:27-0400 Body mass index (BMI) [Ratio] 32.09 kg/m2 Gaby Noble [facility]; [facility] Work Phone: 02-26-2023 08:27-0400 Body surface area Derived from formula 2 m2 Gaby Noble [facility]; [facility] Work Phone: 02-26-2023 08:27-0400 Body temperature 98.3 [degF] Gaby Noble [facility]; [facility] Work Phone: Comment on above: Method: Thermal Scan 02-26-2023 08:27-0400 Body weight 90.18 kg Gaby Noble [facility]; [facility] Work Phone: 02-26-2023 08:27-0400 Diastolic blood pressure 68 mm[Hg] Gaby Noble [facility]; [facility] Work Phone: Comment on above: Patient Position: Sitting; Cuff Location : Left Arm; Cuff Size: Standard 02-26-2023 08:27-0400 Heart rate 78 /min Gaby Noble [facility]; [facility] Work Phone: Comment on above: Pattern: Regular 02-26-2023 08:27-0400 Respiratory rate 16 /min Gaby Noble [facility]; [facility] Work Phone: Comment on above: Pattern: Unlabored 02-26-2023 08:27-0400 SaO2% (BldA) [Mass fraction] 98 % Gaby Noble [facility]; [facility] Work Phone: Comment on above: Room air 02-26-2023 08:27-0400 Systolic blood pressure 118 mm[Hg] Gaby Noble [facility]; [facility] Work Phone: Comment on above: Patient Position: Sitting; Cuff Location : Left Arm; Cuff Size: Standard 08-28-2022 14:12-0400 Body height 167.64 cm Brittani Gravius [facility]; [facility] Work Phone: Comment on above: no vs taken as this is phone encounter d ue to covid 08-28-2022 14:12-0400 Body mass index (BMI) [Ratio] 31.6 kg/m2 Brittani Lane [facility]; [facility] Work Phone: Comment on above: no vs taken as this is phone encounter d ue to covid 08-28-2022 14:12-0400 Body surface area Derived from formula 1.98 m2 Brittani [facility]; [facility] Work Phone: Comment on above: no vs taken as this is phone encounter d ue to covid 08-28-2022 14:12-0400 Body weight 88.[address] [facility]; [facility] Work Phone: Comment on above: no vs taken as this is phone encounter d ue to covid 08-19-2022 08:14-0400 Body temperature 97.4 [degF] Dr. Jes Spicer Work Phone: [facility] Work Phone: 08-19-2022 08:14-0400 Diastolic blood pressure 68 mm[Hg] Dr. Jes Spicer Work Phone: [facility] Work Phone: 08-19-2022 08:14-0400 Heart rate 66 /min Dr. Jes Spicer Work Phone: [facility] Work Phone: 08-19-2022 08:14-0400 Respiratory rate 16 /min Dr. Jes Spicer Work Phone: [facility] Work Phone: 08-19-2022 08:14-0400 SaO2% (BldA) [Mass fraction] 94 % Dr. Jes Spicer Work Phone: [facility] Work Phone: 08-19-2022 08:14-0400 Systolic blood pressure 104 mm[Hg] Dr. Jes Spicer Work Phone: [facility] Work Phone: 08-19-2022 07:02-0400 Body height 167.[address] Jes Spicer Work Phone: [facility] Work Phone: 08-19-2022 07:02-0400 Body mass index (BMI) [Ratio] 31 kg/m2 Dr. Jes Spicer Work Phone: [facility] Work Phone: 08-19-2022 07:02-0400 Body weight 87.[address] Jes Spicer Work Phone: [facility] Work Phone: 08-09-2022 08:55-0400 Body height 167.64 cm Shaheen Hernandez LPN [facility]; [facility] Work Phone: 08-09-2022 08:55-0400 Body mass index (BMI) [Ratio] 31.6 kg/m2 Shaheen Hernandez LPN [facility]; [facility] Work Phone: 08-09-2022 08:55-0400 Body surface area Derived from formula 1.98 m2 Shaheen Hernandez LPN [facility]; [facility] Work Phone: 08-09-2022 08:55-0400 Body temperature 97.2 [degF] Shaheen Heranndez LPN [facility]; [facility] Work Phone: Comment on above: Method: Infrared 08-09-2022 08:55-0400 Body weight 88.81 kg Shaheen Hernandez LPN [facility]; [facility] Work Phone: 08-09-2022 08:55-0400 Diastolic blood pressure 78 mm[Hg] Shaheen Hernandez LPN [facility]; [facility] Work Phone: Comment on above: Patient Position: Sitting; Cuff Location : Left Arm; Cuff Size: Standard 08-09-2022 08:55-0400 Heart rate 76 /min Shaheen Hernandez LPN [facility]; [facility] Work Phone: Comment on above: Pattern: Regular 08-09-2022 08:55-0400 Respiratory rate 16 /min Shaheen Hernandez LPN [facility]; [facility] Work Phone: Comment on above: Pattern: Unlabored 08-09-2022 08:55-0400 SaO2% (BldA) [Mass fraction] 98 % Shaheen Hernandez LPN [facility]; [facility] Work Phone: Comment on above: Room air 08-09-2022 08:55-0400 Systolic blood pressure 122 mm[Hg] Shaheen Hernandez LPN [facility]; [facility] Work Phone: Comment on above: Patient Position: Sitting; Cuff Location : Left Arm; Cuff Size: Standard 05-10-2022 10:10-0400 Body height 167.[address] Jes Spicer Work Phone: [facility] Work Phone: 05-10-2022 10:10-0400 Body mass index (BMI) [Ratio] 30.3 kg/m2 Dr. Jes Spicer Work Phone: [facility] Work Phone: 05-10-2022 10:10-0400 Body weight 85.[address] Jes Spicer Work Phone: [facility] Work Phone: 04-25-2022 12:02-0400 Body height 167.64 cm Leola Valera [employer] [facility] Work Phone: Comment on above: virtual, reported by pt 04-25-2022 12:02-0400 Body mass index (BMI) [Ratio] 30.34 kg/m2 Leola Valera [employer] [facility]; [facility] Work Phone: Comment on above: virtual, reported by pt 04-25-2022 12:02-0400 Body surface area Derived from formula 1.95 m2 Leola Valera [employer] [facility]; [facility] Work Phone: Comment on above: virtual, reported by pt 04-25-2022 12:02-0400 Body weight 85.28 kg Leola Valera [facility]; [facility] Work Phone: Comment on above: virtual, reported by pt 04-25-2022 12:02-0400 Heart rate 98 /min Leola Valera [facility]; [facility] Work Phone: Comment on above: Pattern: Regular virtual, reported by pt 04-24-2022 07:36-0400 Body temperature 98 [degF] Dr. Jes Spicer Work Phone: [facility] Work Phone: 04-24-2022 07:36-0400 Diastolic blood pressure 72 mm[Hg] Dr. Jes Spicer Work Phone: [facility] Work Phone: 04-24-2022 07:36-0400 Heart rate 80 /min Dr. Jes Spicer Work Phone: [facility] Work Phone: 04-24-2022 07:36-0400 Respiratory rate 16 /min Dr. Jes Spicer Work Phone: [facility] Work Phone: 04-24-2022 07:36-0400 SaO2% (BldA) [Mass fraction] 99 % Dr. Jes Spicer Work Phone: [facility] Work Phone: 04-24-2022 07:36-0400 Systolic blood pressure 122 mm[Hg] Dr. Jes Spicer Work Phone: [facility] Work Phone: 02-01-2022 00:14-0400 Body mass index (BMI) [Ratio] 29 kg/m2 Dr. Jes Spicer Work Phone: [facility] Work Phone: 01-01-2022 00:09-0500 Body mass index (BMI) [Ratio] 29 kg/m2 Dr. Jes Spicer Work Phone: [facility] Work Phone: 12-31-2021 23:09-0500 Body mass index (BMI) [Ratio] 29 kg/m2 Dr. Jes Spicer Work Phone: [facility] Work Phone: 11-02-2021 23:22-0500 Body mass index (BMI) [Ratio] 29 kg/m2 Dr. Jes Spicer Work Phone: [facility] Work Phone: 10-09-2021 12:22-0500 Body temperature 98.6 [degF] Dr. Jes Spicer Work Phone: [facility] Work Phone: 10-09-2021 12:22-0500 Diastolic blood pressure 83 mm[Hg] Dr. Jes Spicer Work Phone: [facility] Work Phone: 10-09-2021 12:22-0500 Heart rate 64 /min Dr. Jes Spicer Work Phone: [facility] Work Phone: 10-09-2021 12:22-0500 Respiratory rate 16 /min Dr. Jes Spicer Work Phone: [facility] Work Phone: 10-09-2021 12:22-0500 SaO2% (BldA) [Mass fraction] 98 % Dr. Jes Spicer Work Phone: [facility] Work Phone: 10-09-2021 12:22-0500 Systolic blood pressure 122 mm[Hg] Dr. Jes Spicer Work Phone: [facility] Work Phone: 10-09-2021 10:40-0500 Body height 167.[address] Jes Spicer Work Phone: [facility] Work Phone: 10-09-2021 10:40-0500 Body mass index (BMI) [Ratio] 29.3 kg/m2 Dr. Jes Spcier Work Phone: [facility] Work Phone: 10-09-2021 10:40-0500 Body weight 82.[address] Jes Spicer Work Phone: [facility] Work Phone: 10-02-2021 23:23-0500 Body mass index (BMI) [Ratio] 29 kg/m2 Dr. Jes Spicer Work Phone: [facility] Work Phone: 07-11-2021 09:53-0400 Body height 167.64 cm Brittani Tawnywillie [facility]; [facility] Work Phone: 07-11-2021 09:53-0400 Body mass index (BMI) [Ratio] 29.38 kg/m2 Brittani Tawnywillie [facility]; [facility] Work Phone: 07-11-2021 09:53-0400 Body surface area Derived from formula 1.92 m2 Brittani Tawnyiwllie [facility]; [facility] Work Phone: 07-11-2021 09:53-0400 Body temperature 97.1 [degF] Brittani Tawnywillie [facility]; [facility] Work Phone: Comment on above: Method: Infrared 07-11-2021 09:53-0400 Body weight 82.[address] [facility]; [facility] Work Phone: 07-11-2021 09:53-0400 Diastolic blood pressure 62 mm[Hg] Brittani Hectorwillie [facility]; [facility] Work Phone: Comment on above: Patient Position: Sitting; Cuff Location : Left Arm; Cuff Size: Standard 07-11-2021 09:53-0400 Heart rate 64 /min Brittani Lane [facility]; [facility] Work Phone: Comment on above: Pattern: Regular 07-11-2021 09:53-0400 Respiratory rate 19 /min Brittani Lane [facility]; [facility] Work Phone: Comment on above: Pattern: Unlabored 07-11-2021 09:53-0400 SaO2% (BldA) [Mass fraction] 98 % Brittani Lane [facility]; [facility] Work Phone: Comment on above: Room air 07-11-2021 09:53-0400 Systolic blood pressure 110 mm[Hg] Brittani Lane [facility]; [facility] Work Phone: Comment on above: Patient Position: Sitting; Cuff Location : Left Arm; Cuff Size: Standard 07-07-2020 10:06-0400 BMI (Body Mass Index) 28.41 kg/m2 [facility] Work Phone: 07-07-2020 10:06-0400 Body Temperature 97.2 [degF] [facility] Work Phone: Comment on above: Method: Thermal Scan 07-07-2020 10:06-0400 Body weight 79.83 kg [facility] Work Phone: 07-07-2020 10:06-0400 BP Diastolic 60 mm[Hg] [facility] Work Phone: Comment on above: Patient Position: Sitting; Cuff Location : Left Arm; Cuff Size: Standard 07-07-2020 10:06-0400 BP Systolic 116 mm[Hg] [facility] Work Phone: Comment on above: Patient Position: Sitting; Cuff Location : Left Arm; Cuff Size: Standard 07-07-2020 10:06-0400 BSA (Body Surface Area) 1.89 m2 [facility] Work Phone: 07-07-2020 10:06-0400 Height 167.64 cm [facility] Work Phone: 07-07-2020 10:06-0400 Pulse (Heart Rate) 75 /min Fide Robertson LPN [facility] Work Phone: Comment on above: Pattern: Regular 07-07-2020 10:06-0400 Pulse Oximetry 97 % Jes Spicer [facility] Work Phone: Comment on above: Room air 07-07-2020 10:06-0400 Respiratory Rate 16 /min Fide Robertson LPN [facility] Work Phone: Comment on above: Pattern: Unlabored 07-07-2020 10:06-0400 SaO2% (BldA) [Mass fraction] 97 % Fide Robertson [employer] [facility]; [facility] Work Phone: Comment on above: Room air 06-16-2019 07:59-0400 BMI (Body Mass Index) 30.18 kg/m2 Heather Au RN [facility] Work Phone: 06-16-2019 07:59-0400 Body weight 84.82 kg Heather Au RN [facility] Work Phone: 06-16-2019 07:59-0400 BP Diastolic 78 mm[Hg] Heather Au RN [facility] Work Phone: Comment on above: Patient Position: Sitting; Cuff Location : Left Arm; Cuff Size: Large 06-16-2019 07:59-0400 BP Systolic 122 mm[Hg] Heather Au RN [facility] Work Phone: Comment on above: Patient Position: Sitting; Cuff Location : Left Arm; Cuff Size: Large 06-16-2019 07:59-0400 BSA (Body Surface Area) 1.94 m2 Heather Au RN [facility] Work Phone: 06-16-2019 07:59-0400 Height 167.64 cm Heather Au RN [facility] Work Phone: 06-16-2019 07:59-0400 Pulse (Heart Rate) 75 /min Heather uA RN [facility] Work Phone: Comment on above: Pattern: Regular 06-16-2019 07:59-0400 Pulse Oximetry 98 % Jes Spicer [facility] Work Phone: Comment on above: Room air 06-16-2019 07:59-0400 Respiratory Rate 18 /min Heather Au RN [facility] Work Phone: Comment on above: Pattern: Unlabored 06-16-2019 07:59-0400 SaO2% (BldA) [Mass fraction] 98 % Heather Au RN [facility]; [facility] Work Phone: Comment on above: Room air 10-21-2018 08:52-0500 BMI (Body Mass Index) 30.57 kg/m2 Jayde Colleen [facility] Work Phone: 10-21-2018 08:52-0500 Body Temperature 97.8 [degF] Jayde Mixonlear [facility] Work Phone: Comment on above: Method: Temporal 10-21-2018 08:52-0500 Body weight 85.9 kg Jayde Macias [facility] Work Phone: 10-21-2018 08:52-0500 BP Diastolic 70 mm[Hg] Jayde Mixonlear [facility] Work Phone: Comment on above: Patient Position: Sitting; Cuff Location : Left Arm; Cuff Size: Standard 10-21-2018 08:52-0500 BP Systolic 118 mm[Hg] Jayde Macias [facility] Work Phone: Comment on above: Patient Position: Sitting; Cuff Location : Left Arm; Cuff Size: Standard 10-21-2018 08:52-0500 BSA (Body Surface Area) 1.95 m2 Jayde Mixonlear [facility] Work Phone: 10-21-2018 08:52-0500 Height 167.64 cm Jayed Macias [facility] Work Phone: 10-21-2018 08:52-0500 Pulse (Heart Rate) 69 /min Jayde Colleen [facility] Work Phone: Comment on above: Pattern: Regular 10-21-2018 08:52-0500 Pulse Oximetry 97 % Jes Spicer [facility] Work Phone: Comment on above: Room air 10-21-2018 08:52-0500 Respiratory Rate 17 /min Jayde Macias [facility] Work Phone: Comment on above: Pattern: Unlabored 10-21-2018 08:52-0500 SaO2% (BldA) [Mass fraction] 97 % Jayde Macias [facility]; [facility] Work Phone: Comment on above: Room air 10-21-2018 08:52-0500 Weight 85.9 kg Jes Spicer [facility] Work Phone: 10-06-2018 13:59-0500 BMI (Body Mass Index) 30.57 kg/m2 Jayde Macias [facility] Work Phone: 10-06-2018 13:59-0500 Body Temperature 98 [degF] Jayde Macias [facility] Work Phone: Comment on above: Method: Temporal 10-06-2018 13:59-0500 Body weight 85.9 kg Jayde Macias [facility] Work Phone: 10-06-2018 13:59-0500 BP Diastolic 70 mm[Hg] Jayde Macias [facility] Work Phone: Comment on above: Patient Position: Sitting; Cuff Location : Left Arm; Cuff Size: Standard 10-06-2018 13:59-0500 BP Systolic 122 mm[Hg] Jayde Macias [facility] Work Phone: Comment on above: Patient Position: Sitting; Cuff Location : Left Arm; Cuff Size: Standard 10-06-2018 13:59-0500 BSA (Body Surface Area) 1.95 m2 Jayde Macias [facility] Work Phone: 10-06-2018 13:59-0500 Height 167.64 cm Jayde Macias [facility] Work Phone: 10-06-2018 13:59-0500 Pulse (Heart Rate) 83 /min Jayde Macias [facility] Work Phone: Comment on above: Pattern: Regular 10-06-2018 13:59-0500 Pulse Oximetry 97 % Jes Spicer [facility] Work Phone: Comment on above: Room air 10-06-2018 13:59-0500 Respiratory Rate 16 /min Jayde Macias [facility] Work Phone: Comment on above: Pattern: Unlabored 10-06-2018 13:59-0500 SaO2% (BldA) [Mass fraction] 97 % Jayde Macias [facility]; [facility] Work Phone: Comment on above: Room air 10-06-2018 13:59-0500 Weight 85.9 kg Jes Spicer [facility] Work Phone: 12-11-2015 10:52-0500 BMI (Body Mass Index) 30.26 kg/m2 Candice Slarb [employer] [facility] Work Phone: 12-11-2015 10:52-0500 Body Temperature 97.8 [degF] Candice Slarb [employer] [facility] Work Phone: 12-11-2015 10:52-0500 Body weight 85.05 kg Candice Slarb [employer] [facility] Work Phone: 12-11-2015 10:52-0500 BP Diastolic 82 mm[Hg] Candice Slarb [employer] [facility] Work Phone: Comment on above: Patient Position: Sitting; Cuff Location : Left Arm; Cuff Size: Standard 12-11-2015 10:52-0500 BP Systolic 122 mm[Hg] Candice Slarb [employer] [facility] Work Phone: Comment on above: Patient Position: Sitting; Cuff Location : Left Arm; Cuff Size: Standard 12-11-2015 10:52-0500 BSA (Body Surface Area) 1.95 m2 Candice Slarb [employer] [facility] Work Phone: 12-11-2015 10:52-0500 Height 167.64 cm Candice Slarb [employer] [facility] Work Phone: 12-11-2015 10:52-0500 Pulse (Heart Rate) 78 /min Candice Slarb [employer] [facility] Work Phone: Comment on above: Pattern: Regular 12-11-2015 10:52-0500 Pulse Oximetry 98 % Jes Spicer [facility] Work Phone: Comment on above: Room air 12-11-2015 10:52-0500 Respiratory Rate 16 /min Candice Ramiro MEJIA [facility] Work Phone: Comment on above: Pattern: Unlabored 12-11-2015 10:52-0500 SaO2% (BldA) [Mass fraction] 98 % Candice Slacalvin MEJIA [facility]; [facility] Work Phone: Comment on above: Room air 12-11-2015 10:52-0500 Weight 85.05 kg Jes Spicer [facility] Work Phone: 03-09-2015 07:42-0400 BMI (Body Mass Index) 28.65 kg/m2 Heather Au RN [facility] Work Phone: 03-09-2015 07:42-0400 Body weight 80.51 kg Heather Au RN [facility] Work Phone: 03-09-2015 07:42-0400 BP Diastolic 80 mm[Hg] Heather Au RN [facility] Work Phone: Comment on above: Patient Position: Sitting; Cuff Location : Left Arm; Cuff Size: Large 03-09-2015 07:42-0400 BP Systolic 122 mm[Hg] Heather Au RN [facility] Work Phone: Comment on above: Patient Position: Sitting; Cuff Location : Left Arm; Cuff Size: Large 03-09-2015 07:42-0400 BSA (Body Surface Area) 1.9 m2 Heather Au RN [facility] Work Phone: 03-09-2015 07:42-0400 Height 167.64 cm Heather Au RN [facility] Work Phone: 03-09-2015 07:42-0400 Pulse (Heart Rate) 68 /min Heather Au RN [facility] Work Phone: Comment on above: Pattern: Regular 03-09-2015 07:42-0400 Pulse Oximetry 98 % Jes Brownon [facility] Work Phone: Comment on above: Room air 03-09-2015 07:42-0400 Respiratory Rate 18 /min Heather Au RN [facility] Work Phone: Comment on above: Pattern: Unlabored 03-09-2015 07:42-0400 SaO2% (BldA) [Mass fraction] 98 % Heather Au RN [facility]; [facility] Work Phone: Comment on above: Room air 03-09-2015 07:42-0400 Weight 80.51 kg Jes Spicer [facility] Work Phone: 02-08-2014 13:14-0400 BMI (Body Mass Index) 29.26 kg/m2 Jes Spicer [facility] Work Phone: 02-08-2014 13:14-0400 Body Temperature 98.9 [degF] Jes Spicer [facility] Work Phone: Comment on above: Method: Oral 02-08-2014 13:14-0400 Body weight 82.24 kg Jes Spicer [facility] Work Phone: 02-08-2014 13:14-0400 BP Diastolic 80 mm[Hg] Jes Spicer [facility] Work Phone: Comment on above: Patient Position: Sitting; Cuff Location : Left Arm; Cuff Size: Standard 02-08-2014 13:14-0400 BP Systolic 122 mm[Hg] Jes Spicer [facility] Work Phone: Comment on above: Patient Position: Sitting; Cuff Location : Left Arm; Cuff Size: Standard 02-08-2014 13:14-0400 BSA (Body Surface Area) 1.92 m2 Jes Spicer [facility] Work Phone: 02-08-2014 13:14-0400 Height 167.64 cm Jes Spicer [facility] Work Phone: 02-08-2014 13:14-0400 Pulse (Heart Rate) 92 /min Jes Spicer [facility] Work Phone: Comment on above: Pattern: Regular 02-08-2014 13:14-0400 Pulse Oximetry 97 % Jes Spicer [facility] Work Phone: Comment on above: Room air 02-08-2014 13:14-0400 SaO2% (BldA) [Mass fraction] 97 % Jes Spicer DO Work Phone: [facility]; [facility] Work Phone: Comment on above: Room air 02-08-2014 13:14-0400 Weight 82.24 kg Jes Spicer [facility] Work Phone: 12-22-2013 08:29-0500 Body Temperature 97.8 [degF] Jes Spicer [facility] Work Phone: Comment on above: Method: Oral 12-22-2013 08:29-0500 Body weight 82.24 kg Jes Spicer [facility] Work Phone: 12-22-2013 08:29-0500 BP Diastolic 70 mm[Hg] Jes Spicer [facility] Work Phone: Comment on above: Patient Position: Sitting; Cuff Location : Left Arm; Cuff Size: Standard 12-22-2013 08:29-0500 BP Systolic 110 mm[Hg] Jes Spicer [facility] Work Phone: Comment on above: Patient Position: Sitting; Cuff Location : Left Arm; Cuff Size: Standard 12-22-2013 08:29-0500 Pulse (Heart Rate) 68 /min Jes Spicer [facility] Work Phone: Comment on above: Pattern: Regular 12-22-2013 08:29-0500 Pulse Oximetry 98 % Jes Spicer [facility] Work Phone: Comment on above: Room air 12-22-2013 08:29-0500 Respiratory Rate 16 /min Jes Spicer [facility] Work Phone: 12-22-2013 08:29-0500 SaO2% (BldA) [Mass fraction] 98 % Jes Spicer DO Work Phone: [facility]; [facility] Work Phone: Comment on above: Room air 12-22-2013 08:29-0500 Weight 82.24 kg Jes Spicer [facility] Work Phone: 12-15-2013 08:49-0500 Body Temperature 98.1 [degF] Gaby Noble [facility] Work Phone: Comment on above: Method: Oral 12-15-2013 08:49-0500 BP Diastolic 68 mm[Hg] Gaby Sotomayor[employer] [facility] Work Phone: Comment on above: Patient Position: Sitting; Cuff Location : Left Arm; Cuff Size: Standard 12-15-2013 08:49-0500 BP Systolic 102 mm[Hg] Gaby Sotomayor[employer] [facility] Work Phone: Comment on above: Patient Position: Sitting; Cuff Location : Left Arm; Cuff Size: Standard 12-15-2013 08:49-0500 Pulse (Heart Rate) 74 /min Gaby SotomayorMicro[employer] [facility] Work Phone: Comment on above: Pattern: Regular 12-15-2013 08:49-0500 Pulse Oximetry 97 % Jes Spicer [facility] Work Phone: Comment on above: Room air 12-15-2013 08:49-0500 Respiratory Rate 16 /min Gaby SotomayorMicro[employer] [facility] Work Phone: Comment on above: Pattern: Unlabored 12-15-2013 08:49-0500 SaO2% (BldA) [Mass fraction] 97 % [facility]; [facility] Work Phone: Comment on above: Room air Encounters Encounter Date Encounter Type Care Provider Facility Start: 04-20-2025 ambulatory Jes Spicer Facilit y:[facility] Start: 04-19-2025 ambulatory Jes Spicer Facilit y:[facility] Start: 01-12-2025 End: 01-12-[address] Jes Spicer DO Work Phone: [facility] Work Phone: Start: 01-12-2025 End: 01-12-[address] Jes Spicer DO -Laboratory Work Phone: Start: 01-12-2025 End: 01-12-2025 ambulatory Jes Spicer Facility:[facility] Start: 10-13-2024 ambulatory Garrett Lind OLS Facili ty:[facility] Start: 09-20-2024 End: 09-20-2024 ambulatory Jes Shyam Facility:[facility] Start: 09-17-2024 End: 10-02-2024 ambulatory Garrett Chi Diogo OLS Facility:[facility] Start: 09-14-2024 End: 09-14-2024 ambulatory Jes Spicer Facility:[facility] Start: 08-11-2024 End: 08-11-2024 ambulatory Jesallan Spicer Facility:[facility] Start: 06-03-2024 End: 07-03-2024 ambulatory Garrett Laurent Diogo OLS Facility:[facility] Start: 04-20-2024 End: 04-20-2024 ambulatory Gabrielle Vargas NP Facility[place] [place] Start: 12-04-2023 End: 01-01-2024 ambulatory [facility] Work Phone: Start: 12-04-2023 End: 01-01-2024 Discharged Recurring [facility] Start: 11-13-2023 End: 12-03-[address] Jes Spicer Work Phone: [facility] Work Phone: Start: 11-13-2023 End: 12-03-[address] Jes Spicer Work Phone: [facility] Start: 10-31-2023 End: 11-02-[address] Jes Spicer Work Phone: [facility] Start: 09-30-2023 End: 09-30-[address] Jes Spicer Work Phone: [facility]-Ultrasound, [facility] Work Phone: Start: 09-29-2023 End: 10-02-[address] Jes Spicer Work Phone: [facility] Work Phone: Start: 09-29-2023 End: 10-02-[address] Jes Spicer Work Phone: [facility] Start: 09-16-2023 End: 09-16-[address] Jes Spicer Work Phone: [facility] Work Phone: Start: 09-16-2023 End: 09-16-[address] Jes Spicer Work Phone: [facility]-Outpatient Bone Densitometry Work Phone: Start: 09-09-2023 End: 09-09-[address] Jes Spicer Work Phone: [facility] Work Phone: Start: 09-09-2023 End: 09-09-[address] Jes Spicer Work Phone: [facility]-Laboratory Work Phone: Start: 09-04-[address] Sneha Spicer Work Phone: [facility] Start: 09-03-2023 End: 09-03-[address] Jes Spicer Work Phone: [facility] Work Phone: Start: 07-24-2023 End: 08-02-[address] Jes Spicer Work Phone: [facility] Work Phone: Start: 07-24-2023 End: 08-02-[address] Jes Spicer Work Phone: [facility] Start: 07-24-[address] Sneha Spicer Work Phone: [facility] Start: 07-21-2023 End: 08-02-[address] Jes Spicer Work Phone: [facility] Work Phone: Start: 07-21-2023 End: 08-02-[address] Jes Spicer Work Phone: [facility] Start: 07-21-[address] Sneha Spicer Work Phone: [facility] Start: 07-17-2023 End: 08-02-[address] Jes Spicer Work Phone: [facility] Work Phone: Start: 07-17-2023 End: 08-02-[address] Jes Spicer Work Phone: [facility] Start: 06-11-2023 End: 06-11-[address] Jes Spicer Work Phone: [facility] Work Phone: Start: 06-02-2023 End: 06-02-[address] Jes Spicer Work Phone: [facility] Work Phone: Start: 05-14-2023 End: 05-14-[address] Jes Spicer Work Phone: [facility] Work Phone: Start: 05-14-2023 End: 05-14-[address] [facility] Start: 05-14-[address] Sneha [facility]icer [facility] Start: 04-01-2023 End: 04-01-[address] Jes Spicer Work Phone: [facility] Work Phone: Start: 04-01-2023 End: 04-01-[address] Jes Spicer Work Phone: [facility]-Sleep Lab Start: 03-05-[address] Sneha Spicer Work Phone: [facility]Occupational Therapy Start: 02-26-2023 End: 02-26-[address] Jes Spicer Work Phone: [facility] Work Phone: Start: 02-26-2023 End: 02-26-[address] Jes pSicer Work Phone: [facility]-Outpatient Breast Imaging Start: 02-26-[address] Sneha Spicer Work Phone: [facility]-Occupational Therapy Start: 02-26-2023 End: 02-26-2023 Office outpatient visit 15 minutes Jes Spicer DO Work Phone: [facility] Start: 02-20-2023 End: 02-20-[address] Jes Spicer Work Phone: [facility] Work Phone: Start: 02-20-2023 End: 02-20-[address] Jes Spicer Work Phone: [facility]-Outpatient Bone Densitometry Start: 02-19-[address] Sneha Spicer Work Phone: [facility]-Occupational Therapy Start: 02-19-2023 End: 02-19-[address] Jes Spicer Work Phone: [facility] Work Phone: Start: 02-19-2023 End: 02-19-[address] Jes Spicer Work Phone: [facility]-Laboratory Start: 02-17-2023 End: 02-17-[address] Jes Spicer Work Phone: [facility] Work Phone: Start: 02-17-2023 End: 02-17-[address] [facility] Start: 2023 End: 03-02-[address] Jes Spicer Work Phone: [facility] Start: [address] Sneha Spicer Work Phone: [facility] Start: 01-30-2023 End: 01-31-[address] Jes Spicer Work Phone: [facility] Work Phone: Start: 01-30-2023 End: 01-31-[address] Jes Spicer Work Phone: [facility] Start: 01-29-[address] Sneha Spicer [facility] Start: 01-15-2023 End: 01-15-[address] Jes Spicer Work Phone: [facility] Start: 11-27-2022 End: 11-27-[address] Jes Spicer Work Phone: [facility] Start: 11-15-[address] Andry Spicer Work Phone: [facility] Start: 08-28-2022 ambulatory Jes Spicer DO Comp re[facility]ive Internal Med Start: 08-28-2022 End: 08-28-2022 Office outpatient visit 10 minutes Jes Spicer DO Work Phone: [facility] Start: 08-19-2022 Non-patient / Non-visit Dr. Jes Spicer Work Phone: [facility] Start: 08-19-2022 End: 08-19-2022 Admission to same day surgery center Dr. Jes Spicer Work Phone: [facility]-Endoscopy Start: 08-19-2022 End: 08-19-[address] Jes Spicer Work Phone: [facility] Work Phone: Start: 08-09-2022 Review Jes downey DO Work Phone: [facility] Start: 08-09-2022 End: 08-09-2022 Office outpatient visit 15 minutes Jes Spicer DO Work Phone: [facility] Start: 08-01-2022 End: 08-02-[address] Jes Spicer Work Phone: [facility] Work Phone: Start: 08-01-2022 End: 08-02-[address] Jes Spicer Work Phone: [facility] Start: 07-01-2022 End: 07-03-[address] Jes Spicer Work Phone: [facility] Work Phone: Start: 07-01-2022 End: 07-03-[address] Jes Spicer Work Phone: [facility] Start: 06-12-2022 End: 06-12-[address] Jes Spicer Work Phone: [facility] Start: 05-10-2022 Non-patient / Non-visit Dr. Jes Spicer Work Phone: [facility] Start: 05-01-2022 End: 05-01-[address] Jes [facility] Start: 04-25-2022 End: 04-26-2022 Office outpatient visit 10 minutes Jes Spicer DO Work Phone: [facility] Start: 04-24-2022 End: 04-24-[address] Jes Spicer Work Phone: [facility] Start: 04-22-2022 End: 05-02-[address] Jes Spicer Work Phone: [facility] Start: 03-14-2022 End: 04-02-[address] [facility] Start: 03-13-[address] Sneha Spicer [facility] Start: 03-01-[address] Sneha Spicer [facility] Start: 02-28-2022 End: 03-02-[address] Jes [facility]icer [facility] Start: 02-24-[address] Sneha Spicer [facility] Start: 02-21-2022 End: 02-21-[address] Jes Spicer [facility] Start: 02-21-[address] Sneha Spicer [facility] Start: 02-20-[address] Sneha Spicer [facility] Start: 02-11-2022 End: 02-11-[address] Jes Spicer [facility] Start: 01-31-2022 End: 01-31-[address] Jes Spicer [facility] Start: 01-30-2022 End: 01-30-[address] Jes Spicer Work Phone: [facility] Start: 01-10-2022 End: 01-31-[address] Jes Spicer [facility] Start: 12-31-2021 End: 12-31-[address] Jes Spicer Work Phone: [facility] Start: 12-10-[address] Sneha Spicer [facility] Start: 12-03-2021 End: 12-03-[address] Jes Spicer Work Phone: [facility] Start: 11-12-2021 End: 11-12-[address] Jes Spicer Work Phone: [facility] Start: 10-09-2021 End: 10-09-[address] Jes Spicer [facility] Start: 10-05-2021 End: 11-02-[address] Jes Spicer Work Phone: [facility] Start: 10-05-2021 End: 10-05-[address] Jes Spicer Work Phone: [facility] Start: 07-11-2021 End: 07-11-2021 Office outpatient visit 25 minutes Jes Spicer DO Work Phone: [facility] Start: 04-16-2021 End: 04-16-2021 Phone Encounter Jes Spicer DO Work Phone: [facility] Start: 04-16-2021 Review Jesallan Brownwillian downey DO Work Phone: [facility] Start: 09-11-2020 End: 09-11-2020 Office outpatient visit 5 minutes Jes Spicer [facility] Start: 07-07-2020 End: 07-07-2020 Office outpatient visit 15 minutes Jes Spicer [facility] Start: 06-05-2020 End: 06-05-2020 Phone Encounter Jes Spicer [facility] Start: 06-05-2020 End: 06-05-2020 Phone Encounter Jes Spicer [facility] Start: 06-16-2019 End: 06-16-2019 Office outpatient visit 25 minutes Jes Spicer [facility] Start: 10-21-2018 End: 10-21-2018 Office outpatient visit 15 minutes Jes Spicer [facility] Start: 10-06-2018 End: 10-06-2018 Office outpatient visit 25 minutes Jes Spicer [facility] Start: 12-11-2015 End: 12-13-2015 Patient encounter procedure Jes Spicer DO Work Phone: [facility] Start: 12-11-2015 End: 12-13-2015 Periodic preventive med est patient 40-64yrs Jes Spicer [facility] Start: 03-09-2015 End: 03-09-2015 Office outpatient visit 15 minutes Jes Spicer [facility] Start: 09-27-2014 End: 09-27-2014 Annotation/Addendum Jes Spicer [facility] Start: 09-21-2014 End: 09-26-2014 Office outpatient visit 5 minutes Jes Spicer [facility] Start: 02-08-2014 End: 02-08-2014 Office outpatient visit 15 minutes Jes Spicer [facility] Start: 12-24-2013 End: 12-24-2013 Annotation/Addendum Jes Spicer [facility] Start: 12-22-2013 End: 12-22-2013 Office outpatient visit 15 minutes Jes Spicer [facility] Start: 12-17-2013 End: 12-17-2013 Patient encounter procedure Jes Spicer [facility] Start: 12-15-2013 End: 12-15-2013 Office outpatient visit 25 minutes Jes Spicer [facility] Patient encounter procedure Fide Marcelo [facility]; [facility] Work Phone: Patient encounter procedure Brittani Lane [facility]; [facility] Work Phone: Patient encounter procedure Leola Valera [facility]; [facility] Work Phone: Patient encounter procedure Shaheen David [facility]; [facility] Work Phone: Patient encounter procedure Brittani Lane [facility]; [facility] Work Phone: Patient encounter procedure Rasheedadionylizbet StrangeBrule [facility]; [facility] Work Phone: Procedures Date Procedure Procedure Detail Performing Clinician Start: 12-04-2023 Viral antigen assay Start: 11-13-[address] Jes Spicer Work Phone: Start: 10-31-[address] Jes Spicer Work Phone: Start: 09-30-2023 US scan of thyroid Dr. Jes Spicer Work Phone: Start: 09-29-[address] Jes Spicer Work Phone: Start: 09-16-2023 Dual energy X-ray absorptiometry Dr. Jes Spicer Work Phone: Start: 09-04-[address] Jes Spicer Work Phone: Start: 07-24-[address] Jes Spicer Work Phone: Start: 07-21-[address] Jes Spicer Work Phone: Start: 02-26-[address] Jes Spicer Work Phone: Start: 02-26-2023 End: 02-26-2023 SCRN MAMM (CAD)W/CATIE BILAT Procedure Note: See Note; NOTES: [facility] Imaging Services [address] [place] [address] SCRN MAMM (CAD)W/CATIE BILAT MR#: [id number] Acct: [id number] Name: TRISTAN SINGH Rep #: [id number] : 1960 F 63 From: Trey tran MD PCP: Dr. Jes Spicer, DO Status: [facility] Study: SCRN MAMM (CAD)W/CATIE BILAT Date of Exam: 02/02 04/25 Exam# [id number] Ordering Dr: Cynthia Marie MD MAMMOGRAPHY - BILATERAL SCREENING REASON FOR EXAM: Female, 63 years old. Routine annual screening examination. PERTINENT HISTORY: Mother with breast cancer. Aunt with breast cancer. TECHNIQUE: Digital bilateral breast catie (3D mammographic acquisition) in the CC and MLO projections. 2-D mediolateral oblique (MLO) and craniocaudad (CC) views of both breasts were obtained. CAD: Full Field Digital Mammography with Computer Added Detection was performed. COMPARISON: Comparison is made with prior study dated April 25, 2021 and April 19, 2020. FINDINGS: Breast Composition: The breasts are heterogeneously dense, which may obscure small masses. There are no dominant masses or suspicious calcifications. Stable benign-appearing bilateral axillary lymph nodes. No other significant abnormalities are identified. There has been no significant change since the prior study. BI/SCRN MAMM (CAD)W/CATIE BILAT IMPRESSION: Stable bilateral screening mammogram. Yearly follow-up mammogram recommended. (A) ASSESSMENT CATEGORY: BIRADS Category 2: Benign. A letter regarding these results will be sent to the patient by the facility within 30 days. Approximately 10% of breast cancers are not detected by mammography. A normal mammogram should not delay biopsy of a clinically suspicious abnormality. [id number] Electronically Signed: Trey Patricia MD at 11:17 EDT , CC: Dr. Jes Spicer DO; Dr. Cynthia Franklin MD Game Designer/Creative Director: Signed Jes Spicer DO Work Phone: Start: 01-29-2023 End: 01-29-2023 OT General Evaluation Procedure Note: See Note; NOTES: [facility] [address] [place] [address] [address] [place] [address] / REHABILITATION SERVICES INITIAL EVALUATION MR#: [id number] Acct: [id number] Name: TRISTAN SINGH Rep #: [id number] : 1960 62 From: Enid OBANDO/VANDANA Richardson Referring Dr.: Dr. Jung Gudino DO Status: R EG RCR Insurance: [facility] [employer] Date: SELF PAY INSURANCE Patient's Visit Information TRISTAN SINGH is a 62 year old F, referred to Occupational Therapy by Dr. Jung Gudino DO, with a diagnosis of left lateral epi. Date of Evaluation: 01/28/23 Occupational Therapist: Enid Pacheco, GISELLA/Debra, CHT - Subjective This 62 year old female was seen for OT eval with dx of lateral epi. pt states she has had difficulty with left elbow pain on and off for about two years. pt states she had MRI that indicated partial common extensor tendon tear- and lateral collateral ligament strain. pt two weeks ago had cortisone injection and at this time reports pain is returning. Pt is hopeful she can alleviate her symptoms and return to her exercise program and performing her ADLs and IADLs at IND. level without pain - ADLs Comments: pt limited with any resistive bilateral hand tasks or use of left UE with ADLs. helps when able with home mtg. 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 with ADLs and IADLs by d.c Goal:: pt will demo a increase in left elbow ROM by 20* to increase pts ind. with ADLs and IADLs by d.c Goal:: pt will demo a increase in left elbow ROM and report no pain with full ROM by d.c. pt will report no pain greater than 2/10 with use of left UE by dc Goal:: pt will demo understanding of protective positioning for elbow to prevent stress on tendon/ligament by end of week 2 Goal:: pt will demo understanding of using wrist brace and counter force brace to decrease tension on tendon origin by end of week 2 - Rehabilitation General Assessment: pt demo with positive symptoms of left lateral epi. pt demo with weakness and pain when using left UE with ADls and IADLs. pt demo need for skilled OT services 2-3x week for 4- 6weeks. Today therapist ed. pt on POC. Pt demo understanding and agrees to POC. Rehabilitation Potential: Good - Anticipated Interventions A/AAROM/PROM, Strengthening, Triggerpoint Release, Modalities, Orthoses, Joint Protection/Energy Conservation, Ergonomic Education, Education re assistive Equipment, Education re Diagnosis - Visit Plan Frequency: 1-2x /Week Duration: 2 Months TEXT: Thank you for the opportunity to evaluate your patient. For Medicare and Medicare HMO plans, please review the plan of care and approve it. It will need to be FAXED BACK to us at [phone] for Medicare purposes. Please let me know if there are questions or concerns regarding this plan of care. Physician Signature: ___Date: <Electronically signed by Enid SAINI CHT> 01/29/23 3088 CC: Dr. Jung Gudino DO; Dr. Jes Spicer DO MK Signed For Medicare only, by signing this I certify the plan of care. Physicians Signature Date Jes Spicer DO Work Phone: Start: 01-15-2023 End: 01-15-2023 Orthopedic Visit Report Procedure Note: See Note; NOTES: [facility] [address] [place] [id number] OFFICE VISIT Date of Service: 01/15/23 MR#: [id number] Acct: [id number] Name: SAMANTHATRISTAN WHITMAN Rep #: [id number] : 1960 Provider: Dr. Jung peters DO Age/Sex: 62/F Location: [facility] [place] Status: Signed Intake Vital Signs 08/19/22 07:02 Height 5 ft 6 in Intake Visit Reasons: LEFT ELBOW Chief Complaint: left elbow Is patient in pain?: Yes Allergies No Known Allergies Allergy (Verified 01/15/23 09:16) Medications ascorbic acid (vitamin C) 500 mg capsule 500 mg PO DAILY 12/17/17 [History Confirmed 01/15/23] acetaminophen 325 mg tablet (Tylenol) 650 mg PO PRN PRN Pain 01/30/22 [History Confirmed 01/15/23] estradiol 0.01% (0.1 mg/gram) vaginal cream 1 g vaginal 2XW 05/10/22 [History Confirmed 01/15/23] calcium 600 mg capsule 600 mg PO DAILY 06/26/22 [History Confirmed 01/15/23] cholecalciferol (vitamin D3) 25 mcg (1,000 unit) capsule (Vitamin D3) 25 mcg PO DAILY 06/26/22 [History Confirmed 01/15/23] vitamin K2 100 mcg capsule 100 mcg PO DAILY 06/26/22 [History Confirmed 01/15/23] zinc 50 mg tablet 50 mg PO DAILY 06/26/22 [History Confirmed 01/15/23] meloxicam 15 mg tablet 15 mg PO DAILY #30 tabs 01/15/23 [Rx Confirmed 01/15/23] PFSH Medical History Arthritis Back pain Endometriosis History of echocardiogram Lab test negative for COVID-19 virus left ovary removal Leg cramps Non-smoker Post-menopausal Shortness of breath on exertion Wears glasses Surgical History Hx of laparoscopy Family History Sister Colon polyps Other Breast cancer Melanoma Myocardial infarction Sudden cardiac Thyroid disorder Social History Smoking Status: Never smoker alcohol intake: never substance use type: does not use what type of physical activity do you participate in: walking and weight training frequency: 3-4 times per week HPI LEFT ELBOW Details: Parts of this documentation were recorded by a scribe, this documentation accurately reflects the service provided and the decisions made by me, Dr. Jung Gudino, DO 01/15/23 5206. TRISTAN SINGH is a 62 year old F here today for ongoing left lateral elbow pain . To recall she did have a lateral epicondylar injection by Mani Hendricks 2021 which was only short-lived relief. Since her pain was more anterior than to be expected for her lateral epicondylitis MRI was ordered for which she is here to review. Patient would like another steroid injection if it is recommended. Ortho Exam General General: Yes no acute distress Neurologic: Yes alert and Yes oriented x3 Psychologic: Yes reasonable and appropriate Left Elbow Test: Yes TTP Lateral Epicondyle, Yes Pain w/ resist wrist ext and Yes Pain w/ resist 3rd dig ext ROM: Yes Flexion 0-140, Extension 0, Supination 0-90 and Pronation 0-80 ELBOW: TTP common extensor tendon Office Procedures Ortho Injections Injections Yes Lateral Epicondyle Left Details: Obtained consent for injection. Under sterile conditions, injected the patients left lateral epicondyle with 0.5cc Bupivacaine and 1cc Depomedrol. The patient tolerated the injection well without any noted complication. Patient should call our office if redness develops, pain worsens or if they have any concerns. Office Meds Depo-Medrol Performing Provider: Jung Gudino DO Administered by: Jung Gudino DO on 01/15/23 09:35 Dose Route Admin Location Lot Number Expiration Date NDC Manufactu rer 40 mg intra-articular left lateral epicondyle [id number] 02/01/25 6529-5671-17 [employer] Supplemental Info 12/24/2022 MRI left elbow: Lateral epicondylitis partial tear common tendon origin, LCL sprain 11/27/2022 x-ray left elbow: Normal Coding Level of Care Code Off vis,est,level 3 Diagnoses Left lateral epicondylitis M77.12 CPT Codes drama [email or web address] () Assessment and Plan Assessment and Plan (1) Left lateral epicondylitis: Status: Acute Orders: Orders Ortho Injections Today M77.12 - Lateral epicondylitis, left elbow Referrals Occupational Therapy Referral M77.12 - Lateral epicondylitis, left elbow Medications: New meloxicam Do not take in conjunction with other NSAID. Tylenol is okay. 15 mg PO DAILY 30 tabs 0RF Plan Personally reviewed MRI of the left elbow. Educated that the MRI shows lateral epicondylitis along with an LCL sprain. Recommended a steroid injection of the lateral epicondyle at this time and she can continue with OT. She wishes to proceed with the injection and OT and Mobic. Also educated on activity modification and lifting with her palm up as well as demonstrated home exercises for eccentric strengthening. Another option is to wear a wrist brace to prevent irritation as well of the common extensor muscles crossing the elbow, this was dispensed. She can continue with dry needling as long as this is helpful with her pain. Follow up as needed or sooner if pain, swelling, numbness or associated symptoms, or concerns develop. All questions answered. Patient in agreement of plan. Plan Details Goals Barriers: Goals Decrease pain Increase ROM Decrease spasm 01/15/23 1003 <Electronically signed by Jung Gudino DO> Date Jung Gudino DO Cosigner Signature: Date (if applicable) CC: Jes Spicer DO Work Phone: Start: 11-27-2022 Plain x-ray of elbow Dr. Jes Spicer Work Phone: Start: 11-27-2022 End: 11-27-2022 Elbow min 3 Views Procedure Note: See Note; NOTES: [facility] [address] [place] [address] Elbow min 3 Views MR#: [id number] Acct: [id number] Name: TRISTAN SINGH Rep #: [id number] : 1960 F 62 From: Aristides Aly MD PCP: Dr. Jes Spicer DO Status: DEP AMB Study: Elbow min 3 Views Date of Exam: 11/27/22 Exam# [id number] Ordering Dr: Jung Gudino DO EXAM: XR LEFT ELBOW COMPLETE, 3 OR MORE VIEWS CLINICAL INDICATION: Left elbow pain. TECHNIQUE: Frontal, lateral and oblique views of the left elbow. This report was created using [employer] report generation technology. COMPARISON: None. FINDINGS: BONES/JOINTS: Unremarkable. There is no displacement of the anterior or posterior fat pads. No acute fracture. No subluxation. Normal alignment. Preservation of the joint space. No destructive or sclerotic lesions. SOFT TISSUES: Unremarkable. No soft tissue swelling or gas. No radiopaque foreign body. RAD/Elbow min 3 Views IMPRESSION: Negative left elbow. Electronically Signed: Aristides Aly MD at 12:18 EST , CC: Dr. Jung Gudino DO; Dr. Jes Spicer DO Game Designer/Creative Director: Signed Jes Spicer DO Work Phone: Start: 11-25-2022 End: 11-27-2022 Orthopedic Visit Report Procedure Note: See Note; NOTES: [facility] [address] [place] [address] [address] [place] [address] OFFICE VISIT Date of Service: 11/27/22 MR#: [id number] Acct: [id number] Name: TRISTAN SINGH Rep #: [id number] : 1960 Provider: Dr. Jung peters DO Age/Sex: 62/F Location: [facility] Status: Signed Intake Vital Signs 08/19/22 07:02 Height 5 ft 6 in Intake Visit Reasons: LEFT ELBOW Chief Complaint: left elbow Is patient in pain?: Yes Pain scale (1-10): 5 Allergies No Known Allergies Allergy (Verified 08/19/22 07:01) Medications ascorbic acid (vitamin C) 500 mg capsule 500 mg PO DAILY 12/17/17 [History Confirmed 11/27/22] acetaminophen 325 mg tablet (Tylenol) 650 mg PO PRN PRN Pain 01/30/22 [History Confirmed 11/27/22] estradiol 0.01% (0.1 mg/gram) vaginal cream 1 g vaginal 2XW 05/10/22 [History Confirmed 11/27/22] calcium 600 mg capsule 600 mg PO DAILY 06/26/22 [History Confirmed 11/27/22] cholecalciferol (vitamin D3) 25 mcg (1,000 unit) capsule (Vitamin D3) 25 mcg PO DAILY 06/26/22 [History Confirmed 11/27/22] vitamin K2 100 mcg capsule 100 mcg PO DAILY 06/26/22 [History Confirmed 11/27/22] zinc 50 mg tablet 50 mg PO DAILY 06/26/22 [History Confirmed 11/27/22] [facility] Medical History Arthritis Back pain Endometriosis History of echocardiogram Lab test negative for COVID-19 virus left ovary removal Leg cramps Non-smoker Post-menopausal Shortness of breath on exertion Wears glasses Surgical History Hx of laparoscopy Family History Sister Colon polyps Other Breast cancer Melanoma Myocardial infarction Sudden cardiac Thyroid disorder Social History Smoking Status: Never smoker alcohol intake: never substance use type: does not use what type of physical activity do you participate in: walking and weight training frequency: 3-4 times per week HPI LEFT ELBOW Details: Parts of this documentation were recorded by a scribe, this documentation accurately reflects the service provided and the decisions made by me, Dr. Jung Gudino, DO 11/25/22 1516. TRISTAN SINGH is a 62 year old F here today for left elbow pain. She was in here last year and was given a lateral epicondyle injection by David which she states was only helpful fro about 1 weeks then the pain returned. She did completed OT last year and she is an CHARISMA her self. She has been having deep laser therapy through chiropractor which was 25% helpful. She then had dry needling on Friday this week which was very painful. She has tried Voltaren but this isnt helpful either. She has pain over the lateral elbow and the last year but is also creeping more anterior now. Ortho Exam General General: Yes no acute distress Neurologic: Yes alert and Yes oriented x3 Psychologic: Yes reasonable and appropriate Left Elbow Skin/Wound: No eccymosis, No erythema and No Swelling Test: No Valgus Stress Test, No Varus Stress Test, Yes TTP Lateral Epicondyle, Yes Pain w/ resist wrist ext and Yes Pain w/ resist 3rd dig ext ROM: Yes Flexion 0-140, Extension 0, Supination 0-90 and Pronation 0-80 ELBOW: no joint effusion no concerning skin lesions or masses however her pain is more anterior than isolated lateral epicondylitis would be expected as she is tender along the extensor carpi radialis longus muscle belly as well as lateral epicondyle common extensor, she has intact biceps and triceps tendon Supplemental Info 11/27/2022 x-ray left elbow: Normal Coding Level of Care Code Off vis,est,level 3 Diagnoses Left lateral epicondylitis M77.12 Assessment and Plan Assessment and Plan (1) Left lateral epicondylitis: Status: Acute Orders: Orders Elbow min 3 Views Today M25.522 - Pain in left elbow Upper Ext Joint Only(Routine) Today M77.12 - Lateral epicondylitis, left elbow Plan Obtained X-rays of patient's left elbow. Personally reviewed x-rays. There is no obvious fracture, dislocation, or lucency noted. Educated that her pain is consistent with lateral epicondylitis h owever it is extending more anterior than would be expected. Considering the duration of symptoms and failure to conservative treatment patient is requesting MRI, I do not think this is unreasonable. treatment options are do nothing or another steroid injection or PRP injection or MRI of the left elbow. She wishes to proceed with MRI of the left elbow since she has tried and failed OT, steroid injection, dry needling, and deep laser therapy. Follow up after MRI or sooner if pain, swelling, numbness or associated symptoms, or concerns develop. All questions answered. Patient in agreement of plan. Plan Details Goals Barriers: Goals Decrease pain Increase ROM Decrease spasm 11/27/22 1103 <Electronically signed by Jung Gudino DO> Date Jung Gudino DO Cosigner Signature: Date (if applicable) CC: Jes Spicer DO Work Phone: Start: 08-19-2022 End: 08-19-2022 Colonoscopy Report Procedure Note: See Note; NOTES: [facility] Medical Records Department [address] [place] [address] Colonoscopy Report MR#: [id number] Acct: [id number] Name: TRISTAN SINGH Rep #: [id number] : 1960 62 From: Rossana Ngo MD PCP: Dr. Jes Spicer, DO Status:[facility] [place] Patient Name: Tristan Singh Procedure Date: 08/19/2022 7:15 AM Date of : 1960 Age: 62 Procedure: Colonoscopy Indications: Screening for colorectal malignant neoplasm Providers: Rossana Ngo MD Medicines: Monitored Anesthesia Care Patient Profile: This is a 62 year old female. Last Colonoscopy: none. The patient's first colonoscopy is today. Complications: No immediate complications. Procedure: Pre-Anesthesia Assessment: - Prior to the procedure, a History and Physical was performed, and patient medications and allergies were reviewed. The patient's tolerance of previous anesthesia was also reviewed. The risks and benefits of the procedure and the sedation options and risks were discussed with the patient. All questions were answered, and informed consent was obtained. Prior Anticoagulants: The patient has taken no previous anticoagulant or antiplatelet agents. ASA Grade Assessment: Per anesthesia. After reviewing the risks and benefits, the patient was deemed in satisfactory condition to undergo the procedure. After I obtained informed consent, the scope was passed under direct vision. Throughout the procedure, the patient's blood pressure, pulse, and oxygen saturations were monitored continuously. The Colonoscope was introduced through the anus and advanced to the cecum, identified by appendiceal orifice and ileocecal valve. The colonoscopy was performed without difficulty. The patient tolerated the procedure well. The quality of the bowel preparation was good. Scope In: 7:33:48 AM Scope Withdrawal Time 0 hours 9 minutes 14 seconds Scope Out: 7:52:51 AM Total Procedure Duration Time 0 hours 19 minutes 3 seconds Findings: Hemorrhoids were found on perianal exam. Non-bleeding internal hemorrhoids were found. The hemorrhoids were Grade I (internal hemorrhoids that do not prolapse). A few medium-mouthed diverticula were found in the sigmoid colon. White small lesions of mucosa throughout colon-biopsed , Biopsies were taken with a cold forceps for histology. The exam was otherwise without abnormality. Impression: - Hemorrhoids found on perianal exam. - Non-bleeding internal hemorrhoids. - Diverticulosis in the sigmoid colon. - The examination was otherwise normal. Recommendation: - Discharge patient to home. - High fiber diet. - Continue present medications. - Await pathology results. - Repeat colonoscopy in 10 years for screening purposes. Procedure Code(s): --- Professional --- 07380, PT, Colonoscopy, flexible; with biopsy, single or multiple Diagnosis Code(s): --- Professional --- Z12.11, Encounter for screening for malignant neoplasm of colon K64.0, First degree hemorrhoids K57.30, Diverticulosis of large intestine without perforation or abscess without bleeding CPT copyright 2017 [employer]. All rights reserved. The codes documented in this report are preliminary and upon administrative asst review may be revised to meet current compliance requirements. MD Rossana Mauricio MD 08/19/2022 8:04:34 AM This report has been signed electronically. Number of Addenda: 0 Note Initiated On: 08/19/2022 7:15 AM 08/19/22803 Date Rossana Ngo MD Cosigner Signature: Date (if indicated) CC: Dr. Jes Spicer DO; Dr. Rossana Ngo MD Date Dictated: 08/19/22714 Date Transcribed: Game Designer/Creative Director: TR Signed Jes Spicer DO Work Phone: Start: 08-19-[address] Jes Spicer Work Phone: Start: 08-19-2022 End: 08-19-2022 History and Physical Exam Procedure Note: See Note; NOTES: [facility] Medical Records Department [address] [place] [address] History Physical Exam 08/19/22718 MR#: [id number] Acct: [id number] Name: TRISTAN SINGH Rep #: [id number] : 1960 62 From: Rossana Ngo MD PCP: Dr. Jes Spicer DO Status:[facility] Location: AC AC11-1 HPI - General HPI Narrative TRISTAN SINGH, is a 62 F who presents for a screening B. Patient's never had previous colonoscopy. Patient denies any family history of colon cancer. Patient did have a Cologuard test done 3 years ago which was negative. Patient has bowel movements daily denies any blood. Patient denies any chronic abdominal pain/nausea/vomiting/reflux. Patient is also participating in the study were she also did a Cologuard test this time as well but results are still pending. The goal is to compare to colonoscopy [facility] Medical History Arthritis Back pain Endometriosis History of echocardiogram Lab test negative for COVID-19 virus left ovary removal Leg cramps Non-smoker Post-menopausal Shortness of breath on exertion Wears glasses Home Medications ascorbic acid (vitamin C) 500 mg capsule 500 mg PO DAILY 12/17/17 [History Last Taken Unknown] acetaminophen 325 mg tablet (Tylenol) 650 mg PO PRN PRN Pain 01/30/22 [History Last Taken Unknown] estradiol 0.01% (0.1 mg/gram) vaginal cream 1 g vaginal 2XW 05/10/22 [History Last Taken Unknown] calcium 600 mg capsule 600 mg PO DAILY 06/26/22 [History Last Taken Unknown] cholecalciferol (vitamin D3) 25 mcg (1,000 unit) capsule (Vitamin D3) 25 mcg PO DAILY 06/26/22 [History Last Taken Unknown] vitamin K2 100 mcg capsule 100 mcg PO DAILY 06/26/22 [History Last Taken Unknown] zinc 50 mg tablet 50 mg PO DAILY 06/26/22 [History Last Taken Unknown] Allergy/AdvReac Type Severity Reaction Status Date / Time No Known Allergies Allergy Verified 08/19/22 07:01 Family History (Updated 05/10/22 @ 10:02 by Lucy Solis) Sister Colon polyps Other Breast cancer Melanoma Myocardial infarction Sudden cardiac Thyroid disorder Surgical History Hx of laparoscopy Social History Smoking Status: Never smoker alcohol intake: never substance use type: does not use what type of physical activity do you participate in: walking and weight training frequency: 3-4 times per week Past Medical/Surgical History Planned Operation Planned Operative Procedure/s: OA-CSCOPE Previous Hospitalizations/Surgeries HX Hospitalizations: No HX of Surgeries: oopherectomy laparoscopy Any Problems With Anesthesia: No You/Your Family Experience Fever (Hyperthermia) With Anes: No Cholinesterase deficiency: No Cardiovascular Hx Hypertension: No Respiratory Hx Sleep Apnea: No Hx Respiratory Tract Infection/Cold (presently): No (COVID 04/2022. RESOLVED) Do You Snore Loudly (louder than talking or can be heard): Yes Do You Often Feel Tired/ Fatigued/ Sleepy Dring Daytime?: No Has Anyone Observed You Stop Breathing During Sleep?: Yes Result (for STOP score): Positive Smoking Status: Never smoker Neurological Hx Seizures: No Does patient have nerve stimulator: No Reproduction : No Genitourinary Hx Renal Disease: No Endocrine Hx Diabetes: No Miscellaneous Hx Cancer: No Recent Exposure to Contagious Disease: No Allergies No Known Allergies Allergy (Verified 08/19/22 07:01) Discharge Is Pt Admitted From a Group Home, or a Penitentiary: No After D/C, Where Do you Plan to Go: Return Home Vital Signs Vital Signs Vital Signs: 08/19/22 07:02 08/19/22 07:02 Temperature 97.8 F Temperature Source Temporal Pulse Rate 81 Respiratory Rate 17 Respiratory Pattern Normal Blood Pressure 147/81 H Blood Pressure Mean 103 Blood Pressure Source Monitor Blood Pressure Position Semi-Fowlers Blood Pressure Location Left Arm Pulse Ox 96 Oxygen Delivery Method Room Air Weight Weight: 192 lb 3.889 oz Body Mass Index (BMI) 31.0 Physical Exam Const alert, oriented x3 and no apparent distress HEENT normocephalic and head/scalp atraumatic Resp normal respiratory effort Cardio regular rate GI soft to palpation and non-tender; Negative for non-distended Palpation: Negative for guarding Extremity no clubbing, cyanosis or edema Neuro CN's II-XII intact bilaterally Psych mental status grossly normal Assessment Plan Assessment/Plan (1) Encounter for screening for malignant neoplasm of colon: Surgery Risks - Colonoscopy Risks Include but are not Limited To: Risks include but are not limited to: Bleeding, perforation requiring further surgery, inability to complete colonoscopy requiring barium enema. Patient had no further question this time. 08/19/22 07 <Electronically signed by Rossana Ngo MD> Cosigner Signature (if applicable): CC: Dr. Jes Spicer DO; Dr. Rossana Ngo MD Signed Jes Spicer DO Work Phone: Start: 08-06-2022 End: 08-06-2022 OT D/C of Non Returning Pt Procedure Note: See Note; NOTES: [facility] Occupational Therapy [facility] [address] [place] [address] / REHABILITATION SERVICES DISCHARGE SUMMARY MR#: [id number] Acct: [id number] Name: TRISTAN SINGH Rep #: [id number] : 1960 62 From: Enid OBANDO/VANDANA Richardson Referring Dr.: THIAGO Hendricks Status: REG RCR Eval Date: Discharge Date: TRISTAN SINGH was seen in my office for initial evaluation on 02/13/22. The following Plan of Care was established for this patient: Initial Frequency: 2x /Week Initial Duration: 6 Weeks Plan: continue with passive stretching, isometric. and strengthening, eccentric strength. using guidelines from [place] [facility] p [phone] Anticipated Interventions: A/AAROM/PROM, Strengthening, Massage, Modalities, Ergonomic Education, Fine Motor Coord/Cortes, ADL Training, Education re assistive Equipment, Home Program Other Interventions: Provided pt. with HEP to massage L elbow area, stretch tricep, and wrist flexion. Follow conservative techniques for lateral epiconylitis. This patient was last seen in our office 02/13/22. Pertinent comments regarding their Occupational therapy will appear below: pt was seen for 9 OT visits for lateral epi. pt was ed, in ergo- protective zbigniew. and eccentric ex. pt reported at last apt- no pain- pt did not schedule for further visits- pt d/c at this time. At this point I will be discontinuing this patient from occupational therapy. I would be happy to see this patient again in the future if found appropriate by the physician. Thank you! GISELLA Soriano/Debra, CHT <Electronically signed by Enid OBANDO/Debra, CHT> 08/06/22 1314 CC: THIAGO Hendricks; Dr. Jes Spicer DO MK Signed Jes Spicer DO Work Phone: Start: 06-12-2022 End: 06-12-2022 Breast Bilateral W/O and W Procedure Note: See Note; NOTES: [facility] Imaging Services [address] [place] [address] Breast Bilateral W/O and W MR#: [id number] Acct: [id number] Name: TRISTAN SINGH Rep #: [id number] : 1960 F 62 From: Aston Mclaughlin MD PCP: Dr. Jes Spicer DO Status: REG CLI Study: Breast Bilateral W/O and W Date of Exam: 06/12 Exam# [id number] Ordering Dr: Cynthia Marie MD STUDY: BILATERAL BREAST MR WITHOUT AND WITH CONTRAST REASON FOR EXAM: Female, 62 years old. Genetic susceptibility due to malignant neoplasm. TECHNIQUE: Multi-sequence multi-echo imaging of both breasts was performed with a dedicated breast coil. T1-weighted and T2-weighted images were performed before the administration of contrast. T1-weighted images were also performed after the intravenous administration of 17mL of DOTAREM contrast. COMPARISON: Screening mammograms dated 04/25/2021 and 04/19/2020. FINDINGS: RIGHT BREAST: The breast tissue is scattered fibroglandular densities with minimal background enhancement. There are no abnormal enhancing masses or areas of non-mass enhancement in the right breast. LEFT BREAST: The breast tissue is scattered fibroglandular densities with minimal background enhancement. There are no abnormal enhancing masses or areas of non-mass enhancement in the left breast. There are no enlarged or abnormal lymph nodes. There is no abnormality in the visualized regions of the chest or liver. MRI/Breast Bilateral W/O and W IMPRESSION: No abnormality on the breast MRI examination with contrast. Alternating yearly screening mammogram and breast MRI with contrast would be appropriate, given the history. CATEGORY: BIRADS Category 2: Benign. A letter regarding these results will be sent to the patient by the facility within 30 days. Electronically Signed: Aston Mclaughlin, at 14:35 EDT , CC: Dr. Jes Spicer DO; Dr. Cynthia Franklin MD Game Designer/Creative Director: Signed Jes Spicer DO Work Phone: Start: 06-12-2022 MRI of bilateral breasts with contrast Dr. Jes Spicer Work Phone: Start: 04-24-2022 End: 04-25-2022 Office Visit Report Comments: See Note; NOTES: [address] [place] [address] OFFICE VISIT Date of Service: 04/24/22 MR#: [id number] Acct: [id number] Patient: TRISTAN SINGH Rep #: [id number] : 1960 Provider: THIAGO Vidales Age/Sex: 62/F Location: [email or web address] Status: Signed Intake Vital Signs 10/09/21 11:40 Height 5 ft 6 in Intake Visit Reasons: PCR COVID/[facility] EMP Chief Complaint: Neck/Upper Back/Right shoulder Lower Back Pain Allergies No Known Allergies Allergy (Verified 10/08/21 13:44) Results POC OTIS Covid FluAB PCR POC Otis Covid PCR Detected Last Edit by Yennifre Mullen on 04/24/22 07:55 POC OTIS FLU NOT DETECTED FLU A B Last Edit by Yennifer Mullen on 04/24/22 07:55 04/25/22 1045 <Electronically signed by Imtiaz DAS> Date Imtiaz Flash PA PA Cosigner Signature: Date (if applicable) CC: Jes Spicer DO Work Phone: Start: 04-24-2022 End: 04-24-2022 Urgent Care Visit Report Comments: See Note; NOTES: [facility] [address] [place] [address] [address] [place] [address] OFFICE VISIT Date of Service: 04/24/22 MR#: [id number] Acct: [id number] Name: TRISTAN SINGH Rep #: [id number] : 1960 Provider: THIAGO Vidales Age/Sex: 62/F Location: [facility] Status: Signed Intake Vital Signs 10/09/21 11:40 04/24/22 07:36 Height 5 ft 6 in BP 122/72 H Blood Pressure Location Lt brachial Position Sitting Respiration 16 Pulse 80 Pulse Source Monitor Temp 98 F Temp Source Temporal Pulse Oximetry (%) 99 Oxygen Delivery Method room air Intake Visit Reasons: PCR COVID/SYMPTOMATIC/[facility] EMP Chief Complaint: Cough, congestion and headache Allergies No Known Allergies Allergy (Verified 10/08/21 13:44) PFSH Medical History Endometriosis Lab test negative for COVID-19 virus left ovary removal Family History Other Breast cancer Melanoma Myocardial infarction Sudden cardiac Thyroid disorder Social History Smoking Status: Never smoker alcohol intake: never substance use type: does not use what type of physical activity do you participate in: walking and weight training frequency: 3-4 times per week HPI HPI Chief Complaint: Cough, congestion and headache Details: TRISTAN SINGH, is a 62 F who presents to the office today for complaint of congestion and headache. Patient states her symptoms started 2 days ago. She denies hemoptysis, shortness of breath or difficulty breathing. No fever, chills, sweats. No nausea, vomiting or diarrhea. No loss of taste or smell. No other associated symptoms or alleviating/aggravating factors. ROS Const Constitutional: No other (6 system ROS completed with pertinent findings in the HPI otherwise normal.) Exam Const General: cooperative and well developed HENMT Head: normal to inspection and atraumatic Ears: hearing grossly normal bilaterally Nose: nasal discharge clear Face and sinus: normal facial exam Mouth: oral mucosae normal Throat: abnormal tonsil bilaterally hypertrophy 1+ Resp Effort Inspection: normal respiratory effort and no audible wheezes Auscultation: Bilateral: Clear to Auscultation Cardio Palpation: normal PMI Rate: regular rate Rhythm: regular rhythm Neuro General: patient alert and CN's II-XI intact bilaterally Psych Appearance: grossly normal Mental Status: mental status grossly normal Results POC OTIS Covid FluAB PCR POC Otis Covid PCR Detected Last Edit by Yennifer Mullen on 04/24/22 07:55 POC OTIS FLU NOT DETECTED FLU A B Last Edit by Yennifer Mullen on 04/24/22 07:55 Coding Level of Care Code Off vis,new,level 3 Diagnoses COVID-19 U07.1 Assessment and Plan Assessment and Plan (1) COVID-19: Status: Acute Plan: Patient tested positive for COVID in the office today. Patient advised of appropriate quarantine protocols. Encouraged to get plenty of rest, drink lots of clear liquids, and use Tylenol or Ibuprofen (unless contraindicated) for fever and comfort. Patient also educated on other symptomatic management techniques. To be seen in 7-10 days if no improvement; sooner if worsening of symptoms. Patient advised of potential red flags and when appropriate to report to the ED. Patient verbalized understanding and agreement with all the above. Plan Details Goals Barriers: Goals Decrease pain Increase ROM Decrease spasm 04/24/22 0908 <Electronically signed by Imtiaz DAS> Date Imtiaz DAS Cosigner Signature: Date (if applicable) CC: Jes Spicer DO Work Phone: Start: 03-14-2022 End: 03-14-[address] Jes Spicer Work Phone: Start: 02-28-2022 End: 02-28-[address] Jes Spicer Work Phone: Start: 02-21-2022 End: 02-21-[address] Jes Spicer Work Phone: Start: 02-13-2022 End: 02-13-2022 OT General Evaluation Comments: See Note; NOTES: [facility] [address] [place] [address]. [address] [place] [address] / REHABILITATION SERVICES INITIAL EVALUATION MR#: [id number] Acct: [id number] Name: TRISTAN SINGH Rep #: [id number] : 1960 62 From: Enid OBANDO/Debra, CHT Referring Dr.: THIAGO Hendricks Status: REG R Insurance: [employer] [facility] Date: SELF PAY INSURANCE Patient's Visit Information TRISTAN SINGH is a 62 year old F, referred to Occupational Therapy by THIAGO Rogers, with a diagnosis of Left lateral epicondylitis. Date of Evaluation: 02/13/22 Occupational Therapist: GISELLA Soriano/Debra, CHT - Subjective Pt. 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 She has had pain in her L UE for a couple of years, 2 weeks ago had a cortisone shot. She has been having difficulty with daily activities secondary to pain through her elbow area. She would like to resume PLOF. - ADLs Grooming: rn cardiac rehab Kitchen: Open jars, Lift gallon of milk Household: Vacuum Comments: Pt. reported that she does not have difficulty with Bathing and dressing. Difficulty with drying hair, vacuuming. Has started compensating with using Right hand. Working out and walking dogs at times will bother LUE. Pt. is Left hand dominant. - ROM Shoulder: B WFL Elbow: B WFL ROM Comments: pt. states she has grinding and cracking with shoulder movements. AROM WFL - Strength Shoulder: L 18.5# R 19# Elbow: L 15# R 18.8# Wrist: No pain with resistive sup/pro elbows at 90* Cokeman: elbow flexed L 50# R 60# elbow extended L 55# R 56# Lateral Pinch: L 15# R 16# Tripod Pinch: L 12# R 13# Tip-to-Tip Pinch: L 6# R 7# Strength Comments: Used micro FET for measurements - Edema Other: no swelling was observed - Sensation Stereognosis: Normal - Right, Normal - Left Kinesthesia: Normal - Right, Normal - Left Proprioception: Normal - Right, Normal - Left Sensation Comments: Pt. has no c/o numbness or tingling. - Transfers Transfers: Pt. is independent with functional mobility - Quick DASH-Disab of Arm,Shoulder Hand Quick DASH Score: 15.9075 - Goals Goal:: Pt. will increase LUE strength by 10# using micro FET to compensate for pain through L elbow for ADL tasks (hair drying) by dc. Pt. will increase LUE elbow strength to 18# to complete IADL work tasks by dc. Goal:: Pt. will report pain <1/10 during therapy treatments by dc. Goal:: Pt. will report 3 correct auto body repair teacher changes during work/IADL tasks to prevent increase in pain by dc. Goal:: Pt. will improve Grooming independence using modified tech. and report <1/10 pain by dc. - Rehabilitation General Assessment: Pt. has been diagnosed with left lateral epicondylitis. She had a cortisone shot 2 weeks ago and it has reduced her pain. Pt. has reported difficulty with ADL, IADL and work performance secondary to pain with specific movements and lifting weight with her LUE. Pt. would benefit from skilled OT services 2x a week for 6 weeks to restore flexibility of soft tissues strength. Therapy session was directly supervised and doc. reviewed and approved by Enid Pacheco OTR/Debra, CHT. Rehabilitation Potential: Good - Anticipated Interventions A/AAROM/PROM, Strengthening, Massage, Modalities, Ergonomic Education, Fine Motor Coord/Cortes, ADL Training, Education re assistive Equipment, Home Program Other Interventions: Provided pt. with HEP to massage L elbow area, stretch tricep, and wrist flexion. Follow conservative techniques for lateral epiconylitis. - Visit Plan Frequency: 2x /Week Duration: 6 Weeks General Plan: Self-massage of elbow clockwise, counter clockwise, length of muscle, perpendicular to muscle. Tricep stretch. Elbow bent wrist in neutral and wrist flexion, then elbow straight with wrist palm down and wrist flexion. Then move to phase 3 4 of Hand Rehab 5th ed. (162-165) TEXT: Thank you for the opportunity to evaluate your patient. For Medicare and Medicare HMO plans, please review the plan of care and approve it. It will need to be FAXED BACK to us at [phone] for Medicare purposes. Please let me know if there are questions or concerns regarding this plan of care. Physician Signature: ___Date: <Electronically signed by Enid SAINI CHT> 02/13/22 1346 CC: THIAGO Hendricks; Dr. Jes Spicer DO MK Signed For Medicare only, by signing this I certify the plan of care. Physicians Signature Date Jes Spicer DO Work Phone: Start: 02-11-2022 End: 02-11-[address] Jes Spicer Work Phone: Start: 01-31-2022 End: 01-31-[address] Jes Spicer Work Phone: Start: 01-30-2022 End: 01-30-2022 Orthopedic Visit Report Comments: See Note; NOTES: [facility] [address] [place] [id number] OFFICE VISIT Date of Service: 01/30/22 MR#: [id number] Acct: [id number] Name: TRISTAN SINGH Rep #: [id number] : 1960 Provider: THIAGO Hendricks Age/Sex: 61/F [place] [facility] [place] Status: Signed Intake Intake Visit Reasons: LEFT ELBOW Chief Complaint: Neck/Upper Back/Right shoulder Lower Back Pain Allergies No Known Allergies Allergy (Verified 10/08/21 13:44) Medications ascorbic acid (vitamin C) 500 mg capsule 500 mg PO DAILY 12/17/17 [History Confirmed 01/30/22] multivitamin 1 cap PO QAM 12/17/17 [History Confirmed 01/30/22] acetaminophen 325 mg tablet 650 mg PO ONCE PRN tab 01/30/22 [History Confirmed 01/30/22] PFSH Medical History Endometriosis Lab test negative for COVID-19 virus left ovary removal Family History Other Breast cancer Melanoma Myocardial infarction Sudden cardiac Thyroid disorder Social History Smoking Status: Never smoker alcohol intake: never substance use type: does not use what type of physical activity do you participate in: walking and weight training frequency: 3-4 times per week HPI LEFT ELBOW Details: Parts of this documentation were recorded by a scribe, this documentation accurately reflects the service provided and the decisions made by me, THIAGO Rogers 01/30/22 0909. TRISTAN SINGH is a 61 year old F here today for left lateral epicondyle pain. SHe states that she was here in 04/2021 and she was given OT and she didnt follow through with OT at the time and now the pain has worsened. Denies any injections or surgery of the elbow. She states that she has all lateral epicondyle pain. She states that working out increases the pain and she states now that anything she lifts is pain over the lateral elbow. Ortho Exam Left Elbow Test: No Valgus Stress Test, No TTP Medial Epicondyle, Yes TTP Lateral Epicondyle, Yes Pain w/ resist wrist ext, No Pain w/ resist wrist flex, Yes Pain w/ resist pronation and Yes Pain w/ resist 3rd dig ext ROM: Yes Flexion 0-140, Extension 0, Supination 0-90 and Pronation 0-80 Sensation: Radial: I, Ulnar: I and Median: I ELBOW: No abnormalities on inspection of the elbow. No localized or general swelling. She has no ecchymosis/bruising, erythema, or open changes. Patient does have full range of motion symmetric to the right elbow. She does get a little bit of pain with terminal flexion as well as some with supination pronation. Evident pains with resisted wrist and the third digit extension along with pronation. Evident reproducible tenderness over the epicondyles. Soft compartments above and below the elbow. Normal sensation to light touch. Normal distal radial pulses. Office Procedures Ortho Injections Injections Yes Lateral Epicondyle Left Details: Obtained consent for injection. Under sterile conditions, injected the patients left epicondyle with 05cc of Bupivacaine and 1cc of Kenalog. The patient tolerated the injection well without any noted complication. Patient should call our office if redness develops, pain worsens or if they have any concerns. Office Meds Kenalog Performing Provider: THIAGO Jaeger Administered by: THIAGO Jaeger on 01/30/22 09:45 Dose Route Admin Location Lot Number Expiration Date MTC Manufactu rer 40 mg intra-articular left elbow [id number] 10/03/22 7319-6699-44 [facility] Coding Level of Care Code Attention Storm Diagnoses Left lateral epicondylitis M77.12 CPT Codes drama [email or web address] () Comment cpt 25060 -injection into the insertion of a tendon Assessment and Plan Assessment and Plan (1) Left lateral epicondylitis: Status: Acute Orders: Orders: Kenalog Injection Today M77.12 Plan - THIAGO Jaeger: Patient presents the office today with left elbow pains which has been occurring for quite a long time now. Patient does state that after she was seen here last time she did not really do a whole lot in terms of physical therapy exercises as she states it just was not that bad however she states that it has been getting worse to where she now has pretty constant pain in the elbow especially with certain movements and therefore has been trying to not use the elbow as much. Physical exam shows evident reproducible lateral epicondyle tenderness and other signs/symptoms consistent with lateral epicondylitis. We did discuss anatomy and physiology as well as pathophysiology of this injury. We discussed treatment options which include oral anti-inflammatories, injection, physical therapy, further imaging. At this time patient states that she is having enough discomfort that she would like to have an injection today. We did discuss risks of the injection which in this case include injection site pain, infection, pigment changes, fat atrophy, and tendon changes. Patient understands his risks and consent was signed in office today. Point of maximal tenderness of the distal lateral epicondyle was noted and marked. Injection was then given under normal sterile fashion with elbow bent to 90 degrees. Patient tolerated procedure with mild discomfort. No complications were observed. I do want patient to ice this several times over the next several days and would also like her to take an anti-inflammatory regularly for a few days. Monitor notify of any erythema, discharge, warmth, increased pain, or any other signs or symptoms. Patient was also given a prescription for occupational therapy with a can work on exercises as well as other treatment modalities. Patient can return to the office with continued pains or problems. This note was generated with [employer] Inbox dictation software. It may contain incorrect words, spelling, and punctuation that were not noted in checking the note before signing. Plan Details Goals Barriers: Goals Decrease pain Increase ROM Decrease spasm 01/30/22 1050 <Electronically signed by Mani DAS> Date Mani DAS Cosigner Signature: Date (if applicable) CC: Jes Spicer DO Work Phone: Start: 12-31-2021 SARS-CoV-2 Antigen (Rapid) Dr. Jes Spicer Work Phone: Start: 12-03-2021 End: 12-03-2021 Chiropractic Report Comments: See Note; NOTES: [facility] [address] [id number] OFFICE VISIT Date of Service: 12/03/21 MR#: [id number] Acct: [id number] Name: TRISTAN SINGH Rep #: [id number] : 1960 Provider: LAI Brantley Age/Sex: 61/F Location: [facility] [place] Status: Signed Intake Intake Visit Reasons: Back Pain Chief Complaint: Neck/Upper Back/Right shoulder Lower Back Pain Brim Presser Required: No Accompanied by: Self Is patient in pain?: Yes (Neck/Upper Back/Right shoulder #1 - Lower Back #3) Allergies No Known Allergies Allergy (Verified 10/08/21 13:44) [facility] Medical History Endometriosis Lab test negative for COVID-19 virus left ovary removal Family History Other Breast cancer Melanoma Myocardial infarction Sudden cardiac Thyroid disorder Social History Smoking Status: Never smoker alcohol intake: never substance use type: does not use what type of physical activity do you participate in: walking and weight training frequency: 3-4 times per week HPI Back Pain Chief Complaint: Neck/Upper Back and Low Back Pain Visit Number: 2 Details: TRISTAN SINGH is a 60 year old F here today for neck/Upper back/right shoulder and low back pain. She states she fell in her kitchen over the weekend intermittent pain is 2/10 she hit her right shoulder. She stated the pain is aggravated by movement and lifting. 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 She states she gets relief from her Chiropractic adjustments and massages. She denies any numbness, tingling, or radiculopathy. Location: Neck, Lower Back Duration: Frequent Aggravating or associated factors: Sitting, bending, lifting, work Relieving factors: Chiro Pain Quality: aching, cramping and sharp Exam Musc General: Yes normal posture, normal gait, joint tenderness and decreased range of motion Cervical Spine: Yes cervical muscular tenderness bilateral diffuse , Yes cervical spasm bilateral lower trapezius and Yes misalignment misalignment: C5, C6 and C7 Thoracic/Lumber: Yes thoracic and lumbar spine normal to inspection, Yes paraspinal tenderness on the right greater than left (lumbopelvic) and on the left greater than right (mid thoracic/lower lumbar), Yes thoraco-lumbar spasm on the right greater than left (piriformis, QL) and on the left greater than right (rhomboid/paraspinal (L2-L5)) and Yes misalignment T5, T6, L2, L3, L4, L5 and RIL Sacroiliac joints: on the right tender to palpation Office Procedures Procedures - Chiropractic Procedures Stimulation: without Manipulation: Cervical C6, Lumbar L4, Thoracic T5 and Pelvis RIL Manipulation: 3-4 regions Electronic Stimulation: No Patient Response: positive Assessment and Plan Assessment and Plan (1) Segmental and somatic dysfunction of pelvic region: Status: Acute Orders: Orders: Chiropractic Treatments Today (2) Segmental and somatic dysfunction of thoracic region: Status: Acute Orders: Orders: Chiropractic Treatments Today (3) Segmental and somatic dysfunction of cervical region: Status: Acute Orders: Orders: Chiropractic Treatments Today (4) Segmental and somatic dysfunction of lumbar region: Status: Acute Orders: Orders: Chiropractic Treatments Today Plan Details Other Orders: Orders: Chiropractic Treatments Today G57.01 Additional Comments: Patient was treated without incident. Continue care. Goals Barriers: Goals Decrease pain Increase ROM Decrease spasm Follow Up: PRN Coding Level of Care Code No Charge Diagnoses Segmental and somatic dysfunction of pelvic region M99.05 Segmental and somatic dysfunction of thoracic region M99.02 Segmental and somatic dysfunction of cervical region M99.01 Segmental and somatic dysfunction of lumbar region M99.03 CPT Codes Procedures - Manipulation: 3-4 regions (33443) 12/03/21 1125 <Electronically signed by Shannan Gan D.C.> Date Shannan Gan D.C. Cosigner Signature: Date (if applicable) CC: Jes Spicer DO Work Phone: Start: 11-12-2021 End: 11-13-2021 Chiropractic Report Comments: See Note; NOTES: [facility] [address] [place] [address] OFFICE VISIT Date of Service: 11/12/21 MR#: [id number] Acct: [id number] Name: TRISTAN SINGH Rep #: [id number] : 1960 Provider: LAI Brantley Age/Sex: 61/F Location: [facility] [place] Status: Signed Intake Intake Visit Reasons: Back Pain Chief Complaint: Neck Lower Back Pain Is patient in pain?: Yes (Neck # 1 Lower Back #4) Allergies No Known Allergies Allergy (Verified 10/08/21 13:44) [facility] Medical History Endometriosis Lab test negative for COVID-19 virus left ovary removal Family History Other Breast cancer Melanoma Myocardial infarction Sudden cardiac Thyroid disorder Social History Smoking Status: Never smoker alcohol intake: never substance use type: does not use what type of physical activity do you participate in: walking and weight training frequency: 3-4 times per week HPI Back Pain Chief Complaint: Neck and Low Back Pain Visit Number: 1 Details: TRISTAN SINGH is a 60 year old F here today for neck and low back pain. She states that she had relief after the last adjustment. She states that she continues to have intermittent sharp pain in her neck 11/12 . Her lower back pain is at 4/10 on the pain scale it gets aggravated lifting patient at her work, she is a occupational therapist assistant plant control operator. She states she gets relief from her Chiropractic adjustments and massages. She denies any numbness, tingling, or radiculopathy. Location: Neck, Lower Back Duration: Frequent Aggravating or associated factors: Sitting, bending, lifting, work Relieving factors: Chiro Pain Quality: aching, cramping and sharp Exam Musc General: Yes normal posture, normal gait, joint tenderness and decreased range of motion Cervical Spine: Yes cervical muscular tenderness bilateral diffuse , Yes cervical spasm bilateral lower trapezius and Yes misalignment misalignment: C5, C6 and C7 Thoracic/Lumber: Yes thoracic and lumbar spine normal to inspection, Yes paraspinal tenderness on the right greater than left (lumbopelvic) and on the left greater than right (mid thoracic/lower lumbar), Yes thoraco-lumbar spasm on the right greater than left (piriformis, QL) and on the left greater than right (rhomboid/paraspinal (L2-L5)) and Yes misalignment T5, T6, L2, L3, L4, L5 and RIL Sacroiliac joints: on the right tender to palpation Office Procedures Procedures - Chiropractic Procedures Stimulation: without Manipulation: Cervical C6, Lumbar L4, Thoracic T5 and Pelvis RIL Manipulation: 3-4 regions Patient Response: positive Assessment and Plan Assessment and Plan (1) Segmental and somatic dysfunction of pelvic region: Status: Acute Orders: Orders: Chiropractic Treatments 11/12/21 (2) Piriformis syndrome of right side: Status: Acute Orders: Orders: Chiropractic Treatments 11/12/21 (3) Segmental and somatic dysfunction of thoracic region: Status: Acute Orders: Orders: Chiropractic Treatments 11/12/21 (4) Segmental and somatic dysfunction of cervical region: Status: Acute Orders: Orders: Chiropractic Treatments 11/12/21 (5) Segmental and somatic dysfunction of lumbar region: Status: Acute Orders: Orders: Chiropractic Treatments 11/12/21 Plan Details Other Orders: Orders: Chiropractic Treatments 11/12/21 S13.9XXD, S23.9XXA Additional Comments: Patient was treated without incident. Continue care. Goals Barriers: Goals Decrease pain Increase ROM Decrease spasm Follow Up: PRN Coding Level of Care Code No Charge Diagnoses Segmental and somatic dysfunction of pelvic region M99.05 Piriformis syndrome of right side G57.01 Segmental and somatic dysfunction of thoracic region M99.02 Segmental and somatic dysfunction of cervical region M99.01 Segmental and somatic dysfunction of lumbar region M99.03 CPT Codes Procedures - Manipulation: 3-4 regions (03513) 11/13/21 1325 <Electronically signed by Shannan Gan D.C.> Date Shannan Ledesma Signature: Date (if applicable) CC: Jes Spicer DO Work Phone: Start: 10-08-2021 End: 10-08-2021 Virtual Office Visit Comments: See Note; NOTES: [facility][1] Services [facility] [place] [address] OFFICE VISIT Date of Service: 10/08/21 MR#: [id number] Acct: [id number] Patient: TRISTAN SINGH Rep #: [id number] : 1960 Provider: JOHN garnica Age/Sex: 61/F Location: [facility] [place] Status: Signed Intake Intake Visit Reasons: COVID-19 Chief Complaint: Neck and Low Back Pain Allergies No Known Allergies Allergy (Verified 10/08/21 13:44) PFSH Medical History Endometriosis Lab test negative for COVID-19 virus left ovary removal Family History Other Breast cancer Melanoma Myocardial infarction Sudden cardiac Thyroid disorder Social History Smoking Status: Never smoker alcohol intake: never substance use type: does not use what type of physical activity do you participate in: walking and weight training frequency: 3-4 times per week HPI HPI Chief Complaint: Neck and Low Back Pain Details: Patient was informed that this visit will be billed to patient. This visit was conducted during COVID- pandemic. Statement read to the patient: This telehealth visit is being offered during our stay at home measures in response to the pandemic. It is subject to an office visit charge. There are also charges for the monoclonal antibody infusion which may or may not be covered by your insurance. The patient consents to continue. Symptom onset occurred: 10/05/21 Positive COVID-19 test occurred: 10/05/21 COVID vaccine administered: NO on oxygen or needed to titrate up? NO The FDA has authorized the emergency use of monoclonal antibody treatment (bamlanivimab/etesevimab or casirivimab/imdevimab) for mild to moderate COVID-19 in adults and pediatric patients with positive results of direct SARS???Cov???2 viral testing ages 12 and older, at least 40 kg, who were not at high risk for progressing to severe COVID-19 and or hospitalization. The significant known and potential risks (allergic reactions or side effects from injection including brief pain, bleeding, bruising of the skin, soreness, swelling, possible infection at the infusion site) and benefits (decrease chance of progression to severe COVID-19) of a monoclonal antibody infusion, and the extent to which such potential risks and benefits are unknown. Patients treated with monoclonal antibody infusion should continue to self-isolate and use infection control measures (such as wear mask, isolate, social distance, avoid sharing personal items, clean and disinfect high touch surfaces, and frequent handwashing) according to the CDC guidelines. The fact sheet for patients, parents and caregivers will be provided prior to the administration of the medication. No drugs are approved by the FDA at this time to treat outpatients with mild or moderate symptoms of COVID-19. The following information was communicated to the patient or caregiver: Monoclonal antibody infusion is not an FDA approved drug. The FDA has authorized the emergency use of monoclonal antibody therapy. The patient had the option to refuse or accept treatment with monoclonal antibody therapy. The patient was informed that the number of people treated with monoclonal antibody therapy at this time is small. The potential benefits and the potential risks of monoclonal antibody therapy are not fully known. Potential benefits of monoclonal antibody include a reduced risk of progressing to severe COVID-19 infection. Potential risks or side effects of monoclonal antibody therapy include allergic reactions, side effects from injection including brief pain, bleeding, bruising of the skin, soreness, swelling, possible infection at the infusion site. The patient stated understanding of this information communicated and wished to proceed with monoclonal antibody infusion therapy. The patient states understanding of this information communicated and wishes to proceed with monoclonal antibody infusion therapy. Patient agrees to receive either balanivimab/etesvimab or casirivimab/imdevimab upon availability. Positive Test: 10/05/21 Sx Onset: 10/05/21 Sx: fever, chills, cough, body aches O2: NO Vaccine: NO Qualifier: BMI 29.4 ROS Const Constitutional: Positive for body ache, chills and fever(s) Resp Respiratory: Positive for cough Exam Const General: cooperative and no acute distress Resp Effort Inspection: normal respiratory effort and able to speak in complete sentences Neuro General: patient alert, patient awake and patient oriented x3 Cognition: normal cognition Speech: speech normal Psych Mental Status: mental status grossly normal Mood: congruent mood Attitude: cooperative Thought Process: normal Thought Content: normal Judgment: judgment good Details: Details:: Exam was limited due to phone visit with no video. Quality Reporting Tobacco Screening ([facility] 138) Smoking Status: Never smoker Coding Level of Care Code New Pt Level 1 Telephone Patient Type New History Problem Focused Exam Problem Focused Medical Decision Making Straight Forward Diagnoses COVID-19 U07.1 BMI 29.0-29.9,adult Z68.29 Time Spent (min) 10 Comment [id number] Assessment and Plan Assessment and Plan (1) COVID-19: Status: Acute Plan - Miesha Bales AUDIO PRODUCTION MANAGER, AUDIO PRODUCTION MANAGER-C: The patient remains appropriate for the Monoclonal Antibody Infusion. The patient states understanding of this information communicated and wishes to proceed with monoclonal antibody infusion therapy. Patient agrees to receive either balanivimab/etesvimab or casirivimab/imdevimab upon availability. (2) BMI 29.0-29.9,adult: Status: Acute Plan Details Other Medications: Discontinued: azithromycin Discontinued Reason: By Stop Date Take two 250mg tablet once day one then one tablet daily the next four days 5 days 6 tabs 0RF J20.9 methylprednisolone Discontinued Reason: By Stop Date 4 mg PO PER PKG DIR 5 days 21 tabs 0RF Goals Barriers: Goals Decrease pain Increase ROM Decrease spasm 10/08/21 1347 <Electronically signed by Miesha Bales NP AUDIO PRODUCTION MANAGER-C> Date Miesha Bales AUDIO PRODUCTION MANAGER AUDIO PRODUCTION MANAGER-C Cosigner Signature: Date (if applicable) CC: DO Jes Briceño DO Work Phone: Start: 10-04-2021 SARS-CoV-2 Antigen (Rapid) Dr. Jes Spicer Work Phone: Start: 09-19-2021 End: 09-19-2021 Chiropractic Report Comments: See Note; NOTES: [facility] [address] [place] [address] OFFICE VISIT Date of Service: 09/19/21 MR#: [id number] Acct: [id number] Name: TRISTAN SINGH Rep #: [id number] : 1960 Provider: LAI Campbell Do ssi Age/Sex: 61/F Location[place] [facility] [place] Status: Signed Intake Intake Visit Reasons: Back Pain Chief Complaint: Neck and Low Back Pain Is patient in pain?: Yes Allergies No Known Allergies Allergy (Verified 11/13/20 08:19) [facility] Medical History Endometriosis Lab test negative for COVID-19 virus left ovary removal Family History Other Breast cancer Melanoma Myocardial infarction Sudden cardiac Thyroid disorder Social History Smoking Status: Never smoker alcohol intake: never substance use type: does not use what type of physical activity do you participate in: walking and weight training frequency: 3-4 times per week HPI Back Pain Chief Complaint: Neck and Low Back Pain Visit Number: 7 Details: TRISTAN SINGH is a 60 year old F here today for mid and low back pain. She states that she had relief after the last adjustment. She states that she continues to have frequent stiffness in her upper back but her mid back pain continues to be decreased. She states that she also continues to have frequent soreness across her low back. She states that she got a massage a on 09/17/21. She denies any numbness, tingling, or radiculopathy. Location: Upper Back, Low Back Duration: Frequent Aggravating or associated factors: Sitting, bending, lifting Relieving factors: Chiro Pain Quality: aching, cramping and sharp Exam Musc General: Yes normal posture, normal gait, joint tenderness (C5,C6,T4,T5,L3,L4,L5, R SI) and decreased range of motion Cervical Spine: Yes cervical muscular tenderness bilateral lower , Yes cervical spasm bilateral lower trapezius and Yes misalignment misalignment: C5, C6 and C7 Thoracic/Lumber: Yes thoracic and lumbar spine normal to inspection, Yes paraspinal tenderness on the right greater than left (lumbopelvic) and on the left greater than right (mid thoracic/lower lumbar), Yes thoraco-lumbar spasm on the right greater than left (piriformis, QL) and on the left greater than right (rhomboid/paraspinal (L2-L5)) and Yes misalignment T5, T6, L2, L3, L4, L5 and RIL Sacroiliac joints: on the right tender to palpation Office Procedures Procedures - Chiropractic Procedures Manipulation: Cervical C6, Lumbar L3, Thoracic T5 and Pelvis RIL Manipulation: 3-4 regions Patient Response: positive Assessment and Plan Assessment and Plan (1) Segmental and somatic dysfunction of cervical region: Status: Acute Orders: Orders: Chiropractic Treatments Today (2) Segmental and somatic dysfunction of thoracic region: Status: Acute Orders: Orders: Chiropractic Treatments Today (3) Segmental and somatic dysfunction of lumbar region: Status: Acute Orders: Orders: Chiropractic Treatments Today (4) Segmental and somatic dysfunction of pelvic region: Status: Acute Orders: Orders: Chiropractic Treatments Today Plan Details Additional Comments: Patient was treated without incident. Continue care. Goals Barriers: Goals Decrease pain Increase ROM Decrease spasm Follow Up: PRN Coding Level of Care Code No Charge Diagnoses Segmental and somatic dysfunction of cervical region M99.01 Segmental and somatic dysfunction of thoracic region M99.02 Segmental and somatic dysfunction of lumbar region M99.03 Segmental and somatic dysfunction of pelvic region M99.05 CPT Codes Procedures - Manipulation: 3-4 regions ([id number]) 09/19/21 1026 <Electronically signed by Shannan Gan D.C.> Date Shannan Gan D.C. [facility] Signature: Date (if applicable) CC: Jes Spicer DO Work Phone: Start: 09-05-2021 End: 09-05-2021 Chiropractic Report Comments: See Note; NOTES: [facility] [address] [place], [place] [id number] OFFICE VISIT Date of Service: 09/05/21 MR#: [id number] Acct: [id number] Name: TRISTAN SINGH Rep #: [id number] : 1960 Provider: LAI Brantley Age/Sex: 61/F Location: [facility] Status: Signed Intake Intake Visit Reasons: Back Pain Chief Complaint: Neck and Low Back Pain Is patient in pain?: Yes Allergies No Known Allergies Allergy (Verified 11/13/20 08:19) [facility] Medical History Endometriosis Lab test negative for COVID-19 virus left ovary removal Family History Other Breast cancer Melanoma Myocardial infarction Sudden cardiac Thyroid disorder Social History Smoking Status: Never smoker alcohol intake: never substance use type: does not use what type of physical activity do you participate in: walking and weight training frequency: 3-4 times per week HPI Back Pain Chief Complaint: Neck and Low Back Pain Visit Number: 6 Details: TRISTAN SINGH is a 60 year old F here today for mid and low back pain. She states that she had relief after the last adjustment. She states that she continues to have frequent stiffness in her upper back between her shoulder blades. She states that she also continues to have frequent soreness in her right hip and across her low back. She states that she got a massage a few weeks ago but this worsened her pain. She denies any numbness, tingling, or radiculopathy. Location: Upper Back, Right Hip Duration: Frequent Aggravating or associated factors: Sitting, bending, lifting Relieving factors: Chiro Pain Quality: aching and cramping Exam Musc General: Yes normal posture, normal gait, joint tenderness (C5,C6,T4,T5,L3,L4,L5, R SI) and decreased range of motion Cervical Spine: Yes cervical muscular tenderness bilateral lower , Yes cervical spasm bilateral lower trapezius and Yes misalignment misalignment: C5, C6 and C7 Thoracic/Lumber: Yes thoracic and lumbar spine normal to inspection, Yes paraspinal tenderness on the right greater than left (lumbopelvic) and on the left greater than right (mid thoracic/lower lumbar), Yes thoraco-lumbar spasm on the right greater than left (piriformis, QL) and on the left greater than right (rhomboid/paraspinal (L2-L5)) and Yes misalignment T5, T6, L2, L3, L4, L5 and RIL Sacroiliac joints: on the right tender to palpation Office Procedures Procedures - Chiropractic Procedures Manipulation: Cervical C6, Lumbar L3, Thoracic T4 and Pelvis RIL Manipulation: 3-4 regions Patient Response: positive Assessment and Plan Assessment and Plan (1) Segmental and somatic dysfunction of cervical region: Status: Acute Orders: Orders: Chiropractic Treatments Today (2) Segmental and somatic dysfunction of thoracic region: Status: Acute Orders: Orders: Chiropractic Treatments Today (3) Segmental and somatic dysfunction of lumbar region: Status: Acute Orders: Orders: Chiropractic Treatments Today (4) Segmental and somatic dysfunction of pelvic region: Status: Acute Orders: Orders: Chiropractic Treatments Today Plan Details Additional Comments: Patient was treated without incident. Continue care. Goals Barriers: Goals Decrease pain Increase ROM Decrease spasm Follow Up: PRN Coding Level of Care Code No Charge Diagnoses Segmental and somatic dysfunction of cervical region M99.01 Segmental and somatic dysfunction of thoracic region M99.02 Segmental and somatic dysfunction of lumbar region M99.03 Segmental and somatic dysfunction of pelvic region M99.05 CPT Codes Procedures - Manipulation: 3-4 regions ([id number]) 09/05/21 0830 <Electronically signed by Shannan Gan D.C.> Date Shannan Gan D.C. Cosigner Signature: Date (if applicable) CC: Jes Spicer DO Work Phone: Start: 08-22-2021 End: 08-24-2021 Dexa Bone Density Study Comments: See Note; NOTES: [facility] Imaging Services [address] [place] [address] Dexa Bone Density Study MR#: [id number] Acct: [id number] Name: TRISTAN SINGH Rep #: [id number] : 1960 F 61 From: Trey tran MD PCP: Dr. Jes Spicer DO Status: [facility] Study: Dexa Bone Density Study Date of Exam: 08/22/21 Exam# [id number] Ordering Dr: Jes Spicer DO STUDY: DUAL ENERGY X-RAY ABSORPTIOMETRY / DXA REASON FOR EXAM: Female, 61 years old. Z780. Patient is postmenopausal. TECHNIQUE: Bone Mineral Density (BMD) measurements of lumbar spine and bilateral hips were obtained. COMPARISON: Comparison is made with prior study dated 10/13/2018. FINDINGS: Lumbar Spine (L1-L4): g/cm2 (0.865) / T-score (-1.7) / Z-score (-0.2) Findings are suggestive of osteopenia with a moderate fracture risk. Left Femur Total: g/cm2 (0.895) / T-score (-0.4) / Z-score (0.6) Left Femoral Neck: g/cm2 (01) / T-score (-0.4) / Z-score (0.9) Right Femur Total: g/cm2 (0.888) / T-score (-0.4) / Z-score (0.5) Right Femoral Neck: g/cm2 (0.810) / T-score (-0.4) / Z-score (1.0) The T-Scores on the most recent prior examination were: Lumbar Spine (L1-L4): There has been worsening of bone density since the previous examination. Left Femur Total: which represents an improvement of 0.4%. Right Femur Total: which represents a worsening of 3.9%. BD/Dexa Bone Density Study IMPRESSION: The patient is considered osteopenic as outlined below according to World Jay Organization (WHO) criteria with a moderate fracture risk. There has been worsening of bone density since the previous examination. Reference Information: The T-score is the number [...] 1. NIH Osteoporosis and Related Bone Diseases www osteo.org 2. International Society for Clinical Densitometry www iscd.org 3. National Osteoporosis Foundation www nof.org Electronically Signed: Trey Patricia MD at 10:43 EDT , Service support , CC: Dr. Jes Spicer DO Game Designer/Creative Director: Signed Jes Spicer DO Work Phone: Start: 08-22-2021 End: 08-24-2021 Thyroid Comments: See Note; NOTES: [facility] Imaging Services [address] [place] [address] Thyroid MR#: [id number] Acct: [id number] Name: TRISTAN SINGH Rep #: [id number] : 1960 F 61 From: Trey tran MD PCP: Dr. Jes Spicer DO Status: REG CLI Study: Thyroid Date of Exam: 08/22/21 Exam# [id number] Ordering Dr: Jes Spicer DO STUDY: THYROID ULTRASOUND REASON FOR EXAM: Female, 61 years old. Thyroid nodules. TECHNIQUE: Ultrasound evaluation of the thyroid was performed with real-time and static pruitt-scale imaging. COMPARISON: Comparison is made with prior examination dated 06/12/2020. FINDINGS: RIGHT LOBE: The right lobe of the thyroid gland measures 5 cm x 1.6 cm x 1 cm. There is a homogeneous echotexture. There is a 3 mm x 2 mm x 3 mm solid/cystic nodule of the right lobe. This is unchanged. LEFT LOBE: The left lobe of the thyroid gland measures 4.5 cm x 1.3 cm x 0.7 cm. There is a homogeneous echotexture. There is an 8 mm x 7 mm x 4 mm solid and cystic nodule in the lower pole. This is unchanged. ISTHMUS: The isthmus measures 2 mm. There is a 5 mm x 5 mm x 4 mm hypoechoic solid nodule in the isthmus. This is essentially unchanged. The regional lymph nodes are normal. US/Thyroid IMPRESSION: Stable bilateral subcentimeter nodules. Stable isthmus nodule. Electronically Signed: Trey Patricia MD at 10:37 EDT , Service support , CC: Dr. Jes Spicer DO Game Designer/Creative Director: Signed Jes Spicer DO Work Phone: Start: 08-01-2021 End: 08-01-2021 Urgent Care Visit Report Comments: See Note; NOTES: [facility] [address] [place] [address] [address] [place] [address] OFFICE VISIT Date of Service: 08/01/21 MR#: [id number] Acct: [id number] Name: TRISTAN SINGH Rep #: [id number] : 1960 Provider: THIAGO bell Age/Sex: 61/F Location: [facility] [place] Status: Signed Intake Vital Signs 08/01/21 17:31 BP 118/78 Blood Pressure Location Rt brachial Position Sitting Respiration 16 Pulse 76 Pulse Source Monitor Temp 97.8 F Temp Source Temporal Pulse Oximetry (%) 98 Oxygen Delivery Method room air Intake Visit Reasons: COVID/[facility] E[facility]. Chief Complaint: Neck and Low Back Pain Allergies No Known Allergies Allergy (Verified 11/13/20 08:19) [facility] Medical History (Updated 08/01/21 @ 17:46 by THIAGO Welch) Endometriosis Lab test negative for COVID-19 virus left ovary removal Family History Other Breast cancer Melanoma Myocardial infarction Sudden cardiac Thyroid disorder Social History Smoking Status: Never smoker alcohol intake: never substance use type: does not use what type of physical activity do you participate in: walking and weight training frequency: 3-4 times per week HPI HPI Chief Complaint: Neck and Low Back Pain Details: TRISTAN SINGH, is a 61 F who presents to the office today for 24 h/o congestion/ runny nose, sore throat. w/ similar c/o, getting tested elsewhere (results pending). Exposed to [id number] 10 days ago who has since been diagnosed w/ COVID19. No COVID19 vaccine to date. Nonsmoker. Advil cold sinus helps some. No other c/o at this time. ROS Const Constitutional: No other Exam Const General: cooperative, healthy appearing, comfortable and no acute distress Nutritional Appearance: well nourished Orientation: alert, awake and oriented x3 HENMT Head: normal to inspection Ears: hearing grossly normal bilaterally, external ears normal, TM's normal bilaterally and EAC's normal Nose: external nose normal, nares normal, septum normal and no nasal discharge Face and sinus: normal facial exam, sinuses nontender and face symmetric Mouth: oral mucosae normal, lip normal, tongue normal and oropharynx normal Throat: posterior oropharynx normal, tonsils normal, uvula midline and no postnasal drainage Eyes General: appearance normal, both eyes and all related structures Neck Neck: normal visual inspection, full ROM, no lymphadenopathy, no meningeal signs and supple Neck mass: No Thyroid: thyroid normal Lymphatic: no lymphadenopathy noted Chest Chest palpation inspection: normal inspection of the chest Resp Effort Inspection: normal respiratory effort, able to speak in complete sentences, symmetric chest movement and no cough Auscultation: Bilateral: Clear to Auscultation Cardio Palpation: normal PMI Rate: regular rate Rhythm: regular rhythm Heart Sounds: S1 normal, S2 normal, no gallops, no murmurs and no rubs Pulses: radial pulses present GI Inspection: normal to inspection Skin General: no rashes or lesions noted Neuro General: patient alert, patient awake, patient oriented x3 and gait normal Cognition: normal cognition Speech: speech normal Gait: normal gait Motor: muscle tone normal throughout Sensory Exam: no sensory deficits noted Psych Appearance: grossly normal Mental Status: mental status grossly normal Mood: congruent mood Affect: normal affect Speech and Movement: speech and movement normal Attitude: cooperative Thought Process: normal Thought Content: normal Judgment: judgment good Results POC DON CoV-2 PCR POC DON CoV-2 PCR Not Detected Last Edit by Chayo Jensen on 08/01/21 17:46 Influenza A/B Not Detected Coding Level of Care Code Off vis,new,level 2 Diagnoses Lab test negative for COVID-19 virus Z20.822 Assessment and Plan Assessment and Plan (1) Lab test negative for COVID-19 virus: Status: Acute Plan - Kamar DAS PA: Otis COVID-19 negative, influenza A/B test negative in office today. Copy of lab results given to patient in office today. Supportive measures as reviewed with patient in office today as needed for symptomatic relief Follow-up with PCP in 5-7 days should symptoms not improve, ED sooner should symptoms worsen or any other concerns develop. Patient states acknowledging understanding all the above. This note was generated with [employer] software. It may contain incorrect words, spelling, and punctuation that were not noted in checking the note before signing. Plan Details Goals Barriers: Goals Decrease pain Increase ROM Decrease spasm 08/01/21 1747 <Electronically signed by Kamar DAS> Date Kamar DAS Cosigner Signature: Date (if applicable) CC: Jes Spicer DO Work Phone: Start: 07-02-2021 End: 07-02-2021 Chiropractic Report Comments: See Note; NOTES: [facility] [address] [place] [address] OFFICE VISIT Date of Service: 07/02/21 MR#: [id number] Acct: [id number] Name: TRISTAN SINGH Rep #: [id number] : 1960 Provider: LAI Brantley Age/Sex: 61/F Location: [facility] Status: Signed Intake Intake Visit Reasons: Back Pain Chief Complaint: Neck and Low Back Pain Is patient in pain?: Yes Allergies No Known Allergies Allergy (Verified 11/13/20 08:19) PFSH Medical History Endometriosis left ovary removal Family History Other Breast cancer Melanoma Myocardial infarction Sudden cardiac Thyroid disorder Social History Smoking Status: Never smoker alcohol intake: never substance use type: does not use what type of physical activity do you participate in: walking and weight training frequency: 3-4 times per week HPI Back Pain Chief Complaint: Neck and Low Back Pain Visit Number: 5 Details: TRISTAN SINGH is a 60 year old F here today for mid and low back pain. She states that she had relief after the last adjustment. She states that she continues to have frequent stiffness in her upper back between her shoulder blades. She states that she also continues to have frequent soreness in her right hip. She denies any numbness, tingling, or radiculopathy. Location: Upper Back, Right Hip Duration: Frequent Aggravating or associated factors: Sitting, bending, lifting Relieving factors: Chiro Pain Quality: aching and cramping Exam Musc General: Yes normal posture, normal gait, joint tenderness (T4,T5,L3,L4,L5, R SI) and decreased range of motion Cervical Spine: Yes cervical muscular tenderness bilateral lower , Yes cervical spasm bilateral lower trapezius and Yes misalignment misalignment: C5, C6 and C7 Thoracic/Lumber: Yes thoracic and lumbar spine normal to inspection, Yes paraspinal tenderness on the right greater than left (lumbopelvic-improving) and on the left greater than right (mid thoracic/lower lumbar), Yes thoraco-lumbar spasm on the right greater than left (piriformis, QL) and on the left greater than right (rhomboid/paraspinal (L2-L5)) and Yes misalignment T5, T6, L2, L3, L4, L5 and RIL Sacroiliac joints: on the right tender to palpation Office Procedures Procedures - Chiropractic Procedures Manipulation: Cervical C6, Lumbar L4, Thoracic T4 and Pelvis RIL Manipulation: 3-4 regions Patient Response: positive Assessment and Plan Assessment and Plan (1) Segmental and somatic dysfunction of lumbar region: Status: Acute Orders: Orders: Chiropractic Treatments Today (2) Segmental and somatic dysfunction of thoracic region: Status: Acute Orders: Orders: Chiropractic Treatments Today (3) Segmental and somatic dysfunction of pelvic region: Status: Acute Orders: Orders: Chiropractic Treatments Today (4) Segmental and somatic dysfunction of cervical region: Status: Acute Plan Details Additional Comments: Patient was treated without incident. Continue care. Goals Barriers: Goals Decrease pain Increase ROM Decrease spasm Follow Up: PRN Coding Level of Care Code No Charge Diagnoses Segmental and somatic dysfunction of lumbar region M99.03 Segmental and somatic dysfunction of thoracic region M99.02 Segmental and somatic dysfunction of pelvic region M99.05 Segmental and somatic dysfunction of cervical region M99.01 CPT Codes Procedures - Manipulation: 3-4 regions ([id number]) 07/02/21 1650 <Electronically signed by Shannan Gan D.C.> Date Shannan Gan D.C. Cosigner Signature: Date (if applicable) CC: Jes Spicer DO Work Phone: Start: 05-28-2021 End: 05-28-2021 Chiropractic Report Comments: See Note; NOTES: [facility] [address] [place] [address] OFFICE VISIT Date of Service: 05/28/21 MR#: [id number] Acct: [id number] Name: TRISTAN SINGH Rep #: [id number] : 1960 Provider: LAI Brantley Age/Sex: 61/F [place] [facility] [place] Signed Intake Vital Signs 05/28/21 11:39 BMI 29.0 Intake Visit Reasons: Back Pain Chief Complaint: Neck and Low Back Pain Allergies No Known Allergies Allergy (Verified 11/13/20 08:19) PFSH Medical History Endometriosis left ovary removal Family History Other Breast cancer Melanoma Myocardial infarction Sudden cardiac Thyroid disorder Social History Smoking Status: Never smoker alcohol intake: never substance use type: does not use what type of physical activity do you participate in: walking and weight training frequency: 3-4 times per week HPI Back Pain Chief Complaint: Neck and Low Back Pain Visit Number: 5 Details: TRISTAN SINGH is a 60 year old F here today for mid and low back pain. She states that she had relief after the last adjustment with her LBP. She states that her pain has been decreased since being on vacation because she has not been doing anything to aggravate it. 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 She denies any numbness, tingling, or radiculopathy. Location: Upper Back Duration: Frequent Aggravating or associated factors: Sitting, bending, lifting Relieving factors: Chiro Pain Quality: aching and cramping Exam Musc General: Yes normal posture, normal gait, joint tenderness (T4,T5,L3,L4,L5, R SI) and decreased range of motion Thoracic/Lumber: Yes thoracic and lumbar spine normal to inspection, Yes paraspinal tenderness on the right greater than left (lumbopelvic-improving) and on the left greater than right (mid thoracic/lower lumbar), Yes thoraco-lumbar spasm on the right greater than left (piriformis, QL) and on the left greater than right (rhomboid/paraspinal (L2-L5)) and Yes misalignment T5, T6, L2, L3, L4, L5 and RIL Sacroiliac joints: on the right tender to palpation Office Procedures Procedures - Chiropractic Procedures Manipulation: Lumbar L4, Thoracic T6 and Pelvis RIL Manipulation: 3-4 regions Patient Response: positive Assessment and Plan Assessment and Plan (1) Segmental and somatic dysfunction of lumbar region: Status: Acute Orders: Orders: Chiropractic Treatments Today (2) Segmental and somatic dysfunction of thoracic region: Status: Acute Orders: Orders: Chiropractic Treatments Today (3) Segmental and somatic dysfunction of pelvic region: Status: Acute Orders: Orders: Chiropractic Treatments Today Plan Details Additional Comments: Patient was treated without incident. Continue care. Goals Barriers: Goals Decrease pain Increase ROM Decrease spasm Follow Up: PRN Coding Level of Care Code No Charge Diagnoses Segmental and somatic dysfunction of lumbar region M99.03 Segmental and somatic dysfunction of thoracic region M99.02 Segmental and somatic dysfunction of pelvic region M99.05 CPT Codes Procedures - Manipulation: 3-4 regions ([id number]) 05/28/21 1309 <Electronically signed by Shannan Gan D.C.> Date Shannan Gan D.C. Cosigner Signature: Date (if applicable) CC: Jes Spicer DO Work Phone: Start: 04-25-2021 End: 04-26-2021 SCRN MAMM (CAD)W/CATIE BILAT Comments: See Note; NOTES: [facility] Imaging Services [address] [place] [address] SCRN MAMM (CAD)W/CATIE BILAT MR#: [id number] Acct: [id number] Name: TRISTAN SINGH Rep #: [id number] : 1960 F 61 From: Angelina Temple MD PCP: Dr. Jes Spicer, DO Status: REG CLI Study: SCRN MAMM (CAD)W/CATIE BILAT Date of Exam: 04/04 01/21 Exam# [id number] Ordering Dr: Cynthia Marie MD MAMMOGRAPHY - BILATERAL SCREENING 3-D TOMOSYNTHESIS REASON FOR EXAM: Female, 61 years old. SCREENING PERTINENT HISTORY: No significant family history. TECHNIQUE: 2-D mammograms and 3-D Tomosynthesis of the breast (s) were performed. CAD was performed. COMPARISON: 04/19/2020 FINDINGS: The breast composition is of heterogeneous fibroglandular. Scattered benign calcifications are seen. No dense spiculated masses or suspicious microcalcifications are identified. No architectural distortion is identified. There is no skin thickening or nipple retraction. Benign looking lymph nodes in the axillary areas noted. There has been no significant change since the prior study 04/19/2020. BI/SCRN MAMM (CAD)W/CATIE BILAT IMPRESSION: No mammographic signs of malignancy. Routine yearly mammograms recommended. ASSESSMENT CATEGORY: BIRADS Category 1: Negative. A letter regarding these results will be sent to the patient by the facility within 30 days. FOLLOW UP RECOMMENDATION: Yearly follow up mammogram recommended. (A) Approximately 10% of breast cancers are not detected by mammography. A normal mammogram should not delay biopsy of a clinically suspicious abnormality. Electronically Signed: Angelina Temple, at 15:55 EDT Tel , Service support , CC: Dr. Jes Spicer DO; Dr. Cynthia Franklin MD Game Designer/Creative Director: Signed Jes Spicer DO Work Phone: Start: 04-20-2021 End: 04-20-2021 Orthopedic Visit Report Comments: See Note; NOTES: [facility] [address] [place] [address] OFFICE VISIT Date of Service: 04/20/21 MR#: [id number] Acct: [id number] Name: TRISTAN SINGH Rep #: [id number] : 1960 Provider: THIAGO Hendricks Age/Sex: 61/F [place] [facility] [place] Status: Signed Intake Vital Signs 04/20/21 08:44 BMI 29.0 Intake Visit Reasons: LEFT ELBOW Chief Complaint: Neck and Low Back Pain Allergies No Known Allergies Allergy (Verified 11/13/20 08:19) Medications ascorbic acid (vitamin C) 500 mg capsule mg PO 12/17/17 [History Confirmed 04/20/21] multivitamin 1 cap PO QAM 12/17/17 [History Confirmed 04/20/21] esomeprazole magnesium 40 mg capsule,delayed release 40 mg PO DAILY 04/20/21 [History Confirmed 04/20/21] [facility] Medical History (Updated 04/20/21 @ 10:04 by THIAGO Jaeger) Endometriosis left ovary removal Family History Other Breast cancer Melanoma Myocardial infarction Sudden cardiac Thyroid disorder Social History Smoking Status: Never smoker alcohol intake: never substance use type: does not use what type of physical activity do you participate in: walking and weight training frequency: 3-4 times per week HPI LEFT ELBOW Details: Parts of this documentation were recorded by a scribe, this documentation accurately reflects the service provided and the decisions made by me, THIAGO Rogers 04/20/21 0842. TRISTAN SINGH is a 61 year old F here today for left elbow issues. She states that when she is lifting with the left arm/hand then she can get lateral epicondyle pain/sorness. She states that her pain has improved over the last week and she has been not using the left arm as much. She does have weakness of the left arm. Denies ant surgery or injections to the left elbow. Denies any to the area. Denies numbness, tingling or other associated symptoms. Ortho Exam Left Elbow Skin/Wound: No eccymosis, No erythema and No Swelling Contralateral Normal: Yes Test: No Valgus Stress Test, No Varus Stress Test, No TTP Medial Epicondyle, Yes TTP Lateral Epicondyle, Yes Pain w/ resist wrist ext, No Pain w/ resist wrist flex, No Pain w/ resist pronation, No Thenar Atrophy, No Ulnar Nerve Subluxation and No Froment's ROM: Yes Flexion 0-140, Extension 0, Supination 0-90 and Pronation 0-80 Sensation: Radial: I, Ulnar: I and Median: I Motor: Elbow Extension: 5 (Pain with resisted extension), Elbow Flexion: 5 and 1st Dorsal Interosseous: 5 Coding Level of Care Code Off vis,est,level 3 Diagnoses Left lateral epicondylitis M77.12 Assessment and Plan Assessment and Plan (1) Left lateral epicondylitis: Status: Acute Plan - Mani DAS PA: Patient presents to the office with left elbow pain. Patient states that she started noticed pain approximately a year ago after she took up Frisbee golf and was participating regularly. No major injuries she can recall. No evident skin changes. Physical exam today shows no swelling and no acute changes. She does have full range of motion in all directions symmetric to the right elbow. Localized reproducible tenderness of the lateral epicondyle as well as pain with resisted supination and wrist extension. Consistent with lateral epicondylitis. At this time we discussed treatment options which include physical therapy, bracing, ice and anti-inflammatory. Patient would like to start conservative and therefore is going to do some bracing, the oral anti-inflammatory, icing, and home exercise/stretches. We can always proceed with an injection if she has it or worsening. This note was generated with [employer] software. It may contain incorrect words, spelling, and punctuation that were not noted in checking the note before signing. Plan Details Goals Barriers: Goals Decrease pain Increase ROM Decrease spasm 04/20/21 4456 <Electronically signed by Mani DAS> Date Mani DAS Cosigner Signature: Date (if applicable) CC: Jes Spicer DO Work Phone: Start: 04-16-2021 End: 04-16-2021 Chiropractic Report Comments: See Note; NOTES: [facility] [address] [place], [place] [id number] OFFICE VISIT Date of Service: 04/16/21 MR#: [id number] Acct: [id number] Name: TRISTAN SINGH Rep #: [id number] : 1960 Provider: LAI Brantley Age/Sex: 61/F Location[place] [facility] [place] Status: Signed Intake Vital Signs 04/16/21 13:30 BMI 29.0 Intake Visit Reasons: Back Pain Chief Complaint: Neck and Low Back Pain Is patient in pain?: Yes Allergies No Known Allergies Allergy (Verified 11/13/20 08:19) [facility] Medical History Endometriosis left ovary removal Family History Other Breast cancer Melanoma Myocardial infarction Sudden cardiac Thyroid disorder Social History Smoking Status: Never smoker alcohol intake: never substance use type: does not use what type of physical activity do you participate in: walking and weight training frequency: 3-4 times per week HPI Back Pain Chief Complaint: Neck and Low Back Pain Visit Number: 4 Details: TRISTAN SINGH is a 60 year old F here today for low back pain. She states that she had relief after the last adjustment but the pain slowly came back to her low back. She states that she has a sore tight ache starting in her right low back and banding across to the left side. She denies any new injury. She also has a tight ache between her shoulder blades. She denies any numbness, tingling, or radiculopathy. Location: Low Back, Upper Back Duration: Frequent Aggravating or associated factors: Sitting, bending, lifting Relieving factors: Chiro Pain Quality: aching and cramping Exam Musc General: Yes normal posture, normal gait, joint tenderness (L3,L4,L5, R SI) and decreased range of motion Thoracic/Lumber: Yes thoracic and lumbar spine normal to inspection, Yes paraspinal tenderness on the right greater than left (lumbopelvic) and on the left greater than right (mid thoracic/lower lumbar), Yes thoraco-lumbar spasm on the right greater than left (piriformis, QL) and on the left greater than right (rhomboid/paraspinal (L2-L5)) and Yes misalignment T5, T6, L2, L3, L4, L5 and RIL Sacroiliac joints: on the right tender to palpation Office Procedures Procedures - Chiropractic Procedures Manipulation: Lumbar L4, Thoracic T6 and Pelvis RIL Manipulation: 3-4 regions Patient Response: positive Assessment and Plan Assessment and Plan (1) Segmental and somatic dysfunction of pelvic region: Status: Acute Orders: Orders: Chiropractic Treatments Today (2) Segmental and somatic dysfunction of thoracic region: Status: Acute Orders: Orders: Chiropractic Treatments Today (3) Segmental and somatic dysfunction of lumbar region: Status: Acute Orders: Orders: Chiropractic Treatments Today Plan Details Other Orders: Orders: Chiropractic Treatments Today M99.01 Additional Comments: Patient was treated without incident. Continue care. Goals Barriers: Goals Decrease pain Increase ROM Decrease spasm Follow Up: PRN Coding Level of Care Code No Charge Diagnoses Segmental and somatic dysfunction of pelvic region M99.05 Segmental and somatic dysfunction of thoracic region M99.02 Segmental and somatic dysfunction of lumbar region M99.03 CPT Codes Procedures - Manipulation: 3-4 regions ([id number]) 04/16/21 1412 <Electronically signed by Shannan Gan D.C.> Date Shannan Gan D.C. Cosigner Signature: Date (if applicable) CC: Jes Spicer DO Work Phone: Start: 03-12-2021 End: 03-13-2021 Chiropractic Report Comments: See Note; NOTES: [facility] [address] [place], [place] [id number] OFFICE VISIT Date of Service: 03/12/21 MR#: [id number] Acct: [id number] Name: SAMANTHATRISTAN Rep #: [id number] : 1960 Provider: LAI Brantley Age/Sex: 61/F Location: [facility] [place] Status: Signed Intake Vital Signs 03/12/21 14:23 BMI 29.0 Intake Visit Reasons: Back Pain Chief Complaint: Neck and Low Back Pain Is patient in pain?: Yes Allergies No Known Allergies Allergy (Verified 11/13/20 08:19) PFSH Medical History Endometriosis left ovary removal Family History Other Breast cancer Melanoma Myocardial infarction Sudden cardiac Thyroid disorder Social History Smoking Status: Never smoker alcohol intake: never substance use type: does not use what type of physical activity do you participate in: walking and weight training frequency: 3-4 times per week HPI Back Pain Chief Complaint: Neck and Low Back Pain Visit Number: 4 Details: TRISTAN SINGH is a 60 year old F here today for low back pain. She states that she had relief after the last adjustment but her pain returned a week ago. She states that she has a sore tight ache starting in her right low back and banding across to the left side. She denies any new injury. She denies any neck pain. She denies any numbness, tingling, or radiculopathy. Location: Low Back Duration: Frequent Aggravating or associated factors: Sitting, bending, lifting Relieving factors: Chiro Pain Quality: aching and cramping Exam Musc General: Yes normal posture, normal gait, joint tenderness (L3,L4,L5, R SI) and decreased range of motion Thoracic/Lumber: Yes thoracic and lumbar spine normal to inspection, Yes paraspinal tenderness on the right greater than left (lumbopelvic) and on the left greater than right (mid thoracic/lower lumbar), Yes thoraco-lumbar spasm on the right greater than left (piriformis, QL) and on the left greater than right (rhomboid/paraspinal (L2-L5)) and Yes misalignment T5, T6, L2, L3, L4, L5 and RIL Sacroiliac joints: on the right tender to palpation Office Procedures Procedures - Chiropractic Procedures Manipulation: Lumbar L3, Thoracic T5 and Pelvis RIL Manipulation: 3-4 regions Patient Response: positive Assessment and Plan Assessment and Plan (1) Segmental and somatic dysfunction of pelvic region: Status: Acute (2) Segmental and somatic dysfunction of thoracic region: Status: Acute (3) Segmental and somatic dysfunction of cervical region: Status: Acute (4) Segmental and somatic dysfunction of lumbar region: Status: Acute Plan - Dr. Shannan Gan, DC: Patient was treated without incident. Continue care. Plan Details Goals Barriers: Goals Decrease pain Increase ROM Decrease spasm Follow Up: PRN Coding Level of Care Code No Charge Diagnoses Segmental and somatic dysfunction of pelvic region M99.05 Segmental and somatic dysfunction of thoracic region M99.02 Segmental and somatic dysfunction of cervical region M99.01 Segmental and somatic dysfunction of lumbar region M99.03 CPT Codes Procedures - Manipulation: 3-4 regions ([id number]) 03/13/21 1303 <Electronically signed by Shannan Gan D.C.> Date Shannan Gan D.C. Cosigner Signature: Date (if applicable) CC: Jes Spicer DO Work Phone: Start: 01-22-2021 End: 01-22-2021 Chiropractic Report Comments: See Note; NOTES: [facility] [address] [place] [address] OFFICE VISIT Date of Service: 01/22/21 MR#: [id number] Acct: [id number] Name: TRISTAN SINGH Rep #: [id number] : 1960 Provider: LAI Brantley Age/Sex: 60/F Location: [facility] [place] Status: Signed Intake Intake Visit Reasons: Back Pain Chief Complaint: Neck and Low Back Pain Is patient in pain?: Yes Allergies No Known Allergies Allergy (Verified 11/13/20 08:19) [facility] Medical History Endometriosis (Acute) left ovary removal (Acute) Family History Other Breast cancer Melanoma Myocardial infarction Sudden cardiac Thyroid disorder Social History (Updated 01/22/21 @ 10:[address] Shannan Gan, LAI) Smoking Status: Never smoker alcohol intake: never substance use type: does not use what type of physical activity do you participate in: walking, weight training frequency: 3-4 times per week HPI Back Pain: Chief Complaint: Low back pain Visit Number: 3 Details: TRISTAN SINGH is a 60 year old F here today for low back pain. She states that she had relief after the adjustment but later that night she felt her low back and right hip go out again. Her pain continues to be in the center of the low back and then radiating to the right side and into the right hip. She states that the pain was so bad that she had difficulty sleeping this past weekend. She denies any numbness, tingling, or radiculopathy. Location: Low Back, Right Hip Duration: Frequent Aggravating or associated factors: Sitting, bending, lifting Relieving factors: Chiro Pain Quality: aching, dull, cramping Exam Musc General: Yes normal posture, normal gait, joint tenderness (L3,L4,L5, R SI) and decreased ROM Thoracic/Lumber: Yes thoracic and lumbar spine normal to inspection, Yes paraspinal tenderness (worse) on the right greater than left (lumbopelvic) and on the left greater than right (midthoracic/lower lumbar), Yes thoraco-lumbar spasm on the right greater than left (piriformis, QL) and on the left greater than right (rhomboid/paraspinal (L2-L5)), Yes misalignment T5, T6, L2, L3, L4, L5, RIL Sacroiliac joints: on the right tender to palpation Office Procedures Chiropractic Treatments Procedures Manipulation: Lumbar L4, Pelvis RIL Manipulation: 3-4 regions Patient Response: positive Assessment Plan Problems 1. Segmental and somatic dysfunction of pelvic region M99.05 2. Segmental and somatic dysfunction of lumbar region M99.03 Plan Patient was treated without incident. Continue care. Orders Orders: Chiropractic Treatments Today M99.02, M99.03, M99.05 Plan Detail Goals Decrease pain Increase ROM Decrease spasm Follow Up PRN Coding Level of Care Code No Charge Diagnoses Segmental and somatic dysfunction of pelvic region M99.05 Segmental and somatic dysfunction of lumbar region M99.03 Additional Codes Procedures - Manipulation: 3-4 regions ([id number]) 01/22/21 1008 <Electronically signed by Shannan Gan D.C.> Date Shannan Ledesma Signature: Date (if applicable) CC: Jes Spicer DO Work Phone: Start: 01-18-2021 End: 01-22-2021 Chiropractic Report Comments: See Note; NOTES: [facility] [address] [place] [address] OFFICE VISIT Date of Service: 01/18/21 MR#: [id number] Acct: [id number] Name: TRISTAN SINGH Rep #: [id number] : 1960 Provider: LAI Brantley Age/Sex: 60/F Location: [facility] [place] Status: Signed Intake Intake Visit Reasons: Back Pain Chief Complaint: Neck and Low Back Pain Is patient in pain?: Yes Allergies No Known Allergies Allergy (Verified 11/13/20 08:19) PFSH Medical History Endometriosis (Acute) left ovary removal (Acute) Family History Other Breast cancer Melanoma Myocardial infarction Sudden cardiac Thyroid disorder Social History (Updated 01/22/21 @ 10:[address] Shannan Gan, LAI) Smoking Status: Never smoker alcohol intake: never substance use type: does not use what type of physical activity do you participate in: walking, weight training frequency: 3-4 times per week HPI Back Pain: Chief Complaint: Low back pain Visit Number: 2 Details: TRISTAN SINGH is a 60 year old F here today for low back and right hip pain. She states that her right hip pain has been decreasing. She states that she has been doing a lot of stretching for the hip and that seems to help. She states that she also continues to have a sore ache that bands across her low back that comes and goes. She denies any numbness, tingling, or radiculopathy. Location: Low Back, Right Hip Duration: Frequent Aggravating or associated factors: Sitting, bending, lifting Relieving factors: Chiro Pain Quality: aching, dull, cramping Exam Musc General: Yes normal posture, normal gait, joint tenderness (L3,L4,L5, R SI) and decreased ROM Thoracic/Lumber: Yes thoracic and lumbar spine normal to inspection, Yes paraspinal tenderness on the right greater than left (lumbopelvic) and on the left greater than right (midthoracic), Yes tho raco-lumbar spasm on the right greater than left (piriformis, QL) and on the left greater than right (rhomboid), Yes misalignment T5, T6, L2, L3, L4, L5, RIL Sacroiliac joints: on the right tender to palpation Office Procedures Chiropractic Treatments Procedures Manipulation: Lumbar L3, Pelvis RIL Manipulation: 1-2 regions Electronic Stimulation: Yes Electrical Stimulation: Lumbar 15 mins (22) mA Therapy Performed by:: Radha Dawson Patient Response: positive Assessment Plan Problems 1. Segmental and somatic dysfunction of lumbar region M99.03 2. Segmental and somatic dysfunction of pelvic region M99.05 Plan Patient was treated without incident. Continue care. Orders Orders: Chiropractic Treatments 01/18/21 M99.02, M99.03, M99.05 Plan Detail Goals Decrease pain Increase ROM Decrease spasm Follow Up PRN Coding Level of Care Code No Charge Diagnoses Segmental and somatic dysfunction of lumbar region M99.03 Segmental and somatic dysfunction of pelvic region M99.05 Additional Codes Procedures - Manipulation: 1-2 regions ([id number]) Procedures - Electronic Stimulation: Yes (75141) 01/22/21 1011 <Electronically signed by Shannan Gan D.C.> Date Shannan Gan D.C. Cosigner Signature: Date (if applicable) CC: Jes Spicer DO Work Phone: Start: 11-27-2020 End: 11-27-2020 Chiropractic Report Comments: See Note; NOTES: [facility] [address] [place] [id number] OFFICE VISIT Date of Service: 11/27/20 MR#: [id number] Acct: [id number] Name: TRISTAN SINGH Rep #: [id number] : 1960 Provider: LAI Brantley Age/Sex: 60/F Location: [facility] [place] Status: Signed Intake Intake Visit Reasons: Back Pain Chief Complaint: Neck and Low Back Pain Is patient in pain?: Yes Allergies No Known Allergies Allergy (Verified 11/13/20 08:19) [facility] Medical History Endometriosis (Acute) left ovary removal (Acute) Family History Other Breast cancer Melanoma Myocardial infarction Sudden cardiac Thyroid disorder Social History (Updated 11/27/20 @ 14:[address] Shannan Gan, LAI) Smoking Status: Never smoker alcohol intake: never substance use type: does not use what type of physical activity do you participate in: walking, weight training frequency: 3-4 times per week HPI Back Pain: Chief Complaint: Low back pain, upper back pain Visit Number: 1 Details: TRISTAN SINGH is a 60 year old F here today for upper and low back pain. She states that her low back pain has flared up again recently. She states that she has pain banding across her low back and hips that is worsened by prolonged sitting and sleeping. She states that she also has a tight ache in the middle of her shoulder blades. She received an injection in the right hip that was beneficial last week. She denies any numbness, tingling, or radiculopathy. Location: upper back, low back Duration: Constant Aggravating or associated factors: Sitting, bending, lifting, sleeping Relieving factors: Chiro Pain Quality: aching, dull, cramping Exam Musc General: Yes normal posture, normal gait, joint tenderness (L3,L4,L5, R SI) and decreased ROM Thoracic/Lumber: Yes thoracic and lumbar spine normal to inspection, Yes paraspinal tenderness on the right greater than left (lumbopelvic) and on the left greater than right (midthoracic), Yes thoraco-lumbar spasm on the right greater than left (piriformis, QL) and on the left greater than right (rhomboid), Yes misalignment T5, T6, L2, L3, L4, L5, RIL Sacroiliac joints: on the right tender to palpation Office Procedures Chiropractic Treatments Procedures Manipulation: Lumbar L4, Thoracic T6, Pelvis RIL Manipulation: 3-4 regions Electronic Stimulation: Yes Electrical Stimulation: Lumbar 15 mins (18) mA Therapy Performed by:: Radha Dawson Traction, Mechanical: Yes Patient Response: positive Assessment Plan Problems 1. Segmental and somatic dysfunction of pelvic region M99.05 2. Segmental and somatic dysfunction of lumbar region M99.03 3. Segmental and somatic dysfunction of thoracic region M99.02 Plan Patient was treated without incident. Continue care as needed. Orders Orders: Chiropractic Treatments Today M99.03, M99.05 Plan Detail Goals Decrease pain Increase ROM Decrease spasm Follow Up PRN Coding Level of Care Code No Charge Diagnoses Segmental and somatic dysfunction of pelvic region M99.05 Segmental and somatic dysfunction of lumbar region M99.03 Segmental and somatic dysfunction of thoracic region M99.02 Additional Codes Procedures - Electronic Stimulation: Yes (43845) Procedures - Traction, Mechanical: Yes (40623) Procedures - Manipulation: 3-4 regions (43475) 11/27/20 0462 <Electronically signed by Shannan Gan D.C.> Date Shannan Gan D.C. Cosignevelin Signature: Date (if applicable) CC: Jes Shyam DO Work Phone: Start: 11-13-2020 End: 11-13-2020 Orthopedic Visit Report Comments: See Note; NOTES: [facility] [address] [place] [address] OFFICE VISIT Date of Service: 11/13/20 MR#: [id number] Acct: [id number] Name: TRISTAN SINGH Rep #: [id number] : 1960 Provider: Dr. Jung peters DO Age/Sex: 60/F Location: [facility] Status: Signed Intake Intake Visit Reasons: RIGHT HIP Is patient in pain?: Yes Allergies No Known Allergies Allergy (Verified 11/13/20 08:19) [facility] Medical History Endometriosis (Acute) left ovary removal (Acute) Family History Other Breast cancer Melanoma Myocardial infarction Sudden cardiac Thyroid disorder Social History (Updated 11/13/20 @ 10:[address] Jung Gudino DO) Smoking Status: Never smoker alcohol intake: never substance use type: does not use what type of physical activity do you participate in: walking, weight training frequency: 3-4 times per week HPI RIGHT HIP: Details: Parts of this documentation were recorded by a scribe, this documentation accurately reflects the service provided and the decisions made by me, Dr. Jung Gudino DO 11/13/20 0756. TRISTAN SINGH is a 60 year old F here today for right hip pain. She states that she continues to have right hip pain and denies any changes since last visit. Patient complains of pain from her posterior hip, into her lateral hip and into her quad. She has increased pain in the middle of the night as she sleeps on that side. She denies any numbness or tingling. She describes her pain as an achiness. Patient takes tylenol for pain. Patient had an MRI which is here for review. She completed 6 weeks of physical therapy which was helpful but she saw no more improvement. ROS [facility] [place] Reports joint pain, Reports radiating pain into limb Skin/Breast Reports system reviewed and no additional complaints, except as docu Ortho Exam General General: Yes no acute distress Neurologic: Yes alert Psychologic: Yes reasonable and appropriate Right Hip Skin: No Ecchymosis, No soft tissue swelling, No Erythema Special Tests: Yes TTP Greater Troch, Yes C sign Homans Sign: No HIP: Right Hip Skin: No Ecchymosis, No soft tissue swelling, No Erythema Special Tests: No ITB tenderness HIP: TTP sacroiliac joint into the right gluteal area non tender over greater trochanteric bursae or IT band. ext rotation: 90 with production of pain gluteus medius insertion tenderness internal rotation: 45 with pain She also has pain with resisted hip flexion but good strength intact sensation to light touch throughout the leg. No gross motor deficits No masses appreciated. Office Procedures Depo-Medrol 40 mg/mL suspension for injection (methylprednisolone acetate) 40 mg intrabursal ONCE Injections Yes Greater Trochanteric Bursa Injection Right Details: Obtained consent for injection. Under sterile conditions, injected the patient's right greater trochanter bursa with 4cc bupivacaine, 4cc lidocaine and 1cc depomedrol. The patient tolerated the injection well without any noted complication. Patient should call our office if redness develops, pain worsens or if they have any concerns. Office Meds Depo-Medrol Performing Provider: Jung Gudino DO Administered by: Jung Gudino DO on 11/13/20 09:14 Dose Route Admin Location Lot Number Expiration Date NDC Manufactu rer 40 mg intrabursal right greater troch [id number] 02/01/22 6979-3993-45 [employer]ARM[employer] Supplemental Info 11/08/2020 MRI right hip normal articular joint space tear of anterior superior labrum as on prior study in 2018.Hypertrophy of piriformis muscle without intramuscular edema 10/18/2020 x-ray right hip and pelvis: Preserved hip joint space no acute findings no bony pathology Appreciated 05/10/2019 x-ray bilateral knees no significant arthrosis no acute findings 02/03/2018 MRI lumbar spine:Mild multilevel degenerative changes Assessment Plan Problems 1. Piriformis syndrome of right side G57.01 2. Greater trochanteric bursitis of right hip M70.61 Plan Spoke with the patient about the benefits of a greater troch injection. She should continue with piriformis stretching daily. She should refrain from heavy weights but should continue with her hip strengthening. She may have another injection in 3 months if needed. Follow up on an as needed basis or sooner if pain, swelling, numbness or associated symptoms, or concerns develop. All questions answered. Patient in agreement of plan. Orders Orders: Ortho Injections Today M70.61 Plan Detail Goals Decrease pain Increase ROM Decrease spasm Coding Level of Care Code Off vis,est,level 3 Diagnoses Piriformis syndrome of right side G57.01 Greater trochanteric bursitis of right hip M70.61 Additional Codes [email or web address] ([id number]) 11/13/20 1008 <Electronically signed by Jung Gudino DO> Date Jung Gudino DO Cosigner Signature: Date (if applicable) CC: Jes Spicer DO Work Phone: Start: 11-08-2020 End: 11-08-2020 Lower Ext Joint Only (Routine) Comments: See Note; NOTES: [facility] Imaging Services [address] [place] [address] Lower Ext Joint Only (Routine) MR#: [id number] Acct: [id number] Name: TRISTAN SINGH Rep #: [id number] : 1960 F 60 From: Henrik Mario PCP: Dr. Jes Spicer, Status: REG CLI Study: Lower Ext Joint Only (Routine) Date of Exam: 0 11/08/20 Exam# [id number] Ordering Dr: Jung Gudino DO STUDY: MRI RIGHT HIP REASON FOR EXAM: Right hip pain for 2 years, no specific injury. TECHNIQUE: Standardized fat and water weighted pulse sequences were obtained in all 3 orthogonal planes. COMPARISON: Radiographs 10/18/2020 and MRI images 02/03/2018. FINDINGS: Normal hip joint without articular joint space narrowing. Normal acetabulum. There is a tear of the anterosuperior labrum (proton-density sagittal image 17) as on the prior study. Normal femoral head. Normal femoral neck and intratrochanteric region. Normal gluteus minimus, medius and iliopsoas tendons and distal insertions. There is no trochanteric, iliopsoas or iliopectineal bursitis. Normal superior and inferior pubic rami. Normal pubic symphysis. Normal ischial tuberosity. Normal origin of the hamstring tendons. Normal visualized iliac wing, sacroiliac joint, and sacral ala. There is asymmetry of the piriformis muscles, larger on the right (T1 coronal images 7-9) as on the prior study without intramuscular edema. MRI/Lower Ext Joint Only (Routine) IMPRESSION: Tear of the right anterosuperior labrum. Hypertrophy of the right piriformis muscle. Electronically Signed: Henrik Moore MD at 11:40 EST Tel , Service support , CC: Dr. Jung Gudino DO; Dr. Jes Spicer DO Game Designer/Creative Director: Signed Jes Spicer DO Work Phone: Start: 06-14-2020 End: 06-15-2020 Chiropractic Report Comments: See Note; NOTES: [facility] [address] [place] [address] OFFICE VISIT Date of Service: 06/14/20 MR#: [id number] Acct: [id number] Name: SAMANTHATRISTAN Rep #: [id number] : 1960 Provider: LAI Brantley Age/Sex: 60/F Location[place] [facility] [place] Status: Signed Intake Intake Visit Reasons: Back Pain Chief Complaint: Right low back and mid back pain Allergies No Known Allergies Allergy (Verified 09/22/18 13:13) [facility] Medical History Endometriosis (Acute) left ovary removal (Acute) Family History Other Breast cancer Melanoma Myocardial infarction Sudden cardiac Thyroid disorder Social History (Updated 06/15/20 @ 10:[address] Shannan Gan, [place]) Smoking Status: Never smoker alcohol intake: never substance use type: does not use what type of physical activity do you participate in: walking, weight training frequency: 3-4 times per week HPI Back Pain: Chief Complaint: Right low back and mid back pain Visit Number: 3 Details: TRISTAN SINGH is a 60 year old F here today for neck pain and stiffness and mid back pain. She states that her low back pain has been relieved since her last visit. She states that her neck is stiff and sore and is increased from rotation of the neck. She is also having increased pain and spasms in her mid back between her shoulder blades. The pain is worse with bending and lifting. She denies any numbness, tingling, or radiculopathy. Location: Neck and Mid Back Duration: Intermittent Aggravating or associated factors: Bending, lifting, rotation of neck Relieving factors: Chiro Pain Quality: aching, dull, cramping, sharp Exam Musc General: Yes normal posture, normal gait and joint tenderness (C5,C6,T1,T2,T5,T6,L4,L5, R SI) Cervical Spine: Yes loss of normal cervical lordosis, Yes cervical muscular tenderness bilateral lower: paracervical muscle and trapezius, Yes pain with cervical ROM with lateral flexion to right and with lateral flexion to left, Yes cervical spasm (trap) bilateral lower: trapezius and paracervical muscles, Yes misalignment misalignment: C5, C6 Thoracic/Lumber: Yes thoracic and lumbar spine normal to inspection, Yes straight leg raise negative bilaterally, Yes Lasegue's sign positive on the right, Yes pain with thoraco-lumbar ROM with forward flexion, Yes paraspinal tenderness on the right greater than left (upper thoracic/lower lumbar), Yes thoraco-lumbar spasm on the right greater than left (trap/levator, piriformis), Yes misalignment T1, T5, T6, L4, L5, RIL Sacroiliac joints: on the right tender to palpation Office Procedures Chiropractic Treatments Procedures Manipulation: Cervical C5, Lumbar L4, Thoracic T1, T6, Pelvis RIL Manipulation: 3-4 regions Patient Response: positive Assessment Plan Problems 1. Segmental and somatic dysfunction of pelvic region M99.05 2. Segmental and somatic dysfunction of thoracic region M99.02 3. Segmental and somatic dysfunction of cervical region M99.01 4. Segmental and somatic dysfunction of lumbar region M99.03 Plan Patient was re-evaluated and treated without incident. Continue care. Orders Orders: Chiropractic Treatments 06/14/20 M99.01, M99.02, M99.03, M99.05 Plan Detail Goals Decrease pain Increase ROM Decrease spasm Barriers R hip injury Follow Up PRN Coding Level of Care Code No Charge Diagnoses Segmental and somatic dysfunction of pelvic region M99.05 Segmental and somatic dysfunction of thoracic region M99.02 Segmental and somatic dysfunction of cervical region M99.01 Segmental and somatic dysfunction of lumbar region M99.03 Additional Codes Procedures - Manipulation: 3-4 regions (65600) 06/15/20 1001 <Electronically signed by Shannan Gan D.C.> Date Shannan Gan D.C. Cosigner Signature: Date (if applicable) CC: Jes Spicer Start: 06-12-2020 End: 06-12-2020 Thyroid Comments: See Note; NOTES: [facility] Imaging Services [address] [place] [address] Thyroid MR#: [id number] Acct: [id number] Name: TRISTAN SINGH Rep #: [id number] : 1960 F 60 From: Trey tran MD PCP: Dr. Jes Spicer DO Status: REG CLI Study: Thyroid Date of Exam: 06/12/20 Exam# [id number] Ordering Dr: Jes Spicer DO STUDY: THYROID ULTRASOUND REASON FOR EXAM: Female, 60 years old. F/u nodule TECHNIQUE: Ultrasound evaluation of the thyroid was performed with real-time and static pruitt-scale imaging. COMPARISON: Comparison is made with prior examination dated 10/13/2018. FINDINGS: RIGHT LOBE: The right lobe of the thyroid gland measures 4.7 cm x 1.8 cm x 0.7 cm. There is a homogeneous echotexture. There is a 4 mm x 3 mm x 3 mm cystic nodule in the lower pole of the right lobe. LEFT LOBE: The left lobe of the thyroid gland measures 4.1 cm x 1.5 cm x 0.6 cm. There is a homogeneous echotexture. There is a 7 mm x 6 mm x 3 mm well-defined hypoechoic solid nodule in the lower pole. ISTHMUS: The isthmus measures 2.0 mm. There is a 7 mm x 6 mm x 3 mm hypoechoic nodule in the isthmus. The regional lymph nodes are normal. US/Thyroid IMPRESSION: Stable examination. Electronically Signed: Trey Patricia, at 15:24 EDT , Service support , CC: Dr. Jes Spicer DO Game Designer/Creative Director: Signed Jes Spicer Work Phone: Start: 04-19-2020 End: 04-19-2020 SCREEN MAMM (CAD) W/CATIE BILAT Comments: See Note; NOTES: [facility] Imaging Services [address] [place] [address] SCREEN MAMM (CAD) W/CATIE BILAT MR#: [id number] Acct: [id number] Name: TRISTAN SINGH Rep #: [id number] : 1960 F 60 From: Trey tran MD PCP: Dr. Jes Spicer DO Status: REG CLI Study: SCREEN MAMM (CAD) W/CATIE BILAT Date of Exam: 0 04/19/20 Exam# [id number] Ordering Dr: Cynthia Marie MD MAMMOGRAPHY - BILATERAL SCREENING REASON FOR EXAM: Female, 60 years old. Routine annual screening examination. PERTINENT HISTORY: Mother with breast cancer. Aunt with breast cancer. TECHNIQUE: Digital bilateral breast catie (3D mammographic acquisition) in the CC and MLO projections. 2-D mediolateral oblique (MLO) and craniocaudad (CC) views of both breasts were obtained. CAD: Full Field Digital Mammography with Computer Added Detection was performed. COMPARISON: Comparison is made with prior study dated February 11, 2019 and January 21, 2018. FINDINGS: Breast Composition: The breasts are heterogeneously dense, which may obscure small masses. There are no dominant masses or suspicious calcifications. Stable small bilateral benign-appearing axillary lymph nodes. No other significant abnormalities are identified. There has been no significant change since the prior study. BI/SCREEN MAMM (CAD) W/CATIE BILAT IMPRESSION: Stable bilateral screening mammogram. Yearly follow-up mammogram recommended. (A) ASSESSMENT CATEGORY: BIRADS Category 2: Benign. A letter regarding these results will be sent to the patient by the facility within 30 days. Approximately 10% of breast cancers are not detected by mammography. A normal mammogram should not delay biopsy of a clinically suspicious abnormality. [id number] Electronically Signed: Trey Patricia, at 9:33 EDT , Service support , CC: Dr. Jes Spicer DO; Dr. Cynthia Franklin MD Game Designer/Creative Director: Signed Jes Spicer Start: 12-30-2019 End: 12-30-2019 Chiropractic Report Comments: See Note; NOTES: [facility] [place] [address] OFFICE VISIT Date of Service: 12/27/19 MR#: [id number] Acct: [id number] Name: TRISTAN SINGH Rep #: [id number] : 1960 Provider: Shannan Gan D.C. Age/Sex: 59/F Location[place] [facility] [place] Status: Signed Intake Intake Visit Reasons: back pain Chief Complaint: back and neck pain Is patient in pain?: Yes Allergies No Known Allergies Allergy (Verified 09/22/18 13:13) [facility] Medical History Endometriosis (Acute) left ovary removal (Acute) Family History Other Breast cancer Melanoma Myocardial infarction Sudden cardiac Thyroid disorder Social History (Updated 12/30/19 @ 13:[address] Shannan Gan, [place]) Smoking Status: Never smoker alcohol intake: never substance use type: does not use what type of physical activity do you participate in: walking, weight training frequency: 3-4 times per week HPI back pain : Chief Complaint: neck and low back pain Visit Number: 2 Details: TRISTAN SINGH is a 59 year old F who presents with R low back and neck pain. She states that her R low back pain has increased leaving her with a deep pain into the R hip and leg. Walking, bending, lifting, and twisting causes increased pain and tightness in the low back. She has started swimming which has really improved her level of pain from what it was before. Tristan also complains of mid back and neck pain. She states that pain is a deep and sore ache that comes and goes. Rotation and twisting causes increased pain and tightness. Tristan denies any numbness ,tingling, or radiculopathy. Onset: 12/20/19 Location: neck and low back Duration: intermittent Aggravating or associated factors: rotation of the neck, bending and lifting Relieving factors: chiro Pain Quality: aching, dull, cramping, radiating Exam Musc General: Yes normal posture, normal gait and joint tenderness (C5,C6,T1,T2,T5,T6,L4,L5, R SI) Cervical Spine: Yes loss of normal cervical lordosis, Yes cervical muscular tenderness bilateral lower: paracervical muscle and trapezius, Yes cervical spasm bilateral lower: trapezius and paracervical muscles, Yes misalignment misalignment: C5, C6 Thoracic/Lumber: Yes thoracic and lumbar spine normal to inspection, Yes paraspinal tenderness on the right greater than left (upper thoracic/lower lumbar), Yes thoraco-lumbar spasm on the right greater than left (trap/levator, piriformis), Yes misalignment T1, T5, T6, L4, L5, RIL Sacroiliac joints: on the right tender to palpation Office Procedures Chiropractic Treatments Procedures Manipulation: Cervical C5, Lumbar L4, Thoracic T2, T6, Pelvis RIL Manipulation: 3-4 regions Patient Response: positive Assessment AND Plan 1. Segmental and somatic dysfunction of pelvic region M99.05 Orders Orders: 2. Segmental and somatic dysfunction of thoracic region M99.02 Orders Orders: 3. Segmental and somatic dysfunction of cervical region M99.01 Orders Orders: 4. Segmental and somatic dysfunction of lumbar region M99.03 Orders Orders: Plan Detail Additional Comments Patient was treated without incident. Continue care on PRN basis. Goals Decrease pain Increase ROM Decrease spasm Barriers R hip injury Follow Up PRN Coding Level of Care Code No Charge Diagnoses Segmental and somatic dysfunction of pelvic region M99.05 Segmental and somatic dysfunction of thoracic region M99.02 Segmental and somatic dysfunction of cervical region M99.01 Segmental and somatic dysfunction of lumbar region M99.03 Additional Codes Procedures - Manipulation: 3-4 regions (29909) 12/30/19 7503 <Electronically signed by Shannan Gan D.C.> Date Shannan Gan D.C. Cosigner Signature: Date (if applicable) CC: Jes Spicer Start: 11-15-2019 End: 11-15-2019 Chiropractic Report Comments: See Note; NOTES: [facility] [place] [address] OFFICE VISIT Date of Service: 11/15/19 MR#: [id number] Acct: [id number] Name: TRISTAN SINGH Rep #: [id number] : 1960 Provider: Shannan Gan D.C. Age/Sex: 59/F Location: [facility] [place] Status: Signed Intake Intake Visit Reasons: back pain Chief Complaint: back and neck pain Is patient in pain?: Yes Allergies No Known Allergies Allergy (Verified 09/22/18 13:13) PFSH Medical History Endometriosis (Acute) left ovary removal (Acute) Family History Other Breast cancer Melanoma Myocardial infarction Sudden cardiac Thyroid disorder Social History (Updated 11/15/19 @ 14:32 by Shannan Gan [place]) Smoking Status: Never smoker alcohol intake: never substance use type: does not use what type of physical activity do you participate in: walking, weight training frequency: 3-4 times per week HPI back pain : Chief Complaint: neck and L low back pain (1) Visit Number: 1 Details: TRISTAN SINGH is a 59 year old F who presents with neck and L sided low back pain. Tristan states that her L hip and low back pain has increased leaving her with a deep and sore ache banding across the low back and into the hip. She states that the more she exercises the more the pain increases, leaving her with a sharp shooting pain. Tristan also complains of neck pain, she states that rotation of the neck, looking down, and lifting the pain does increase. Tristan denies any numbness, tingling, or radiculopathy. Onset: 11/07/19 Location: neck and L sided low back pain Duration: intermittent Aggravating or associated factors: rotation of the neck, looking down, exercising Relieving factors: chiro Pain Quality: aching, dull, cramping, radiating Exam Musc General: Yes normal posture, normal gait and joint tenderness (C5,C6,T1,T2,T5,T6,L4,L5, R SI) Cervical Spine: Yes loss of normal cervical lordosis, Yes cervical muscular tenderness bilateral lower: paracervical muscle and trapezius, Yes cervical spasm bilateral lower: trapezius and paracervical muscles, Yes misalignment misalignment: C5, C6 Thoracic/Lumber: Yes thoracic and lumbar spine normal to inspection, Yes pain with thoraco-lumbar ROM, Yes paraspinal tenderness on the right greater than left (upper thoracic/lower lumbar), Yes thoraco-lumbar spasm on the right greater than left (trap/levator, piriformis), Yes misalignment T1, T5, T6, L4, L5 Sacroiliac joints: on the right tender to palpation Office Procedures Chiropractic Treatments Procedures Manipulation: Cervical C5, C6, Lumbar L5, Thoracic T2, T6, Pelvis RIL Manipulation: 3-4 regions Patient Response: positive Assessment AND Plan 1. Segmental and somatic dysfunction of pelvic region M99.05 Orders Orders: 2. Segmental and somatic dysfunction of thoracic region M99.02 Orders Orders: 3. Segmental and somatic dysfunction of cervical region M99.01 Orders Orders: 4. Segmental and somatic dysfunction of lumbar region M99.03 Orders Orders: Plan Detail Additional Comments Patient was treated without incident. Goals Decrease pain Increase ROM Barriers R hip injury Follow Up PRN Coding Level of Care Code No Charge Diagnoses Segmental and somatic dysfunction of pelvic region M99.05 Segmental and somatic dysfunction of thoracic region M99.02 Segmental and somatic dysfunction of cervical region M99.01 Segmental and somatic dysfunction of lumbar region M99.03 Additional Codes Procedures - Manipulation: 3-4 regions (85954) 11/15/19 8172 <Electronically signed by Shannan Gan D.C.> Date Shannan Gan D.C. Cosigner Signature: Date (if applicable) CC: Jes Spicer Start: 05-10-2019 End: 05-10-2019 Knee 4 or More Views Comments: See Note; NOTES: [facility] Imaging Services [address] [place] [address] Knee 4 or More Views MR#: [id number] Acct: [id number] Name: TRISTAN SINGH Rep #: [id number] : 1960 F 59 From: Matt Ayala MD PCP: Jes Spicer DO Status: REG CLI Study: Knee 4 or More Views Date of Exam: 05/10/19 Exam# [id number] Ordering Dr: Jung Gudino DO STUDY: X-RAY - RIGHT KNEE REASON FOR EXAM: Female, 59 years old. Pain TECHNIQUE: 4 view(s) of the knee. COMPARISON: None. FINDINGS: Normal visualized distal femur. Normal visualized proximal tibia and fibula. Normal proximal tibiofibular articulation. Normal medial femorotibial compartment. Normal lateral femorotibial compartment. Normal patellofemoral articulation. The soft tissue structures are unremarkable. RAD/Knee 4 or More Views IMPRESSION: Normal x-ray examination of the knee. Electronically Signed: Flako Ayala MD at 16:50 EDT , Service support , CC: Jung Gudino DO; Jes Spicer DO Game Designer/Creative Director: Signed Jes Spicer Start: 04-20-2019 End: 04-20-2019 Chiropractic Report Comments: See Note; NOTES: [facility] [address] [place] [address] OFFICE VISIT Date of Service: 04/15/19 MR#: [id number] Acct: [id number] Name: TRISTAN SINGH Rep #: [id number] : 1960 Provider: Shannan Gan D.C. Age/Sex: 59/F Location: [facility] [place] Status: Signed Intake Intake Visit Reasons: back pain Chief Complaint: Low back pain Is patient in pain?: Yes Allergies No Known Allergies Allergy (Verified 09/22/18 13:13) PFSH Medical History Endometriosis (Acute) left ovary removal (Acute) Family History Other Breast cancer Melanoma Myocardial infarction Sudden cardiac Thyroid disorder Social History (Updated 04/20/19 @ 13:38 by Shannan Gan [place]) Smoking Status: Never smoker alcohol intake: never substance use type: does not use what type of physical activity do you participate in: walking, weight training frequency: 3-4 times per week HPI back pain : Chief Complaint: bilateral low back pain Visit Number: 4 Details: TRISTAN SINGH is a 59 year old F who presents with bilateral low back pain. She states that her pain has increased, leaving her with a tight and sore ache that comes and goes. Rotation of the back, bending, and lifting causes increased pain. Today Tristan rates her pain a 4/10, she states she has been bending and kneeling causing increased pain that can be sharp. Tristan denies any numbness, tingling, or radiculopathy. Location: low back pain Duration: constant Aggravating or associated factors: rotataion, bending, kneeling and sitting Relieving factors: chiro Pain Quality: aching, dull, cramping, sharp Exam Musc General: Yes normal posture, normal gait and joint tenderness (C5,C6,T4,T5,L4,L5, R SI) Cervical Spine: normal cervical lordosis, cervical muscular tenderness bilateral lower: trapezius, pain with cervical ROM with lateral flexion to right, with lateral flexion to left and with anterior flexion, cervical spasm bilateral lower: trapezius and paracervical muscles, cervical ROM abnormal lateral flexion to the right decreased and lateral flexion to the left decreased Thoracic/Lumbar Spine: thor and lumb spine abnorm to inspection (R posterior rotation of pelvis), pain with thoraco-lumbar ROM with forward flexion, with lateral flexion to the right, with lateral flexion to the left, with rotation to the right, with rotation to the left and other (extension), paraspinal tenderness (moderate) on the right greater than left (lumbar), thoraco-lumbar ROM limited with forward flexion, with lateral flexion to the right, with lateral flexion to the left, with rotation to the right and with rotation to the left, thoraco-lumbar spasm on the right greater than left (piriformis) Sacroiliac joints: on the right tender to palpation (with edema) Office Procedures Chiropractic Treatments Procedures Manipulation: 3-4 regions (C6,T5,L4,RIL) Assessment AND Plan 1. Segmental and somatic dysfunction of pelvic region M99.05 Orders Orders: 2. Segmental and somatic dysfunction of cervical region M99.01 Orders Orders: 3. Segmental and somatic dysfunction of thoracic region M99.02 Orders Orders: 4. Segmental and somatic dysfunction of lumbar region M99.03 Orders Orders: Plan Detail Additional Comments Patient was treated without incident. Continue care on PRN basis. Goals Decrease pain Increase ROM Barriers R hip injury Follow Up PRN Coding Level of Care Code No Charge Diagnoses Segmental and somatic dysfunction of pelvic region M99.05 Segmental and somatic dysfunction of cervical region M99.01 Segmental and somatic dysfunction of thoracic region M99.02 Segmental and somatic dysfunction of lumbar region M99.03 Additional Codes Procedures - Manipulation: 3-4 regions (99131) 04/20/19 133 <Electronically signed by Shannan Gan D.C.> Date Shannan Gan D.C. Cosigner Signature: Date (if applicable) CC: Jes Spicer Start: 02-25-2019 End: 02-25-2019 Chiropractic Report Comments: See Note; NOTES: [facility] Chiropractic [address] [place] [address] OFFICE VISIT Date of Service: 02/23/19 MR#: [id number] Acct: [id number] Name: TRISTAN SINGH Rep #: [id number] : 1960 Provider: Shannan Gan D.C. Age/Sex: 59/F [place] [facility] [place] Status: Signed Intake Intake Visit Reasons: back pain Chief Complaint: Low back pain Is patient in pain?: Yes [...] Myocardial infarction Sudden cardiac Thyroid disorder HPI back pain : Chief Complaint: Low back pain Visit Number: 3 Details: TRISTAN SINGH is a 59 year old F who presents with low back pain. Grace states that recently her pain has increased, leaving her with a tight and sore ache banding across the low back. Walking, standing, bending, and lifting causes increased pain. At times the pain will radiate into the upper back, leaving her with a tight and stiff ache that is constant. Today Grace rates her pain a 4/10, she describes it as a constant and tight ache. Grace denies any numbness, tingling, or radiculopathy. Location: low back pain Duration: constant Aggravating or associated factors: bending, lifting, and prolonged sitting Relieving factors: chiro Pain Quality: aching, dull, cramping, sharp Exam Musc General: Yes normal posture, normal gait and joint tenderness (C5,C6,T4,T5,L4,L5, R SI) Cervical Spine: normal cervical lordosis, cervical muscular tenderness bilateral lower: trapezius, pain with cervical ROM with lateral flexion to right, with lateral flexion to left and with anterior flexion, cervical spasm bilateral lower: trapezius and paracervical muscles, cervical ROM abnormal lateral flexion to the right decreased and lateral flexion to the left decreased Thoracic/Lumbar Spine: thor and lumb spine abnorm to inspection (R posterior rotation of pelvis), pain with thoraco-lumbar ROM with forward flexion, with lateral flexion to the right, with lateral flexion to the left, with rotation to the right, with rotation to the left and other (extension), paraspinal tenderness (moderate) on the right greater than left (lumbar), thoraco-lumbar ROM limited with forward flexion, with lateral flexion to the right, with lateral flexion to the left, with rotation to the right and with rotation to the left, thoraco-lumbar spasm on the right greater than left (piriformis) Sacroiliac joints: on the right tender to palpation (with edema) Office Procedures Chiropractic Treatments Procedures Manipulation: 3-4 regions (C5,T5,L4, RIL) Assessment AND Plan 1. Segmental and somatic dysfunction of lumbar region M99.03 Orders Orders: 2. Segmental and somatic dysfunction of cervical region M99.01 Orders Orders: 3. Segmental and somatic dysfunction of thoracic region M99.02 Orders Orders: 4. Segmental and somatic dysfunction of pelvic region M99.05 Orders Orders: Plan Detail Additional Comments Continue care. Goals Decrease pain Increase ROM Barriers R hip injury Follow Up PRN Coding Level of Care Code No Charge Diagnoses Segmental and somatic dysfunction of lumbar region M99.03 Segmental and somatic dysfunction of cervical region M99.01 Segmental and somatic dysfunction of thoracic region M99.02 Segmental and somatic dysfunction of pelvic region M99.05 Additional Codes Procedures - Manipulation: 3-4 regions (53172) 02/25/19 0850 <Electronically signed by Shannan Gan D.C.> Date Shannan Ledesma Signature: Date (if applicable) CC: Jes Spicer Start: 02-11-2019 End: 02-11-2019 SCREENING MAMM (CAD), BILAT Comments: See Note; NOTES: [facility] Imaging Services [address] [place] [address] SCREENING MAMM (CAD), BILAT MR#: [id number] Acct: [id number] Name: TRISTAN SINGH Rep #: [id number] : 1960 F 59 From: Trey Patricia MD PCP: Jes Spicer DO Status: [facility] CLI Study: SCREENING MAMM (CAD), BILAT Date of Exam: 02/11/19 Exam# [id number] Ordering Dr: Sunshine De La Torre MD MAMMOGRAPHY - BILATERAL SCREENING REASON FOR EXAM: Female, 59 years old. Routine annual screening examination. PERTINENT HISTORY: Mother with breast cancer. Aunt with breast cancer. TECHNIQUE: Digital bilateral breast catie (3D mammographic acquisition) in the CC and MLO projections. 2-D mediolateral oblique (MLO) and craniocaudad (CC) views of both breasts were obtained. CAD: Full Field Digital Mammography with Computer Added Detection was performed. COMPARISON: Comparison is made with prior study of January 21, 2018 and December 04, 2016. FINDINGS: Breast Composition: The breasts are heterogeneously dense, which may obscure small masses. There are no dominant masses or suspicious calcifications. Small bilateral benign-appearing axillary lymph nodes. No other significant abnormalities are identified. There has been no significant change since the prior study. BI/SCREENING MAMM (CAD), BILAT IMPRESSION: Stable bilateral screening mammogram. Yearly follow-up mammogram recommended. (A) ASSESSMENT CATEGORY: BIRADS Category 2: Benign. A letter regarding these results will be sent to the patient by the facility within 30 days. Approximately 10% of breast cancers are not detected by mammography. A normal mammogram should not delay biopsy of a clinically suspicious abnormality. [id number] Electronically Signed: Trey Patricia, at 14:51 EDT , Service support , CC: Sunshine De La Torre MD; Jes Spicer DO Game Designer/Creative Director: Signed Jes Spicer Start: 01-19-2019 End: 01-19-2019 Chiropractic Report Comments: See Note; NOTES: [facility] Chiropractic [address] [place] [address] OFFICE VISIT Date of Service: 01/12/19 MR#: [id number] Acct: [id number] Name: TRISTAN SINGH Rep #: [id number] : 1960 Provider: Shannan Gan D.C. Age/Sex: 58/F Location[place] [facility] [place] Status: Signed Intake Vital Signs01/12/19 Height 5 ft 6 in 01/12/19 Weight: 180 lb 01/12/19 Body Mass Index (BMI) 29.0 Intake Visit Reasons: back pain Chief Complaint: Low back and R hip pain Is patient in pain?: Yes Allergies [...] week HPI back pain : Chief Complaint: Low back pain Visit Number: 2 Details: TRISTAN SINGH is a 58 year old F who presents with increased low back pain. She states that four days ago while on vacation she felt her back go out: causing increased pain. The pain was a sharp shooting banding across the low back, she was unable to stand or walk without pain. Tristan was seen by a chiropractor in [place] who did adjust her causing the pain to greatly decrease. Currently Tristan rates her pain a 3/10, she describes it as a deep ache that bands across the low back. Bending and prolonged sitting can cause the pain to intensify. Tristan denies any numbness, tingling, or radiculopathy. Location: low back/neck Duration: constant/occasional Aggravating or associated factors: bending, lifting, and prolonged sitting Relieving factors: chiro Pain Quality: aching, dull, cramping Exam Musc General: Yes normal posture, normal gait and joint tenderness (C5,C6,T4,T5,L4,L5, R SI) Cervical Spine: normal cervical lordosis, cervical muscular tenderness (mild) bilateral lower: trapezius, pain with cervical ROM with lateral flexion to right, with lateral flexion to left and with anterior flexion, cervical spasm (mild) bilateral lower: trapezius and paracervical muscles, cervical ROM abnormal lateral flexion to the right decreased and lateral flexion to the left decreased Thoracic/Lumbar Spine: thor and lumb spine abnorm to inspection (R posterior rotation of pelvis), pain with thoraco-lumbar ROM with forward flexion, with lateral flexion to the right, with lateral flexion to the left, with rotation to the right, with rotation to the left and other (extension), paraspinal tenderness (moderate) on the right greater than left (lumbar), thoraco-lumbar ROM limited with forward flexion, with lateral flexion to the right, with lateral flexion to the left, with rotation to the right and with rotation to the left, thoraco-lumbar spasm on the right greater than left (piriformis) Sacroiliac joints: on the right tender to palpation (with edema) Office Procedures Chiropractic Treatments Procedures Manipulation: 3-4 regions (C5,T4,L4, RIL) Assessment AND Plan 1. Segmental and somatic dysfunction of thoracic region M99.02 Orders Orders: 2. Segmental and somatic dysfunction of cervical region M99.01 Orders Orders: 3. Segmental and somatic dysfunction of lumbar region M99.03 Orders Orders: Plan Detail Other Orders Orders: Additional Comments Continue care. Goals Decrease pain Increase ROM Barriers R hip injury Follow Up PRN Coding Level of Care Code No Charge Diagnoses Segmental and somatic dysfunction of thoracic region M99.02 Segmental and somatic dysfunction of cervical region M99.01 Segmental and somatic dysfunction of lumbar region M99.03 Additional Codes Procedures - Manipulation: 3-4 regions (63859) 01/19/19 1437 <Electronically signed by Shannan Gan D.C.> Date Shannan Gan D.C. Cosigner Signature: Date (if applicable) CC: Jes Spicer Start: 12-24-2018 End: 12-24-2018 Chiropractic Report Comments: See Note; NOTES: [facility] [address] [place] [address] OFFICE VISIT Date of Service: 12/24/18 MR#: [id number] Acct: [id number] Name: SAMANTHATRISTAN WHITMAN Rep #: [id number] : 1960 Provider: Shannan Gan D.C. Age/Sex: 58/F Location: [facility] [place] Status: Signed Intake Intake Visit Reasons: Bsck pain Chief Complaint: low back and R hip pain Is patient in pain?: Yes Allergies [...] training frequency: 3-4 times per week HPI Bsck pain : Chief Complaint: Low back and R hip pain Visit Number: 1 Details: TRISTAN SINGH is a 58 year old F who presents with low back and R sided hip pain. She states that her pain has been persistent lately, in her low back and R SI. Rotation of the hip, bending, lifting, and twisting causes increased pain. Today Grace rates her pain a 4/10, and describes it as a deep and sore ache that bands across the low back, and does wrap into the R piriformis. Grace denies any numbness, tingling, or radiculopathy. She states that her R hip has improved a great deal since her last visit. Location: low back and R hip pain Duration: constant Aggravating or associated factors: rotation, bending, lifting, and twisting Relieving factors: chiro and stretching Pain Quality: aching, dull, cramping, sharp Exam Musc General: Yes normal posture, normal gait and joint tenderness (C5,C6,T4,T5,L4,L5, R SI) Cervical Spine: normal cervical lordosis, cervical muscular tenderness bilateral lower: trapezius, pain with cervical ROM with lateral flexion to right, with lateral flexion to left and with anterior flexion, cervical spasm bilateral lower: trapezius and paracervical muscles, cervical ROM abnormal lateral flexion to the right decreased and lateral flexion to the left decreased Thoracic/Lumbar Spine: thor and lumb spine abnorm to inspection (R posterior rotation of pelvis), pain with thoraco-lumbar ROM with forward flexion, with lateral flexion to the right and other (extension), paraspinal tenderness on the right greater than left (lumbar), thoraco-lumbar ROM limited with forward flexion, with lateral flexion to the right and with lateral flexion to the left, thoraco-lumbar spasm on the right greater than left (piriformis) Sacroiliac joints: on the right tender to palpation (with edema) Neuro General: alert, awake, oriented, normal light touch, pain and propioception, no focal motor deficits Office Procedures Chiropractic Treatments Procedures Manipulation: 3-4 regions (C5,T4,L4, RIL) Assessment AND Plan 1. Segmental and somatic dysfunction of thoracic region M99.02 Orders Orders: 2. Segmental and somatic dysfunction of cervical region M99.01 Orders Orders: 3. Segmental and somatic dysfunction of lumbar region M99.03 Orders Orders: 4. Piriformis syndrome of right side G57.01 5. Segmental and somatic dysfunction of pelvic region M99.05 Plan Discussed referral to ortho for consult on piriformis release. Continue care, if needed. Plan Detail Goals Decrease pain Increase ROM Barriers R hip injury Follow Up PRN Coding Level of Care Code No Charge Diagnoses Segmental and somatic dysfunction of thoracic region M99.02 Segmental and somatic dysfunction of cervical region M99.01 Segmental and somatic dysfunction of lumbar region M99.03 Piriformis syndrome of right side G57.01 Segmental and somatic dysfunction of pelvic region M99.05 Additional Codes Procedures - Manipulation: 3-4 regions (62818) 12/24/18 0942 <Electronically signed by Shannan Gan D.C.> Date Shannan Gan D.C. Cosignevelin Signature: Date (if applicable) CC: Jes Spicer Start: 10-13-2018 End: 10-14-2018 Dexa Bone Density Study Comments: See Note; NOTES: [facility] Imaging Services [address] [place] [address] Dexa Bone Density Study MR#: [id number] Acct: [id number] Name: TRISTAN SINGH Rep #: [id number] : 1960 F 58 From: Trey Patricia MD PCP: Jes Spicer DO Status: [facility] CLI Study: Dexa Bone Density Study Date of Exam: 10/13/18 Exam# [id number] Ordering Dr: Nayeli Vee AUDIO PRODUCTION MANAGERFrancine STUDY: DUAL ENERGY X-RAY ABSORPTIOMETRY / DXA [...] Total: g/cm2 (0.956) / T-score (-0.4) / Z-score (0.4) Left Femoral Neck: g/cm2 (0.934) / T-score (-0.7) / Z-score (0.4) Right Femur Total: g/cm2 (0.990) / T-score (-0.1) / Z-score (0.6) Right Femoral Neck: g/cm2 (0.972) / [...] Trey Patricia MD at 9:29 EST Tel [phone], Service support , CC: Nayeli Vee NP; Jes Spicer DO Game Designer/Creative Director: Signed Nayeli Vee Work Phone: Start: 10-13-2018 End: 10-14-2018 Thyroid Comments: See Note; NOTES: [facility] Imaging Services [address] [place] [address] Thyroid MR#: [id number] Acct: [id number] Name: TRISTAN SINGH Rep #: [id number] : 1960 F 58 From: Samy Ferreira PCP: Jes Spicer DO Status: REG CLI Study: Thyroid Date of Exam: 10/13/18 Exam# [id number] Ordering Dr: Nayeli Vee AUDIO PRODUCTION MANAGER-C STUDY: THYROID ULTRASOUND REASON FOR EXAM: Female, [...] , Service support , CC: Nayeli Vee AUDIO PRODUCTION MANAGER; Jes Spicer DO Game Designer/Creative Director: Signed Nayeli Vee Work Phone: Start: 09-29-2018 End: 09-29-2018 Orthopedic Visit Report Comments: See Note; NOTES: [facility] Orthopaedics AND Sports Medicine [address] [place] [address] OFFICE VISIT Date of Service: 09/22/18 MR#: [id number] Acct: [id number] Name: TRISTAN SINGH Rep #: [id number] : 1960 Provider: Sunshine Jordan DO Age/Sex: 58/F Location: [facility] [place] Status: Signed Intake Intake Visit Reasons: RIGHT [...] Route Admin Location Lot Number Expiration DateNDC Fusion Juncture Grinder 20 mg Intra-Articularright PSIS [id number] 10/03/19 6582-9578-15 [employer] Assessment AND Plan 1. Piriformis syndrome of [...] her pain. This note was generated with [employer] dictation software. It may contain incorrect words, [...] Orders Orders: Medications Discontinued: Kenalog (triamcinolone acetonide) [id number] mg (0.5 mL) Intra-Articular ONCE 0.5 mL [...] signed by Sunshine Jordan DO> Date Sunshine Mariaignevelin Signature: Date (if applicable) CC: Jes Spicer Start: 07-28-2018 End: 07-28-2018 Chiropractic Report Comments: See Note; NOTES: [facility] [address] [place] [address] OFFICE VISIT Date of Service: 07/28/18 MR#: [id number] Acct: [id number] Name: TRISTAN SINGH Rep #: [id number] : 1960 Provider: Shannan Gan D.C. Age/Sex: 58/F Location: [facility] [place] Status: Signed Intake Vital Signs07/28/18 Height 5 [...] and with lateral flexion to the left, thoraco-lumbar spasm, paraspinal tenderness on the right greater [...] Additional Codes Procedures - Manipulation: 3-4 regions (44743) 07/28/18 1334 <Electronically signed by Shannan Gan D.C.> Date Shannan Gan D.C. Cosigner Signature: Date (if applicable) CC: Jes Spicer Start: 03-31-2018 End: 03-31-2018 PT D/C Summary (1) Comments: See Note; NOTES: [facility] [address] [place] [address]. [address] [place] [address] Fax REHABILITATION SERVICES DISCHARGE SUMMARY MR#: [id number] Acct: [id number] Name: TRISTAN SINGH Rep #: [id number] : 1960 58 From: Cert. LEEROY Salvador PTT Referring Dr.: Sunshine Jordan DO Status: REG RCR Insurance: [employer] SELF PAY INSURANCE HP - PT D/C [...] please feel free to call me at [phone]. Thank you for the referral of this patient. Sincerely, Angelica Robertson <Electronically signed by Cert. LEEROY Salvador PTT> 03/31/18 5398 CC: Sunshine Jordan DO; Jes Spicer DO YUDY Signed Jes Spicer Start: 02-25-2018 End: 02-25-2018 Inital Evaluation (1) - PT Comments: See Note; NOTES: [facility] [address] [place] [address] Fax REHABILITATION SERVICES INITIAL EVALUATION MR#: [id number] Acct: [id number] Name: TRISTAN SINGH Rep #: [id number] : 1960 58 From: Angelica Robertson PT, Cert. MDT Referring Dr.: Sunshine Jordan DO Status: REG RCR Insurance: [employer] SELF PAY INSURANCE Patient's Visit Information TRISTAN [...] Pain Scale: WORST 8/10, LEAST 1/10. Currently: 2/10. UNCHANGING. Commenced as a result of: STEPPING [...] SPINE SHOWING MILD FACET CHANGES L5S1. SEE [facility] EMR FOR FURTHER DETAILS. PMH: NO [...] evaluate your patient. For Medicare and Medicare O plans, please review the plan of care and approve it. It will need to be FAXED BACK to us at [phone] for Medicare purposes. Please let me know if there are questions or concerns regarding this plan of care. Physician Signature: ___Date: <Electronically signed by Angelica Robertson PT, Cert. MDT> 02/25/18 8075 CC: Sunshine Jordan DO; Jes Spicer DO YUDY Signed For Medicare only, by signing this I certify the plan of care. Physicians Signature Date Jes Spicer Start: 02-24-2018 End: 02-24-2018 Orthopedic Visit Report Comments: See Note; NOTES: [facility] Orthopaedics AND Sports Medicine [address] [place] [address] OFFICE VISIT Date of Service: 02/24/18 MR#: [id number] Acct: [id number] Name: TRISTAN SINGH Rep #: [id number] : 1960 Provider: Sunshine Jordan DO Age/Sex: 58/F Location[place] [facility] [place] [place] [place] Status: Signed Intake Intake Visit Reasons: RIGHT [...] snap, No pain with log roll, No Asotn test Homans Sign: No HIP: neg slr, [...] DO Cosigner Signature: Date (if applicable) CC: Deven Vernon Start: 02-24-2018 End: 02-24-2018 Hip 2-3 Views with Pelvis Comments: See Note; NOTES: [facility] Imaging Services [address] [place] [address] Hip 2-3 Views with Pelvis MR#: [id number] Acct: [id number] Name: TRISTAN SINGH Rep #: [id number] : 1960 F 58 From: Henrik Moore MD PCP: Jes Spicer DO Status: [facility] CLI Study: Hip 2-3 Views with Pelvis Date of Exam: 02/24/18 Exam# [id number] Ordering Dr: Sunshine Jordan DO STUDY: X-RAY [...] support , CC: Sunshine Jordan DO; Jes Spicer DO Game Designer/Creative Director: Signed Jes Spicer Start: 02-16-2018 End: 02-16-2018 Chiropractic Report Comments: See Note; NOTES: [facility] Chiropractic [address] [place] [address] OFFICE VISIT Date of Service: 02/11/18 MR#: [id number] Acct: [id number] Name: TRISTAN SINGH Rep #: [id number] : 1960 Provider: Shannan Gan D.C. Age/Sex: 58/F Location: [facility] [place] Status: Signed Intake Vital Signs02/11/18 Height 5 [...] cap PO QAM 12/17/17 [History Confirmed 12/17/17] [facility] Medical History Endometriosis (Acute) left ovary removal [...] Additional Codes Procedures - Manipulation: 3-4 regions (95054) 02/16/18 0923 <Electronically signed by Shannan Gan D.C.> Date Shannan Gan D.C. [facility] Signature: Date (if applicable) CC: Jes Spicer Start: 02-10-2018 End: 02-10-2018 Chiropractic Report Comments: See Note; NOTES: [facility] Chiropractic [address] [place] [address] OFFICE VISIT Date of Service: 01/19/18 MR#: [id number] Acct: [id number] Name: SAMANTHATRISTAN Rep #: [id number] : 1960 Provider: Shannan Gan D.C. Age/Sex: 57/F Location: [facility] [place] Status: Signed Intake Vital Signs01/19/18 Height 5 [...] Codes Procedures - Electrical Stimulation: 15 mins (82234) Procedures - Traction, Mechanical: Yes (42722) Procedures - Manipulation: 3-4 regions (03626) 02/10/18 0909 <Electronically signed by Shannan Gan D.C.> Date Shannan Gan D.C. Cosigner Signature: Date (if applicable) CC: Jes Spicer Start: 02-03-2018 End: 02-04-2018 Lower Ext Joint Only (Routine) Comments: See Note; NOTES: [facility] Imaging Services [address] [facility] [place] [address] Lower Ext Joint Only (Routine) MR#: [id number] Acct: [id number] Name: TRISTAN SINGH Rep #: [id number] : 1960 F 57 From: Henrik Moore MD PCP: Shyam DO,Jes Status: REG CLI Study: Lower Ext Joint Only (Routine) Date of Exam: 02/03/18 Exam# [id number] Ordering Dr: Shannan Gan D.C. STUDY: MRI [...] Tel , Service support , CC: Jes Spicer DO; Shannan Gan D.C. Game Designer/Creative Director: Signed Jes Spicer Start: 02-03-2018 End: 02-05-2018 Spine Lumbar (Routine) Comments: See Note; NOTES: [facility] Imaging Services [address] [place] [address]152 Spine Lumbar (Routine) MR#: [id number] Acct: [id number] Name: TRISTAN SINGH Rep #: [id number] : 1960 F 57 From: Tio Nassar MD PCP: Jes Spicer DO Status: REG CLI Study: Spine Lumbar (Routine) Date of Exam: 02/03/18 Exam# [id number] Ordering Dr: Shannan Gan D.C. STUDY: MRI [...] EDT , Service support , CC: Jes Spicer DO; Shannan Gan D.C. Game Designer/Creative Director: Signed Jesallan Spicer Start: 01-21-2018 End: 01-21-2018 SCREENING MAMM (CAD), BILAT Comments: See Note; NOTES: [facility] Imaging Services [address] [place] [address] SCREENING MAMM (CAD), BILAT MR#: [id number] Acct: [id number] Name: TRISTAN SINGH Rep #: [id number] : 1960 F 57 From: Trey Patricia MD PCP: Status: REG CLI Study: SCREENING MAMM (CAD), BILAT Date of Exam: 01/21/18 Exam# [id number] Ordering Dr: Sunshine De La Torre MD MAMMOGRAPHY - BILATERAL SCREENING REASON FOR EXAM: Female, 57 years old. Routine annual screening examination. PERTINENT HISTORY: Mother with breast cancer. Aunt with breast cancer. TECHNIQUE: Digital bilateral breast catie (3D mammographic acquisition) in the CC and [...] delay biopsy of a clinically suspicious abnormality. [id number] Electronically Signed: Trey Patricia MD at 15:32 EDT Tel [phone], Service support , CC: Sunshine De La Torre MD Game Designer/Creative Director: Signed Jes Spicer Start: 01-19-2018 End: 01-19-2018 Chiropractic Report Comments: See Note; NOTES: [facility] [address] [place] [address] OFFICE VISIT Date of Service: 01/15/18 MR#: [id number] Acct: [id number] Name: TRISTAN SINGH Rep #: [id number] : 1960 Provider: Shannan Gan D.C. Age/Sex: 57/F [place] [facility] [place] Status: Signed Intake Vital Signs01/15/18 Height 5 [...] Codes Procedures - Electrical Stimulation: 15 mins (10519) Procedures - Traction, Mechanical: Yes (05613) Procedures - Manipulation: 3-4 regions (45880) 01/19/18 1322 <Electronically signed by Shannan Gan D.C.> Date Shannan Gan D.C. Cosigner Signature: Date (if applicable) CC: Jes Spicer Start: 01-12-2018 End: 01-12-2018 Chiropractic Report Comments: See Note; NOTES: [facility] [address] [place] [address] OFFICE VISIT Date of Service: 01/07/18 MR#: [id number] Acct: [id number] Name: TRISTAN SINGH Rep #: [id number] : 1960 Provider: Shannan Gan D.C. Age/Sex: 57/F [place] [facility] [place]: S[place] Intake Vital Signs01/07/18 Height 5 [...] Codes Procedures - Electrical Stimulation: 15 mins (32941) Procedures - Manipulation: 3-4 regions (27479) Procedures - Traction, Mechanical: Yes (61268) 01/12/18 0819 <Electronically signed by Shannan Gan D.C.> Date Shannan Gan D.C. Cosigner Signature: Date (if applicable) CC: Jes Spicer Start: 01-05-2018 End: 01-05-2018 Chiropractic Report Comments: See Note; NOTES: [facility] [address] [place] [address] OFFICE VISIT Date of Service: 01/05/18 MR#: [id number] Acct: [id number] Name: TRISTAN SINGH Rep #: [id number] : 1960 Provider: Shannan Gan D.C. Age/Sex: 57/F Location[place] [facility] [place] Status: Signed Intake Vital Signs01/05/18 Height 5 [...] Codes Procedures - Electrical Stimulation: 15 mins (70573) Procedures - Manipulation: 3-4 regions (20377) Procedures - Traction, Mechanical: Yes (36605) 01/05/18 1414 <Electronically signed by Shannan Gan D.C.> Date Shannan Gan D.C. Cosigner Signature: Date (if applicable) CC: Jes Spicer Start: 12-23-2017 End: 12-23-2017 Chiropractic Report Comments: See Note; NOTES: [facility] [address] [place] [address] OFFICE VISIT Date of Service: 12/22/17 MR#: [id number] Acct: [id number] Name: TRISTAN SINGH Rep #: [id number] : 1960 Provider: Shannan Gan D.C. Age/Sex: 57/F [place] [facility] [place]: Signed Intake Vital Signs12/22/17 Height 5 [...] catching ache, while bending and cleaning at mu-ism she experienced a sharp grinding pain that [...] Additional Codes Procedures - Manipulation: 3-4 regions (62151) Procedures - Electrical Stimulation: 15 mins (18392) Procedures - Traction, Mechanical: Yes (16818) 12/23/17 0955 <Electronically signed by Shannan Gan D.C.> Date Shannan Gan D.C. Cosigner Signature: Date (if applicable) CC: Jes Spicer Start: 12-18-2017 End: 12-18-2017 Chiropractic Report Comments: See Note; NOTES: [facility] [address] [place] [address] OFFICE VISIT Date of Service: 12/17/17 MR#: [id number] Acct: [id number] Name: TRISTAN SINGH Rep #: [id number] : 1960 Provider: Shannan Gan D.C. Age/Sex: 57/F [place] [facility] [place]: Signed Intake Vital Signs12/17/17 Height 5 [...] Additional Codes Procedures - Manipulation: 3-4 regions (35547) Procedures - Electrical Stimulation: 15 mins (79122) Procedures - Traction, Mechanical: Yes (54078) 12/18/17 1241 <Electronically signed by Shannan Gan D.C.> Date Shannan Ledesma Signature: Date (if applicable) CC: Jes Spicer Start: 10-14-2017 End: 10-14-2017 Urgent Care Visit Report Comments: See Note; NOTES: [place] [facility] [id number] OFFICE VISIT Date of Service: 10/14/17 MR#: [id number] Acct: [id number] Name: TRISTAN SINGH Rep #: [id number] : 1960 Provider: Imtiaz DAS Age/Sex: 57/F Location[place] [facility] [place] Status: Signed Intake Vital Signs10/14/17 Height 5 ft 8 in 10/14/17 Weight: 192 lb 10/14/17 Body Mass Index (BMI) 29.2 10/14/17 Blood Pressure 128/84 Intake Visit Reasons: Cough Brim Presser Required: No Accompanied by: Self Is patient in pain?: No Allergies No Known Allergies Allergy (Unverified 10/14/17 13:21) Medications azithromycin 250 mg tablet 250 mg PO .COMPLEX 5 Days #6 tab 10/14/17 [Rx Confirmed 10/14/17] methylprednisolone 4 mg tablets in a dose pack 4 mg PO PER PKG DIR 5 Days #21 tab 10/14/17 [Rx Confirmed 10/14/17] oxymetazoline 0.05 % nasal spray 1 spray INTRANASAL ONCE 10/14/17 [History Confirmed 10/14/17] pseudoephedrine-ibuprofen 30 mg-200 mg capsule cap PO 10/14/17 [History Confirmed 10/14/17] PFSH Medical History Acute bronchitis (Acute) Cough productive of purulent sputum (Acute) Endometriosis (Acute) left ovary removal (Acute) HPI Cough: Details: TRISTAN SINGH, is a 57 F who presents to the office today for ROS Const Constitutional: No chills, fever(s), fatigue or abnormal sleep pattern Resp Respiratory: Positive for wheezing and cough Cough: Yes non-productive; no shortness of breath, chest congestion, hemoptysis or pain on inspiration Cardio Cardiology: No chest pain at rest, chest pain with exertion or shortness of breath Skin Skin: No wounds or lesions Neuro Neurology: No behavioral changes or confusion Psych Psychiatric: No behavioral changes, No confusion, No abnormal sleep pattern Endo Endocrine: No fatigue Aller/Imm Allergy/Immunologic: Positive for wheezing Exam Const General: cooperative, healthy appearing HENIL Head: normocephalic, atraumatic Ears: hearing grossly normal bilaterally, TM's normal bilaterally Nose: no nasal discharge Face and sinus: face symmetric Mouth: oral mucosae normal Throat: posterior oropharynx normal Eyes General: appearance normal, both eyes and all related structures Pupils: PERRL Resp Effort AND Inspection: normal respiratory effort, no audible wheezes, no respiratory distress, cough Quality of cough: dry Auscultation: Bilateral: Clear to Auscultation Cardio Rate: regular rate Rhythm: regular rhythm Skin General: no rashes or lesions noted Neuro General: CN's II-XI intact bilaterally Psych Appearance: grossly normal Assessment AND Plan Problems 1. Cough productive of purulent sputum R05 Status Acute 2. Acute bronchitis, unspecified organism J20.9; J20.9 Status Acute Plan X-ray of the chest read and interpreted by myself to find no acute pulmonary findings. Awaiting radiology interpretation at time of dictation. Encouraged to get plenty of rest, drink lots of clear liquids, and use Tylenol or Ibuprofen (unless contraindicated) for fever and comfort. Patient also educated on other symptomatic management techniques. To be seen in 7-10 days if no improvement; sooner if worsening of symptoms. Patient advised of potential red flags and when appropriate report to the ED. Patient verbalized understanding all of the above. Orders Orders: Medications New: azithromycin (Zithromax Z-Cortez) Take two 250mg tablet once day one then one tablet J20.9 daily the next four days 5 days Coding Level of Care Code Off vis,new,level 4 Diagnoses Cough productive of purulent sputum R05 Acute bronchitis, unspecified organism J20.9; J20.9 Bronchitis organism: unspecified organism 10/14/17 1631 <Electronically signed by Imtiaz DAS> Date Imtiaz DAS Cosigner Signature: Date (if applicable) CC: Jes Spicer Start: 10-14-2017 End: 10-14-2017 Chest PA and Lateral Comments: See Note; NOTES: [facility] Imaging Services [address] [place] [address] Chest PA and Lateral MR#: [id number] Acct: [id number] Name: TRISTAN SINGH Rep #: [id number] : 1960 F 57 From: Trey Patricia MD PCP: Jes Spicer DO Status: REG CLI Study: Chest PA and Lateral Date of Exam: 10/14/17 Exam# [id number] Ordering Dr: Imtiaz Vidales STUDY: X-RAY CHEST REASON FOR EXAM: Female, 57 years old. 4 month history of cough. Recent illness. TECHNIQUE: PA and lateral views of the chest. COMPARISON: None. FINDINGS: The lungs are clear and expanded. There is no demonstrated pleural abnormality. Normal size heart. Normal mediastinum and isabella. Normal visualized pulmonary arteries. Normal visualized aortic arch and descending thoracic aorta. Normal visualized thoracic spine. Normal visualized ribs, clavicles, and shoulders. There is no demonstrated abnormality of the visualized soft tissue structures of the upper abdomen. RAD/Chest PA and Lateral IMPRESSION: Normal x-ray examination of the chest. Electronically Signed: Trey Patricia MD at 13:54 EST Tel [phone], Service support , CC: Imtiaz DAS; Jes Spicer DO Game Designer/Creative Director: Signed Jes Spicer Start: 12-04-2016 End: 12-04-2016 SCREENING MAMM (CAD), BILAT Comments: See Note; NOTES: [facility] Imaging Services [address] [place] [address] Verdana 4d SCREENING MAMM (CAD), BILAT MR#: [id number] Acct: [id number] Name: TRISTAN SINGH Rep #: [id number] : 1960 F 56 From: Trey Patricia MD PCP: Jes Spicer DO Status: REG CLI Study: SCREENING MAMM (CAD), BILAT Date of Exam: 12/04/16 Exam# [id number] Ordering Dr: Sunshine De La Torre MD MAMMOGRAPHY - BILATERAL SCREENING REASON FOR EXAM: Female, 56 years old. Routine annual screening examination. PERTINENT HISTORY: Mother with breast cancer. Aunt with breast cancer. TECHNIQUE: Digital bilateral breast catie (3D mammographic acquisition) in the CC and MLO projections. 2-D mediolateral oblique (MLO) and craniocaudad (CC) views of both breasts were obtained. CAD: Full Field Digital Mammography with Computer Added Detection was performed. COMPARISON: Comparison is made with prior study dated November 07, 2015 and October 20, 2014. FINDINGS: Breast Composition: The breasts are heterogeneously [...] delay biopsy of a clinically suspicious abnormality. [id number] Electronically Signed: Trey Patricia MD at 10:24 EST Tel [phone], Service support [phone], CC: Sunshine De La Torre MD; Jes Spicer DO Game Designer/Creative Director: Signed Jes Spicer Start: 11-07-2015 End: 11-07-2015 Bilat Scrn Digital AND CAD Comments: See Note; NOTES: [facility] Imaging Services [address] [place] [address] Verdana 4d Bilat Scrn Digital AND CAD MR#: [id number] Acct: [id number] Name: TRISTAN SINGH Rep #: [id number] : 1960 F 55 From: Trey Patricia MD PCP: Jes Spicer DO Status: REG CLI Study: Bilat Scrn Digital AND CAD Date of Exam: 11/07/15 Exam# [id number] Ordering Dr: Sunshine De La Torre MD MAMMOGRAPHY - BILATERAL SCREENING REASON FOR EXAM: Female, 55 years old. Routine annual screening examination. PERTINENT HISTORY: Mother with breast cancer. Aunt with breast cancer. TECHNIQUE: Digital examination. Mediolateral oblique (MLO) and craniocaudad (CC) views of both breasts were obtained. CAD: CAD was performed on this study. COMPARISON: Comparison is made with prior study dated October 20, 2014 and October 20, 2013. FINDINGS: Breast Composition: The breasts are heterogeneously dense, which may obscure small masses. There are no dominant masses or suspicious calcifications. No other significant abnormalities are identified. There has been no significant change since the prior study. IMPRESSION: Stable bilateral screening mammogram. Yearly follow-up recommended. (A) ASSESSMENT CATEGORY: BIRADS Category 1: Negative. A letter regarding these results will be sent to the patient by the facility within 30 days. Approximately 10% of breast cancers are not detected by mammography. A normal mammogram should not delay biopsy of a clinically suspicious abnormality. [id number] Electronically Signed: Trey Patricia MD at 14:52 EST Tel [phone], Service support [phone], CC: Sunshine De La Torre MD; Jes Spicer DO Game Designer/Creative Director: Signed Jes Spicer Start: 04-17-2015 End: 04-18-2015 Thyroid Comments: See Note; NOTES: [facility] Imaging Services [address] [place] [address] Ultrasound Report MR#: [id number] Acct: [id number] Name: TRISTAN SINGH Rep #: [id number] : 1960 F 55 From: Trey Patricia MD PCP: Jes Spicer DO Status: REG CLI Study: Thyroid Date of Exam: 04/17/15 Exam# [id number] Ordering Dr: Jes Spicer DO STUDY: THYROID ULTRASOUND REASON FOR EXAM: Female, 55 years old. Followup for thyroid nodules. TECHNIQUE: Ultrasound evaluation of the thyroid was performed with real-time and static pruitt-scale imaging. COMPARISON: Comparison is made with prior examination dated December 29, 2013. FINDINGS: RIGHT LOBE: The right lobe of the thyroid gland measures 4.6 cm x 1.1 cm x 0.9 cm. There is a homogeneous echotexture. There is a 3 mm x 2 mm x 2 mm well-defined hypoechoic nodule in the lower pole. This is unchanged. LEFT LOBE: The left lobe of the thyroid gland measures 3.5 cm x 1.2 cm x 0.7 cm. There is a homogeneous echotexture. There are no demonstrated solid, cystic or complex lesions. The previously seen small left thyroid nodules are not visualized at this time. ISTHMUS: The isthmus measures 2.0 mm. Possible 7 mm x 5 mm x 3 mm lymph node superior to the left lobe of the thyroid. IMPRESSION: Stable appearance of the right solid nodule. The previously seen nodules in the left lobe are not seen at this time. Electronically Signed: Trey Patricia MD at 15:38 EDT Tel [phone], Service support [phone], CC: Jes Spicer DO Game Designer/Creative Director: Signed Jes Shyam Work Phone: Start: 10-20-2014 End: 10-20-2014 Bilat Scrn Digital AND CAD Comments: See Note; NOTES: [facility] Imaging Services [address] [place] [address] Breast Imaging Report MR#: [id number] Acct: [id number] Name: TRISTAN SINGH Rep #: [id number] : 1960 F 54 From: Trey Patricia MD PCP: Nayeli Vee Status: REG CLI Study: Dedrick Scrn Digital AND CAD Date of Exam: 10/20/14 Exam# [id number] Ordering Dr: Sunshine De La Torre MD MAMMOGRAPHY - BILATERAL SCREENING REASON FOR EXAM: Female, 54 years old. Routine annual screening examination. PERTINENT HISTORY: Non-contributory. TECHNIQUE: Digital examination. Mediolateral oblique (MLO) and craniocaudad (CC) views of both breasts were obtained. CAD: CAD was performed on this study. COMPARISON: Comparison is made with prior study dated October 20, 2013 and October 14, 2012. FINDINGS: Breast Composition: The breasts are heterogeneously dense, which may obscure small masses. There are no dominant masses or suspicious calcifications. No other significant abnormalities are identified. There has been no significant change since the prior study. IMPRESSION: Stable bilateral screening mammogram. Yearly follow-up recommended. (A) ASSESSMENT CATEGORY: BIRADS Category 2: Benign. A letter regarding these results will be sent to the patient by the facility within 30 days. Approximately 10% of breast cancers are not detected by mammography. A normal mammogram should not delay biopsy of a clinically suspicious abnormality. Electronically Signed: Trey Patricia MD at 11:27 EST Tel [phone], Service support [phone], CC: Nayeli Vee; Sunshine De La Torre MD Game Designer/Creative Director: Signed Jes Spicer Start: 12-29-2013 End: 12-29-2013 Thyroid Comments: See Note; NOTES: [facility] Imaging Services [address] [facility] [place] [address] Ultrasound Report MR#: [id number] Acct: [id number] Name: TRISTAN SINGH Rep #: [id number] : 1960 F 53 From: Trey Patricia MD PCP: Nayeli Vee Status: REG CLI Study: Thyroid Date of Exam: 12/29/13 Exam# [id number] Ordering Dr: Nayeli Vee STUDY: THYROID ULTRASOUND REASON FOR EXAM: Female, 53 years old. Goiter. TECHNIQUE: Ultrasound evaluation of the thyroid was performed with real-time and static pruitt-scale imaging. COMPARISON: None. FINDINGS: RIGHT LOBE: The right lobe of the thyroid gland measures 4.3 cm x 1.5 cm x 0.7 cm. There is a homogeneous echotexture. There is a 3 mm x 2 mm x 2 mm well-defined hypoechoic solid nodule in the lower pole. LEFT LOBE: The left lobe of the thyroid gland measures 3.7 cm x 1.2 cm x 0.7 cm. There is a homogeneous echotexture. There are 2 subcentimeter hypoechoic solid nodules in the left lobe. The larger measures 6 mm x 5 mm x 2 mm. This is in the lower lobe. ISTHMUS: The isthmus measures 2.0 mm. IMPRESSION: Small bilateral subcentimeter hypoechoic solid nodules. Electronically Signed: Trey Patricia M.D. at 14:36 EST , Service support [phone], CC: Nayeli Vee Game Designer/Creative Director: Signed Nayeli Vee Work Phone: D&C Jayde Macias Comment on above: unsure of timing D&C Jayde Colleen Comment on above: unsure of timing D&C Heather Messenger Comment on above: unsure of timing D&C Fide Robertson Comment on above: unsure of timing D&C Brittani Gravius WORKGROUP LEADER Comment on above: unsure of timing D&C Leolamauro Valera L PN Comment on above: unsure of timing D&C Shaheen Hernandez LP N Comment on above: unsure of timing D&C Brittani Gravius WORKGROUP LEADER Comment on above: unsure of timing D&C Kasona Pruett WORKGROUP LEADER Comment on above: unsure of timing Laparoscopy Jayde Colleen Comment on above: endometriosis, L ovary removed. Dr. Ana packer in [place] Laparoscopy Jayde Macias Comment on above: endometriosis, L ovary removed. Dr. Ana packer in [place] Laparoscopy Heather Messenger Comment on above: endometriosis, L ovary removed. Dr. Ana packer in [place] Laparoscopy Fide Robertson Comment on above: endometriosis, L ovary removed. Dr. Ana packer in [place] Laparoscopy Brittani Gravius WORKGROUP LEADER Comment on above: endometriosis, L ovary removed. Dr. Ana packer in [place] Laparoscopy Leola Valera L PN Comment on above: endometriosis, L ovary removed. Dr. Ana packer in [place] Laparoscopy Shaheen Hernandez LP N Comment on above: endometriosis, L ovary removed. Dr. Ana packer in [place] Laparoscopy Brittani Gravius WORKGROUP LEADER Comment on above: endometriosis, L ovary removed. Dr. Ana apcker in [place] Laparoscopy Amairani Pruett WORKGROUP LEADER Comment on above: endometriosis, L ovary removed. Dr. Ana packer in [place] Viral antigen assay Dr. Dimple Spicer Work Phone: Viral antigen assay Dr. Dimple Spicer Work Phone: Viral antigen assay Dr. Dimple Spicer Work Phone: Viral antigen assay Dr. Dimple Spicer Work Phone: Viral antigen assay Dr. Dimple Spicer Work Phone: Plan of Treatment Date Care Activity Detail Author Start: 02-26-2023 Procedure Education Eprescribed prescriptions (G8553) [facility] Work Phone: Start: 02-26-2023 Provider Instructions for Treatment Reviewed Lab [facility]; [facility] Work Phone: Start: 02-26-2023 Lipid panel LIPID PANEL (51225) [facility] Work Phone: Start: 02-26-2023 Cyanocobalamin vitamin b-12 VITAMIN B-12 (CYANOCOBALAMIN) (57471) [facility]; [facility] Work Phone: Start: 02-26-2023 Blood count manual cell count each CBC with auto diff (60206) [facility]; [facility] Work Phone: Start: 02-26-2023 Comprehensive metabolic panel METABOLIC PANEL, COMPREHENSIVE (47097) [facility]; [facility] Work Phone: Start: 02-26-2023 25 hydroxy includes fractions if performed CALCIFEDIOL (30003) [facility]; [facility] Work Phone: Start: 01-15-2023 Patient referral [facility] Work Phone: Start: 08-28-2022 Lipid panel LIPID PANEL (35934) [facility] Work Phone: Start: 08-28-2022 Procedure Education Eprescribed prescriptions (G8553) [facility]; [facility] Work Phone: Start: 08-28-2022 Provider Instructions for Treatment [facility]; [facility] Work Phone: Start: 08-19-2022 Colonoscopy w/biopsy single/multiple COLONOSCOPY AND BIOPSY [facility] Work Phone: Start: 08-19-2022 Patient discharge [facility] Work Phone: Start: 08-09-2022 Procedure Education Eprescribed prescriptions (G8553) [facility]; [facility] Work Phone: Start: 08-09-2022 Provider Instructions for Treatment Reviewed Diagnostic Tests [facility]; [facility] Work Phone: Start: 08-09-2022 Assay of thyroid stimulating hormone tsh TSH (93882) [facility]; [facility] Work Phone: Start: 08-09-2022 Comprehensive metabolic panel METABOLIC PANEL, COMPREHENSIVE (63309) [facility]; [facility] Work Phone: Start: 08-09-2022 Blood count complete auto&auto difrntl wbc CBC W/AUTO DIFF WBC (87820) [facility]; [facility] Work Phone: Start: 08-09-2022 25 hydroxy includes fractions if performed CALCIFIDIOL (27096) VIT D 25 [facility]; [facility] Work Phone: Start: 08-09-2022 Lipid panel LIPID PANEL (62823) [facility] Work Phone: Start: 04-25-2022 Procedure Education Eprescribed prescriptions (G8553) [facility]; [facility] Work Phone: Start: 07-11-2021 Procedure Education Eprescribed prescriptions (G8553) [facility]; [facility] Work Phone: Start: 07-11-2021 Cyanocobalamin vitamin b-12 VITAMIN B-12 (CYANOCOBALAMIN) (75649) [facility]; [facility] Work Phone: Start: 07-11-2021 Comprehensive metabolic panel METABOLIC PANEL, COMPREHENSIVE (92950) [facility]; [facility] Work Phone: Start: 07-11-2021 Lipid panel LIPID PANEL (28713) [facility] Work Phone: Start: 07-11-2021 Blood count complete auto&auto difrntl wbc CBC with auto diff (62578) [facility]; [facility] Work Phone: Start: 07-11-2021 25 hydroxy includes fractions if performed CALCIFEDIOL (10314) [facility]; [facility] Work Phone: Start: 07-07-2020 Procedure Education Eprescribed prescriptions (G8553) [facility] Work Phone: Start: 07-07-2020 Provider Instructions for Treatment [facility] Work Phone: Start: 07-07-2020 Cobalamin (Vitamin B12) [Mass/Vol] VITAMIN B-12 (CYANOCOBALAMIN) (64497) [facility] Medicine Work Phone: Start: 07-07-2020 Cyanocobalamin vitamin b-12 VITAMIN B-12 (CYANOCOBALAMIN) (05169) [facility] Work Phone: Start: 06-05-2020 Lipid panel LIPID PANEL (60429) [facility] Work Phone: Start: 06-05-2020 1 25 dihydroxy includes fractions if performed VITAMIN D, 1, 25-DIHYDROXY (37989) [facility] Work Phone: Start: 06-05-2020 Assay of thyroxine total T4, TOTAL (46562) [facility] Work Phone: Start: 06-05-2020 Assay of triiodothyronine t3 free T3, FREE (TRIDOTHYRONINE) (40937) [facility]; [facility] Work Phone: Start: 06-05-2020 Free T3 [Mass/Vol] T3, FREE (TRIDOTHYRONINE) (66767) [facility] Work Phone: Start: 06-05-2020 Assay of thyroid stimulating hormone tsh TSH (THYROID STIMULATING HORMONE) (49835) [facility]; [facility] Work Phone: Start: 06-05-2020 TSH Qn TSH (THYROID STIMULATING HORMONE) (34254) [facility] Work Phone: Start: 06-05-2020 Comprehensive metabolic panel METABOLIC PANEL, COMPREHENSIVE (96709) [facility] Work Phone: Start: 06-05-2020 Blood count manual cell count each CBC WITH MANUAL DIFF (38648) [facility] Work Phone: Start: 06-16-2019 Procedure Education Eprescribed prescriptions (G8553) [facility] Work Phone: Start: 06-16-2019 Provider Instructions for Treatment [facility] Work Phone: Start: 06-16-2019 Lipoprotein blood jozef numbers & subclasses NMR Profile (70636) [facility] Work Phone: Start: 04-05-2019 Comprehensive metabolic panel Metabolic Panel, Comprehensive (57900) [facility] Work Phone: Start: 04-05-2019 25 hydroxy includes fractions if performed CALCIFEDIOL (32190) [facility] Work Phone: Start: 10-21-2018 Procedure Education Eprescribed prescriptions (G8553) [facility] Work Phone: Start: 10-21-2018 Provider Instructions for Treatment [facility] Work Phone: Start: 10-06-2018 Oncology colorectal screening jozef 10 dna markrs Cologuard - Strool Based DNA Test, CRC SCREEN (08933) [facility] Work Phone: Start: 10-06-2018 Urnls dip stick/tablet reagent auto microscopy URINALYSIS, W/ MICRO (07230) [facility] Work Phone: Start: 10-06-2018 Cobalamin (Vitamin B12) mass conc VITAMIN B12 AND FOLATES (83051) [facility] Work Phone: Start: 10-06-2018 Cyanocobalamin vitamin b-12 VITAMIN B12 AND FOLATES (16344) [facility]; [facility] Work Phone: Start: 10-06-2018 Blood count complete auto&auto difrntl wbc CBC, Platelets & Auto Diff (82945) [facility] Work Phone: Start: 10-06-2018 Comprehensive metabolic panel Metabolic Panel, Comprehensive (43400) [facility] Work Phone: Start: 10-06-2018 25 hydroxy includes fractions if performed CALCIFEDIOL (87716) [facility] Work Phone: Start: 10-06-2018 Assay of thyroid stimulating hormone tsh TSH (THYROID STIMULATING HORMONE) (97491) [facility]; [facility] Work Phone: Start: 10-06-2018 Thyrotropin Qn TSH (THYROID STIMULATING HORMONE) (53543) [facility] Work Phone: Start: 10-06-2018 Lipid panel LIPID PANEL (74527) [facility] Work Phone: Start: 10-06-2018 Procedure Education Eprescribed prescriptions (G8553) [facility] Work Phone: Start: 10-06-2018 Provider Instructions for Treatment [facility] Work Phone: Start: 12-13-2015 Provider Instructions for Treatment Follow up in March for thyroid [facility] Work Phone: Start: 12-11-2015 Patient Education Thyroid-Stimulating Hormone (TSH) Test: lab test [facility] Work Phone: Start: 12-11-2015 Provider Instructions for Treatment Follow up in March for thyroid [facility] Work Phone: Start: 03-09-2015 Provider Instructions for Treatment Follow up in 1 year or as needed [facility] Work Phone: Start: 03-09-2015 Blood count complete auto&auto difrntl wbc CBC W/AUTO DIFF WBC (51114) [facility] Work Phone: Start: 03-09-2015 Comprehensive metabolic panel METABOLIC PANEL, COMPREHENSIVE (54730) [facility] Work Phone: Start: 03-09-2015 Lipid panel LIPID PANEL (59709) [facility] Work Phone: Start: 03-09-2015 Assay of thyroid stimulating hormone tsh TSH (92987) [facility]; [facility] Work Phone: Start: 03-09-2015 Thyrotropin Qn TSH (96302) [facility] Work Phone: Start: 03-09-2015 Assay of free thyroxine T4, FREE (THYROXINE) (55171) [facility]; [facility] Work Phone: Start: 03-09-2015 T4 free mass conc T4, FREE (THYROXINE) (60126) [facility] Work Phone: Start: 03-09-2015 Assay of triiodothyronine t3 free T3, FREE (TRIDOTHYRONINE) (85831) [facility]; [facility] Work Phone: Start: 03-09-2015 T3 free mass conc T3, FREE (TRIDOTHYRONINE) (89008) [facility] Work Phone: Start: 02-08-2014 Provider Instructions for Treatment [facility] Work Phone: Start: 12-22-2013 Provider Instructions for Treatment Follow up as needed [facility] Work Phone: Colonoscopy [facility] Work Phone: MR Lower Extremity Joint [facility] Path report.final Dx Spec [facility] Patient referral [facility] Work Phone[facility] Work Phone: [facility] Work Phone: [facility] Work Phone[facility] Work Phone: [facility] Work Phone: Nonsmoker : Epre scribed prescriptions (G8553) [facility] Work Phone: Encounter for we ll woman exam : Thyroid-Stimulating Hormone (TSH) Test: lab test [facility] Work Phone: [facility] Work Phone: [facility] Work Phone: [facility] Work Phone: [facility] Work Phone: [facility] Work Phone: [facility] Immunizations Immunization Date Immunization Notes Care Provider Fa stevan 08-19-2024 influenza, seasonal, injectable, preservative free Dr. Jes Spicer DO Work Phone: [facility] 08-28-2023 influenza, injectabl e, quadrivalent, preservative free Dr. Jes Spicer Work Phone: [facility] 08-02-2022 influenza, injectabl e, quadrivalent, preservative free Dr. Jes Spicer Work Phone: [facility] 08-02-2022 influenza, seasonal, injectable Dr. Jes Spicer Work Phone: [facility] 08-08-2021 influenza, injectabl e, quadrivalent, preservative free Dr. Jes Spicer Work Phone: [facility] 08-08-2021 influenza, seasonal, injectable Dr. Jes Spicer Work Phone: [facility] 08-01-2020 influenza, injectabl e, quadrivalent, preservative free Dr. Jes Spicer Work Phone: [facility] 08-01-2020 influenza, seasonal, injectable Dr. Jes Spicer Work Phone: [facility] 07-07-2020 zoster vaccine recombinant Jes Spicer [facility] Work Phone: Comment on above: lot [id number] 022reconstituted with lot [id number] .[id number] JACKIE Her 07-07-2020 zoster vaccine, live Jes Spicer [facility] Work Phone: Comment on above: Site: Right Deltoid 09-08-2019 influenza, injectabl e, quadrivalent, preservative free Dr. Jes Spicer Work Phone: [facility] 09-08-2019 influenza, seasonal, injectable Dr. Jes Spicer Work Phone: [facility] 07-31-2018 influenza, injectabl e, quadrivalent, preservative free Dr. Jes Spicer Work Phone: [facility] 07-31-2018 influenza, seasonal, injectable Dr. Jes Spicer Work Phone: [facility] 08-08-2017 influenza, injectabl e, quadrivalent, preservative free Dr. Jes Spicer Work Phone: [facility] 08-08-2017 influenza, seasonal, injectable Dr. Jes Spicer Work Phone: [facility] 08-01-2016 influenza, injectabl e, quadrivalent, preservative free Dr. Jes Spicer Work Phone: [facility] 08-01-2016 influenza, seasonal, injectable Dr. Jes Spicer Work Phone: [facility] 09-18-2015 influenza, injectabl e, quadrivalent, preservative free Dr. Jes Spicer Work Phone: [facility] 09-18-2015 influenza, seasonal, injectable Dr. Jes Spicer Work Phone: [facility] 08-11-2014 influenza, injectabl e, quadrivalent, preservative free Dr. Jes Spicer Work Phone: [facility] 08-11-2014 influenza, seasonal, injectable Dr. Jes Spicer Work Phone: [facility] Payers Date Payer Category Payer Private Health Insurance [id number] Self-pay [id number] 2014 Unknown [id number] 1960 Unknown [id number] Unknown Unknown [facility] [employer] [id number] Unknown [employer] [id number] Unknown [id number] Unknown [id number] Unknown [id number] Unknown [id number] Unknown [id number] Unknown [id number] Unknown [id number] Unknown [id number] Unknown [id number] Unknown [id number] Social History Date Type Detail Facility Caffeine Use Never smoker [facility] Work Phone: Comment on above: tea a few a week spouse Exercise History: Light. [facility] Work Phone: Tobacco use: Never smoker. [facility] Work Phone: Exercise History: Exercise History: [facility]; [facility] Work Phone: Tobacco use: Tobacco use: [facility]; [facility] Work Phone: Start: 01-30-2022 End: 09-03-2023 Tobacco smoking status NHIS Unknown if ever smoked [facility] Start: 1960 Sex Assigned At Female W [facility] Start: 01-12-2024 Tobacco smoking status NHIS Never smoked tobacco (finding) [facility] Start: 01-21-2025 Sex Female (finding) [facility] Goals Date Patient Goal Desired Activity /State Mental Status Date Assessment Result Facility 08-19-2022 Cognitive function Voice/Name [facility] Work Phone: 10-09-2021 Cognitive function Awake;Alert;A ppropriate;Fol lows Commands [facility] Work Phone: Clinical Notes 05-01-2022 to 02-20-2023 Note Date & Type Note Facility 02-20-2023 Note [facility] Pap Smear Specimen Adequacy February 20, 2023 5:10pm Comment . Satisfactory for evaluation. Endocervical and/or squamous metaplasticcells (endocervical component) are present. Comment on above: Satisfactory for alonso luation. Endocervical and/or squamous metaplasticcells (endocervical component) are present. 02-20-2023 Note [facility] Pap Smear Specimen Adequacy February 20, 2023 5:10pm Comment . Satisfactory for evaluation. Endocervical and/or squamous metaplasticcells (endocervical component) are present. Comment on above: Satisfactory for alonso luation. Endocervical and/or squamous metaplasticcells (endocervical component) are present. 05-01-2022 Note [facility] Work Phone: Pap Smear Specimen Adequacy May 01, 2022 10:00am Comment . Satisfactory for evaluation. Endocervical and/or squamous metaplasticcells (endocervical component) are present. Comment on above: Satisfactory for alonso luation. Endocervical and/or squamous metaplasticcells (endocervical component) are present. 05-01-2022 Note [facility] Work Phone: Pap Smear Specimen Adequacy May 01, 2022 10:00am Comment . Satisfactory for evaluation. Endocervical and/or squamous metaplasticcells (endocervical component) are present. Comment on above: Satisfactory for alonso luation. Endocervical and/or squamous metaplasticcells (endocervical component) are present. 05-01-2022 Note [facility] Work Phone: Pap Smear Specimen Adequacy May 01, 2022 10:00am Comment . Satisfactory for evaluation. Endocervical and/or squamous metaplasticcells (endocervical component) are present. Comment on above: Satisfactory for alonso luation. Endocervical and/or squamous metaplasticcells (endocervical component) are present. 05-01-2022 Note [facility] Work Phone: Pap Smear Specimen Adequacy May 01, 2022 10:00am Comment . Satisfactory for evaluation. Endocervical and/or squamous metaplasticcells (endocervical component) are present. Comment on above: Satisfactory for alonso luation. Endocervical and/or squamous metaplasticcells (endocervical component) are present. 05-01-2022 Note [facility] Work Phone: Pap Smear Specimen Adequacy May 01, 2022 10:00am Comment . Satisfactory for evaluation. Endocervical and/or squamous metaplasticcells (endocervical component) are present. Comment on above: Satisfactory for alonso luation. Endocervical and/or squamous metaplasticcells (endocervical component) are present. Chief complaint+Reason for visit Narrative Reason for Visit Piriformis syndrome of right side Segmental and somatic dysfunction of cervical region Segmental and somatic dysfunction of lumbar region Segmental and somatic dysfunction of pelvic region Segmental and somatic dysfunction of thoracic region Segmental and somatic dysfunction of cervical region Segmental and somatic dysfunction of lumbar region Segmental and somatic dysfunction of pelvic region Segmental and somatic dysfunction of thoracic region Left lateral epicondylitis [facility] Work Phone: Evaluation note* Diagnosis Onset Date Resolution Status Piriformis syndrome of right side acute Segmental and somatic dysfunction of cervical region acute Segmental and somatic dysfunction of lumbar region acute Segmental and somatic dysfunction of pelvic region acute Segmental and somatic dysfunction of thoracic region acute Segmental and somatic dysfunction of cervical region acute Segmental and somatic dysfunction of lumbar region acute Segmental and somatic dysfunction of pelvic region acute Segmental and somatic dysfunction of thoracic region acute Left lateral epicondylitis a [facility] Work Phone: Evaluation note* Diagnosis Onset Date Resolution Status Left lateral epicondylitis a [facility] Work Phone: Evaluation note* Diagnosis Onset Date Resolution Status Left lateral epicondylitis a cute COVID-19 acute [facility] Work Phone: Evaluation note* Diagnosis Onset Date Resolution Status COVID-19 acute [facility] Work Phone: Evaluation note* Diagnosis Onset Date Resolution Status COVID-19 acute Encounter for screening for malignant neoplasm of colo n acute [facility] Work Phone: Evaluation note* Diagnosis Onset Date Resolution Status Encounter for screening for malignant neoplasm of colo n [facility] Work Phone: Evaluation note* Diagnosis Onset Date Resolution Status Left lateral epicondylitis a cute Left lateral epicondylitis a cute [facility] Work Phone: Evaluation note* Diagnosis Onset Date Resolution Status Left lateral epicondylitis a cute Left lateral epicondylitis a cute MAHAD (obstructive sleep apnea) acute Obesity [facility] Work Phone: evaluation note* Diagnosis Onset Date Resolution Status Left lateral epicondylitis a cute MAHAD (obstructive sleep apnea) acute Obesity [facility] Work Phone: Evaluation note* Diagnosis Onset Date Resolution Status MAHAD (obstructive sleep apnea) acute Obesity [facility] Work Phone: Evaluation noteNo assessment information available [facility] Work Phone: Instructions* Name Dates Details How to access health informa tion online Indication:Nonsmoker Start:07-Jul-2020 Instruction Type:Patient Education How to access health informa tion online - Detail Indication:Nonsmoker Start:07-Jul-2020 Instruction Type:Patient Education Patient Instructions Indication:Nonsmoker Start:07-Jul-2020 Instruction Type:Provider Instructions for Treatment How to access health informa tion online Indication:Nonsmoker Start:16-Jun-2019 Instruction Type:Patient Education How to access health informa tion online - Detail Indication:Nonsmoker Start:16-Jun-2019 Instruction Type:Patient Education Patient Instructions Indication:Nonsmoker Start:16-Jun-2019 Instruction Type:Provider Instructions for Treatment How to access health informa tion online Indication:Nonsmoker Start:21-Oct-2018 Instruction Type:Patient Education How to access health informa tion online - Detail Indication:Nonsmoker Start:21-Oct-2018 Instruction Type:Patient Education Patient Instructions Indication:Nonsmoker Start:21-Oct-2018 Instruction Type:Provider Instructions for Treatment How to access health informa tion online Indication:Nonsmoker Start:06-Oct-2018 Instruction Type:Patient Education How to access health informa tion online - Detail Indication:Nonsmoker Start:06-Oct-2018 Instruction Type:Patient Education Patient Instructions Indication:BMI 30.0-30.9,adult Start:06-Oct-2018 Instruction Type:Provider Instructions for Treatment [facility]; [facility] Work Phone: Instructions* Name Dates Details How to access health informa tion online Indication:Nonsmoker Start:07-Jul-2020 Instruction Type:Patient Education How to access health informa tion online - Detail Indication:Nonsmoker Start:07-Jul-2020 Instruction Type:Patient Education Patient Instructions Indication:Nonsmoker Start:07-Jul-2020 Instruction Type:Provider Instructions for Treatment How to access health informa tion online Indication:Nonsmoker Start:16-Jun-2019 Instruction Type:Patient Education How to access health informa tion online - Detail Indication:Nonsmoker Start:16-Jun-2019 Instruction Type:Patient Education Patient Instructions Indication:Nonsmoker Start:16-Jun-2019 Instruction Type:Provider Instructions for Treatment How to access health informa tion online Indication:Nonsmoker Start:21-Oct-2018 Instruction Type:Patient Education How to access health informa tion online - Detail Indication:Nonsmoker Start:21-Oct-2018 Instruction Type:Patient Education Patient Instructions Indication:Nonsmoker Start:21-Oct-2018 Instruction Type:Provider Instructions for Treatment How to access health informa tion online Indication:Nonsmoker Start:06-Oct-2018 Instruction Type:Patient Education How to access health informa tion online - Detail Indication:Nonsmoker Start:06-Oct-2018 Instruction Type:Patient Education Patient Instructions Indication:BMI 30.0-30.9,adult Start:06-Oct-2018 Instruction Type:Provider Instructions for Treatment [facility]; [facility] Work Phone: instructions* Name Dates Details Patient Instructions Indication:BMI 29.0-29.9,adult Start:11-Jul-2021 Instruction Type:Provider Instructions for Treatment How to Access Health Informa tion Online using Patient Portal and [employer] Indication:BMI 29.0-29.9,adult Start:11-Jul-2021 Instruction Type:Patient Education How to access health informa tion online Indication:Nonsmoker Start:07-Jul-2020 Instruction Type:Patient Education How to access health informa tion online - Detail Indication:Nonsmoker Start:07-Jul-2020 Instruction Type:Patient Education Patient Instructions Indication:Nonsmoker Start:07-Jul-2020 Instruction Type:Provider Instructions for Treatment How to access health informa tion online Indication:Nonsmoker Start:16-Jun-2019 Instruction Type:Patient Education How to access health informa tion online - Detail Indication:Nonsmoker Start:16-Jun-2019 Instruction Type:Patient Education Patient Instructions Indication:Nonsmoker Start:16-Jun-2019 Instruction Type:Provider Instructions for Treatment How to access health informa tion online Indication:Nonsmoker Start:21-Oct-2018 Instruction Type:Patient Education How to access health informa tion online - Detail Indication:Nonsmoker Start:21-Oct-2018 Instruction Type:Patient Education Patient Instructions Indication:Nonsmoker Start:21-Oct-2018 Instruction Type:Provider Instructions for Treatment How to access health informa tion online Indication:Nonsmoker Start:06-Oct-2018 Instruction Type:Patient Education How to access health informa tion online - Detail Indication:Nonsmoker Start:06-Oct-2018 Instruction Type:Patient Education Patient Instructions Indication:BMI 30.0-30.9,adult Start:06-Oct-2018 Instruction Type:Provider Instructions for Treatment [facility]; [facility] Work Phone: Instructions* Name Dates Details Patient Instructions Indication:BMI 29.0-29.9,adult Start:25-Apr-2022 Instruction Type:Provider Instructions for Treatment How to Access Health Informa tion Online using Patient Portal and [employer] Indication:BMI 29.0-29.9,adult Start:25-Apr-2022 Instruction Type:Patient Education Patient Instructions Indication:BMI 29.0-29.9,adult Start:11-Jul-2021 Instruction Type:Provider Instructions for Treatment How to Access Health Informa tion Online using Patient Portal and [employer] Indication:BMI 29.0-29.9,adult Start:11-Jul-2021 Instruction Type:Patient Education How to access health informa tion online Indication:Nonsmoker Start:07-Jul-2020 Instruction Type:Patient Education How to access health informa tion online - Detail Indication:Nonsmoker Start:07-Jul-2020 Instruction Type:Patient Education Patient Instructions Indication:Nonsmoker Start:07-Jul-2020 Instruction Type:Provider Instructions for Treatment How to access health informa tion online Indication:Nonsmoker Start:16-Jun-2019 Instruction Type:Patient Education How to access health informa tion online - Detail Indication:Nonsmoker Start:16-Jun-2019 Instruction Type:Patient Education Patient Instructions Indication:Nonsmoker Start:16-Jun-2019 Instruction Type:Provider Instructions for Treatment How to access health informa tion online Indication:Nonsmoker Start:21-Oct-2018 Instruction Type:Patient Education How to access health informa tion online - Detail Indication:Nonsmoker Start:21-Oct-2018 Instruction Type:Patient Education Patient Instructions Indication:Nonsmoker Start:21-Oct-2018 Instruction Type:Provider Instructions for Treatment How to access health informa tion online Indication:Nonsmoker Start:06-Oct-2018 Instruction Type:Patient Education How to access health informa tion online - Detail Indication:Nonsmoker Start:06-Oct-2018 Instruction Type:Patient Education Patient Instructions Indication:BMI 30.0-30.9,adult Start:06-Oct-2018 Instruction Type:Provider Instructions for Treatment [facility]; [facility] Work Phone: Instructions* Name Dates Details Patient Instructions Indication:BMI 31.0-31.9,adult Start:09-Aug-2022 Instruction Type:Provider Instructions for Treatment How to Access Health Informa tion Online using Patient Portal and [employer] Indication:BMI 31.0-31.9,adult Start:09-Aug-2022 Instruction Type:Patient Education Patient Instructions Indication:BMI 29.0-29.9,adult Start:25-Apr-2022 Instruction Type:Provider Instructions for Treatment How to Access Health Informa tion Online using Patient Portal and [employer] Indication:BMI 29.0-29.9,adult Start:25-Apr-2022 Instruction Type:Patient Education Patient Instructions Indication:BMI 29.0-29.9,adult Start:11-Jul-2021 Instruction Type:Provider Instructions for Treatment How to Access Health Informa tion Online using Patient Portal and 3rd [employer] Apps Indication:BMI 29.0-29.9,adult Start:11-Jul-2021 Instruction Type:Patient Education How to access health informa tion online Indication:Nonsmoker Start:07-Jul-2020 Instruction Type:Patient Education How to access health informa tion online - Detail Indication:Nonsmoker Start:07-Jul-2020 Instruction Type:Patient Education Patient Instructions Indication:Nonsmoker Start:07-Jul-2020 Instruction Type:Provider Instructions for Treatment How to access health informa tion online Indication:Nonsmoker Start:16-Jun-2019 Instruction Type:Patient Education How to access health informa tion online - Detail Indication:Nonsmoker Start:16-Jun-2019 Instruction Type:Patient Education Patient Instructions Indication:Nonsmoker Start:16-Jun-2019 Instruction Type:Provider Instructions for Treatment How to access health informa tion online Indication:Nonsmoker Start:21-Oct-2018 Instruction Type:Patient Education How to access health informa tion online - Detail Indication:Nonsmoker Start:21-Oct-2018 Instruction Type:Patient Education Patient Instructions Indication:Nonsmoker Start:21-Oct-2018 Instruction Type:Provider Instructions for Treatment How to access health informa tion online Indication:Nonsmoker Start:06-Oct-2018 Instruction Type:Patient Education How to access health informa tion online - Detail Indication:Nonsmoker Start:06-Oct-2018 Instruction Type:Patient Education Patient Instructions Indication:BMI 30.0-30.9,adult Start:06-Oct-2018 Instruction Type:Provider Instructions for Treatment [facility] Work Phone: Instructions* Name Dates Details Patient Instructions Indication:BMI 31.0-31.9,adult Start:09-Aug-2022 Instruction Type:Provider Instructions for Treatment How to Access Health Informa tion Online using Patient Portal and 3rd [employer] Apps Indication:BMI 31.0-31.9,adult Start:09-Aug-2022 Instruction Type:Patient Education Patient Instructions Indication:BMI 29.0-29.9,adult Start:25-Apr-2022 Instruction Type:Provider Instructions for Treatment How to Access Health Informa tion Online using Patient Portal and 3rd [employer] Apps Indication:BMI 29.0-29.9,adult Start:25-Apr-2022 Instruction Type:Patient Education Patient Instructions Indication:BMI 29.0-29.9,adult Start:11-Jul-2021 Instruction Type:Provider Instructions for Treatment How to Access Health Informa tion Online using Patient Portal and 3rd [employer] Apps Indication:BMI 29.0-29.9,adult Start:11-Jul-2021 Instruction Type:Patient Education How to access health informa tion online Indication:Nonsmoker Start:07-Jul-2020 Instruction Type:Patient Education How to access health informa tion online - Detail Indication:Nonsmoker Start:07-Jul-2020 Instruction Type:Patient Education Patient Instructions Indication:Nonsmoker Start:07-Jul-2020 Instruction Type:Provider Instructions for Treatment How to access health informa tion online Indication:Nonsmoker Start:16-Jun-2019 Instruction Type:Patient Education How to access health informa tion online - Detail Indication:Nonsmoker Start:16-Jun-2019 Instruction Type:Patient Education Patient Instructions Indication:Nonsmoker Start:16-Jun-2019 Instruction Type:Provider Instructions for Treatment How to access health informa tion online Indication:Nonsmoker Start:21-Oct-2018 Instruction Type:Patient Education How to access health informa tion online - Detail Indication:Nonsmoker Start:21-Oct-2018 Instruction Type:Patient Education Patient Instructions Indication:Nonsmoker Start:21-Oct-2018 Instruction Type:Provider Instructions for Treatment How to access health informa tion online Indication:Nonsmoker Start:06-Oct-2018 Instruction Type:Patient Education How to access health informa tion online - Detail Indication:Nonsmoker Start:06-Oct-2018 Instruction Type:Patient Education Patient Instructions Indication:BMI 30.0-30.9,adult Start:06-Oct-2018 Instruction Type:Provider Instructions for Treatment [facility] Work Phone: Instructions* Name Dates Details Patient Instructions Indication:BMI 31.0-31.9,adult Start:28-Aug-2022 Instruction Type:Provider Instructions for Treatment How to Access Health Informa tion Online using Patient Portal and 3rd [employer] Apps Indication:BMI 31.0-31.9,adult Start:28-Aug-2022 Instruction Type:Patient Education Patient Instructions Indication:BMI 31.0-31.9,adult Start:09-Aug-2022 Instruction Type:Provider Instructions for Treatment How to Access Health Informa tion Online using Patient Portal and 3rd [employer] Apps Indication:BMI 31.0-31.9,adult Start:09-Aug-2022 Instruction Type:Patient Education Patient Instructions Indication:BMI 29.0-29.9,adult Start:25-Apr-2022 Instruction Type:Provider Instructions for Treatment How to Access Health Informa tion Online using Patient Portal and 3rd [employer] Apps Indication:BMI 29.0-29.9,adult Start:25-Apr-2022 Instruction Type:Patient Education Patient Instructions Indication:BMI 29.0-29.9,adult Start:11-Jul-2021 Instruction Type:Provider Instructions for Treatment How to Access Health Informa tion Online using Patient Portal and 3rd [employer] Apps Indication:BMI 29.0-29.9,adult Start:11-Jul-2021 Instruction Type:Patient Education How to access health informa tion online Indication:Nonsmoker Start:07-Jul-2020 Instruction Type:Patient Education How to access health informa tion online - Detail Indication:Nonsmoker Start:07-Jul-2020 Instruction Type:Patient Education Patient Instructions Indication:Nonsmoker Start:07-Jul-2020 Instruction Type:Provider Instructions for Treatment How to access health informa tion online Indication:Nonsmoker Start:16-Jun-2019 Instruction Type:Patient Education How to access health informa tion online - Detail Indication:Nonsmoker Start:16-Jun-2019 Instruction Type:Patient Education Patient Instructions Indication:Nonsmoker Start:16-Jun-2019 Instruction Type:Provider Instructions for Treatment How to access health informa tion online Indication:Nonsmoker Start:21-Oct-2018 Instruction Type:Patient Education How to access health informa tion online - Detail Indication:Nonsmoker Start:21-Oct-2018 Instruction Type:Patient Education Patient Instructions Indication:Nonsmoker Start:21-Oct-2018 Instruction Type:Provider Instructions for Treatment How to access health informa tion online Indication:Nonsmoker Start:06-Oct-2018 Instruction Type:Patient Education How to access health informa tion online - Detail Indication:Nonsmoker Start:06-Oct-2018 Instruction Type:Patient Education Patient Instructions Indication:BMI 30.0-30.9,adult Start:06-Oct-2018 Instruction Type:Provider Instructions for Treatment [facility] Work Phone: Instructions* Name Dates Details Patient Instructions Indication:Nonsmoker Start:26-Feb-2023 Instruction Type:Provider Instructions for Treatment How to Access Health Informa tion Online using Patient Portal and 3rd [employer] Apps Indication:Nonsmoker Start:26-Feb-2023 Instruction Type:Patient Education Patient Instructions Indication:BMI 31.0-31.9,adult Start:28-Aug-2022 Instruction Type:Provider Instructions for Treatment How to Access Health Informa tion Online using Patient Portal and 3rd [employer] Apps Indication:BMI 31.0-31.9,adult Start:28-Aug-2022 Instruction Type:Patient Education Patient Instructions Indication:BMI 31.0-31.9,adult Start:09-Aug-2022 Instruction Type:Provider Instructions for Treatment How to Access Health Informa tion Online using Patient Portal and 3rd [employer] Apps Indication:BMI 31.0-31.9,adult Start:09-Aug-2022 Instruction Type:Patient Education Patient Instructions Indication:BMI 29.0-29.9,adult Start:25-Apr-2022 Instruction Type:Provider Instructions for Treatment How to Access Health Informa tion Online using Patient Portal and 3rd [employer] Apps Indication:BMI 29.0-29.9,adult Start:25-Apr-2022 Instruction Type:Patient Education Patient Instructions Indication:BMI 29.0-29.9,adult Start:11-Jul-2021 Instruction Type:Provider Instructions for Treatment How to Access Health Informa tion Online using Patient Portal and 3rd [employer] Apps Indication:BMI 29.0-29.9,adult Start:11-Jul-2021 Instruction Type:Patient Education How to access health informa tion online Indication:Nonsmoker Start:07-Jul-2020 Instruction Type:Patient Education How to access health informa tion online - Detail Indication:Nonsmoker Start:07-Jul-2020 Instruction Type:Patient Education Patient Instructions Indication:Nonsmoker Start:07-Jul-2020 Instruction Type:Provider Instructions for Treatment How to access health informa tion online Indication:Nonsmoker Start:16-Jun-2019 Instruction Type:Patient Education How to access health informa tion online - Detail Indication:Nonsmoker Start:16-Jun-2019 Instruction Type:Patient Education Patient Instructions Indication:Nonsmoker Start:16-Jun-2019 Instruction Type:Provider Instructions for Treatment How to access health informa tion online Indication:Nonsmoker Start:21-Oct-2018 Instruction Type:Patient Education How to access health informa tion online - Detail Indication:Nonsmoker Start:21-Oct-2018 Instruction Type:Patient Education Patient Instructions Indication:Nonsmoker Start:21-Oct-2018 Instruction Type:Provider Instructions for Treatment How to access health informa tion online Indication:Nonsmoker Start:06-Oct-2018 Instruction Type:Patient Education How to access health informa tion online - Detail Indication:Nonsmoker Start:06-Oct-2018 Instruction Type:Patient Education Patient Instructions Indication:BMI 30.0-30.9,adult Start:06-Oct-2018 Instruction Type:Provider Instructions for Treatment [facility]; [facility] Work Phone: reason for referral (narrative)No reason for referral information availableWAvita [facility] Work Phone: Family History No Family History Records FoundUnknown Family Member Name Dates Details Father Status:Active Maternal Grandfather Comments:cancer (stomach), c hewed tobacco Status:Active Maternal Grandmother Comments:hypothyroid Status:Active Mother Comments:hypothyroid Status:Active Paternal Grandfather Comments:heart disease, dece ased at 47 Status:Active Paternal Grandmother Status:Active Unknown Family Member Name Dates Details Father Status:Active Maternal Grandfather Comments:cancer (stomach), c hewed tobacco Status:Active Maternal Grandmother Comments:hypothyroid Status:Active Mother Comments:hypothyroid Status:Active Paternal Grandfather Comments:heart disease, dece ased at 47 Status:Active Paternal Grandmother Status:Active Unknown Family Member Name Dates Details Father Status:Active Maternal Grandfather Comments:cancer (stomach), c hewed tobacco Status:Active Maternal Grandmother Comments:hypothyroid Status:Active Mother Comments:hypothyroid Status:Active Paternal Grandfather Comments:heart disease, dece ased at 47 Status:Active Paternal Grandmother Status:Active Unknown Family Member Name Dates Details Father Status:Active Maternal Grandfather Comments:cancer (stomach), c hewed tobacco Status:Active Maternal Grandmother Comments:hypothyroid Status:Active Mother Comments:hypothyroid Status:Active Paternal Grandfather Comments:heart disease, dece ased at 47 Status:Active Paternal Grandmother Status:Active Unknown Family Member Name Dates Details Father Status:Active Maternal Grandfather Comments:cancer (stomach), c hewed tobacco Status:Active Maternal Grandmother Comments:hypothyroid Status:Active Mother Comments:hypothyroid Status:Active Paternal Grandfather Comments:heart disease, dece ased at 47 Status:Active Paternal Grandmother Status:Active Unknown Family Member Name Dates Details Father Status:Active Maternal Grandfather Comments:cancer (stomach), c hewed tobacco Status:Active Maternal Grandmother Comments:hypothyroid Status:Active Mother Comments:hypothyroid Status:Active Paternal Grandfather Comments:heart disease, dece ased at 47 Status:Active Paternal Grandmother Status:Active Unknown Family Member Name Dates Details Father Status:Active Maternal Grandfather Comments:cancer (stomach), c hewed tobacco Status:Active Maternal Grandmother Comments:hypothyroid Status:Active Mother Comments:hypothyroid Status:Active Paternal Grandfather Comments:heart disease, dece ased at 47 Status:Active Paternal Grandmother Status:Active Unknown Family Member Name Dates Details Father Status:Active Maternal Grandfather Comments:cancer (stomach), c hewed tobacco Status:Active Maternal Grandmother Comments:hypothyroid Status:Active Mother Comments:hypothyroid Status:Active Paternal Grandfather Comments:heart disease, dece ased at 47 Status:Active Paternal Grandmother Status:Active Unknown Family Member Name Dates Details Father Status:Active Maternal Grandfather Comments:cancer (stomach), c hewed tobacco Status:Active Maternal Grandmother Comments:hypothyroid Status:Active Mother Comments:hypothyroid Status:Active Paternal Grandfather Comments:heart disease, dece ased at 47 Status:Active Paternal Grandmother Status:Active Unknown Family Member Name Dates Details Father Status:Active Maternal Grandfather Comments:cancer (stomach), c hewed tobacco Status:Active Maternal Grandmother Comments:hypothyroid Status:Active Mother Comments:hypothyroid Status:Active Paternal Grandfather Comments:heart disease, dece ased at 47 Status:Active Paternal Grandmother Status:Active Relationship Condition Age at Onset Recorded Date/T mona Not Specified Malignant melanoma Unknown Sudden cardiac Unknown Myocardial infarction Unknown Malignant neoplasm of breast Unknown Disorder of thyroid Unknown Unknown Family Member Name Dates Details Father Status:Active Maternal Grandfather Comments:cancer (stomach), c hewed tobacco Status:Active Maternal Grandmother Comments:hypothyroid Status:Active Mother Comments:hypothyroid Status:Active Paternal Grandfather Comments:heart disease, dece ased at 47 Status:Active Paternal Grandmother Status:Active Relationship Condition Age at Onset Recorded Date/T mona Not Specified Malignant melanoma Unknown Sudden cardiac Unknown Myocardial infarction Unknown Malignant neoplasm of breast Unknown Disorder of thyroid Unknown sister Polyp of colon Unknown Unknown Family Member Name Dates Details Father Status:Active Maternal Grandfather Comments:cancer (stomach), c hewed tobacco Status:Active Maternal Grandmother Comments:hypothyroid Status:Active Mother Comments:hypothyroid Status:Active Paternal Grandfather Comments:heart disease, dece ased at 47 Status:Active Paternal Grandmother Status:Active Unknown Family Member Name Dates Details Father Status:Active Maternal Grandfather Comments:cancer (stomach), c hewed tobacco Status:Active Maternal Grandmother Comments:hypothyroid Status:Active Mother Comments:hypothyroid Status:Active Paternal Grandfather Comments:heart disease, dece ased at 47 Status:Active Paternal Grandmother Status:Active Unknown Family Member Name Dates Details Father Status:Active Maternal Grandfather Comments:cancer (stomach), c hewed tobacco Status:Active Maternal Grandmother Comments:hypothyroid Status:Active Mother Comments:hypothyroid Status:Active Paternal Grandfather Comments:heart disease, dece ased at 47 Status:Active Paternal Grandmother Status:Active Unknown Family Member Name Dates Details Father Status:Active Maternal Grandfather Comments:cancer (stomach), c hewed tobacco Status:Active Maternal Grandmother Comments:hypothyroid Status:Active Mother Comments:hypothyroid Status:Active Paternal Grandfather Comments:heart disease, dece ased at 47 Status:Active Paternal Grandmother Status:Active Instructions Name Dates Details Nonsmoker : How to access he alth information online Indication:Nonsmoker Nonsmoker : How to access he alth information online - Detail Indication:Nonsmoker BMI 30.0-30.9,adult : Patien t Instructions Indication:BMI 30.0-30.9,adult Name Dates Details Nonsmoker : How to access he alth information online Indication:Nonsmoker Nonsmoker : How to access he alth information online - Detail Indication:Nonsmoker Nonsmoker : Patient Instruct ions Indication:Nonsmoker BMI 30.0-30.9,adult : Patien t Instructions Indication:BMI 30.0-30.9,adult Name Dates Details How to access health informa tion online Indication:Nonsmoker Start:16-Jun-2019 Instruction Type:Patient Education How to access health informa tion online - Detail Indication:Nonsmoker Start:16-Jun-2019 Instruction Type:Patient Education Patient Instructions Indication:Nonsmoker Start:16-Jun-2019 Instruction Type:Provider Instructions for Treatment How to access health informa tion online Indication:Nonsmoker Start:21-Oct-2018 Instruction Type:Patient Education How to access health informa tion online - Detail Indication:Nonsmoker Start:21-Oct-2018 Instruction Type:Patient Education Patient Instructions Indication:Nonsmoker Start:21-Oct-2018 Instruction Type:Provider Instructions for Treatment How to access health informa tion online Indication:Nonsmoker Start:06-Oct-2018 Instruction Type:Patient Education How to access health informa tion online - Detail Indication:Nonsmoker Start:06-Oct-2018 Instruction Type:Patient Education Patient Instructions Indication:BMI 30.0-30.9,adult Start:06-Oct-2018 Instruction Type:Provider Instructions for Treatment Name Dates Details How to access health informa tion online Indication:Nonsmoker Start:07-Jul-2020 Instruction Type:Patient Education How to access health informa tion online - Detail Indication:Nonsmoker Start:07-Jul-2020 Instruction Type:Patient Education Patient Instructions Indication:Nonsmoker Start:07-Jul-2020 Instruction Type:Provider Instructions for Treatment How to access health informa tion online Indication:Nonsmoker Start:16-Jun-2019 Instruction Type:Patient Education How to access health informa tion online - Detail Indication:Nonsmoker Start:16-Jun-2019 Instruction Type:Patient Education Patient Instructions Indication:Nonsmoker Start:16-Jun-2019 Instruction Type:Provider Instructions for Treatment How to access health informa tion online Indication:Nonsmoker Start:21-Oct-2018 Instruction Type:Patient Education How to access health informa tion online - Detail Indication:Nonsmoker Start:21-Oct-2018 Instruction Type:Patient Education Patient Instructions Indication:Nonsmoker Start:21-Oct-2018 Instruction Type:Provider Instructions for Treatment How to access health informa tion online Indication:Nonsmoker Start:06-Oct-2018 Instruction Type:Patient Education How to access health informa tion online - Detail Indication:Nonsmoker Start:06-Oct-2018 Instruction Type:Patient Education Patient Instructions Indication:BMI 30.0-30.9,adult Start:06-Oct-2018 Instruction Type:Provider Instructions for Treatment Name Dates Details How to access health informa tion online Indication:Nonsmoker Start:07-Jul-2020 Instruction Type:Patient Education How to access health informa tion online - Detail Indication:Nonsmoker Start:07-Jul-2020 Instruction Type:Patient Education Patient Instructions Indication:Nonsmoker Start:07-Jul-2020 Instruction Type:Provider Instructions for Treatment How to access health informa tion online Indication:Nonsmoker Start:16-Jun-2019 Instruction Type:Patient Education How to access health informa tion online - Detail Indication:Nonsmoker Start:16-Jun-2019 Instruction Type:Patient Education Patient Instructions Indication:Nonsmoker Start:16-Jun-2019 Instruction Type:Provider Instructions for Treatment How to access health informa tion online Indication:Nonsmoker Start:21-Oct-2018 Instruction Type:Patient Education How to access health informa tion online - Detail Indication:Nonsmoker Start:21-Oct-2018 Instruction Type:Patient Education Patient Instructions Indication:Nonsmoker Start:21-Oct-2018 Instruction Type:Provider Instructions for Treatment How to access health informa tion online Indication:Nonsmoker Start:06-Oct-2018 Instruction Type:Patient Education How to access health informa tion online - Detail Indication:Nonsmoker Start:06-Oct-2018 Instruction Type:Patient Education Patient Instructions Indication:BMI 30.0-30.9,adult Start:06-Oct-2018 Instruction Type:Provider Instructions for Treatment Name Dates Details How to access health informa tion online Indication:Nonsmoker Start:16-Jun-2019 Instruction Type:Patient Education How to access health informa tion online - Detail Indication:Nonsmoker Start:16-Jun-2019 Instruction Type:Patient Education Patient Instructions Indication:Nonsmoker Start:16-Jun-2019 Instruction Type:Provider Instructions for Treatment How to access health informa tion online Indication:Nonsmoker Start:21-Oct-2018 Instruction Type:Patient Education How to access health informa tion online - Detail Indication:Nonsmoker Start:21-Oct-2018 Instruction Type:Patient Education Patient Instructions Indication:Nonsmoker Start:21-Oct-2018 Instruction Type:Provider Instructions for Treatment How to access health informa tion online Indication:Nonsmoker Start:06-Oct-2018 Instruction Type:Patient Education How to access health informa tion online - Detail Indication:Nonsmoker Start:06-Oct-2018 Instruction Type:Patient Education Patient Instructions Indication:BMI 30.0-30.9,adult Start:06-Oct-2018 Instruction Type:Provider Instructions for Treatment Name Dates Details How to access health informa tion online Indication:Nonsmoker Start:16-Jun-2019 Instruction Type:Patient Education How to access health informa tion online - Detail Indication:Nonsmoker Start:16-Jun-2019 Instruction Type:Patient Education Patient Instructions Indication:Nonsmoker Start:16-Jun-2019 Instruction Type:Provider Instructions for Treatment How to access health informa tion online Indication:Nonsmoker Start:21-Oct-2018 Instruction Type:Patient Education How to access health informa tion online - Detail Indication:Nonsmoker Start:21-Oct-2018 Instruction Type:Patient Education Patient Instructions Indication:Nonsmoker Start:21-Oct-2018 Instruction Type:Provider Instructions for Treatment How to access health informa tion online Indication:Nonsmoker Start:06-Oct-2018 Instruction Type:Patient Education How to access health informa tion online - Detail Indication:Nonsmoker Start:06-Oct-2018 Instruction Type:Patient Education Patient Instructions Indication:BMI 30.0-30.9,adult Start:06-Oct-2018 Instruction Type:Provider Instructions for Treatment Advance Directives No Advanced Directives Records Found Name Dates Details Immunization Registry [place] - Effective on 10/06/2018. Expiration date unspecified Effective:06-Oct-2018 Name Dates Details Immunization Registry [place] - Effective on 10/06/2018. Expiration date unspecified Effective:06-Oct-2018 Name Dates Details Immunization Registry [place] - Effective on 10/06/2018. Expiration date unspecified Effective:06-Oct-2018 Name Dates Details Immunization Registry [place] - Effective on 10/06/2018. Expiration date unspecified Effective:06-Oct-2018 Name Dates Details Immunization Registry [place] - Effective on 10/06/2018. Expiration date unspecified Effective:06-Oct-2018 Name Dates Details Immunization Registry [place] - Effective on 10/06/2018. Expiration date unspecified Effective:06-Oct-2018 Name Dates Details Immunization Registry [place] - Effective on 10/06/2018. Expiration date unspecified Effective:06-Oct-2018 Name Dates Details Immunization Registry [place] - Effective on 10/06/2018. Expiration date unspecified Effective:06-Oct-2018 Name Dates Details Immunization Registry [place] - Effective on 10/06/2018. Expiration date unspecified Effective:06-Oct-2018 Advance Directive Response Recorded Date/ Time Living Will No June 26 2 12:40pm Power of Guide Dog Instructor No June 26 022 12:40pm Name Dates Details Immunization Registry [place] - Effective on 10/06/2018. Expiration date unspecified Effective:06-Oct-2018 Name Dates Details Immunization Registry [place] - Effective on 10/06/2018. Expiration date unspecified Effective:06-Oct-2018 Advance Directive Response Recorded Date/ Time Living Will No August 16 8:14am Power of Guide Dog Instructor No August 16, 2022 8:14am Name Dates Details Immunization Registry [place] - Effective on 10/06/2018. Expiration date unspecified Effective:06-Oct-2018 Advance Directive Response Recorded Date/ Time Living Will No August 16 7:14am Power of Guide Dog Instructor No August 16, 2022 7:14am Name Dates Details Immunization Registry [place] - Effective on 10/06/2018. Expiration date unspecified Effective:06-Oct-2018 Summary Purpose Chief Complaint and Reason for Visit Chief Complaint Adjustment UPPER/LBP SP [facility]-COVID 19 REQUIRED TESTING LEFT ELBOW [facility]-COVID 19 REQUIRED TESTING LT LATERAL EPICONDYLITIS. RX HERE [facility]-COVID 19 REQUIRED TESTING Reason for Visit Piriformis syndrome of right side Segmental and somatic dysfunction of cervical region Segmental and somatic dysfunction of lumbar region Segmental and somatic dysfunction of pelvic region Segmental and somatic dysfunction of thoracic region Segmental and somatic dysfunction of cervical region Segmental and somatic dysfunction of lumbar region Segmental and somatic dysfunction of pelvic region Segmental and somatic dysfunction of thoracic region Left lateral epicondylitis Chief Complaint Adjustment UPPER/LBP SP [facility]-COVID 19 REQUIRED TESTING LEFT ELBOW [facility]-COVID 19 REQUIRED TESTING [facility]-COVID 19 REQUIRED TESTING LT LATERAL EPICONDYLITIS. RX HERE Reason for Visit Piriformis syndrome of right side Segmental and somatic dysfunction of cervical region Segmental and somatic dysfunction of lumbar region Segmental and somatic dysfunction of pelvic region Segmental and somatic dysfunction of thoracic region Segmental and somatic dysfunction of cervical region Segmental and somatic dysfunction of lumbar region Segmental and somatic dysfunction of pelvic region Segmental and somatic dysfunction of thoracic region Left lateral epicondylitis Chief Complaint SP [facility]-COVID 19 REQUIRED TESTING LEFT ELBOW [facility]-COVID 19 REQUIRED TESTING [facility]-COVID 19 REQUIRED TESTING LT LATERAL EPICONDYLITIS. RX HERE Reason for Visit Left lateral epicond ylitis Chief Complaint LEFT ELBOW [facility]-COVID 19 REQUIRED TESTING [facility]-COVID 19 REQUIRED TESTING LT LATERAL EPICONDYLITIS. RX HERE PCR COVID/[facility] EMP PCR COVID/SYMPTOMATIC/[facility] EMP Reason for Visit Left lateral epicond ylitis COVID-19 Chief Complaint [facility]-COVID 19 REQ UIRED TESTING LT LATERAL EPICONDYLITIS. 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 Reason for Visit COVID-19 Encounter for screening for malignant neoplasm of colon Chief Complaint Genetic susceptibili ty to malignant neoplasm of br Reason for Visit Encounter for screen ing for malignant neoplasm of colon Chief Complaint LEFT ELBOW Room 1 LEFT ELBOW LEFT LATERAL EPICONDYLITIS / RX HERE Reason for Visit Left lateral epicond ylitis Left lateral epicondylitis Chief Complaint LEFT ELBOW Room 1 LEFT ELBOW LEFT LATERAL EPICONDYLITIS / RX HERE SCREENING/POST NICOLE Reason for Visit Left lateral epicond ylitis Left lateral epicondylitis Chief Complaint LEFT ELBOW Room 1 LEFT ELBOW LEFT LATERAL EPICONDYLITIS / RX HERE SCREENING/POST NICOLE LEFT LATERAL EPICONDYLITIS / RX HERE Reason for Visit Left lateral epicond ylitis Left lateral epicondylitis Chief Complaint LEFT ELBOW Room 1 LEFT ELBOW LEFT LATERAL EPICONDYLITIS / RX HERE SCREENING/POST NICOLE LEFT LATERAL EPICONDYLITIS / RX HERE SCREENING Reason for Visit Left lateral epicond ylitis Left lateral epicondylitis Chief Complaint LEFT ELBOW LEFT LATERAL EPICONDYLITIS / RX HERE SCREENING/POST NICOLE SCREENING LEFT LATERAL EPICONDYLITIS / RX HERE WITNESSED APNEA Reason for Visit Left lateral epicond ylitis Chief Complaint LEFT LATERAL EPICOND YLITIS / RX HERE LEFT ELBOW left elbow Reason for Visit Left lateral epicond ylitis Left lateral epicondylitis Chief Complaint LEFT ELBOW left elbow Sleep problems Reason for Visit Left lateral epicond ylitis Left lateral epicondylitis MAHAD (obstructive sleep apnea) Obesity Chief Complaint LEFT ELBOW left elbow Sleep problems MENOPAUSAL Reason for Visit Left lateral epicond ylitis Left lateral epicondylitis MAHAD (obstructive sleep apnea) Obesity Chief Complaint left elbow Sleep problems MENOPAUSAL NONTOXIC SINGLE THYROID NODULE Reason for Visit Left lateral epicond ylitis MAHAD (obstructive sleep apnea) Obesity Chief Complaint Sleep problems MENOPAUSAL NONTOXIC SINGLE THYROID NODULE Reason for Visit MAHAD (obstructive sle ep apnea) Obesity Chief Complaint MENOPAUSAL NONTOXIC SINGLE THYROID NODULE Additional Source Comments INFORMATION SOURCE (unrecogn ized section and content) DATE CREATED AUTHOR 06/03/2021 [facility] [place] DATE CREATED AUTHOR AUTHOR'S ORGANIZ ATION 08/29/2022 [facility] DATE CREATED AUTHOR AUTHOR'S ORGANIZ ATION 04/19/2025 [facility] Care Teams (unrecognized sec tion and content) Team Status: Active Member Role Status Dates Dr. Jes Spicer DO Family Provider Active Dr. Jes Spicer DO Primary Care Provider Active Team Status: Inactive Member Role Status Dates Dr. Jes Spicer DO Primary Care Provider, Referr ing Provider Active Dr. Jung Gudino DO Attending Provider Active Team Status: Inactive Member Role Status Dates Dr. Jes Spicer DO Primary Care Provider Active Dr. Cole Hodgson MD Attending Provider Active Team Status: Active Member Role Status Dates Dr. Jes Spicer DO Primary Care Provider Active Dr. Daljit Patrick MD Attending Provider Active Team Status: Active Member Role Status Dates Dr. Jes Spicer DO Primary Care Provider Active Dr. Jung Gudino DO Attending Provider, Referring Provider Active Team Status: Inactive Member Role Status Dates Dr. Jes Spicer DO Primary Care Provider Active Dr. Garrett Lind MD Attending Provider Active Team Status: Active Member Role Status Dates Dr. Jes Spicer DO Primary Care Provider Active Dr. Garrett Lind MD Attending Provider, Referring Pr ovider Active Team Status: Inactive Member Role Status Dates Dr. Jes Spicer DO Primary Care Provider, Attend ing Provider Active Team Status: Active Member Role Status Dates Dr. Jes Spicer DO Primary Care Provider Active Dr. Cynthia Franklin MD Attending Provider Active Team Status: Inactive Member Role Status Dates Dr. Jes Spicer DO Primary Care Provider Active Dr. Cynthia Franklin MD Attending Provider Active Team Status: Inactive Member Role Status Dates Dr. Jes Spicer DO Primary Care Provider Active Dr. Jung Gudino DO Attending Provider, Referring Provider Active Team Status: Active Member Role Status Dates Dr. Jes Spicer DO Primary Care Provider Active Self Referred Attending Provider, Referring Provider A ctive Team Status: Inactive Member Role Status Dates Dr. Jes Spicer DO Primary Care Provider Active Dr. Garrett Lind MD Attending Provider, Referring Pr ovider Active Team Status: Inactive Member Role Status Dates Dr. Jes Spicer DO Primary Care Provider Active Dr. Cynthia Franklin MD Attending Provider, Refer ring Provider Active Team Status: Inactive Member Role Status Dates Dr. Jes Spicer DO Primary Care Pr ovider, Attending Provider, Referring Provider Active Team Status: Active Member Role Status Dates Dr. Jes Spicer DO Primary Care Provider Active Dr. Garrett Lind MD Attending Provider Active Team Status: Inactive Member Role Status Dates Dr. Jes Spicer DO Primary Care Provider Active Self Referred Attending Provider, Referring Provider A ctive Team Status: Inactive Member Role Status Dates Dr. Jes Spicer DO Primary Care Provider, Referr ing Provider Active Gabrielle Vargas AUDIO PRODUCTION MANAGER, AUDIO PRODUCTION MANAGER-C Attending Provider Active Team Status: Inactive Member Role Status Dates Dr. Jes Spicer DO Primary Care Provider Active Start: January 12, 2025 End: January 12, 2025 Dr. Jes Spicer DO Attending Provider Active Start: January 12, 2025 End: January 12, 2025 Dr. Jes Spicer DO Referring Provider Active Start: January 12, 2025 End: January 12, 2025 FOR RECORDS PERTAINING TO PATIENTS WHO ARE OR HAVE BEEN ENROLLED IN A CHEMICAL DEPENDENCY/SUBSTANCEABUSE PROGRAM, SOME INFORMATION MAY BE OMITTED. This clinical summary was aggregated from multiple sources. Caution should be exercised in using it in the provision of clinical care. This summary normalizes information from multiple sources, and as a consequence, information in this document may materially change the coding, format and clinical context of patient data. In addition, data may be omitted in some cases. CLINICAL DECISIONS SHOULD BE BASED ON THE PRIMARY CLINICAL RECORDS. [employer] provides no warranty or guarantee of the accuracy or completeness of information in this document.
== END | disposition home or self-care (01) ==
LOC: OPBI 07:43
PROVIDERS: PCP Internal Medicine; Referring Provider Internal Medicine; Visit Provider Internal Medicine
DX: Z12.31 Encounter for screening mammogram for malignant neoplasm of breast (principal)
CPT/HCPCS: 77063; 77067

== ENCOUNTER → 2025-05-18 | Outpatient (CLI) | payer OTHER, SELFPAY ==
[2025-05-18 08:28] LABS: Hematocrit 39.6 % (37-47); Hemoglobin 13.4 g/dL (12.0-15.0); Immature Granulocytes Count 0.010 X10^3/uL (0.0-0.0); Mean Corp Hgb Conc 33.8 g/dL (32-36); Mean Corpuscular Volume 96.6 fL (81-99); Mean Platelet Vol. 10.5 fl (6.2-12.0); NRBC Flagged by Analyzer 0 % (0-5); Platelet Count 314 K/mm3 (150-450); RBC Distribution Width CV 12.6 % (11.6-14.6); RBC Distribution Width SD 44.8 fl (35.1-43.9); Red Blood Count 4.10 M/mm3 (4.2-5.4); White Blood Count 4.9 K/mm3 (4.4-11.0)
[2025-05-18 09:16] LABS: AST(SGOT) 21 U/L (<=31); Alanine Aminotransfer ALT/SGPT 16 U/L (<=34); Albumin, Serum 4.0 g/dL (3.4-4.8); Alkaline Phosphatase 57 U/L (35-104); Anion Gap 11 (5-15); BUN 19 mg/dL (4-19); BUN/Creat Ratio 21.6 RATIO (10-20); Calcium,Total 9.0 mg/dL (7.6-11.0); Carbon Dioxide 22.5 mmol/L (21.0-32.0); Chloride 104 mmol/L (98-108); Cholesterol 200 mg/dL (<=200); Globulin 2.9 g/dL (2.2-4.2); Glucose 98 mg/dL (70-99); Low Density Lipoprotein Calc. 138 mg/dL; Potassium 4.3 mmol/L (3.3-5.1); Triglycerides 98 mg/dL; Very Low Density Lipoprotein 20 mg/dL (5-40); Vitamin D,25 Hydroxy 63.0 ng/mL (30-100); cholesterol:hdl ratio screen 4.69
== END | disposition home or self-care (01) ==
LOC: LAB 07:38
PROVIDERS: PCP Internal Medicine; Referring Provider Internal Medicine; Visit Provider Internal Medicine
DX: E55.9 Vitamin D deficiency, unspecified (principal); R73.9 Hyperglycemia, unspecified; E78.5 Hyperlipidemia, unspecified
CPT/HCPCS: 36415; 80053; 80061; 82306; 83036; 84443; 85025

== ENCOUNTER → 2025-09-20 | Outpatient (CLI) | payer OTHER, SELFPAY ==
--- NOTE | 2025-09-20 12:22 | BD_ITS ---
PROCEDURE: DEXA BONE DENSITY STUDY 09/20/2025 REASON FOR EXAM: F, age 65 y/o . Postmenopausal. TECHNIQUE: Procedure Code: BDDBD Modality: DX Procedure: DEXA BONE DENSITY STUDY COMPARISON: August 22, 2021. FINDINGS: BMD and T-SCORES Lumbar spine: 0.901 g/cm2, T-score -1.3 Levels: L1 through L4 Change from prior: Improvement of 4.2%. Left femoral neck: 0.785 g/cm2, T-score -0.6 Femoral neck comparison data not recommended for monitoring change. Left total hip: 0.917 g/cm2, T-score -0.2 Change from prior: Improvement of 0.8%. Right femoral neck: 0.868 g/cm2, T-score 0.2 Femoral neck comparison data not recommended for monitoring change. Right total hip: 0.932 g/cm2, T-score -0.1 Change from prior: Loss of 0.9%. The World Health Organization has defined the following categories based on bone density: Normal bone density: T-score equal to or greater than -1.0 Osteopenia: T-score between -1.0 and -2.5 Osteoporosis: T-score equal to or less than -2.5 FRAX (or Comparable) Fracture Risk Assessment: 10 Year Probability of Fracture: Major Osteoporotic Fracture: 12th% Hip Fracture: 0.6% (Note: FRAX is not to be reported in setting of normal range bone density, osteoporosis on DEXA, known history of osteoporosis, prior osteoporotic hip or vertebral fracture, or for any patient undergoing pharmacological treatment for bone loss.) The National Osteoporosis Foundation (NOF) recommends pharmacological treatment for patients with a FRAX 10-year risk of 3% or higher for a hip fracture, or 20% or higher for a major osteoporotic fracture, to prevent osteoporosis and reduce fracture risk. The patient does meet the pharmacological treatment recommendations for prevention of osteoporosis. BD/Dexa Bone Density Study IMPRESSION: OSTEOPENIA. Recommend follow-up as clinically warranted. Reading Location: [id number]
== END | disposition home or self-care (01) ==
LOC: OPBD 12:17
PROVIDERS: PCP Internal Medicine; Referring Provider Internal Medicine; Visit Provider Internal Medicine
DX: E04.1 Nontoxic single thyroid nodule (principal); Z78.0 Asymptomatic menopausal state; Z82.49 Family history of ischemic heart disease and other diseases of the circulatory system
CPT/HCPCS: 77080

== ENCOUNTER → 2025-10-18 | Outpatient (CLI) | payer SELFPAY | END | disposition home or self-care (01) | PROVIDERS: PCP Internal Medicine; Referring Provider Internal Medicine; Visit Provider Internal Medicine | DX: E66.09 Other obesity due to excess calories (principal); Z68.30 Body mass index [BMI] 30.0-30.9, adult | CPT/HCPCS: 76499 ==